=== PATIENT | female | born 1945 | race Caucasian/White ===

== ENCOUNTER 2016-04-25 13:55 | Emergency (ER) | payer MEDICARE, MEDICAID ==
[~2016-04-25 13:55] MED LIST: ADVA115A INH; ATOM25CA PO; BACL10TA2 PO; CITA20TA4 PO; CLAR10CA3 PO; FURO20TA2 PO; INSULADS SC; LISI-538 PO; METF500T PO; MOME50SP; NAPR500T2 PO; NEUR300C PO; NEUR600T PO; OXYB10TA PO; RANI1TAB6 PO; SIMV40TA2 PO; VITA-115 PO; VOLT1GEL24 TD; levaquin PO; simvistatin PO; vicodin PO
--- NOTE | 2016-04-25 15:56 | REP ---
Clinical: Chest pain . Comparison: 06/30/2014 . Findings: The mediastinum and cardiac silhouette are stable and within normal limits for portable technique. The lung rosales are clear without acute consolidation, effusion, or pneumothorax. Skeletal structures are intact. Impression: Normal portable chest x-ray Signed by Ilia Fitzpatrick MD 04/25/2016 03:47 P
[2016-04-25 16:01] LABS: BASO # 0.1 K/mm3 (0.0-0.2); EOS # 0.5 K/mm3 (0.0-0.50); EOS % 7.1 % (0.0-3.0); LARGE UNSTAINED CELL # 0.1 K/mm3 (0.0-0.4); LARGE UNSTAINED CELL % 1.5 % (0.0-4.0); LYMPH # 2.6 K/mm3 (1.5-4.5); LYMPH % 33.3 % (24.0-44.0); MEAN CORPUSCULAR HGB CONC 32.2 g/dl (32.0-36.5); MEAN CORPUSCULAR VOLUME 96.4 fl (80.0-96.0); MONO # 0.3 K/mm3 (0.0-0.8); MONO % 4.6 % (0.0-5.0); NEUTROPHILS # 3.9 K/mm3 (1.8-7.7); NEUTROPHILS % 52.5 % (36.0-66.0); PLATELET COUNT, AUTOMATED 240 k/mm3 (150-450); RED CELL DISTRIBUTION WIDTH 13.8 % (11.5-14.5); WHITE BLOOD COUNT 7.4 K/mm3 (4.0-10.0)
[2016-04-25 16:24] LABS: ANION GAP 9 MEQ/L (8-16); BLOOD UREA NITROGEN 13 MG/DL (7-18); CALCIUM LEVEL 8.9 MG/DL (8.8-10.2); CARBON DIOXIDE LEVEL 26 MEQ/L (21-32); CHLORIDE LEVEL 108 MEQ/L (98-107); CREATININE FOR GFR 1.07 MG/DL (0.55-1.02); GLOMERULAR FILTRATION RATE 54.1 (>45); GLUCOSE, FASTING 292 MG/DL (80-110); POTASSIUM SERUM 4.4 MEQ/L (3.5-5.1); SODIUM LEVEL 143 MEQ/L (136-145)
[2016-04-25] MEDS ORDERED: BICILLIN-CR 1,200,000 UNITS/2ML SYRINGE (J0558-12) As Ordered ONE (16:51)
--- NOTE | 2016-04-25 17:20 | EDDOCDS ---
Nurse's Notes [facility] Name: Cristina Dunn Age: 70 yrs Sex: Female : 1945 Arrival Date: 04/25/2016 Time: 13:55 Bed 5 Private MD: Irina Higgins ANP-BC Diagnosis: Acute streptococcal tonsillitis, unspecified Presentation: 04/25 14:14 Presenting complaint: Patient states: sore throat, runny nose ( couple of days). just srm feels offer. cough - non productive. hurts to take a deep breath. Presenting complaint: Patient states: dizziness started today. Risk factors: Stridor is not present. Drooling is not present. Shortness of breath is not present. Cellulitis is not present. Adult Sepsis Screening: The patient does not have new or worsening altered mentation. Patient's respiratory rate is less than 22. Systolic blood pressure is greater than 100. Patient has a qSOFA score of 0- Negative Sepsis Screen. Suicide/Homicide risk assessment- the patient denies having any suicidal and/or homicidal ideations and does not present with any other emotional, behavioral or mental health complaints. Status: Patient is not a health services information specialist or dependent. Transition of care: patient was not received from another setting of care. 14:14 Method Of Arrival: Walkin/Carried/Asstd srm 14:14 Acuity: SILVESTRE Level 4 srm 15:36 Acuity level changed due to complexity of care. kc3 15:36 Acuity: SILVESTRE Level 3 kc3 Triage Assessment: 14:19 General: Appears in no apparent distress, Behavior is appropriate for age, cooperative. srm Pain: Pain currently is 7 out of 10 on a pain scale. EENT: Reports sore throat. Historical: - Allergies: Protonix; - Home Meds: 1. baclofen 10 mg Oral tab 1 tab 3 times per day 2. diclofenac sodium 75 mg oral TbEC 1 tab 2 times per day 3. furosemide 20 mg Oral tab 1 tab once daily 4. Lantus 60 units Sub-Q soln daily 5. lisinopril 20 mg Oral tab 1 tab once daily 6. loratadine 10 mg Oral TbDL 1 tab once daily 7. meclizine 12.5 mg Oral tab TID prn 8. oxybutynin chloride 10 mg Oral tr24 1 tab once daily 9. ranitidine HCl 300 mg Oral cap 1 cap 2 times per day 10. Strattera 40 mg oral cap 1 cap once daily 11. simvastatin 10 mg Oral tab 1 tab once daily 12. fluoxetine 40 mg oral cap once daily 13. gabapentin 400 mg oral cap 2 cap IN AM 14. gabapentin 400 mg oral tab EVENING 15. Flonase 50 mcg/actuation Nasal spsn 1 spray 2 times per day STARTED 04/21/16 16. hydrocodone-acetaminophen 5-325 mg Oral tab 1 tab every 4-6 hours PRN 17. Jardiance 10 mg oral tab 1 tab once daily 18. ProAir HFA 90 mcg/actuation inhalation HFAA 2 puffs every 4-6 hours - PMHx: Anxiety; Asthma; back pain; COPD; Diabetes - IDDM: controlled; GERD; Kidney stones; PTSD; Vertigo; Ear Infections, frequent; - PSHx: back surgery; left oopherectomy salpingectomy; left tendon surgery; - Social history: Smoking status: Patient states was never smoker of tobacco. No barriers to communication noted, The patient speaks fluent Kazakh, Speaks appropriately for age. - Family history: Not pertinent. - : The pt / caregiver states he / she is not on anticoagulants. Home medication list is obtained from the patient. - Exposure Risk Screening:: None identified. Screenin:24 Screening information is obtained from the patient. Fall risk: No risks identified. kc3 Assistance ADL's: requires no assistance with activities of daily living. Abuse/DV Screen: The patient / caregiver reports he/she is:. Nutritional screening: No deficits noted. Advance Directives: Currently, there is a health care proxy, Naila Garcia, daughter. home support is adequate. Assessment: 15:22 General: Appears in no apparent distress, uncomfortable, Behavior is appropriate for kc3 age, cooperative. Pain: Location: chest and sore throat Pain currently is 7 out of 10 on a pain scale. EENT: Throat is clear. Respiratory: Airway is patent Respiratory effort is even, unlabored, Respiratory pattern is regular, symmetrical. Respiratory: Reports cough that is non-productive. Derm: Skin is pink, warm & dry. Musculoskeletal: Circulation, motion, and sensation intact. 15:29 Cardiovascular: Chest pain is described as Pain is 7 out of 10 on a pain scale. quality kc3 is heaviness, Pt reports pain began "about an hour ago. I think it is from all my coughing." Dr. Anton notified. . 16:14 Adult Sepsis Screening: The patient does not have new or worsening altered mentation. kc3 Patient's respiratory rate is less than 22. Systolic blood pressure is greater than 100. Patient has a qSOFA score of 0- Negative Sepsis Screen. 16:45 General: Appears in no apparent distress, comfortable, Behavior is appropriate for age, kc3 cooperative. Pain: Location: neck. EENT: Reports nasal congestion nasal discharge that is green sore throat. Cardiovascular: Rhythm is sinus rhythm. Respiratory: Respiratory effort is even, unlabored, Respiratory pattern is regular, symmetrical. Derm: No deficits noted. 17:17 General: Appears in no apparent distress, comfortable, Behavior is appropriate for age, kc3 cooperative. Neurological: Level of Consciousness is awake, alert, obeys commands, Oriented to person, place, time. Cardiovascular: Rhythm is sinus rhythm. Respiratory: Respiratory effort is even, unlabored, Respiratory pattern is regular, symmetrical. Derm: Skin is pink, warm & dry. Musculoskeletal: Circulation, motion, and sensation intact. Vital Signs: 13:58 BP 138 / 65; Pulse 76; Resp 18 S; Temp 98.0(O); Pulse Ox 96% on R/A; Weight 104.33 kg gr2 (R); Height 5 ft. 5 in. (165.10 cm) (R); Pain 2/10; 15:36 BP 125 / 57 (auto/); kc3 15:36 Pulse 66 MON; Pulse Ox 96% ; kc3 17:18 BP 138 / 77; Pulse 64; Resp 18; Temp 97.1(O); Pulse Ox 97% on R/A; kc3 13:58 Body Mass Index 38.27 (104.33 kg, 165.10 cm) gr2 Vitals: 13:58 Log In Time: April 25, 2016 at 13:58. gr2 15:46 Strep Screen is obtained and tested: Positive. nb2 ED Course: 13:57 Patient visited by Ronda Padilla. gr2 13:57 Patient moved to Waiting gr2 13:58 Irina Higgins is Private Physician. gr2 13:59 Patient visited by Ronda Padilla. gr2 13:59 Patient moved to Pre RCE gr2 14:15 Triage Initiated srm 14:43 Mylene Castro,RN is Primary Nurse. ct3 14:43 Patient moved to 5 ct3 15:15 Judy Anton MD is Attending Physician. fg 15:22 Patient visited by Mylene Castro RN. kc3 15:33 EKG done. (by ED staff). Reviewed by Judy Anton MD. dem1 15:37 tie carrier on. Pulse ox on. NIBP on. dem1 15:38 Patient visited by Heladio Contreras. dem1 15:47 Patient visited by Mary Beth Fernandez. nb2 15:53 Basic Metabolic Profile Sent. kc3 15:53 CBC with Diff Sent. kc3 15:53 Cardiac Injury Profile Sent. kc3 15:53 Troponin Sent. kc3 15:53 Inserted saline lock: 20 gauge in right antecubital area and blood collected. The kc3 patient tolerated the procedure well. 15:54 Patient visited by Mylene Castro RN. kc3 15:54 The patient / caregiver is instructed regarding the plan of care and ED course. kc3 16:10 [facility] [place] Payment Agreement was scanned into [employer] and attached to record. zo 16:20 portable chest Returned. EDMS 16:35 Patient visited by Judy Anton MD. fg 16:44 Irina Higgins is Referral Physician. fg 17:03 Patient visited by Mylene Castro RN. kc3 17:18 Discontinued IV lock intact, bleeding controlled, pressure dressing applied, No kc3 redness/swelling at site. No procedures done that require assistance. Administered Medications: 16:56 Drug: Penicillin G Proc & Benzathine 1.2 mmu [penicillin G benzathine and procaine kc3 1,200,000 unit/2 mL IM syringe (1.2 mmu)] Route: IM; Site: left gluteus; Order Results: Lab Order: Basic Metabolic Profile; SPEC'M 04/25/16 15:40 Test: GLUCOSE, FASTING; Value: 292; Range: 80-110; Abnormal: Above high normal; Units: MG/DL; Status: F Test: BLOOD UREA NITROGEN; Value: 13; Range: 7-18; Units: MG/DL; Status: F Test: CREATININE FOR GFR; Value: 1.07; Range: 0.55-1.02; Abnormal: Above high normal; Units: MG/DL; Status: F Test: GLOMERULAR FILTRATION RATE; Value: 54.1; Range: >45; Status: F Test: SODIUM LEVEL; Value: 143; Range: 136-145; Units: MEQ/L; Status: F Test: POTASSIUM SERUM; Value: 4.4; Range: 3.5-5.1; Units: MEQ/L; Status: F Test: CHLORIDE LEVEL; Value: 108; Range: 98-107; Abnormal: Above high normal; Units: MEQ/L; Status: F Test: CARBON DIOXIDE LEVEL; Value: 26; Range: 21-32; Units: MEQ/L; Status: F Test: ANION GAP; Value: 9; Range: 8-16; Units: MEQ/L; Status: F Test: CALCIUM LEVEL; Value: 8.9; Range: 8.8-10.2; Units: MG/DL; Status: F Test Note: ; Units are mL/min/1.73 m2 Chronic Kidney Disease Staging per NKF: Stage I & II GFR >=60 Normal to Mildly Decreased Stage III GFR 30-59 Moderately Decreased Stage IV GFR 15-29 Severely Decreased Stage V GFR <15 Very Little GFR Left ESRD GFR <15 on INSURANCE CLAIMS ASSISTANT Lab Order: CBC with Diff; SPEC'M 04/25/16 15:40 Test: WHITE BLOOD COUNT; Value: 7.4; Range: 4.0-10.0; Units: K/mm3; Status: F Test: RED BLOOD COUNT; Value: 4.42; Range: 4.00-5.40; Units: M/mm3; Status: F Test: HEMOGLOBIN; Value: 13.7; Range: 12.0-16.0; Units: g/dl; Status: F Test: HEMATOCRIT; Value: 42.6; Range: 36.0-47.0; Units: %; Status: F Test: MEAN CORPUSCULAR VOLUME; Value: 96.4; Range: 80.0-96.0; Abnormal: Above high normal; Units: fl; Status: F Test: MEAN CORPUSCULAR HEMOGLOBIN; Value: 31.0; Range: 27.0-33.0; Units: pg; Status: F Test: MEAN CORPUSCULAR HGB CONC; Value: 32.2; Range: 32.0-36.5; Units: g/dl; Status: F Test: RED CELL DISTRIBUTION WIDTH; Value: 13.8; Range: 11.5-14.5; Units: %; Status: F Test: PLATELET COUNT, AUTOMATED; Value: 240; Range: 150-450; Units: k/mm3; Status: F Test: NEUTROPHILS %; Value: 52.5; Range: 36.0-66.0; Units: %; Status: F Test: LYMPH %; Value: 33.3; Range: 24.0-44.0; Units: %; Status: F Test: MONO %; Value: 4.6; Range: 0.0-5.0; Units: %; Status: F Test: EOS %; Value: 7.1; Range: 0.0-3.0; Abnormal: Above high normal; Units: %; Status: F Test: BASO %; Value: 1.0; Range: 0.0-1.0; Units: %; Status: F Test: LARGE UNSTAINED CELL %; Value: 1.5; Range: 0.0-4.0; Units: %; Status: F Test: NEUTROPHILS #; Value: 3.9; Range: 1.8-7.7; Units: K/mm3; Status: F Test: LYMPH #; Value: 2.6; Range: 1.5-4.5; Units: K/mm3; Status: F Test: MONO #; Value: 0.3; Range: 0.0-0.8; Units: K/mm3; Status: F Test: EOS #; Value: 0.5; Range: 0.0-0.50; Units: K/mm3; Status: F Test: BASO #; Value: 0.1; Range: 0.0-0.2; Units: K/mm3; Status: F Test: LARGE UNSTAINED CELL #; Value: 0.1; Range: 0.0-0.4; Units: K/mm3; Status: F Lab Order: Cardiac Injury Profile; SPEC'M 04/25/16 15:40 Test: CPK CREATINE PHOSPHOKINASE; Value: 115; Range: 26-192; Units: U/L; Status: F Test: CK-MB VALUE MASS; Value: 3.0; Range: 0.0-3.6; Units: NG/ML; Status: F Test: MB/CK RELATIVE INDEX; Value: 2.60; Range: < OR =4; Status: F Test Note: ; DIAGNOSIS CRITERIA MMB ng/ml Relative Index (RI) NON-AMI < or = 5 N/A KUNZ ZONE > 5 < or = 4 AMI > 5 > 4 Lab Order: Troponin; SPEC'M 04/25/16 15:40 Test: TROPONIN I; Value: < 0.02; Range: < 0.10; Units: NG/ML; Status: F Test Note: ; Troponin I Reference Interval for [employer] LOCI: 99th Percentile= 0.00-0.045 ng/ml Risk Stratification: <= 0.10 ng/ml Decreased Risk for Adverse Clinical Events. 0.10-1.50 ng/ml Increased Risk for Adverse Clinical Events. Evaluation of additional criterion and/or repeat testing in 2-6 hours is suggested to rule out myocardial damage. >= 1.50 ng/ml Indicative of Myocardial Injury. Radiology Order: portable chest Test: portable chest REASON FOR EXAMINATION: Chest Pain; Clinical: Chest pain .; ; Comparison: 06/30/2014 .; ; Findings:; The mediastinum and cardiac silhouette are stable and within normal limits for; portable technique. The lung rosales are clear without acute consolidation,; effusion, or pneumothorax. Skeletal structures are intact.; ; Impression:; Normal portable chest x-ray; ; ; Signed by; Ilia Fitzpatrick MD 04/25/2016 03:47 P; Outcome: 16:44 Discharge ordered by Provider. fg 17:19 Discharge Assessment: Patient awake, alert and oriented x 3. No cognitive and/or kc3 functional deficits noted. Patient verbalized understanding of disposition instructions. patient administered narcotics - no. The following High Risk Discharge criteria are identified: None. Condition: stable. Discharge instructions given to patient, Instructed on discharge instructions, follow up and referral plans. Demonstrated understanding of instructions, Pt was receptive of discharge instructions/ teaching. No special radiology studies were completed. Property :Personal belongings accompany Pt. 17:19 Patient left the ED. kc3 Signatures: Dispatcher [employer] EDMS Dalia Gray, NUHA RN srm Kedar, Cele zo Neyda Roberts, DIRECTOR TALENT ACQUISITION DIRECTOR TALENT ACQUISITION ct3 Heladio Contreras dem1 Ronda Padilla gr2 Judy Anton MD MD fg Crane, Kelsi,RN RN kc3 Mary Beth Fernandez nb2 Corrections: (The following items were deleted from the chart) 14: 14:19 Home Meds: Fluoxetine 30 mg Oral once daily; srm srm 14:26 14:19 Home Meds: gabapentin 300 mg Oral cap 2 caps in AM; srm srm 14:26 14:19 Home Meds: gabapentin 300 mg Oral cap evening; srm srm 15:30 15:22 Pain: Location: rib pain and sore throat Pain currently is 7 out of 10 on a pain kc3 scale. kc3 MTDD
--- NOTE | 2016-04-25 17:20 | EDDOCDS ---
Physician Documentation [facility] Name: Cristina Dunn Age: 70 yrs Sex: Female : 1945 Arrival Date: 04/25/2016 Time: 13:55 Bed 5 Private MD: [facility] Disposition: 04/25/16 16:44 Discharged to Home/Self Care. Impression: Acute streptococcal tonsillitis, unspecified. - Condition is Stable. - Discharge Instructions: Strep Throat. - Medication Reconciliation, Local Pharmacy Hours form. - Follow up: Irina Higgins; When: Call to arrange an appointment; Reason: Continuance of care. - Problem is new. - Symptoms have improved. Historical: - Allergies: Protonix; - Home Meds: 1. baclofen 10 mg Oral tab 1 tab 3 times per day 2. diclofenac sodium 75 mg oral TbEC 1 tab 2 times per day 3. furosemide 20 mg Oral tab 1 tab once daily 4. Lantus 60 units Sub-Q soln daily 5. lisinopril 20 mg Oral tab 1 tab once daily 6. loratadine 10 mg Oral TbDL 1 tab once daily 7. meclizine 12.5 mg Oral tab TID prn 8. oxybutynin chloride 10 mg Oral tr24 1 tab once daily 9. ranitidine HCl 300 mg Oral cap 1 cap 2 times per day 10. Strattera 40 mg oral cap 1 cap once daily 11. simvastatin 10 mg Oral tab 1 tab once daily 12. fluoxetine 40 mg oral cap once daily 13. gabapentin 400 mg oral cap 2 cap IN AM 14. gabapentin 400 mg oral tab EVENING 15. Flonase 50 mcg/actuation Nasal spsn 1 spray 2 times per day STARTED 04/21/16 16. hydrocodone-acetaminophen 5-325 mg Oral tab 1 tab every 4-6 hours PRN 17. Jardiance 10 mg oral tab 1 tab once daily 18. ProAir HFA 90 mcg/actuation inhalation HFAA 2 puffs every 4-6 hours - PMHx: Anxiety; Asthma; back pain; COPD; Diabetes - IDDM: controlled; GERD; Kidney stones; PTSD; Vertigo; Ear Infections, frequent; - PSHx: back surgery; left oopherectomy salpingectomy; left tendon surgery; - Social history: Smoking status: Patient states was never smoker of tobacco. No barriers to communication noted, The patient speaks fluent Niuean, Speaks appropriately for age. - Family history: Not pertinent. - : The pt / caregiver states he / she is not on anticoagulants. Home medication list is obtained from the patient. - Exposure Risk Screening:: None identified. Vital Signs: 04/25 13:58 BP 138 / 65; Pulse 76; Resp 18 S; Temp 98.0(O); Pulse Ox 96% on R/A; Weight 104.33 kg / gr2 230.01 lbs (R); Height 5 ft. 5 in. (165.10 cm) (R); Pain 2/10; 15:36 BP 125 / 57 (auto/); kc3 15:36 Pulse 66 MON; Pulse Ox 96% ; kc3 17:18 BP 138 / 77; Pulse 64; Resp 18; Temp 97.1(O); Pulse Ox 97% on R/A; kc3 13:58 Body Mass Index 38.27 (104.33 kg, 165.10 cm) gr2 MDM: 15:27 Drug Safety Physician/Pulse Ox/q 30 min VS ordered. fg 15:27 IV Saline Lock ordered. fg 15:27 Rhythm Strip to chart ordered. fg 15:27 Undress patient appropriately for examination ordered. fg 15:27 Strep Screen, Nursing ordered. fg 15:28 portable chest Ordered. EDMS 15:28 Basic Metabolic Profile Ordered. EDMS 15:28 CBC with Diff Ordered. EDMS 15:28 Cardiac Injury Profile Ordered. EDMS 15:28 Troponin Ordered. EDMS 15:28 ECG WITH READING ER PHYS+CARDIAG ordered. EDMS 16:10 [facility] Payment Agreement was scanned into [employer] and attached to record. zo 16:36 Financial registration complete. zo 16:44 Penicillin G Proc & Benzathine 1.2 mmu IM once ordered. fg Administered Medications: 16:56 Drug: Penicillin G Proc & Benzathine 1.2 mmu [penicillin G benzathine and procaine kc3 1,200,000 unit/2 mL IM syringe (1.2 mmu)] Route: IM; Site: left gluteus; Signatures: Dispatcher [employer] EDMS Dalia Gray RN RN srm Olin, Zoeann zo Judy Anton MD MD fg Mylene Castro RN RN kc3 The chart was reviewed and I authenticate all verbal orders and agree with the evaluation and treatment provided.Corrections: (The following items were deleted from the chart) 14: 14:19 Home Meds: Fluoxetine 30 mg Oral once daily; srm srm 14:26 14:19 Home Meds: gabapentin 300 mg Oral cap 2 caps in AM; srm srm 14:26 14:19 Home Meds: gabapentin 300 mg Oral cap evening; srm srm Attachments: 16:10 [facility] Payment Agreement zo MTDD
--- NOTE | 2016-04-26 08:09 | ECGEPIP ---
Stationary ECG Study [facility] - ED Test Date: 2016-04-25 Pat Name: BEKAH MANZANARES Department: Room: - Gender: F Card Reader: malachi : 1945 Requested By: DILCIA Choi Order Number: [id number] Reading MD: Kaelyn Sr Measurements Intervals [place] Rate: 63 P: 29 DC: 187 QRS: 2 QRSD: 101 T: 21 QT: 419 QTc: 431 Interpretive Statements SINUS RHYTHM DELAYED R PROGRESSION NSTTW ABNORMALITY SIMILAR 06/30/14 Electronically Signed On 04-26-2016 8:09:47 EST by Kaelyn Sr
--- NOTE | 2016-04-27 18:20 | EDDOCDS ---
Physician Documentation [facility] Name: Cristina Dunn Age: 70 yrs Sex: Female : 1945 Arrival Date: 04/25/2016 Time: 13:55 Bed 5 Private MD[facility] Disposition: 04/25/16 16:44 Discharged to Home/Self Care. Impression: Acute streptococcal tonsillitis, unspecified. - Condition is Stable. - Discharge Instructions: Strep Throat. - Medication Reconciliation, Local Pharmacy Hours form. - Follow up: Irina Higgins; When: Call to arrange an appointment; Reason: Continuance of care. - Problem is new. - Symptoms have improved. Historical: - Allergies: Protonix; - Home Meds: 1. baclofen 10 mg Oral tab 1 tab 3 times per day 2. diclofenac sodium 75 mg oral TbEC 1 tab 2 times per day 3. furosemide 20 mg Oral tab 1 tab once daily 4. Lantus 60 units Sub-Q soln daily 5. lisinopril 20 mg Oral tab 1 tab once daily 6. loratadine 10 mg Oral TbDL 1 tab once daily 7. meclizine 12.5 mg Oral tab TID prn 8. oxybutynin chloride 10 mg Oral tr24 1 tab once daily 9. ranitidine HCl 300 mg Oral cap 1 cap 2 times per day 10. Strattera 40 mg oral cap 1 cap once daily 11. simvastatin 10 mg Oral tab 1 tab once daily 12. fluoxetine 40 mg oral cap once daily 13. gabapentin 400 mg oral cap 2 cap IN AM 14. gabapentin 400 mg oral tab EVENING 15. Flonase 50 mcg/actuation Nasal spsn 1 spray 2 times per day STARTED 04/21/16 16. hydrocodone-acetaminophen 5-325 mg Oral tab 1 tab every 4-6 hours PRN 17. Jardiance 10 mg oral tab 1 tab once daily 18. ProAir HFA 90 mcg/actuation inhalation HFAA 2 puffs every 4-6 hours - PMHx: Anxiety; Asthma; back pain; COPD; Diabetes - IDDM: controlled; GERD; Kidney stones; PTSD; Vertigo; Ear Infections, frequent; - PSHx: back surgery; left oopherectomy salpingectomy; left tendon surgery; - Social history: Smoking status: Patient states was never smoker of tobacco. No barriers to communication noted, The patient speaks fluent [place] Island[place], Speaks appropriately for age. - Family history: Not pertinent. - : The pt / caregiver states he / she is not on anticoagulants. Home medication list is obtained from the patient. - Exposure Risk Screening:: None identified. Vital Signs: 04/25 13:58 BP 138 / 65; Pulse 76; Resp 18 S; Temp 98.0(O); Pulse Ox 96% on R/A; Weight 104.33 kg / gr2 230.01 lbs (R); Height 5 ft. 5 in. (165.10 cm) (R); Pain 2/10; 15:36 BP 125 / 57 (auto/); kc3 15:36 Pulse 66 MON; Pulse Ox 96% ; kc3 17:18 BP 138 / 77; Pulse 64; Resp 18; Temp 97.1(O); Pulse Ox 97% on R/A; kc3 13:58 Body Mass Index 38.27 (104.33 kg, 165.10 cm) gr2 MDM: 15:27 Epic Director/Pulse Ox/q 30 min VS ordered. fg 15:27 IV Saline Lock ordered. fg 15:27 Rhythm Strip to chart ordered. fg 15:27 Undress patient appropriately for examination ordered. fg 15:27 Strep Screen, Nursing ordered. fg 15:28 portable chest Ordered. EDMS 15:28 Basic Metabolic Profile Ordered. EDMS 15:28 CBC with Diff Ordered. EDMS 15:28 Cardiac Injury Profile Ordered. EDMS 15:28 Troponin Ordered. EDMS 15:28 ECG WITH READING ER PHYS+CARDIAG ordered. EDMS 16:10 [facility] Payment Agreement was scanned into [employer] and attached to record. zo 16:36 Financial registration complete. zo 16:44 Penicillin G Proc & Benzathine 1.2 mmu IM once ordered. fg 04/26 03:59 T-Sheet-- Draft Copy was scanned into [employer] and attached to record. hs2 10:53 ECG/EKG was scanned into [employer] and attached to record. gb Administered Medications: 04/25 16:56 Drug: Penicillin G Proc & Benzathine 1.2 mmu [penicillin G benzathine and procaine kc3 1,200,000 unit/2 mL IM syringe (1.2 mmu)] Route: IM; Site: left gluteus; Signatures: Dispatcher [employer] EDDalia Pinedo RN RN srm Makayla Kennedy, Reg Reg gb Cele Thacker Frances, MD MD fg Crane, Kelsi, RN RN kc3 Jannet Rubalcava, Reg Reg hs2 The chart was reviewed and I authenticate all verbal orders and agree with the evaluation and treatment provided.Corrections: (The following items were deleted from the chart) 14:26 14:19 Home Meds: Fluoxetine 30 mg Oral once daily; srm srm 14:26 14:19 Home Meds: gabapentin 300 mg Oral cap 2 caps in AM; srm srm 14:26 14:19 Home Meds: gabapentin 300 mg Oral cap evening; srm srm Attachments: 16:10 [facility] Payment Agreement zo 04/26 03:59 T-Sheet-- Draft Copy hs2 10:53 ECG/EKG gb Chart Complete MTDD
--- NOTE | 2016-04-27 18:20 | EDDOCDS ---
Nurse's Notes [facility] Name: Cristina Dunn Age: 70 yrs Sex: Female : 1945 Arrival Date: 04/25/2016 Time: 13:55 Bed 5 Private MD: Irina Higgins ANP-BC Diagnosis: Acute streptococcal tonsillitis, unspecified Presentation: 04/25 14:14 Presenting complaint: Patient states: sore throat, runny nose ( couple of days). just srm feels offer. cough - non productive. hurts to take a deep breath. Presenting complaint: Patient states: dizziness started today. Risk factors: Stridor is not present. Drooling is not present. Shortness of breath is not present. Cellulitis is not present. Adult Sepsis Screening: The patient does not have new or worsening altered mentation. Patient's respiratory rate is less than 22. Systolic blood pressure is greater than 100. Patient has a qSOFA score of 0- Negative Sepsis Screen. Suicide/Homicide risk assessment- the patient denies having any suicidal and/or homicidal ideations and does not present with any other emotional, behavioral or mental health complaints. 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 Transition of care: patient was not received from another setting of care. 14:14 Method Of Arrival: Walkin/Carried/Asstd srm 14:14 Acuity: SILVESTRE Level 4 srm 15:36 Acuity level changed due to complexity of care. kc3 15:36 Acuity: SILVESTRE Level 3 kc3 Triage Assessment: 14:19 General: Appears in no apparent distress, Behavior is appropriate for age, cooperative. srm Pain: Pain currently is 7 out of 10 on a pain scale. EENT: Reports sore throat. Historical: - Allergies: Protonix; - Home Meds: 1. baclofen 10 mg Oral tab 1 tab 3 times per day 2. diclofenac sodium 75 mg oral TbEC 1 tab 2 times per day 3. furosemide 20 mg Oral tab 1 tab once daily 4. Lantus 60 units Sub-Q soln daily 5. lisinopril 20 mg Oral tab 1 tab once daily 6. loratadine 10 mg Oral TbDL 1 tab once daily 7. meclizine 12.5 mg Oral tab TID prn 8. oxybutynin chloride 10 mg Oral tr24 1 tab once daily 9. ranitidine HCl 300 mg Oral cap 1 cap 2 times per day 10. Strattera 40 mg oral cap 1 cap once daily 11. simvastatin 10 mg Oral tab 1 tab once daily 12. fluoxetine 40 mg oral cap once daily 13. gabapentin 400 mg oral cap 2 cap IN AM 14. gabapentin 400 mg oral tab EVENING 15. Flonase 50 mcg/actuation Nasal spsn 1 spray 2 times per day STARTED 04/21/16 16. hydrocodone-acetaminophen 5-325 mg Oral tab 1 tab every 4-6 hours PRN 17. Jardiance 10 mg oral tab 1 tab once daily 18. ProAir HFA 90 mcg/actuation inhalation HFAA 2 puffs every 4-6 hours - PMHx: Anxiety; Asthma; back pain; COPD; Diabetes - IDDM: controlled; GERD; Kidney stones; PTSD; Vertigo; Ear Infections, frequent; - PSHx: back surgery; left oopherectomy salpingectomy; left tendon surgery; - Social history: Smoking status: Patient states was never smoker of tobacco. No barriers to communication noted, The patient speaks fluent Yi, Speaks appropriately for age. - Family history: Not pertinent. - : The pt / caregiver states he / she is not on anticoagulants. Home medication list is obtained from the patient. - Exposure Risk Screening:: None identified. Screenin:24 Screening information is obtained from the patient. Fall risk: No risks identified. kc3 Assistance ADL's: requires no assistance with activities of daily living. Abuse/DV Screen: The patient / caregiver reports he/she is:. Nutritional screening: No deficits noted. Advance Directives: Currently, there is a health care proxy, Naila Garcia, daughter. home support is adequate. Assessment: 15:22 General: Appears in no apparent distress, uncomfortable, Behavior is appropriate for kc3 age, cooperative. Pain: Location: chest and sore throat Pain currently is 7 out of 10 on a pain scale. EENT: Throat is clear. Respiratory: Airway is patent Respiratory effort is even, unlabored, Respiratory pattern is regular, symmetrical. Respiratory: Reports cough that is non-productive. Derm: Skin is pink, warm & dry. Musculoskeletal: Circulation, motion, and sensation intact. 15:29 Cardiovascular: Chest pain is described as Pain is 7 out of 10 on a pain scale. quality kc3 is heaviness, Pt reports pain began "about an hour ago. I think it is from all my coughing." Dr. Anton notified. . 16:14 Adult Sepsis Screening: The patient does not have new or worsening altered mentation. kc3 Patient's respiratory rate is less than 22. Systolic blood pressure is greater than 100. Patient has a qSOFA score of 0- Negative Sepsis Screen. 16:45 General: Appears in no apparent distress, comfortable, Behavior is appropriate for age, kc3 cooperative. Pain: Location: neck. EENT: Reports nasal congestion nasal discharge that is green sore throat. Cardiovascular: Rhythm is sinus rhythm. Respiratory: Respiratory effort is even, unlabored, Respiratory pattern is regular, symmetrical. Derm: No deficits noted. 17:17 General: Appears in no apparent distress, comfortable, Behavior is appropriate for age, kc3 cooperative. Neurological: Level of Consciousness is awake, alert, obeys commands, Oriented to person, place, time. Cardiovascular: Rhythm is sinus rhythm. Respiratory: Respiratory effort is even, unlabored, Respiratory pattern is regular, symmetrical. Derm: Skin is pink, warm & dry. Musculoskeletal: Circulation, motion, and sensation intact. Vital Signs: 13:58 BP 138 / 65; Pulse 76; Resp 18 S; Temp 98.0(O); Pulse Ox 96% on R/A; Weight 104.33 kg gr2 (R); Height 5 ft. 5 in. (165.10 cm) (R); Pain 2/10; 15:36 BP 125 / 57 (auto/); kc3 15:36 Pulse 66 MON; Pulse Ox 96% ; kc3 17:18 BP 138 / 77; Pulse 64; Resp 18; Temp 97.1(O); Pulse Ox 97% on R/A; kc3 13:58 Body Mass Index 38.27 (104.33 kg, 165.10 cm) gr2 Vitals: 13:58 Log In Time: April 25, 2016 at 13:58. gr2 15:46 Strep Screen is obtained and tested: Positive. nb2 ED Course: 13:57 Patient visited by Ronda Padilla. gr2 13:57 Patient moved to Waiting gr2 13:58 Irina Higgins is Private Physician. gr2 13:59 Patient visited by Ronda Padilla. gr2 13:59 Patient moved to Pre RCE gr2 14:15 Triage Initiated srm 14:43 Mylene Castro,RN is Primary Nurse. ct3 14:43 Patient moved to 5 ct3 15:15 Judy Anton MD is Attending Physician. fg 15:22 Patient visited by Mylene Castro RN. kc3 15:33 EKG done. (by ED staff). Reviewed by Judy Anton MD. dem1 15:37 clinical research monitor on. Pulse ox on. NIBP on. dem1 15:38 Patient visited by Heladio Contreras. dem1 15:47 Patient visited by Mary Beth Fernandez. nb2 15:53 Basic Metabolic Profile Sent. kc3 15:53 CBC with Diff Sent. kc3 15:53 Cardiac Injury Profile Sent. kc3 15:53 Troponin Sent. kc3 15:53 Inserted saline lock: 20 gauge in right antecubital area and blood collected. The kc3 patient tolerated the procedure well. 15:54 Patient visited by Mylene Castro RN. kc3 15:54 The patient / caregiver is instructed regarding the plan of care and ED course. kc3 16:10 [facility] Payment Agreement was scanned into [employer] and attached to record. zo 16:20 portable chest Returned. EDMS 16:35 Patient visited by Judy Anton MD. fg 16:44 Irina Higgins is Referral Physician. fg 17:03 Patient visited by Mylene Castro RN. kc3 17:18 Discontinued IV lock intact, bleeding controlled, pressure dressing applied, No kc3 redness/swelling at site. No procedures done that require assistance. 04/26 03:59 T-Sheet-- Draft Copy was scanned into [employer] and attached to record. hs2 08:36 EKG-ADULT Returned. EDMS 10:53 ECG/EKG was scanned into [employer] and attached to record. gb Administered Medications: 04/25 16:56 Drug: Penicillin G Proc & Benzathine 1.2 mmu [penicillin G benzathine and procaine kc3 1,200,000 unit/2 mL IM syringe (1.2 mmu)] Route: IM; Site: left gluteus; Order Results: Lab Order: Basic Metabolic Profile; SPEC'M 04/25/16 15:40 Test: GLUCOSE, FASTING; Value: 292; Range: 80-110; Abnormal: Above high normal; Units: MG/DL; Status: F Test: BLOOD UREA NITROGEN; Value: 13; Range: 7-18; Units: MG/DL; Status: F Test: CREATININE FOR GFR; Value: 1.07; Range: 0.55-1.02; Abnormal: Above high normal; Units: MG/DL; Status: F Test: GLOMERULAR FILTRATION RATE; Value: 54.1; Range: >45; Status: F Test: SODIUM LEVEL; Value: 143; Range: 136-145; Units: MEQ/L; Status: F Test: POTASSIUM SERUM; Value: 4.4; Range: 3.5-5.1; Units: MEQ/L; Status: F Test: CHLORIDE LEVEL; Value: 108; Range: 98-107; Abnormal: Above high normal; Units: MEQ/L; Status: F Test: CARBON DIOXIDE LEVEL; Value: 26; Range: 21-32; Units: MEQ/L; Status: F Test: ANION GAP; Value: 9; Range: 8-16; Units: MEQ/L; Status: F Test: CALCIUM LEVEL; Value: 8.9; Range: 8.8-10.2; Units: MG/DL; Status: F Test Note: ; Units are mL/min/1.73 m2 Chronic Kidney Disease Staging per NKF: Stage I & II GFR >=60 Normal to Mildly Decreased Stage III GFR 30-59 Moderately Decreased Stage IV GFR 15-29 Severely Decreased Stage V GFR <15 Very Little GFR Left ESRD GFR <15 on [employer] Lab Order: CBC with Diff; SPEC'M 04/25/16 15:40 Test: WHITE BLOOD COUNT; Value: 7.4; Range: 4.0-10.0; Units: K/mm3; Status: F Test: RED BLOOD COUNT; Value: 4.42; Range: 4.00-5.40; Units: M/mm3; Status: F Test: HEMOGLOBIN; Value: 13.7; Range: 12.0-16.0; Units: g/dl; Status: F Test: HEMATOCRIT; Value: 42.6; Range: 36.0-47.0; Units: %; Status: F Test: MEAN CORPUSCULAR VOLUME; Value: 96.4; Range: 80.0-96.0; Abnormal: Above high normal; Units: fl; Status: F Test: MEAN CORPUSCULAR HEMOGLOBIN; Value: 31.0; Range: 27.0-33.0; Units: pg; Status: F Test: MEAN CORPUSCULAR HGB CONC; Value: 32.2; Range: 32.0-36.5; Units: g/dl; Status: F Test: RED CELL DISTRIBUTION WIDTH; Value: 13.8; Range: 11.5-14.5; Units: %; Status: F Test: PLATELET COUNT, AUTOMATED; Value: 240; Range: 150-450; Units: k/mm3; Status: F Test: NEUTROPHILS %; Value: 52.5; Range: 36.0-66.0; Units: %; Status: F Test: LYMPH %; Value: 33.3; Range: 24.0-44.0; Units: %; Status: F Test: MONO %; Value: 4.6; Range: 0.0-5.0; Units: %; Status: F Test: EOS %; Value: 7.1; Range: 0.0-3.0; Abnormal: Above high normal; Units: %; Status: F Test: BASO %; Value: 1.0; Range: 0.0-1.0; Units: %; Status: F Test: LARGE UNSTAINED CELL %; Value: 1.5; Range: 0.0-4.0; Units: %; Status: F Test: NEUTROPHILS #; Value: 3.9; Range: 1.8-7.7; Units: K/mm3; Status: F Test: LYMPH #; Value: 2.6; Range: 1.5-4.5; Units: K/mm3; Status: F Test: MONO #; Value: 0.3; Range: 0.0-0.8; Units: K/mm3; Status: F Test: EOS #; Value: 0.5; Range: 0.0-0.50; Units: K/mm3; Status: F Test: BASO #; Value: 0.1; Range: 0.0-0.2; Units: K/mm3; Status: F Test: LARGE UNSTAINED CELL #; Value: 0.1; Range: 0.0-0.4; Units: K/mm3; Status: F Lab Order: Cardiac Injury Profile; SPEC'M 04/25/16 15:40 Test: CPK CREATINE PHOSPHOKINASE; Value: 115; Range: 26-192; Units: U/L; Status: F Test: CK-MB VALUE MASS; Value: 3.0; Range: 0.0-3.6; Units: NG/ML; Status: F Test: MB/CK RELATIVE INDEX; Value: 2.60; Range: < OR =4; Status: F Test Note: ; DIAGNOSIS CRITERIA MMB ng/ml Relative Index (RI) NON-AMI < or = 5 N/A KUNZ ZONE > 5 < or = 4 AMI > 5 > 4 Lab Order: Troponin; SPEC'M 04/25/16 15:40 Test: TROPONIN I; Value: < 0.02; Range: < 0.10; Units: NG/ML; Status: F Test Note: ; Troponin I Reference Interval for [employer] - Recurrence Backoffice LOCI: 99th Percentile= 0.00-0.045 ng/ml Risk Stratification: <= 0.10 ng/ml Decreased Risk for Adverse Clinical Events. 0.10-1.50 ng/ml Increased Risk for Adverse Clinical Events. Evaluation of additional criterion and/or repeat testing in 2-6 hours is suggested to rule out myocardial damage. >= 1.50 ng/ml Indicative of Myocardial Injury. Radiology Order: portable chest Test: portable chest REASON FOR EXAMINATION: Chest Pain; Clinical: Chest pain .; ; Comparison: 06/30/2014 .; ; Findings:; The mediastinum and cardiac silhouette are stable and within normal limits for; portable technique. The lung rosales are clear without acute consolidation,; effusion, or pneumothorax. 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 fg 17:19 Discharge Assessment: Patient awake, alert and oriented x 3. No cognitive and/or kc3 functional deficits noted. Patient verbalized understanding of disposition instructions. patient administered narcotics - no. The following High Risk Discharge criteria are identified: None. Condition: stable. Discharge instructions given to patient, Instructed on discharge instructions, follow up and referral plans. Demonstrated understanding of instructions, Pt was receptive of discharge instructions/ teaching. No special radiology studies were completed. Property :Personal belongings accompany Pt. 17:19 Patient left the ED. kc3 Signatures: Dispatcher [employer] EDMS Dalia Gray, NUHA RN srm Makayla Kennedy, Reg Reg gb [place], Zoeann zo Armando, Neyda, CLAY WORKER CLAY WORKER ct3 Heladio Contreras dem1 Ronda Padilla gr2 Judy Anton MD MD fg Mylene Castro RN RN kc3 Jannet Rubalcava, Reg Reg hs2 Mary Beth Fernandez2 Corrections: (The following items were deleted from the chart) 14:26 14:19 Home Meds: Fluoxetine 30 mg Oral once daily; srm srm 14:26 14:19 Home Meds: gabapentin 300 mg Oral cap 2 caps in AM; srm srm 14:26 14:19 Home Meds: gabapentin 300 mg Oral cap evening; srm srm 15:30 15:22 Pain: Location: rib pain and sore throat Pain currently is 7 out of 10 on a pain kc3 scale. kc3 Chart Complete MTDD
--- NOTE | 2016-04-27 18:21 | EDDOCDS ---
Physician Documentation [facility] Name: Cristina Dunn Age: 70 yrs Sex: Female : 1945 Arrival Date: 04/25/2016 Time: 13:55 Bed 5 Private [facility] Disposition: 04/25/16 16:44 Discharged to Home/Self Care. Impression: Acute streptococcal tonsillitis, unspecified. - Condition is Stable. - Discharge Instructions: Strep Throat. - Medication Reconciliation, Local Pharmacy Hours form. - Follow up: Irina Higgins; When: Call to arrange an appointment; Reason: Continuance of care. - Problem is new. - Symptoms have improved. Historical: - Allergies: Protonix; - Home Meds: 1. baclofen 10 mg Oral tab 1 tab 3 times per day 2. diclofenac sodium 75 mg oral TbEC 1 tab 2 times per day 3. furosemide 20 mg Oral tab 1 tab once daily 4. Lantus 60 units Sub-Q soln daily 5. lisinopril 20 mg Oral tab 1 tab once daily 6. loratadine 10 mg Oral TbDL 1 tab once daily 7. meclizine 12.5 mg Oral tab TID prn 8. oxybutynin chloride 10 mg Oral tr24 1 tab once daily 9. ranitidine HCl 300 mg Oral cap 1 cap 2 times per day 10. Strattera 40 mg oral cap 1 cap once daily 11. simvastatin 10 mg Oral tab 1 tab once daily 12. fluoxetine 40 mg oral cap once daily 13. gabapentin 400 mg oral cap 2 cap IN AM 14. gabapentin 400 mg oral tab EVENING 15. Flonase 50 mcg/actuation Nasal spsn 1 spray 2 times per day STARTED 04/21/16 16. hydrocodone-acetaminophen 5-325 mg Oral tab 1 tab every 4-6 hours PRN 17. Jardiance 10 mg oral tab 1 tab once daily 18. ProAir HFA 90 mcg/actuation inhalation HFAA 2 puffs every 4-6 hours - PMHx: Anxiety; Asthma; back pain; COPD; Diabetes - IDDM: controlled; GERD; Kidney stones; PTSD; Vertigo; Ear Infections, frequent; - PSHx: back surgery; left oopherectomy salpingectomy; left tendon surgery; - Social history: Smoking status: Patient states was never smoker of tobacco. No barriers to communication noted, The patient speaks fluent Cameroonian, Speaks appropriately for age. - Family history: Not pertinent. - : The pt / caregiver states he / she is not on anticoagulants. Home medication list is obtained from the patient. - Exposure Risk Screening:: None identified. Vital Signs: 04/25 13:58 BP 138 / 65; Pulse 76; Resp 18 S; Temp 98.0(O); Pulse Ox 96% on R/A; Weight 104.33 kg / gr2 230.01 lbs (R); Height 5 ft. 5 in. (165.10 cm) (R); Pain 2/10; 15:36 BP 125 / 57 (auto/); kc3 15:36 Pulse 66 MON; Pulse Ox 96% ; kc3 17:18 BP 138 / 77; Pulse 64; Resp 18; Temp 97.1(O); Pulse Ox 97% on R/A; kc3 13:58 Body Mass Index 38.27 (104.33 kg, 165.10 cm) gr2 MDM: 15:27 General Cargo Clerk/Pulse Ox/q 30 min VS ordered. fg 15:27 IV Saline Lock ordered. fg 15:27 Rhythm Strip to chart ordered. fg 15:27 Undress patient appropriately for examination ordered. fg 15:27 Strep Screen, Nursing ordered. fg 15:28 portable chest Ordered. EDMS 15:28 Basic Metabolic Profile Ordered. EDMS 15:28 CBC with Diff Ordered. EDMS 15:28 Cardiac Injury Profile Ordered. EDMS 15:28 Troponin Ordered. EDMS 15:28 ECG WITH READING ER PHYS+CARDIAG ordered. EDMS 16:10 [facility] Payment Agreement was scanned into [employer] and attached to record. zo 16:36 Financial registration complete. zo 16:44 Penicillin G Proc & Benzathine 1.2 mmu IM once ordered. fg 04/26 03:59 T-Sheet-- Draft Copy was scanned into [employer] and attached to record. hs2 10:53 ECG/EKG was scanned into [employer] and attached to record. gb Administered Medications: 04/25 16:56 Drug: Penicillin G Proc & Benzathine 1.2 mmu [penicillin G benzathine and procaine kc3 1,200,000 unit/2 mL IM syringe (1.2 mmu)] Route: IM; Site: left gluteus; Signatures: Dispatcher [employer] EDDalia Pinedo RN RN srm Makayla Kennedy, Reg Reg gb Cele Thacker Frances, MD MD fg Crane, Kelsi, RN RN kc3 Jannet Rubalcaav, Reg Reg hs2 The chart was reviewed and I authenticate all verbal orders and agree with the evaluation and treatment provided.Corrections: (The following items were deleted from the chart) 14:26 14:19 Home Meds: Fluoxetine 30 mg Oral once daily; srm srm 14:26 14:19 Home Meds: gabapentin 300 mg Oral cap 2 caps in AM; srm srm 14:26 14:19 Home Meds: gabapentin 300 mg Oral cap evening; srm srm Attachments: 16:10 [facility] Payment Agreement zo 04/26 03:59 T-Sheet-- Draft Copy hs2 10:53 ECG/EKG gb Chart Complete MTDD
== END 2016-04-25 17:19 | disposition home or self-care (01) ==
LOC: M ED 13:55
DX: J02.0 Streptococcal pharyngitis (principal); J45.909 Unspecified asthma, uncomplicated; J44.9 Chronic obstructive pulmonary disease, unspecified; F41.9 Anxiety disorder, unspecified; M54.9 Dorsalgia, unspecified; E10.9 Type 1 diabetes mellitus without complications; K21.9 Gastro-esophageal reflux disease without esophagitis; F43.10 Post-traumatic stress disorder, unspecified; R42 Dizziness and giddiness; Z87.442 Personal history of urinary calculi; Z90.79 Acquired absence of other genital organ(s); Z79.4 Long term (current) use of insulin; Z79.51 Long term (current) use of inhaled steroids
CPT/HCPCS: 36415; 71010; 80048; 82550; 82553; 84484; 85025; 93005; 93041; 96372; 99284; J0558

== ENCOUNTER → 2016-05-30 | Outpatient (CLI) | payer MEDICARE, MEDICAID ==
--- NOTE | 2016-06-16 02:16 | ECWPNPC ---
PATIENT NAME: BEKAH MANZANARES : 1945 GENDER: FEMALE VISIT DATE: 05/30/2016 DISCHARGE DATE: 05/30/16940 VISIT LOCKED DATE TIME: PHYSICIAN: LOW MCKEE RESOURCE: LOW MCKEE REASON FOR APPOINTMENT 1. FOLLOWUP HISTORY OF PRESENT ILLNESS HISTORY OF PRESENT ILLNESS: PAIN THE PATIENT DESCRIBES THE PAIN... FALL RISK SCREENING: SCREENING :NO FALLS IN THE PAST YEAR TODAY'S VISIT: NOTES: HAS BEEN WORKING HARD ON [facility]ING [facility]. CAN NOT WALK WELL THIS HURTS. RATES PAIN LEVEL TODAY 7/10. NOTES PAIN STARTS AT THE BASE OF THE NECK AND RADIATES DOWN ALONG THE SPINE. NOTES PAIN RADIATES ACROSS INTO THE HIPS AND DOWN BOTH LEGS. REPORTS THAT SHE HAS HAD 2 FALLS RECENTLY. DENIES ANY LOSS OF BOWEL OR BLADDER CONTROL.. CURRENT MEDICATIONS TAKING ADVAIR DISKUS 250-50 MCG/DOSE MISCELLANEOUS 1 INHALATION EVERY 12 HRS TAKING ASCENSIA CONTOUR 1 TEST STRIPS 1 X5 DAILY TAKING NEBULIZER/TUBING/MOUTHPIECE 1 EACH PRN TAKING LANTUS 100 UNIT/ML SOLUTION 40 SUBCUTANEOUS UNITS, SLIDING SCALE ONCE A DAY TAKING FUROSEMIDE 20 MG TABLET 1 TABLET ORALLY ONCE A DAY TAKING LISINOPRIL 20 20 MG TABLET DIRECTED ORAL DAILY TAKING ZANTAC 300 MG TABLET 1 TABLET ORALLY TWICE A DAY TAKING VOLTAREN 1 % GEL DIRECTED TRANSDERMAL TAKING OXYBUTYNIN CHLORIDE ER 10 MG TABLET EXTENDED RELEASE 24 HOUR 1 TABLET ORALLY ONCE A DAY TAKING LORATADINE 10 MG TABLET 1 TABLET ORALLY ONCE A DAY TAKING SIMVASTATIN 10 MG TABLET 1 TABLET IN THE EVENING ORALLY ONCE A DAY TAKING FLUOXETINE 20 MG CAPSULE 1 CAPSULE IN THE MORNING ORALLY ONCE A DAY TAKING VITAMIN D3 2000 UNIT CAPSULE 1 CAPSULE ORALLY ONCE A DAY TAKING GABAPENTIN 400 MG CAPSULE 1 CAPSULE ORALLY THREE TIMES A DAY TAKING DICLOFENAC SODIUM 75 MG TABLET DELAYED RELEASE 1 TABLET ORALLY TWICE A DAY WITH FOOD TAKING BACLOFEN 10 MG TABLET 1 TABLET WITH FOOD OR MILK ORALLY TWO TIMES A DAY TAKING NORCO 5-325 MG TABLET 1 TABLET ORALLY EVERY 6 HRS PRN PAIN MDD=3 NOT-TAKING METFORMIN HCL 500 MG TABLET 3 TABS IN AM AND 1 TAB AT BEDTIME ORALLY TWICE A DAY MEDICATION LIST REVIEWED AND RECONCILED WITH THE PATIENT PAST MEDICAL HISTORY DEPRESSION IDDM COPD HTN HIGH CHOLESTEROL MIXED INCONTINENCE, STRESS-DOMINATED OA URI ALLERGIES MILK: DIARRHEA MUSCLE RELANTS-- ? NAME: UNSURE PROTONIX: UNSURE ACTOS: SWELLING 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: TOBACCO USE ARE YOU A:NONSMOKER LEARNING BARRIERS / SPECIAL NEEDS ORIENTED TO PLAN OF CARE: PATIENT, PAIN MANAGEMENT PATIENT, ORIENTED TO PLAN OF CARE: PATIENT, PAIN MANAGEMENT PATIENT. NEW PATIENT PAIN DIARY TODAY'S VISITNOTES FROM 0-10, WHAT LEVEL IS YOUR PAIN TODAY?0 PAIN CLINIC PFS, CLERGY, PUBLIC HEALTH REFERRALS PFS REFERRAL NEEDED?NO CLERGY REFERRAL NEEDED?NO PUBLIC HEALTH REFERRAL NEEDED?NO WAS THE PROVIDER NOTIFIED OF ANY PERTINENT INFO?NO PFS REFERRAL NEEDED?NO CLERGY REFERRAL NEEDED?NO PUBLIC HEALTH REFERRAL NEEDED?NO WAS THE PROVIDER NOTIFIED OF ANY PERTINENT INFO?NO REVIEW OF SYSTEMS CONSTITUTIONAL: ANY CHANGE IN YOUR MEDICAL CONDITION? NO . CHILLS NO . FEVER NO . INFECTION: DO YOU HAVE NEW INFECTIONS? NO . DO YOU HAVE HISTORY OF MRSA? NO . MUSCULOSKELETAL: ANY NEW PATTERNS OF PAIN OR NUMBNESS? NO . GASTROENTEROLOGY: ANY NEW CHANGE IN BOWEL CONTROL? NO . GENITOURINARY: ANY NEW CHANGE IN BLADDER CONTROL? NO . IS THERE A CHANCE YOU COULD BE ? NO . HEMATOLOGY/LYMPH: DO YOU TAKE ANY BLOOD THINNERS? (FOR EXAMPLE- COUMADIN, PLAVIX, AGGRENOX, PLATEL, PRADAXA, OR XARELTO) NO . WHEN WAS YOUR LAST DOSE? DATE: TIME: . NEUROLOGY: HAVE YOU FALLEN IN THE PAST 6 MONTHS? YES DUE TO DIZZINESS . ANY NEW EXTREMITY NUMBNESS OR WEAKNESS? NO . CARDIOLOGY: DO YOU HAVE A PACEMAKER OR DEFIBRILLATOR? NO . RESPIRATORY: HAVE YOU BEEN SICK IN THE PAST WEEK? NO . FEVER NO . FLU LIKE SYMPTOMS? NO . COUGH NO . INTEGUMENTARY: DO YOU HAVE ANY RASHES OR OPEN SORES? YES CHAPPED HANDS . ALLERGIC/IMMUNO: ARE YOU ALLERGIC TO SHELLFISH OR IV DYE? NO . ANY NEW ALLERGIES? NO . PSYCHIATRIC: DO YOU HAVE THOUGHTS OF HURTING YOURSELF OR SOMEONE ELSE? NO . ARE YOU ABUSED, NEGLECTED, OR IN AN UNSAFE ENVIRONMENT? NO . ENDOCRINOLOGY: ARE YOU DIABETIC? YES . OTHER: DO YOU NEED ANY PRESCRIPTIONS? NO . IF YES, PLEASE LIST: ____ . ANY NEW PROBLEMS WITH YOUR MEDICATIONS? NO . WHEN DID YOU LAST EAT? ____ . WHEN DID YOU LAST DRINK? ____ . WHAT DID YOU LAST DRINK? ____ . NAME OF PERSON DRIVING YOU HOME? ____ . DO YOU HAVE ANY OTHER QUESTIONS OR CONCERNS NO . HEENT: GENERAL DIZZINESS AND DIFFICULTY WITH HEARING. HAS HEARING APPOINTMENT . REVIEWED BY: PROVIDER: LOW STALLINGS . VITAL SIGNS WT 224 LBS, HT 65 IN, BMI 37.27 INDEX, BP 154/88 MM HG, HR 83 /MIN, RR 18 /MIN, TEMP 97.5 F, OXYGEN SAT % 97, NA INITIALS TL 0907, REVIEWED BY: KG. EXAMINATION GENERAL EXAMINATION: PSYCHALERT , ORIENTED X 3 , ANXIOUS. LUNGS:CLEAR TO AUSCULTATION BILATERALLY. HEART:HEART RATE REGULAR. MUSCULOSKELETAL:MUSCLE STRENGTH TESTING 5/5 BILATERAL LOWER EXTREMITIES. SLOW TO RISE TO STANDING POSITION. POINT TENDERNESS OVER RIGHT TROCANTER AND BUTTUCK. SLOW TO ROISE TO STANDING POSITION. GAIT WIDEBASED, ANTALGIC.. 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 DO GENTLE EXERCISES DAILY. CLINICAL NOTES: ISTOP REGISTRY REVIEWED AND DEMNOSTRATES COMPLLIANCE. BRINGS IN MEDICATIONS WHICH IS APPROPRIATE FOR WHAT WAS DISPENSED. RECENT URINE TOXICOLOGY REVIEWED. NO UNAUTHORIZED MEDICATIONS. NO ILLICIT SUBSTANCES AND PRESCRIBED MEDICATIONS WERE PRESENT. PROCEDURE CODES FA211 ESTABILISHED PATIENT [facility] CHARGE DISPOSITION & COMMUNICATION FOLLOW UP 7 WEEKS ELECTRONICALLY SIGNED BY IZZY VASQUEZ ON 06/15/2016 AT 12:15 PM EST DISCLAIMER : THIS IS A VISIT SUMMARY EXTRACTED FROM THE [employer] CHART. IT IS NOT A COPY OF THE [employer] PROGRESS NOTE. MTDD
== END ==
LOC: M PAIN 08:40
PROVIDERS: ATTEND Nurse Practitioner Family
DX: M79.1 Myalgia (principal); M50.23 Other cervical disc displacement, cervicothoracic region; Z79.891 Long term (current) use of opiate analgesic; Z79.4 Long term (current) use of insulin; Z79.899 Other long term (current) drug therapy; I10 Essential (primary) hypertension; F32.9 Major depressive disorder, single episode, unspecified; E11.9 Type 2 diabetes mellitus without complications; E78.5 Hyperlipidemia, unspecified; M19.90 Unspecified osteoarthritis, unspecified site; J44.0 Chronic obstructive pulmonary disease with (acute) lower respiratory infection; Z91.018 Allergy to other foods

== ENCOUNTER → 2016-07-18 | Outpatient (CLI) | payer MEDICARE, MEDICAID ==
[~2016-07-18] MED LIST changes: +ATOM40CA PO; +BENT20TA PO; +DICL75TA PO; +FLUO20CA9 PO; +GABA-283 PO; +JARD1TAB3 PO; +METF-700 PO; +REGL10TA6 PO
== END ==
LOC: M PAIN 08:40
PROVIDERS: ATTEND Nurse Practitioner Family
DX: Z09 Encounter for follow-up examination after completed treatment for conditions other than malignant neoplasm (principal); G89.29 Other chronic pain; M79.1 Myalgia; M50.23 Other cervical disc displacement, cervicothoracic region; F32.9 Major depressive disorder, single episode, unspecified; E11.9 Type 2 diabetes mellitus without complications; J44.9 Chronic obstructive pulmonary disease, unspecified; I10 Essential (primary) hypertension; E78.00 Pure hypercholesterolemia, unspecified; N39.3 Stress incontinence (female) (male); G47.30 Sleep apnea, unspecified; Z91.011 Allergy to milk products; Z88.8 Allergy status to other drugs, medicaments and biological substances; Z79.891 Long term (current) use of opiate analgesic; Z79.899 Other long term (current) drug therapy

== ENCOUNTER 2016-08-03 13:03 | Emergency (ER) | payer MEDICARE, MEDICAID, OTHER ==
[~2016-08-03] VITALS: Ht 162.6 cm; Wt 101.2 kg
[~2016-08-03 13:03] MED LIST changes: -ATOM40CA PO; -BENT20TA PO; -DICL75TA PO; -FLUO20CA9 PO; -GABA-283 PO; -JARD1TAB3 PO; -METF-700 PO; -REGL10TA6 PO
[2016-08-03] MEDS ORDERED: DICL75TA PO (13:28)
[2016-08-03] MEDS ORDERED: GABA-283 PO (13:28)
[2016-08-03] MEDS ORDERED: JARD1TAB3 PO (13:28)
[2016-08-03] MEDS ORDERED: FLUO20CA9 PO (13:28)
[2016-08-03] MEDS ORDERED: METF-700 PO (13:28)
[2016-08-03] MEDS ORDERED: ATOM40CA PO (13:28)
--- NOTE | 2016-08-03 14:05 | ECGEPIP ---
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
[2016-08-03] MEDS ORDERED: NS 1,000 ML IV ONE (15:30)
[2016-08-03] MEDS ORDERED: KETOROLAC 30 MG/ML VIAL (J1885) IV ONE (15:30)
[2016-08-03] MEDS ORDERED: ONDANSETRON 4MG/2ML VIAL (J2405) IV ONE (15:30)
[2016-08-03 16:24] LABS: BASO % 0.3 % (0.0-1.0); EOS # 4.3 K/mm3 (0.0-0.50); EOS % 37.1 % (0.0-3.0); LARGE UNSTAINED CELL # 0.1 K/mm3 (0.0-0.4); LARGE UNSTAINED CELL % 0.8 % (0.0-4.0); LYMPH # 2.2 K/mm3 (1.5-4.5); LYMPH % 18.3 % (24.0-44.0); MEAN CORPUSCULAR HEMOGLOBIN 32.1 pg (27.0-33.0); MEAN CORPUSCULAR HGB CONC 34.2 g/dl (32.0-36.5); MONO # 0.4 K/mm3 (0.0-0.8); MONO % 3.5 % (0.0-5.0); NEUTROPHILS # 4.6 K/mm3 (1.8-7.7); PLATELET COUNT, AUTOMATED 240 k/mm3 (150-450); RED CELL DISTRIBUTION WIDTH 12.9 % (11.5-14.5); WHITE BLOOD COUNT 11.5 K/mm3 (4.0-10.0)
[2016-08-03 18:54] LABS: ALT/SGPT 26 U/L (12-78); ANION GAP 9 MEQ/L (8-16); AST/SGOT 12 U/L (15-37); BLOOD UREA NITROGEN 18 MG/DL (7-18); CALCIUM LEVEL 8.5 MG/DL (8.8-10.2); CARBON DIOXIDE LEVEL 25 MEQ/L (21-32); CHLORIDE LEVEL 106 MEQ/L (98-107); CREATININE FOR GFR 0.93 MG/DL (0.55-1.02); GLOMERULAR FILTRATION RATE > 60.0 (>45); GLUCOSE, FASTING 98 MG/DL (80-110); POTASSIUM SERUM 4.5 MEQ/L (3.5-5.1); SODIUM LEVEL 140 MEQ/L (136-145)
[2016-08-03 18:55] LABS: ALBUMIN 3.7 GM/DL (3.2-5.2); ALBUMIN/GLOBULIN RATIO 1.12 (1.00-1.93); ALKALINE PHOSPHATASE 129 U/L (45-117); AMYLASE 25 U/L (25-115); BILIRUBIN,DIRECT < 0.1 MG/DL (0.0-0.2); BILIRUBIN,TOTAL 0.5 MG/DL (0.2-1.0)
[2016-08-03] MEDS ORDERED: GI COCKTAIL 50ML BTL(HYOSCYAMINE/MAALOX/LIDOCAINE VISCOUS)(1:3:1) PO ONE (19:45)
[2016-08-03] MEDS ORDERED: METOCLOPRAMIDE INJ 10MG/2ML VIAL (J2765) IV ONE (19:45)
[2016-08-03] MEDS ORDERED: BENT20TA PO (20:15)
[2016-08-03] MEDS ORDERED: REGL10TA6 PO (20:15)
[2016-08-03 20:42] VITALS: BP 128/74
== END 2016-08-03 20:43 | disposition home or self-care (01) ==
LOC: M ED 15:18
DX: E11.43 Type 2 diabetes mellitus with diabetic autonomic (poly)neuropathy (principal); R94.31 Abnormal electrocardiogram [ECG] [EKG]; I10 Essential (primary) hypertension; J45.909 Unspecified asthma, uncomplicated; E78.00 Pure hypercholesterolemia, unspecified; J44.9 Chronic obstructive pulmonary disease, unspecified; K21.9 Gastro-esophageal reflux disease without esophagitis; M54.9 Dorsalgia, unspecified; F41.9 Anxiety disorder, unspecified; F32.9 Major depressive disorder, single episode, unspecified; F43.10 Post-traumatic stress disorder, unspecified; Z79.899 Other long term (current) drug therapy; Z79.84 Long term (current) use of oral hypoglycemic drugs; Z79.4 Long term (current) use of insulin; Z88.8 Allergy status to other drugs, medicaments and biological substances; Z91.011 Allergy to milk products
CPT/HCPCS: 80048; 80076; 81001; 82150; 82550; 82553; 83690; 84484; 85025; 87088; 87186; 93005; 96374; 96375; 99283; J1885; J2405; J2765

== ENCOUNTER → 2016-09-05 | Outpatient (CLI) | payer MEDICARE, MEDICAID ==
[~2016-09-05] MED LIST changes: +ATOM40CA PO; +BENT20TA PO; +DICL75TA PO; +FLUO20CA9 PO; +GABA-283 PO; +JARD1TAB3 PO; +METF-700 PO; +REGL10TA6 PO
--- NOTE | 2016-09-20 00:14 | ECWPNPC ---
PATIENT NAME: BEKAH MANZANARES : 1945 GENDER: FEMALE VISIT DATE: 09/05/2016 DISCHARGE DATE: 09/05/16 1028 VISIT LOCKED DATE TIME: PHYSICIAN: LOW MCKEE RESOURCE: LOW MCKEE REASON FOR APPOINTMENT 1. FOLLOWUP HISTORY OF PRESENT ILLNESS HISTORY OF PRESENT ILLNESS: PAIN THE PATIENT DESCRIBES THE PAIN... FALL RISK SCREENING: SCREENING :NO FALLS IN THE PAST YEAR TODAY'S VISIT: NOTES: RATES PAIN LEVEL TODAY 6/10. DESCRIBES PAIN CONSTANT WITH INTERMITTANT EXACERBATIONS BASED ON ACTIVITY. DESCRIES PAIN ACHING, BURNING, SHARP AND SHOOTING. PAIN IS NOTES AT LOW AND MID DINESH, ABDOMEN AND ELBOWS WELL THE LEFT KNEE.. CURRENT MEDICATIONS TAKING ADVAIR DISKUS 250-50 MCG/DOSE MISCELLANEOUS 1 INHALATION EVERY 12 HRS TAKING ASCENSIA CONTOUR 1 TEST STRIPS 1 X5 DAILY TAKING NEBULIZER/TUBING/MOUTHPIECE 1 EACH PRN TAKING LANTUS 100 UNIT/ML SOLUTION 40 SUBCUTANEOUS UNITS, SLIDING SCALE ONCE A DAY TAKING FUROSEMIDE 20 MG TABLET 1 TABLET ORALLY ONCE A DAY TAKING LISINOPRIL 20 20 MG TABLET DIRECTED ORAL DAILY TAKING ZANTAC 300 MG TABLET 1 TABLET ORALLY TWICE A DAY TAKING VOLTAREN 1 % GEL DIRECTED TRANSDERMAL TAKING OXYBUTYNIN CHLORIDE ER 10 MG TABLET EXTENDED RELEASE 24 HOUR 1 TABLET ORALLY ONCE A DAY TAKING LORATADINE 10 MG TABLET 1 TABLET ORALLY ONCE A DAY TAKING SIMVASTATIN 10 MG TABLET 1 TABLET IN THE EVENING ORALLY ONCE A DAY TAKING FLUOXETINE 20 MG CAPSULE 2 CAPSULE IN THE MORNING ORALLY ONCE A DAY TAKING GABAPENTIN 400 MG CAPSULE 1 CAPSULE ORALLY THREE TIMES A DAY TAKING METFORMIN HCL ER 500 MG TABLET EXTENDED RELEASE 24 HOUR 1 TABLET WITH EVENING MEAL ORALLY BID TAKING MECLIZINE HCL 25 MG CAPSULE ORALLY THREE TIMES DAILY NEEDED TAKING VITAMIN D (ERGOCALCIFEROL) 41015 UNIT CAPSULE 1 CAPSULE ORALLY WEEKLY TAKING DICLOFENAC SODIUM 75 MG TABLET DELAYED RELEASE 1 TABLET ORALLY TWICE A DAY WITH FOOD TAKING BACLOFEN 10 MG TABLET 1 TABLET WITH FOOD OR MILK ORALLY TWO TIMES A DAY TAKING NORCO 5-325 MG TABLET 1 TABLET ORALLY EVERY 6 HRS PRN PAIN MDD=3 TAKING TRULICITY 0.75 MG/0.5ML SOLUTION PEN-INJECTOR 0.5 ML SUBCUTANEOUS WEEKLY NOT-TAKING METFORMIN HCL 500 MG TABLET 3 TABS IN AM AND 1 TAB AT BEDTIME ORALLY TWICE A DAY MEDICATION LIST REVIEWED AND RECONCILED WITH THE PATIENT PAST MEDICAL HISTORY DEPRESSION IDDM COPD HTN HIGH CHOLESTEROL MIXED INCONTINENCE, STRESS-DOMINATED OA URI ALLERGIES MILK: DIARRHEA MUSCLE RELANTS-- ? NAME: UNSURE PROTONIX: UNSURE ACTOS: SWELLING SURGICAL HISTORY WRIST SURGERY--LEFT OVARIAN CYST-LEFT LAPAROSCOPY-X4 D&C LUMP REMOVED FROM BUTTOCKS BREAST LUMP REMOVED RIGHT BILAT EYE CATARACT COLONOSCOPY 2014 HOSPITALIZATION/MAJOR DIAGNOSTIC PROCEDURE ABOVE SURGERIES PNEUMONIA STOMACH PAIN REVIEW OF SYSTEMS CONSTITUTIONAL: ANY CHANGE IN YOUR MEDICAL CONDITION? NO . CHILLS NO . FEVER NO . INFECTION: DO YOU HAVE NEW INFECTIONS? NO . DO YOU HAVE HISTORY OF MRSA? NO . MUSCULOSKELETAL: ANY NEW PATTERNS OF PAIN OR NUMBNESS? YES, PT C/O N/V/D & CONSTIPATION. PT REPORTS SEEKING MEDICAL TX AT [facility] ER 2 WEEKS AGO DX, DIABETIC GASTROENTERITIS/GASTROPARESIS. PT STATES [facility] ER TX'D PT WITH SOME PILLS, DICYCLOMINE 20MG 1 TID & METOCLOPRAMIDE 10MG 1 Q 6HRS THAT HELPED. PT INSTRUCTED TO F/U WITH PCP, PT HAS APPT TOMEMIR. PT STATES SHE TOOK ER PILLS THE NEXT DAY THEN STOPPED. PT STATES SHE DOESN'T ER PILLS NOW HER STOMACH DOESN'T HURT BAD. PT STATES SHE FEELS SHE TAKES TOO MANY PILLS AND DOESN'T WANT TO ADD TO THE REGIMEN. PT STATES SHE WOULD LIKE TO NOT TAKE ANY MEDICINES AT ALL.&NBSP;. GASTROENTEROLOGY: ANY NEW CHANGE IN BOWEL CONTROL? NO . GENITOURINARY: ANY NEW CHANGE IN BLADDER CONTROL? NO . IS THERE A CHANCE YOU COULD BE ? NO . HEMATOLOGY/LYMPH: DO YOU TAKE ANY BLOOD THINNERS? (FOR EXAMPLE- COUMADIN, PLAVIX, AGGRENOX, PLATEL, PRADAXA, OR XARELTO) NO . WHEN WAS YOUR LAST DOSE? DATE: TIME: . NEUROLOGY: HAVE YOU FALLEN IN THE PAST 6 MONTHS? NO . ANY NEW EXTREMITY NUMBNESS OR WEAKNESS? NO . CARDIOLOGY: DO YOU HAVE A PACEMAKER OR DEFIBRILLATOR? NO . RESPIRATORY: HAVE YOU BEEN SICK IN THE PAST WEEK? NO . FEVER NO . FLU LIKE SYMPTOMS? NO . COUGH NO . INTEGUMENTARY: DO YOU HAVE ANY RASHES OR OPEN SORES? NO . ALLERGIC/IMMUNO: ARE YOU ALLERGIC TO SHELLFISH OR IV DYE? NO . ANY NEW ALLERGIES? NO . PSYCHIATRIC: DO YOU HAVE THOUGHTS OF HURTING YOURSELF OR SOMEONE ELSE? NO . ARE YOU ABUSED, NEGLECTED, OR IN AN UNSAFE ENVIRONMENT? NO . ENDOCRINOLOGY: ARE YOU DIABETIC? YES . OTHER: DO YOU NEED ANY PRESCRIPTIONS? NO . IF YES, PLEASE LIST: ____ . ANY NEW PROBLEMS WITH YOUR MEDICATIONS? NO . WHEN DID YOU LAST EAT? ____ . WHEN DID YOU LAST DRINK? ____ . WHAT DID YOU LAST DRINK? ____ . NAME OF PERSON DRIVING YOU HOME? ____ . DO YOU HAVE ANY OTHER QUESTIONS OR CONCERNS NO . REVIEWED BY: PROVIDER: LOW STALLINGS . VITAL SIGNS WT 213.8 LBS, HT 65 IN, BMI 35.57 INDEX, BP 112/67 MM HG, HR 78 /MIN, RR 16 /MIN, TEMP 97.6 F, OXYGEN SAT % 99%, SAFE IN ENV? (Y/N) Y, NA INITIALS TL 0957, REVIEWED BY: EM. EXAMINATION GENERAL EXAMINATION: PSYCHALERT , ORIENTED X 3 , ANXIOUS. LUNGS:CLEAR TO AUSCULTATION BILATERALLY. HEART:HEART RATE REGULAR. MUSCULOSKELETAL:MUSCLE STRENGTH TESTING 5/5 BILATERAL LOWER EXTREMITIES. SLOW TO RISE TO STANDING POSITION. POINT TENDERNESS OVER RIGHT TROCANTER AND BUTTUCK. SLOW TO ROISE TO STANDING POSITION. GAIT WIDEBASED, ANTALGIC.. ASSESSMENTS MYALGIA - M79.1 (PRIMARY) PAIN OF UPPER ABDOMEN - R10.10 TREATMENT MYALGIA NOTES: CONTINUE CHIROPRACTER NEEDED. WALK ABLE. CALL WHEN SCRIPTS DUE.CONTINUE CURRENT MEDS. CLINICAL NOTES: ISTOP REGISTRY REVIEWED AND DEMNOSTRATES COMPLLIANCE. BRINGS IN MEDICATIONS WHICH IS APPROPRIATE FOR WHAT WAS DISPENSED. RECENT URINE TOXICOLOGY REVIEWED. NO UNAUTHORIZED MEDICATIONS. NO ILLICIT SUBSTANCES AND PRESCRIBED MEDICATIONS WERE PRESENT. PROCEDURE CODES FA211 ESTABILISHED PATIENT [facility] CHARGE DISPOSITION & COMMUNICATION FOLLOW UP 7 WEEKS. ELECTRONICALLY SIGNED BY IZZY VASQUEZ ON 09/19/2016 AT 04:42 PM EDT DISCLAIMER : THIS IS A VISIT SUMMARY EXTRACTED FROM THE [employer] CHART. IT IS NOT A COPY OF THE [employer] PROGRESS NOTE. MARTELL
== END ==
LOC: M PAIN 10:00
PROVIDERS: ATTEND Nurse Practitioner Family
DX: G89.29 Other chronic pain (principal); M79.1 Myalgia; R10.10 Upper abdominal pain, unspecified; F32.9 Major depressive disorder, single episode, unspecified; E11.9 Type 2 diabetes mellitus without complications; J44.9 Chronic obstructive pulmonary disease, unspecified; I10 Essential (primary) hypertension; E78.00 Pure hypercholesterolemia, unspecified; G47.30 Sleep apnea, unspecified; N39.46 Mixed incontinence; E73.9 Lactose intolerance, unspecified; Z88.8 Allergy status to other drugs, medicaments and biological substances; Z79.4 Long term (current) use of insulin; Z79.84 Long term (current) use of oral hypoglycemic drugs; Z79.891 Long term (current) use of opiate analgesic; Z79.899 Other long term (current) drug therapy

== ENCOUNTER → 2016-10-28 | Outpatient (CLI) | payer MEDICARE, MEDICAID ==
[~2016-10-28] MED LIST changes: +FLUO20CA19 PO; -FLUO20CA9 PO; -METF500T PO; +METF500T13 PO; -NAPR500T2 PO; +NAPR500T3 PO; +VOLT1GEL15 TD; -VOLT1GEL24 TD
--- NOTE | 2016-11-24 02:11 | ECWPNPC ---
PATIENT NAME: BEKAH MANZANARES : 1945 GENDER: FEMALE VISIT DATE: 10/28/2016 DISCHARGE DATE: 10/28/16938 VISIT LOCKED DATE TIME: PHYSICIAN: LOW MCKEE RESOURCE: LOW MCKEE REASON FOR APPOINTMENT 1. FOLLOWUP HISTORY OF PRESENT ILLNESS HISTORY OF PRESENT ILLNESS: PAIN THE PATIENT DESCRIBES THE PAIN... FALL RISK SCREENING: SCREENING :NO FALLS IN THE PAST YEAR TODAY'S VISIT: NOTES: RATES PAIN TODAY 6/10. DESCRIBES PAIN CONSTANT, ACHING, STABBING. PAIN AREAS REMAIN LOW BACK, BASE OF NECK AND KNEES. HAS HAD NO RECENT FALLS. IS PLEASED WITH WEIGHT LOSS BUT NOT PLEASED WITH HOW IT HAPPENED WITH SIGN N/V - THIS HAS IMPROVED. . CURRENT MEDICATIONS TAKING ADVAIR DISKUS 250-50 MCG/DOSE MISCELLANEOUS 1 INHALATION EVERY 12 HRS TAKING ASCENSIA CONTOUR 1 TEST STRIPS 1 X5 DAILY TAKING NEBULIZER/TUBING/MOUTHPIECE 1 EACH PRN TAKING LANTUS 100 UNIT/ML SOLUTION 10 UNITS SUBCUTANEOUS UNITS, SLIDING SCALE ONCE A DAY TAKING FUROSEMIDE 20 MG TABLET 1 TABLET ORALLY ONCE A DAY TAKING LISINOPRIL 20 20 MG TABLET DIRECTED ORAL DAILY TAKING ZANTAC 300 MG TABLET 1 TABLET ORALLY TWICE A DAY TAKING VOLTAREN 1 % GEL DIRECTED TRANSDERMAL TAKING OXYBUTYNIN CHLORIDE ER 10 MG TABLET EXTENDED RELEASE 24 HOUR 1 TABLET ORALLY ONCE A DAY TAKING LORATADINE 10 MG TABLET 1 TABLET ORALLY ONCE A DAY TAKING SIMVASTATIN 10 MG TABLET 1 TABLET IN THE EVENING ORALLY ONCE A DAY TAKING FLUOXETINE 20 MG CAPSULE 2 CAPSULE IN THE MORNING ORALLY ONCE A DAY TAKING METFORMIN HCL ER 500 MG TABLET EXTENDED RELEASE 24 HOUR 1 TABLET WITH EVENING MEAL ORALLY BID TAKING MECLIZINE HCL 25 MG CAPSULE ORALLY THREE TIMES DAILY NEEDED TAKING VITAMIN D (ERGOCALCIFEROL) 74623 UNIT CAPSULE 1 CAPSULE ORALLY WEEKLY TAKING DICLOFENAC SODIUM 75 MG TABLET DELAYED RELEASE 1 TABLET ORALLY TWICE A DAY WITH FOOD TAKING TRULICITY 0.75 MG/0.5ML SOLUTION PEN-INJECTOR 0.5 ML SUBCUTANEOUS WEEKLY TAKING GABAPENTIN 400 MG CAPSULE 1 CAPSULE ORALLY THREE TIMES A DAY TAKING NORCO 5-325 MG TABLET 1 TABLET ORALLY EVERY 6 HRS PRN PAIN MDD=3 TAKING BACLOFEN 10 MG TABLET 1 TABLET WITH FOOD OR MILK ORALLY TWO TIMES A DAY TAKING JARDIANCE 25 MG TABLET 1 TABLET ORALLY ONCE A DAY NOT-TAKING METFORMIN HCL 500 MG TABLET 3 TABS IN AM AND 1 TAB AT BEDTIME ORALLY TWICE A DAY MEDICATION LIST REVIEWED AND RECONCILED WITH THE PATIENT PAST MEDICAL HISTORY DEPRESSION IDDM COPD HTN HIGH CHOLESTEROL MIXED INCONTINENCE, STRESS-DOMINATED OA URI ALLERGIES MILK: DIARRHEA MUSCLE RELANTS-- ? NAME: UNSURE PROTONIX: UNSURE ACTOS: SWELLING REVIEW OF SYSTEMS REVIEWED BY: PROVIDER: LOW STALLINGS . CONSTITUTIONAL: ANY CHANGE IN YOUR MEDICAL CONDITION? NO . CHILLS NO . FEVER NO . INFECTION: DO YOU HAVE NEW INFECTIONS? NO . DO YOU HAVE HISTORY OF MRSA? NO . MUSCULOSKELETAL: ANY NEW PATTERNS OF PAIN OR NUMBNESS? NO . GASTROENTEROLOGY: ANY NEW CHANGE IN BOWEL CONTROL? YES, GETS SICK IF SHE CANNOT GO . GENITOURINARY: ANY NEW CHANGE IN BLADDER CONTROL? NO . IS THERE A CHANCE YOU COULD BE ? NO . HEMATOLOGY/LYMPH: DO YOU TAKE ANY BLOOD THINNERS? (FOR EXAMPLE- COUMADIN, PLAVIX, AGGRENOX, PLATEL, PRADAXA, OR XARELTO) NO . WHEN WAS YOUR LAST DOSE? DATE: TIME: . NEUROLOGY: HAVE YOU FALLEN IN THE PAST 6 MONTHS? NO . ANY NEW EXTREMITY NUMBNESS OR WEAKNESS? NO . CARDIOLOGY: DO YOU HAVE A PACEMAKER OR DEFIBRILLATOR? NO . RESPIRATORY: HAVE YOU BEEN SICK IN THE PAST WEEK? NO . FEVER NO . FLU LIKE SYMPTOMS? NO . COUGH NO . INTEGUMENTARY: DO YOU HAVE ANY RASHES OR OPEN SORES? NO . ALLERGIC/IMMUNO: ARE YOU ALLERGIC TO SHELLFISH OR IV DYE? NO . ANY NEW ALLERGIES? NO . PSYCHIATRIC: DO YOU HAVE THOUGHTS OF HURTING YOURSELF OR SOMEONE ELSE? NO . ARE YOU ABUSED, NEGLECTED, OR IN AN UNSAFE ENVIRONMENT? NO . ENDOCRINOLOGY: ARE YOU DIABETIC? YES . OTHER: DO YOU NEED ANY PRESCRIPTIONS? NO . IF YES, PLEASE LIST: HAS MEDS FOR YOU TO CHECK . ANY NEW PROBLEMS WITH YOUR MEDICATIONS? NO . WHEN DID YOU LAST EAT? ____ . WHEN DID YOU LAST DRINK? ____ . WHAT DID YOU LAST DRINK? ____ . NAME OF PERSON DRIVING YOU HOME? ____ . DO YOU HAVE ANY OTHER QUESTIONS OR CONCERNS NO . VITAL SIGNS WT 201 LBS, HT 65 IN, BMI 33.44 INDEX, BP 131/65 MM HG, HR 73 /MIN, RR 18 /MIN, TEMP 97.3 F, OXYGEN SAT % 96, REVIEWED BY: NL. EXAMINATION GENERAL EXAMINATION: PSYCHALERT , ORIENTED X 3 , ANXIOUS. LUNGS:CLEAR TO AUSCULTATION BILATERALLY. HEART:HEART RATE REGULAR. MUSCULOSKELETAL:MUSCLE STRENGTH TESTING 5/5 BILATERAL LOWER EXTREMITIES. SLOW TO RISE TO STANDING POSITION. POINT TENDERNESS OVER RIGHT TROCANTER AND BUTTUCK. SLOW TO ROISE TO STANDING POSITION. GAIT WIDEBASED, ANTALGIC.. 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 CLINICAL NOTES: ISTOP REGISTRY REVIEWED AND DEMNOSTRATES COMPLLIANCE. BRINGS IN MEDICATIONS WHICH IS APPROPRIATE FOR WHAT WAS DISPENSED. RECENT URINE TOXICOLOGY REVIEWED. NO UNAUTHORIZED MEDICATIONS. NO ILLICIT SUBSTANCES AND PRESCRIBED MEDICATIONS WERE PRESENT. PROCEDURE CODES FA211 ESTABILISHED PATIENT [facility] CHARGE DISPOSITION & COMMUNICATION FOLLOW UP 3 MONTHS (REASON: BACK PAIN) ELECTRONICALLY SIGNED BY IZZY VASQUEZ ON 11/23/2016 AT 08:50 AM EDT DISCLAIMER : THIS IS A VISIT SUMMARY EXTRACTED FROM THE [employer] CHART. IT IS NOT A COPY OF THE [employer] PROGRESS NOTE. MARTELL
== END ==
LOC: M PAIN 09:00
PROVIDERS: ATTEND Nurse Practitioner Family
DX: G89.29 Other chronic pain (principal); M50.93 Cervical disc disorder, unspecified, cervicothoracic region; M79.1 Myalgia; E11.9 Type 2 diabetes mellitus without complications; F32.9 Major depressive disorder, single episode, unspecified; J44.9 Chronic obstructive pulmonary disease, unspecified; I10 Essential (primary) hypertension; E78.00 Pure hypercholesterolemia, unspecified; G47.30 Sleep apnea, unspecified; Z91.011 Allergy to milk products; Z88.8 Allergy status to other drugs, medicaments and biological substances; Z79.4 Long term (current) use of insulin; Z79.891 Long term (current) use of opiate analgesic; Z79.899 Other long term (current) drug therapy

== ENCOUNTER → 2016-11-24 | Outpatient (CLI) | payer MEDICARE, MEDICAID ==
[~2016-11-24] MED LIST changes: +E-Z-GAS II EFFERVESCENT PACKET (SODIUM BICARB./CITRIC ACID/SIMETHICONE) As Ordered ONE; +E-Z-HD 98% w/w 340GM SUSP BTL As Ordered ONE; +E-Z-PAQUE 96% w/w SUSP 176GM BTL As Ordered ONE
--- NOTE | 2016-11-24 18:00 | REP ---
UPPER GI AIR CONTRAST AND SMALL BOWEL FOLLOW-THROUGH: The procedure was performed under the direct supervision of Dr. Antonio. The images were reviewed with Dr. Antonio. The emulsion operator film shows no organomegaly or pathological masses. The intestinal gas pattern is nonspecific. There are degenerative changes of the spine. Liquid barium and gas producing granules were given in the erect position as well as liquid barium in the prone oblique position in order to perform a double contrast upper GI examination. Additionally liquid barium was given at the end of the examination in order to perform a small bowel follow-through. The oral and pharyngeal stages of deglutition are unremarkable. Esophageal transport is prompt and efficient and there is no esophagitis, stricture or mucosal ring. There is a sliding type hiatal hernia present. Gastroesophageal reflux is not demonstrated on this examination. The stomach benitez are normally outlined. The rugal folds are smooth and regular. There is no gastritis, neoplasm or ulcer disease. The duodenal benitez are normally outlined. The mucosal folds are smooth and regular. There is no duodenitis, pancreatitis, peptic ulcer disease, or neoplasm. The visualized portion of the proximal small bowel appears normal in course and caliber. The barium column was followed through the small bowel to the level of the terminal ileum. Small bowel transit time was approximately 120 minutes. Ballottement was performed by Dr. Antonio. During fluoroscopy gentle palpation shows all loops are freely movable and pliable. There are no fixed or angulated loops. The small bowel mucosal pattern is normal in course and caliber. There is no transition to suggest a partial small bowel obstruction. Spot filming of terminal ileum shows it to be unremarkable. IMPRESSION: There is a sliding type hiatal hernia present, otherwise unremarkable double contrast upper GI and small bowel follow-through examination. 3 minutes and 22 seconds of fluoroscopy time was utilized for this procedure. Reviewed by INNA Gil 11/25/2016 03:31 PEdited and Signed by Phil Antonio MD 11/25/2016 10:09 P
== END ==
LOC: M RAD 09:37
PROVIDERS: ATTEND Nurse Practitioner Adult Health
DX: K44.9 Diaphragmatic hernia without obstruction or gangrene (principal); R63.4 Abnormal weight loss

== ENCOUNTER → 2016-12-08 | Outpatient (CLI) | payer MEDICARE, MEDICAID ==
[~2016-12-08] MED LIST changes: -E-Z-GAS II EFFERVESCENT PACKET (SODIUM BICARB./CITRIC ACID/SIMETHICONE) As Ordered ONE; -E-Z-HD 98% w/w 340GM SUSP BTL As Ordered ONE; -E-Z-PAQUE 96% w/w SUSP 176GM BTL As Ordered ONE
[2016-12-08 09:43] LABS: BASO % 0.9 % (0.0-1.0); EOS # 0.3 K/mm3 (0.0-0.50); LARGE UNSTAINED CELL # 0.1 K/mm3 (0.0-0.4); LARGE UNSTAINED CELL % 2.4 % (0.0-4.0); LYMPH # 1.7 K/mm3 (1.5-4.5); LYMPH % 30.6 % (24.0-44.0); MEAN CORPUSCULAR HEMOGLOBIN 32.9 pg (27.0-33.0); MEAN CORPUSCULAR HGB CONC 34.6 g/dl (32.0-36.5); MEAN CORPUSCULAR VOLUME 94.9 fl (80.0-96.0); MONO # 0.3 K/mm3 (0.0-0.8); MONO % 5.5 % (0.0-5.0); NEUTROPHILS % 55.7 % (36.0-66.0); PLATELET COUNT, AUTOMATED 284 k/mm3 (150-450); RED CELL DISTRIBUTION WIDTH 12.3 % (11.5-14.5); WHITE BLOOD COUNT 5.4 K/mm3 (4.0-10.0)
[2016-12-08 10:14] LABS: ALBUMIN/GLOBULIN RATIO 1.33 (1.00-1.93); ALKALINE PHOSPHATASE 78 U/L (45-117); ALT/SGPT 22 U/L (12-78); ANION GAP 8 MEQ/L (8-16); AST/SGOT 8 U/L (15-37); BILIRUBIN,TOTAL 0.6 MG/DL (0.2-1.0); BLOOD UREA NITROGEN 18 MG/DL (7-18); CALCIUM LEVEL 9.8 MG/DL (8.8-10.2); CARBON DIOXIDE LEVEL 27 MEQ/L (21-32); CHLORIDE LEVEL 105 MEQ/L (98-107); CHOLESTEROL LEVEL 160 MG/DL (<200); CREATININE FOR GFR 0.82 MG/DL (0.55-1.02); GLOMERULAR FILTRATION RATE > 60.0 (>39); GLUCOSE, FASTING 161 MG/DL (83-110); POTASSIUM SERUM 4.3 MEQ/L (3.5-5.1); SODIUM LEVEL 140 MEQ/L (136-145); T UPTAKE 33 % (30-39); THYROXINE (T4) 7.7 UG/DL (4.5-12.0); TRIGLYCERIDES LEVEL 155 MG/DL (<150)
== END ==
LOC: M LAB 08:17
PROVIDERS: ATTEND Nurse Practitioner Adult Health
DX: I10 Essential (primary) hypertension (principal); E11.9 Type 2 diabetes mellitus without complications; E78.5 Hyperlipidemia, unspecified

== ENCOUNTER → 2017-01-11 | Outpatient (CLI) | payer MEDICARE, MEDICAID ==
--- NOTE | 2017-01-11 12:20 | REP ---
LEFT HAND SERIES: Four views. HISTORY: Injury left hand and wrist. No comparison imaging. FINDINGS: There is diffuse moderate osteopenia. Scattered osteoarthritic changes are seen at the IP joint of the thumb and the DIP joints of the fingers. There is some spurring and joint space narrowing at the MCP joints of the long and ring finger as well. No fracture is seen. There is some osteoarthritis at the first carpometacarpal articulation also. IMPRESSION: Osteoarthritic changes. No fracture noted. Signed by Shoaib Herron MD 01/11/2017 05:23 P
== END ==
LOC: M LAB 11:15
PROVIDERS: ATTEND Nurse Practitioner Adult Health
DX: S69.92XD Unspecified injury of left wrist, hand and finger(s), subsequent encounter (principal); M85.842 Other specified disorders of bone density and structure, left hand; M19.042 Primary osteoarthritis, left hand; X58.XXXD Exposure to other specified factors, subsequent encounter

== ENCOUNTER → 2017-01-31 | Outpatient (CLI) | payer MEDICARE, MEDICAID ==
[2017-01-31 08:39] LABS: ANION GAP 10 MEQ/L (8-16); BLOOD UREA NITROGEN 15 MG/DL (7-18); CALCIUM LEVEL 9.5 MG/DL (8.8-10.2); CARBON DIOXIDE LEVEL 24 MEQ/L (21-32); CHLORIDE LEVEL 106 MEQ/L (98-107); CREATININE FOR GFR 0.82 MG/DL (0.55-1.02); GLOMERULAR FILTRATION RATE > 60.0 (>39); GLUCOSE, FASTING 143 MG/DL (83-110); POTASSIUM SERUM 4.2 MEQ/L (3.5-5.1); SODIUM LEVEL 140 MEQ/L (136-145)
== END ==
LOC: M LAB 07:45
PROVIDERS: ATTEND Internal Medicine Endocrinology, Diabetes & Metabolism
DX: E11.65 Type 2 diabetes mellitus with hyperglycemia (principal)

== ENCOUNTER → 2017-04-20 | Outpatient (CLI) | payer MEDICARE | LOC: M PAIN 14:45 | DX: G89.29 Other chronic pain (principal); M79.1 Myalgia; M50.93 Cervical disc disorder, unspecified, cervicothoracic region; Z79.891 Long term (current) use of opiate analgesic; M19.90 Unspecified osteoarthritis, unspecified site; F32.9 Major depressive disorder, single episode, unspecified; E11.9 Type 2 diabetes mellitus without complications; J44.9 Chronic obstructive pulmonary disease, unspecified; I10 Essential (primary) hypertension; E78.00 Pure hypercholesterolemia, unspecified; N39.46 Mixed incontinence; Z79.4 Long term (current) use of insulin; Z79.899 Other long term (current) drug therapy; Z88.8 Allergy status to other drugs, medicaments and biological substances; Z91.011 Allergy to milk products | CPT/HCPCS: G0463 ==

== ENCOUNTER → 2017-05-15 | Outpatient (CLI) | payer MEDICARE, MEDICAID | LOC: M WUC 11:55 | DX: M17.0 Bilateral primary osteoarthritis of knee (principal); M19.012 Primary osteoarthritis, left shoulder | CPT/HCPCS: 73030 ==

== ENCOUNTER 2017-07-02 12:59 | Emergency (ER) | payer MEDICARE, MEDICAID, OTHER ==
[2017-07-02 14:44] LABS: BASO # 0.1 10^3/uL (0.0-0.2); BASO % 0.8 % (0.0-1.0); EOS # 0.6 10^3/uL (0.0-0.50); EOS % 6.2 % (0.0-3.0); HEMATOCRIT 45.3 % (36.0-47.0); HEMOGLOBIN 14.9 g/dl (12.0-16.0); IMMATURE GRANULOCYTE % 0.3 % (0-3.0); LYMPH # 2.7 10^3/uL (1.5-4.5); LYMPH % 28.9 % (24.0-44.0); MEAN CORPUSCULAR HEMOGLOBIN 30.8 pg (27.0-33.0); MEAN CORPUSCULAR HGB CONC 32.9 g/dl (32.0-36.5); MEAN CORPUSCULAR VOLUME 93.8 fl (80.0-96.0); MONO # 0.6 10^3/uL (0.0-0.8); MONO % 6.2 % (0.0-5.0); NEUTROPHILS # 5.3 10^3/uL (1.8-7.7); NEUTROPHILS % 57.6 % (36.0-66.0); PLATELET COUNT, AUTOMATED 290 10^3/uL (150-450); RED BLOOD COUNT 4.83 10^6/uL (4.00-5.40); RED CELL DISTRIBUTION WIDTH 13.3 % (11.5-14.5); WHITE BLOOD COUNT 9.2 10^3/uL (4.0-10.0)
[2017-07-02 15:03] LABS: ANION GAP 7 MEQ/L (8-16); BLOOD UREA NITROGEN 26 MG/DL (7-18); C REACTIVE PROTEIN QUANTITATIV 0.31 MG/DL (0.00-0.30); CALCIUM LEVEL 9.1 MG/DL (8.8-10.2); CARBON DIOXIDE LEVEL 27 MEQ/L (21-32); CHLORIDE LEVEL 105 MEQ/L (98-107); CREATININE FOR GFR 0.91 MG/DL (0.55-1.30); GLOMERULAR FILTRATION RATE > 60.0 (>39); GLUCOSE, FASTING 123 MG/DL (70-100); POTASSIUM SERUM 4.3 MEQ/L (3.5-5.1); SODIUM LEVEL 139 MEQ/L (136-145)
[2017-07-02 15:04] LABS: ESTIMATED AVERAGE GLUCOSE 186 MG/DL (60-110); HEMOGLOBIN A1c 8.1 %
[2017-07-02] MEDS: CEFTRIAXONE SOD 2 GM in APPROPRIATE DILUENT 1 EA IV (15:47)
== END 2017-07-02 16:35 | disposition home or self-care (01) ==
LOC: M ED 12:59
DX: L73.9 Follicular disorder, unspecified (principal); L03.90 Cellulitis, unspecified; E11.9 Type 2 diabetes mellitus without complications; J44.9 Chronic obstructive pulmonary disease, unspecified; I10 Essential (primary) hypertension; E78.00 Pure hypercholesterolemia, unspecified; F33.9 Major depressive disorder, recurrent, unspecified; F17.210 Nicotine dependence, cigarettes, uncomplicated; Z79.4 Long term (current) use of insulin; Z79.899 Other long term (current) drug therapy; Z79.51 Long term (current) use of inhaled steroids; Z98.890 Other specified postprocedural states; Z88.8 Allergy status to other drugs, medicaments and biological substances; Z91.011 Allergy to milk products
CPT/HCPCS: 83036

== ENCOUNTER → 2017-07-10 | Outpatient (CLI) | payer MEDICARE | LOC: M PAIN 11:00 | DX: M79.1 Myalgia (principal); M50.93 Cervical disc disorder, unspecified, cervicothoracic region; M19.90 Unspecified osteoarthritis, unspecified site; E11.9 Type 2 diabetes mellitus without complications; F32.9 Major depressive disorder, single episode, unspecified; J44.9 Chronic obstructive pulmonary disease, unspecified; I10 Essential (primary) hypertension; E78.00 Pure hypercholesterolemia, unspecified; G47.30 Sleep apnea, unspecified; Z79.4 Long term (current) use of insulin; Z79.891 Long term (current) use of opiate analgesic; Z79.899 Other long term (current) drug therapy; Z88.8 Allergy status to other drugs, medicaments and biological substances; Z91.011 Allergy to milk products | CPT/HCPCS: G0463 ==

== ENCOUNTER → 2017-10-10 | Outpatient (CLI) | payer MEDICARE, MEDICAID | LOC: M PAIN 11:00 | DX: M50.93 Cervical disc disorder, unspecified, cervicothoracic region (principal); M79.1 Myalgia; E11.9 Type 2 diabetes mellitus without complications; J44.9 Chronic obstructive pulmonary disease, unspecified; I10 Essential (primary) hypertension; F32.9 Major depressive disorder, single episode, unspecified; E78.5 Hyperlipidemia, unspecified; G47.30 Sleep apnea, unspecified; Z79.4 Long term (current) use of insulin; Z79.891 Long term (current) use of opiate analgesic; Z79.899 Other long term (current) drug therapy; Z88.8 Allergy status to other drugs, medicaments and biological substances; Z91.011 Allergy to milk products | CPT/HCPCS: G0463 ==

== ENCOUNTER → 2017-12-11 | Outpatient (CLI) | payer MEDICARE, MEDICAID | LOC: M PAIN 09:15 | DX: M50.93 Cervical disc disorder, unspecified, cervicothoracic region (principal); Z79.891 Long term (current) use of opiate analgesic; M79.1 Myalgia; F32.9 Major depressive disorder, single episode, unspecified; E11.9 Type 2 diabetes mellitus without complications; J44.9 Chronic obstructive pulmonary disease, unspecified; I10 Essential (primary) hypertension; E78.00 Pure hypercholesterolemia, unspecified; M19.90 Unspecified osteoarthritis, unspecified site; N39.46 Mixed incontinence; Z79.4 Long term (current) use of insulin; Z79.899 Other long term (current) drug therapy; Z91.011 Allergy to milk products; Z88.8 Allergy status to other drugs, medicaments and biological substances | CPT/HCPCS: G0463 ==

== ENCOUNTER → 2018-02-12 | Outpatient (CLI) | payer MEDICARE, MEDICAID | LOC: M PAIN 09:15 | DX: M50.93 Cervical disc disorder, unspecified, cervicothoracic region (principal); M79.18 Myalgia, other site; E11.9 Type 2 diabetes mellitus without complications; J44.9 Chronic obstructive pulmonary disease, unspecified; I10 Essential (primary) hypertension; E78.00 Pure hypercholesterolemia, unspecified; F32.9 Major depressive disorder, single episode, unspecified; M19.90 Unspecified osteoarthritis, unspecified site; Z79.4 Long term (current) use of insulin; Z79.891 Long term (current) use of opiate analgesic; Z79.899 Other long term (current) drug therapy; Z88.8 Allergy status to other drugs, medicaments and biological substances | CPT/HCPCS: G0463 ==

== ENCOUNTER → 2018-03-20 | Outpatient (CLI) | payer MEDICARE, MEDICAID ==
[2018-03-20 09:49] LABS: BASO % 0.6 % (0.0-1.0); EOS # 0.3 10^3/uL (0.0-0.50); EOS % 4.4 % (0.0-3.0); HEMATOCRIT 43.8 % (36.0-47.0); HEMOGLOBIN 14.4 g/dl (12.0-15.5); IMMATURE GRANULOCYTE % 0.5 % (0-3.0); LYMPH # 2.3 10^3/uL (1.5-4.5); LYMPH % 37.9 % (24.0-44.0); MEAN CORPUSCULAR HEMOGLOBIN 30.8 pg (27.0-33.0); MEAN CORPUSCULAR HGB CONC 32.9 g/dl (32.0-36.5); MEAN CORPUSCULAR VOLUME 93.8 fl (80.0-96.0); MONO # 0.4 10^3/uL (0.0-0.8); MONO % 6.3 % (0.0-5.0); NEUTROPHILS # 3.1 10^3/uL (1.8-7.7); NEUTROPHILS % 50.3 % (36.0-66.0); PLATELET COUNT, AUTOMATED 273 10^3/uL (150-450); RED BLOOD COUNT 4.67 10^6/uL (4.00-5.40); RED CELL DISTRIBUTION WIDTH 13.6 % (11.5-14.5); WHITE BLOOD COUNT 6.2 10^3/uL (4.0-10.0)
[2018-03-20 10:29] LABS: ALBUMIN 3.8 GM/DL (3.2-5.2); ALBUMIN/GLOBULIN RATIO 1.41 (1.00-1.93); ALKALINE PHOSPHATASE 74 U/L (45-117); ALT/SGPT 26 U/L (12-78); ANION GAP 8 MEQ/L (8-16); AST/SGOT 14 U/L (7-37); BILIRUBIN,TOTAL 0.5 MG/DL (0.2-1.0); BLOOD UREA NITROGEN 9 MG/DL (7-18); CALCIUM LEVEL 9.4 MG/DL (8.8-10.2); CARBON DIOXIDE LEVEL 27 MEQ/L (21-32); CHLORIDE LEVEL 107 MEQ/L (98-107); CHOLESTEROL LEVEL 144 MG/DL (<200); CHOLESTEROL RISK RATIO 2.526 (<5); CREATININE FOR GFR 0.78 MG/DL (0.55-1.30); GLOMERULAR FILTRATION RATE > 60.0 (>39); GLUCOSE, FASTING 83 MG/DL (70-100); HDL CHOLESTEROL 57 MG/DL (>40); LDL CHOLESTEROL 63 MG/DL (<100); NON-HDL-C 87 MG/DL; POTASSIUM SERUM 4.2 MEQ/L (3.5-5.1); SODIUM LEVEL 142 MEQ/L (136-145); TOTAL 25(OH) VITAMIN D 34.9 NG/ML (30.0-100.0); TOTAL PROTEIN 6.5 GM/DL (6.4-8.2); TRIGLYCERIDES LEVEL 122 MG/DL (<150)
[2018-03-20 10:47] LABS: ESTIMATED AVERAGE GLUCOSE 192 MG/DL (60-110); HEMOGLOBIN A1c 8.3 %
== END ==
LOC: M LAB 08:54
DX: R53.83 Other fatigue (principal); E78.2 Mixed hyperlipidemia; I10 Essential (primary) hypertension; E11.9 Type 2 diabetes mellitus without complications; E55.9 Vitamin D deficiency, unspecified; Z79.899 Other long term (current) drug therapy
CPT/HCPCS: 84443

== ENCOUNTER 2018-05-05 16:20 | Emergency (ER) | payer MEDICARE, MEDICAID ==
[~2018-05-05] VITALS: Ht 165.1 cm; Wt 100.0 kg
[~2018-05-05 16:20] MED LIST changes: -GABA-283 PO; +GABA-845 PO; +INSULIN; +KEFL500C17 PO; +NAPR-885 PO; -NAPR500T3 PO
[2018-05-05] MEDS ORDERED: TOUJ1.2I SQ (16:38)
[2018-05-05] MEDS ORDERED: TRUL0.5I SQ (16:38)
[2018-05-05] MEDS ORDERED: SUCR1TAB56 PO (16:38)
[2018-05-05] MEDS ORDERED: MORPHINE 10 MG/ML 1ML VIAL (J2270) IM ONE (16:45)
--- NOTE | 2018-05-05 17:20 | REP ---
Left shoulder: Three views. History: Injury in a fall. Findings: Comparison study May 15, 2017. Glenohumeral and acromioclavicular joints are normally aligned. No fracture is seen. Periarticular soft tissue calcifications again noted consistent with calcific tendonitis or bursitis. There is mild spurring at the glenohumeral joint. Again noted. AC joint narrowing and spurring is also seen. Impression: No acute bony abnormality is seen. Periarticular soft tissue calcifications. No fracture. Electronically Signed by Shoaib Herron MD 05/05/2018 05:11 P
[2018-05-05] MEDS ORDERED: NORCOTAB PO (17:29)
[2018-05-05 17:30] VITALS: BP 141/67
== END 2018-05-05 17:31 | disposition home or self-care (01) ==
LOC: M ED 16:20
DX: S46.812A Strain of other muscles, fascia and tendons at shoulder and upper arm level, left arm, initial encounter (principal); W01.0XXA Fall on same level from slipping, tripping and stumbling without subsequent striking against object, initial encounter; Y92.098 Other place in other non-institutional residence as the place of occurrence of the external cause; I10 Essential (primary) hypertension; Z88.8 Allergy status to other drugs, medicaments and biological substances; Z91.011 Allergy to milk products; Z79.899 Other long term (current) drug therapy; Z79.51 Long term (current) use of inhaled steroids; Z79.4 Long term (current) use of insulin
CPT/HCPCS: 73030; 96372; 99284; J2270

== ENCOUNTER → 2018-05-15 | Outpatient (CLI) | payer MEDICARE, MEDICAID ==
[~2018-05-15] MED LIST changes: +NORCOTAB PO; +SUCR1TAB56 PO; +TOUJ1.2I SQ; +TRUL0.5I SQ
--- NOTE | 2018-05-26 00:56 | ECWPNPC ---
PATIENT NAME: BEKAH MANZANARES : 1945 GENDER: FEMALE VISIT DATE: 05/15/2018 DISCHARGE DATE: 05/15/18 1054 VISIT LOCKED DATE TIME: PHYSICIAN: WES SANCHES RESOURCE: WES SANCHES REASON FOR APPOINTMENT 1. BACK/GEN PAIN HISTORY OF PRESENT ILLNESS HISTORY OF PRESENT ILLNESS: HERE FOR F/U OF CHRONIC GENERALIZED BACK PAIN.FELL LANDING ON LEFT SHOULDER ON ICE 1 WEEK AGO.HAVING SEVERE LEFT ANTERIOR SHOULDER PAIN.IS FOLLOWING WITH [facility]THO WITH IMAGING PENDING.RATING PAIN VAS 7/10.USING HYDROCODONE PRN FOR SEVERE PAIN WHICH IS HELPFUL.DENIES SIDE EFFECTS. PAIN THE PATIENT DESCRIBES THE PAIN... FALL RISK SCREENING: SCREENING :NO FALLS IN THE PAST YEAR CURRENT MEDICATIONS TAKING ADVAIR DISKUS 250-50 MCG/DOSE MISCELLANEOUS 1 INHALATION EVERY 12 HRS TAKING FUROSEMIDE 20 MG TABLET 1 TABLET ORALLY ONCE A DAY NEEDED TAKING LISINOPRIL 20 20 MG TABLET DIRECTED ORAL DAILY TAKING ZANTAC 300 MG TABLET 1 TABLET ORALLY TWICE A DAY TAKING OXYBUTYNIN CHLORIDE ER 10 MG TABLET EXTENDED RELEASE 24 HOUR 1 TABLET ORALLY ONCE A DAY TAKING LORATADINE 10 MG TABLET 1 TABLET ORALLY ONCE A DAY TAKING SIMVASTATIN 10 MG TABLET 1 TABLET IN THE EVENING ORALLY ONCE A DAY TAKING METFORMIN HCL ER 500 MG TABLET EXTENDED RELEASE 24 HOUR 1 TABLET WITH EVENING MEAL ORALLY DAILY TAKING MECLIZINE HCL 25 MG CAPSULE ORALLY THREE TIMES DAILY NEEDED TAKING TRULICITY 0.75 MG/0.5ML SOLUTION PEN-INJECTOR 0.5 ML SUBCUTANEOUS WEEKLY TAKING JARDIANCE 25 MG TABLET 1 TABLET ORALLY ONCE A DAY TAKING KLONOPIN 0.5 MG TABLET 1 TABLET AT ORALLY TWICE A DAY NEEDED TAKING FLUOXETINE 20 MG CAPSULE 2 CAPSULE IN THE MORNING ORALLY ONCE A DAY TAKING VOLTAREN 1 % GEL ONE APPLICATION TRANSDERMAL APPLY 4 GRAMS TO LOW BACK/KNEES Q 6 HRS PRN PAIN TAKING GABAPENTIN 400 MG CAPSULE 1 CAPSULE ORALLY BID TAKING BACLOFEN 10 MG TABLET 1 TABLET WITH FOOD OR MILK ORALLY TWO TIMES A DAY TAKING NORCO 5-325 MG TABLET 1 TABLET ORALLY EVERY 6 HRS PRN PAIN MDD=3 TAKING TOUJEO SOLOSTAR PENS 40 UNITS DAILY TAKING ASCENSIA CONTOUR 1 TEST STRIPS 1 X5 DAILY NOT-TAKING NEBULIZER/TUBING/MOUTHPIECE 1 EACH PRN DISCONTINUED LANTUS 100 UNIT/ML SOLUTION 40 UNITS SUBCUTANEOUS UNITS, SLIDING SCALE ONCE A DAY MEDICATION LIST REVIEWED AND RECONCILED WITH THE PATIENT PAST MEDICAL HISTORY DEPRESSION IDDM COPD HTN HIGH CHOLESTEROL MIXED INCONTINENCE, STRESS-DOMINATED OA URI PULLED TENDON LEFT SHOULDER ALLERGIES MILK: DIARRHEA: SIDE EFFECTS MUSCLE RELANTS-- ? NAME: UNSURE: SIDE EFFECTS PROTONIX: UNSURE ACTOS: SWELLING LUNESTA: CONFUSION: SIDE EFFECTS SURGICAL HISTORY WRIST SURGERY--LEFT OVARIAN CYST-LEFT LAPAROSCOPY-X4 D&C LUMP REMOVED FROM BUTTOCKS BREAST LUMP REMOVED RIGHT BILAT EYE CATARACT COLONOSCOPY 2014 OVARIAN CYST REMOVED FROM RIGHT FAMILY HISTORY FATHER: 83 YRS, OLD AGE MOTHER: 72 YRS, ALZHEIMER SIBLINGS: ALIVE, SISTER-HTN, HIGH CHOLESTEROL, HYPOGLYCEMIA, ANEMIA, PRECANC POLYP COLON. BROTHERS-4 W/DM, 1 W/HYPOGLYCEMIA. OLDEST-PROSTATE CANCER. ONE BROTHER-ALCOHOLIC MATERNAL GRAND FATHER: , AMI MATERNAL GRAND MOTHER: , RUPTURED HERNIA MATERNAL AUNT: 70'S YRS, BREAST CANCER, MASTECTOMY, DX LATER IN LIFE 5 BROTHER(S) , 1 SISTER(S) . DENIES COLON OR OVARIAN CANCERS. NO CHILDREN. NIECE ENLRAGED HEART IN HER 20'S.COUSIN HEART DISEASE. 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: TOBACCO USE ARE YOU A:NONSMOKER NEVER SMOKER BMI CARE GOAL FOLLOW-UP ABOVE NORMAL BMI FOLLOW-UPGIVING ENCOURAGEMENT TO EXERCISE ALCOHOL SCREENING DID YOU HAVE A DRINK CONTAINING ALCOHOL IN THE PAST YEAR?NO POINTS0 INTERPRETATIONNEGATIVE RECREATIONAL DRUG USE DRUG USE?NO CAFFEINE CAFFEINE USE?YES HOW OFTEN AND HOW MUCH? 2 CUPS COFFEE/DAY CHRISTIAN [id number] OTHER NO ISLAM BELIEFS THAT WOULD IMPACT HEALTH CARE. LANGUAGE LANGUAGES SPOKEN:BHUTANESE EDUCATION LEVEL OF EDUCATION:FINISHED COLLEGE 2 YR. 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 DIET: CARBOHYDRATE CONTROLLED. EXERCISE: NO REGULAR EXERCISE. MARITAL STATUS: SINGLE. OTHERS AT HOME: NONE. NEW PATIENT PAIN DIARY TODAY'S VISITNOTES FROM 0-10, WHAT LEVEL IS YOUR PAIN TODAY?7 PAIN CLINIC PFS, CLERGY, PUBLIC HEALTH REFERRALS HAS THE PATIENT BEEN EDUCATED REGARDING HIS/HER PLAN OF CARE?YES HAS THE PATIENT BEEN EDUCATED REGARDING PAIN, THE RISK FOR PAIN, THE IMPORTANCE OF EFFECTIVE PAIN MANAGEMENT, AND THE PAIN ASSESSMENT PROCESS?YES ADVANCE DIRECTIVE ADVANCE DIRECTIVE DISCUSSED WITH PATIENT:YES PT STATES SHE HAS HCP - ZACHERY SCHMIDT [phone] 05/15/18 REVIEWED WITH PT AD. HOSPITALIZATION/MAJOR DIAGNOSTIC PROCEDURE ABOVE SURGERIES PNEUMONIA STOMACH PAIN REVIEW OF SYSTEMS REVIEWED BY: PROVIDER: WES STALLINGS . CONSTITUTIONAL: ANY CHANGE IN YOUR MEDICAL CONDITION? YES PULLED TENDON LEFT SHOULDER FROM A FALL 05/05/18 ALSO HURT LEFT HIP . CHILLS NO . FEVER NO . INFECTION: DO YOU HAVE NEW INFECTIONS? NO . DO YOU HAVE HISTORY OF MRSA? NO . MUSCULOSKELETAL: ANY NEW PATTERNS OF PAIN OR NUMBNESS? NO . GASTROENTEROLOGY: ANY NEW CHANGE IN BOWEL CONTROL? NO . GENITOURINARY: ANY NEW CHANGE IN BLADDER CONTROL? YES, SOMETIMES SHE CAN'T MAKE IT TO THE BATHROOM IN TIME WHEN SHE GET UP . IS THERE A CHANCE YOU COULD BE ? NO . HEMATOLOGY/LYMPH: DO YOU TAKE ANY BLOOD THINNERS? (FOR EXAMPLE- COUMADIN, PLAVIX, AGGRENOX, PLATEL, PRADAXA, OR XARELTO) NO . WHEN WAS YOUR LAST DOSE? DATE: TIME: . NEUROLOGY: HAVE YOU FALLEN IN THE PAST 12 MONTHS? YES, HAS FALLEN X 2 IN THE PAST 12 MONTHS, THE LAST TIME WAS 05/05/18--SEE ABOVE FOR NEW MEDICAL DIAGNOSIS . ANY NEW EXTREMITY NUMBNESS OR WEAKNESS? NO . CARDIOLOGY: DO YOU HAVE A PACEMAKER OR DEFIBRILLATOR? NO . RESPIRATORY: HAVE YOU BEEN SICK IN THE PAST WEEK? NO . FEVER NO . FLU LIKE SYMPTOMS? NO . COUGH NO . INTEGUMENTARY: DO YOU HAVE ANY RASHES OR OPEN SORES? NO . ALLERGIC/IMMUNO: ARE YOU ALLERGIC TO IV DYE? NO . ANY NEW ALLERGIES? NO . PSYCHIATRIC: DO YOU HAVE THOUGHTS OF HURTING YOURSELF OR SOMEONE ELSE? NO . ARE YOU ABUSED, NEGLECTED, OR IN AN UNSAFE ENVIRONMENT? NO . ENDOCRINOLOGY: ARE YOU DIABETIC? YES FSBS 0730 TODAY 117 . OTHER: DO YOU NEED ANY PRESCRIPTIONS? NO . IF YES, PLEASE LIST: ____ . ANY NEW PROBLEMS WITH YOUR MEDICATIONS? NO . WHEN DID YOU LAST EAT? ____ . WHEN DID YOU LAST DRINK? ____ . WHAT DID YOU LAST DRINK? ____ . NAME OF PERSON DRIVING YOU HOME? ____ . DO YOU HAVE ANY OTHER QUESTIONS OR CONCERNS NO . VITAL SIGNS WT 220 LBS, HT 65 IN, BMI 36.61 INDEX, BP 140/76 MM HG, HR 76 /MIN, RR 18 /MIN, TEMP 98.0 F, OXYGEN SAT % 96%, SAFE IN ENV? (Y/N) Y, NA INITIALS AW 0938, REVIEWED BY: SANDIP. EXAMINATION GENERAL EXAMINATION: GENERAL APPEARANCE:AWAKE,ALERT ,PLEAASANT . PSYCHAFFECT NORMAL . LUNGS:LUNG LINN ARE CLEAR TO AUSCULTATION BILATERALLY. GOOD MOVEMENT OF AIR . HEART:S1, S2 IN A REGULAR RATE AND RHYTHM. NO SIGNIFICANT MURMURS, RUBS OR GALLOPS NOTED . SHOULDER / UPPER ARM: SHOULDER:LEFT. RANGE OF MOTION:LIMITED LEFT SHOULDER ROJM DUE TO ACUTE PAIN AFTER TRAUMA. 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 (REF #[id number] ) BRINGS IN MEDICATIONS WHICH IS APPROPRIATE FOR WHAT WAS DISPENSED. RECENT URINE TOXICOLOGY REVIEWED. NO UNAUTHORIZED MEDICATIONS. NO ILLICIT SUBSTANCES AND PRESCRIBED MEDICATIONS WERE PRESENT. URINE TOX TODAY, RISKS AND BENEFITS OF NARCOTIC/OPIOD MEDICATIONS WERE REVIEWED WITH PATIENT - THIS INCLUDES BUT IS NOT LIMITED TO RISK OF DEPENDANCE/DEVELOPMENT OF ADDICTION, MOOD DISTURBANCE AND DEPRESSION, OSTEOPOROSIS, HORMONAL AND LABIDAL CHANGES, RESPIRATORY DEPRESSION AND . PATIENT IS ADVISED NOT TO DRIVE OR DRINK ALCOHOL WHILE ON THESE MEDICATIONS. PREVENTIVE MEDICINE PAIN CLINIC TEACHING: MEDICATIONS TORADOL HANDOUT PRINTED, REVIEWED AND GIVEN TO PT. EM. PROCEDURE CODES FA211 ESTABILISHED PATIENT [facility] FAC[facility] CHARGE DISPOSITION & COMMUNICATION FOLLOW UP 2 MONTHS ELECTRONICALLY SIGNED BY CHANDRAKANT CARTY ON 05/25/2018 AT 08:50 AM EST DISCLAIMER : THIS IS A VISIT SUMMARY EXTRACTED FROM THE [employer] CHART. IT IS NOT A COPY OF THE [employer] PROGRESS NOTE. MARTELL
== END ==
LOC: M PAIN 09:30
PROVIDERS: ATTEND Nurse Practitioner Family
DX: M25.512 Pain in left shoulder (principal); M19.90 Unspecified osteoarthritis, unspecified site; M50.93 Cervical disc disorder, unspecified, cervicothoracic region; G89.29 Other chronic pain; E11.9 Type 2 diabetes mellitus without complications; I10 Essential (primary) hypertension; E78.00 Pure hypercholesterolemia, unspecified; J44.9 Chronic obstructive pulmonary disease, unspecified; G47.33 Obstructive sleep apnea (adult) (pediatric); F32.9 Major depressive disorder, single episode, unspecified; E66.09 Other obesity due to excess calories; Z68.36 Body mass index [BMI] 36.0-36.9, adult; Z79.4 Long term (current) use of insulin; Z79.891 Long term (current) use of opiate analgesic; Z79.899 Other long term (current) drug therapy; Z88.8 Allergy status to other drugs, medicaments and biological substances; Z91.011 Allergy to milk products

== ENCOUNTER → 2018-05-22 | Outpatient (CLI) | payer MEDICARE, MEDICAID ==
--- NOTE | 2018-05-22 11:56 | REP ---
LIMITED MRI LEFT SHOULDER: A single axial T2 fat sat sequence is obtained of the left shoulder. The patient then became claustrophobic and experienced significant pain and was not able to continue with the remainder of the procedure. There does appear to be a high-grade partial tear of the subscapularis tendon. There are hypertrophic degenerative changes of the acromioclavicular joint. The biceps tendon is extremely thin in the superior bicipital groove, and thickened inferiorly, with moderate surrounding fluid. I suspect a high-grade tear of the proximal biceps tendon. Normal signal is seen in the deltoid muscle. I do not see an anterior or posterior labral tear. There are mild subchondral cystic changes and marrow edema in the superolateral humeral head. There is a moderate to large joint effusion. We would be happy to complete the exam if the patient is willing to return, it would likely be helpful to administer sedatives and/or pain medication. Electronically Signed by Adithya Kingsley MD 05/22/2018 12:48 P
== END ==
LOC: M RAD 10:32
PROVIDERS: ATTEND Orthopaedic Surgery Sports Medicine
DX: M25.512 Pain in left shoulder (principal); M19.012 Primary osteoarthritis, left shoulder

== ENCOUNTER → 2018-07-17 | Outpatient (CLI) | payer MEDICARE, MEDICAID ==
[~2018-07-17] MED LIST changes: -CITA20TA4 PO; +CITA20TA6 PO; +HYDR-3715 PO; -NORCOTAB PO
--- NOTE | 2018-07-31 01:12 | ECWPNPC ---
PATIENT NAME: BEKAH MANZANARES : 1945 GENDER: FEMALE VISIT DATE: 07/17/2018 DISCHARGE DATE: 07/17/18946 VISIT LOCKED DATE TIME: PHYSICIAN: WES SANCHES RESOURCE: WES SANCHES REASON FOR APPOINTMENT 1. BACK/GEN PAIN HISTORY OF PRESENT ILLNESS HISTORY OF PRESENT ILLNESS: HERE FOR F/U OF CHRONIC LOW BACK PAIN AND GENERALIZED JOINT PAIN.RATING PAIN VAS 6/10.FINDS CURRENT MEDICATION HELPFUL AT REDUCING PAIN.FOLLOWING WITH [facility] FOR LEFT SHOULDER PAIN POST INJURY IN APRIL. PAIN THE PATIENT DESCRIBES THE PAIN... FALL RISK SCREENING: SCREENING :NO FALLS REPORTED IN THE LAST YEAR CURRENT MEDICATIONS TAKING ADVAIR DISKUS 250-50 MCG/DOSE MISCELLANEOUS 1 INHALATION EVERY 12 HRS TAKING FUROSEMIDE 20 MG TABLET 1 TABLET ORALLY ONCE A DAY NEEDED TAKING LISINOPRIL 20 20 MG TABLET DIRECTED ORAL DAILY TAKING ZANTAC 300 MG TABLET 1 TABLET ORALLY TWICE A DAY TAKING OXYBUTYNIN CHLORIDE ER 10 MG TABLET EXTENDED RELEASE 24 HOUR 1 TABLET ORALLY ONCE A DAY TAKING LORATADINE 10 MG TABLET 1 TABLET ORALLY ONCE A DAY TAKING SIMVASTATIN 10 MG TABLET 1 TABLET IN THE EVENING ORALLY ONCE A DAY TAKING METFORMIN HCL ER 500 MG TABLET EXTENDED RELEASE 24 HOUR 1 TABLET WITH EVENING MEAL ORALLY DAILY TAKING MECLIZINE HCL 25 MG CAPSULE ORALLY THREE TIMES DAILY NEEDED TAKING TRULICITY 0.75 MG/0.5ML SOLUTION PEN-INJECTOR 0.5 ML SUBCUTANEOUS WEEKLY TAKING JARDIANCE 25 MG TABLET 1 TABLET ORALLY ONCE A DAY TAKING KLONOPIN 0.5 MG TABLET 1 TABLET AT ORALLY TWICE A DAY NEEDED TAKING FLUOXETINE 20 MG CAPSULE 2 CAPSULE IN THE MORNING ORALLY ONCE A DAY TAKING VOLTAREN 1 % GEL ONE APPLICATION TRANSDERMAL APPLY 4 GRAMS TO LOW BACK/KNEES Q 6 HRS PRN PAIN TAKING TOUJEO SOLOSTAR PENS 40 UNITS DAILY TAKING ASCENSIA CONTOUR 1 TEST STRIPS 1 X5 DAILY TAKING KETOROLAC TROMETHAMINE 10 MG TABLET 1 TABLET WITH FOOD OR MILK NEEDED ORALLY EVERY 6 HRS TAKING GABAPENTIN 400 MG CAPSULE 1 CAPSULE ORALLY BID TAKING BACLOFEN 10 MG TABLET 1 TABLET WITH FOOD OR MILK ORALLY TWO TIMES A DAY TAKING NORCO 5-325 MG TABLET 1 TABLET ORALLY EVERY 6 HRS PRN PAIN MDD=3 NOT-TAKING NEBULIZER/TUBING/MOUTHPIECE 1 EACH PRN MEDICATION LIST REVIEWED AND RECONCILED WITH THE PATIENT PAST MEDICAL HISTORY DEPRESSION IDDM COPD HTN HIGH CHOLESTEROL MIXED INCONTINENCE, STRESS-DOMINATED OA URI PULLED TENDON LEFT SHOULDER ASTHMA CHRONIC BACK PAIN ALLERGIES MILK: DIARRHEA - SIDE EFFECTS MUSCLE RELANTS-- ? NAME: UNSURE - SIDE EFFECTS PROTONIX: UNSURE ACTOS: SWELLING LUNESTA: CONFUSION - SIDE EFFECTS SURGICAL HISTORY WRIST SURGERY--LEFT OVARIAN CYST-LEFT LAPAROSCOPY-X4 D&C LUMP REMOVED FROM BUTTOCKS BREAST LUMP REMOVED RIGHT BILAT EYE CATARACT COLONOSCOPY 2014 OVARIAN CYST REMOVED FROM RIGHT FAMILY HISTORY FATHER: 83 YRS, OLD AGE MOTHER: 72 YRS, ALZHEIMER SIBLINGS: ALIVE, SISTER-HTN, HIGH CHOLESTEROL, HYPOGLYCEMIA, ANEMIA, PRECANC POLYP COLON. BROTHERS-4 W/DM, 1 W/HYPOGLYCEMIA. OLDEST-PROSTATE CANCER. ONE BROTHER-ALCOHOLIC MATERNAL GRAND FATHER: , AMI MATERNAL GRAND MOTHER: , RUPTURED HERNIA MATERNAL AUNT: 70'S YRS, BREAST CANCER, MASTECTOMY, DX LATER IN LIFE 5 BROTHER(S) , 1 SISTER(S) . DENIES COLON OR OVARIAN CANCERS. NO CHILDREN. NIECE ENLRAGED HEART IN HER 20\'S.COUSIN HEART DISEASE. 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: TOBACCO USE ARE YOU A: NONSMOKER NEVER SMOKER. LATEX QUESTIONNAIRE LATEX ALLERGY : HAVE YOU EVER DEVELOPED ANY TYPE OF REACTION AFTER HANDLING LATEX PRODUCTS SUCH RUBBER GLOVES, CONDOMS, DIAPHRAGMS, BALLOONS, SOCKS, OR UNDERWEAR?NO LATEX ALLERGY : HAVE YOU EVER DEVELOPED ANY TYPE OF REACTION DURING OR AFTER DENTAL APPOINTMENT, VAGINAL/RECTAL EXAMINATION, SURGICAL PROCEDURE, OR ANY OTHER EXPOSURE?NO LATEX RISK : HAVE YOU EVER HAD ANY DIFFICULTY BREATHING OR HIVES AFTER EATING OR HANDLING ANY FRUITS, OR VEGETABLES; SUCH KIWI, BANANAS, STONE FRUITS, OR CHESTNUTSNO LATEX RISK : DO YOU HAVE A PREVIOUS PERSONAL HISTORY OF MORE THAN NINE SURGERIES, SPINA BIFIDA, OR REPEATED CATHERTIZATIONS? YES - PLEASE INDICATE : > 9 SURGERIES LATEX RISK : ARE YOU FREQUENTLY EXPOSED TO LATEX PRODUCTS IN YOUR OCCUPATION?NO DATE ASKED : 07/17/2018 BMI CARE GOAL FOLLOW-UP ABOVE NORMAL BMI FOLLOW-UP GIVING ENCOURAGEMENT TO EXERCISE. ALCOHOL SCREENING DID YOU HAVE A DRINK CONTAINING ALCOHOL IN THE PAST YEAR?NO POINTS0 INTERPRETATIONNEGATIVE RECREATIONAL DRUG USE DRUG USE?NO CAFFEINE CAFFEINE USE?YES HOW OFTEN AND HOW MUCH? 2 CUPS COFFEE/DAY RELIGIOUS [id number] OTHER NO MU-ISM BELIEFS THAT WOULD IMPACT HEALTH CARE. LANGUAGE LANGUAGES SPOKEN: CUBAN. EDUCATION LEVEL OF EDUCATION: FINISHED COLLEGE 2 YR. DEGREE. LEARNING BARRIERS / SPECIAL NEEDS :CORRECTIVE LENSES OCCUPATION: RETIRED, DISABLED. DIET: CARBOHYDRATE CONTROLLED. EXERCISE: NO REGULAR EXERCISE. MARITAL STATUS: SINGLE. OTHERS AT HOME: NONE. NEW PATIENT PAIN DIARY TODAY'S VISITNOTES FROM 0-10, WHAT LEVEL IS YOUR PAIN TODAY?7 PAIN CLINIC PFS, CLERGY, PUBLIC HEALTH REFERRALS HAS THE PATIENT BEEN EDUCATED REGARDING HIS/HER PLAN OF CARE?YES HAS THE PATIENT BEEN EDUCATED REGARDING PAIN, THE RISK FOR PAIN, THE IMPORTANCE OF EFFECTIVE PAIN MANAGEMENT, AND THE PAIN ASSESSMENT PROCESS?YES ADVANCE DIRECTIVE ADVANCE DIRECTIVE DISCUSSED WITH PATIENT:YES PT STATES SHE HAS HCP - ZACHERY SCHMIDT [phone] 05/15/18 REVIEWED WITH PT SCOTT WITH PATIENT 07/17/18 0909 JS. HOSPITALIZATION/MAJOR DIAGNOSTIC PROCEDURE ABOVE SURGERIES PNEUMONIA STOMACH PAIN REVIEW OF SYSTEMS REVIEWED BY: PROVIDER: WES STALLINGS . CONSTITUTIONAL: ANY CHANGE IN YOUR MEDICAL CONDITION? NO . CHILLS NO . FEVER NO . INFECTION: DO YOU HAVE NEW INFECTIONS? YES, SINUS INFECTION . DO YOU HAVE HISTORY OF MRSA? NO . MUSCULOSKELETAL: ANY NEW PATTERNS OF PAIN OR NUMBNESS? YES, STATES PAIN IS SOMETIMES WORSE AND SOMETIMES LESS . GASTROENTEROLOGY: ANY NEW CHANGE IN BOWEL CONTROL? NO . GENITOURINARY: ANY NEW CHANGE IN BLADDER CONTROL? YES, INCONTINENCE THROUGHOUT THE DAY . IS THERE A CHANCE YOU COULD BE ? NO . HEMATOLOGY/LYMPH: DO YOU TAKE ANY BLOOD THINNERS? (FOR EXAMPLE- COUMADIN, PLAVIX, AGGRENOX, PLATEL, PRADAXA, OR XARELTO) NO . WHEN WAS YOUR LAST DOSE? DATE: TIME: . NEUROLOGY: HAVE YOU FALLEN IN THE PAST 12 MONTHS? YES, STATES PRIOR TO LAST VISIT, DISCUSSED AT LAST VISIT . ANY NEW EXTREMITY NUMBNESS OR WEAKNESS? NO . CARDIOLOGY: DO YOU HAVE A PACEMAKER OR DEFIBRILLATOR? NO . RESPIRATORY: HAVE YOU BEEN SICK IN THE PAST WEEK? YES, STATES SINUS INFECTION . FEVER NO . FLU LIKE SYMPTOMS? NO . COUGH YES . INTEGUMENTARY: DO YOU HAVE ANY RASHES OR OPEN SORES? NO . ALLERGIC/IMMUNO: ARE YOU ALLERGIC TO IV DYE? NO . ANY NEW ALLERGIES? NO . PSYCHIATRIC: DO YOU HAVE THOUGHTS OF HURTING YOURSELF OR SOMEONE ELSE? NO . ARE YOU ABUSED, NEGLECTED, OR IN AN UNSAFE ENVIRONMENT? NO . ENDOCRINOLOGY: ARE YOU DIABETIC? YES . OTHER: DO YOU NEED ANY PRESCRIPTIONS? YES . IF YES, PLEASE LIST: ____HYDROCODONE . ANY NEW PROBLEMS WITH YOUR MEDICATIONS? NO . WHEN DID YOU LAST EAT? ____ . WHEN DID YOU LAST DRINK? ____ . WHAT DID YOU LAST DRINK? ____ . NAME OF PERSON DRIVING YOU HOME? ____ . DO YOU HAVE ANY OTHER QUESTIONS OR CONCERNS NO . VITAL SIGNS WT 228 LBS, HT 65 IN, BMI 37.94 INDEX, BP 153/67 MM HG, HR 75 /MIN, RR 18 /MIN, TEMP 97.2 F, OXYGEN SAT % 93%, SAFE IN ENV? (Y/N) YES, NA INITIALS AW 0900, REVIEWED BY: ROBYN. EXAMINATION GENERAL EXAMINATION: GENERAL APPEARANCE:AWAKE,ALERT ,PLEAASANT . PSYCHAFFECT NORMAL . LUNGS:LUNG LINN ARE CLEAR TO AUSCULTATION BILATERALLY. GOOD MOVEMENT OF AIR . HEART:S1, S2 IN A REGULAR RATE AND RHYTHM. NO SIGNIFICANT MURMURS, RUBS OR GALLOPS NOTED . 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 BRINGS IN MEDICATIONS WHICH IS APPROPRIATE FOR WHAT WAS DISPENSED. RECENT URINE TOXICOLOGY REVIEWED. NO UNAUTHORIZED MEDICATIONS. NO ILLICIT SUBSTANCES AND PRESCRIBED MEDICATIONS WERE PRESENT. , RISKS AND BENEFITS OF NARCOTIC/OPIOD MEDICATIONS WERE REVIEWED WITH PATIENT - THIS INCLUDES BUT IS NOT LIMITED TO RISK OF DEPENDANCE/DEVELOPMENT OF ADDICTION, MOOD DISTURBANCE AND DEPRESSION, OSTEOPOROSIS, HORMONAL AND LABIDAL CHANGES, RESPIRATORY DEPRESSION AND . PATIENT IS ADVISED NOT TO DRIVE OR DRINK ALCOHOL WHILE ON THESE MEDICATIONS. PROCEDURE CODES FA211 ESTABILISHED PATIENT [facility] FACILITY CHARGE DISPOSITION & COMMUNICATION FOLLOW UP 10WKS ELECTRONICALLY SIGNED BY CHANDRAKANT CARTY ON 07/30/2018 AT 04:32 PM EDT DISCLAIMER : THIS IS A VISIT SUMMARY EXTRACTED FROM THE [employer] CHART. IT IS NOT A COPY OF THE [employer] PROGRESS NOTE. MARTELL
== END ==
LOC: M PAIN 08:45
PROVIDERS: ATTEND Nurse Practitioner Family
DX: M50.93 Cervical disc disorder, unspecified, cervicothoracic region (principal); G89.29 Other chronic pain; M19.90 Unspecified osteoarthritis, unspecified site; Z86.59 Personal history of other mental and behavioral disorders; E11.9 Type 2 diabetes mellitus without complications; J44.9 Chronic obstructive pulmonary disease, unspecified; I10 Essential (primary) hypertension; E78.00 Pure hypercholesterolemia, unspecified; Z88.8 Allergy status to other drugs, medicaments and biological substances; Z91.011 Allergy to milk products; Z79.4 Long term (current) use of insulin; Z79.891 Long term (current) use of opiate analgesic; Z79.899 Other long term (current) drug therapy

== ENCOUNTER → 2018-08-28 | Outpatient (CLI) | payer MEDICARE, MEDICAID ==
[2018-08-28 08:44] LABS: BASO # 0.1 10^3/uL (0.0-0.2); BASO % 1.2 % (0.0-1.0); EOS # 0.4 10^3/uL (0.0-0.50); EOS % 5.1 % (0.0-3.0); HEMATOCRIT 45.6 % (36.0-47.0); HEMOGLOBIN 15.1 g/dl (12.0-15.5); LYMPH # 2.9 10^3/uL (1.5-4.5); LYMPH % 39.1 % (24.0-44.0); MEAN CORPUSCULAR HEMOGLOBIN 31.1 pg (27.0-33.0); MEAN CORPUSCULAR HGB CONC 33.1 g/dl (32.0-36.5); MONO # 0.5 10^3/uL (0.0-0.8); MONO % 6.7 % (0.0-5.0); NEUTROPHILS # 3.5 10^3/uL (1.8-7.7); NEUTROPHILS % 47.6 % (36.0-66.0); PLATELET COUNT, AUTOMATED 285 10^3/uL (150-450); RED BLOOD COUNT 4.85 10^6/uL (4.00-5.40); WHITE BLOOD COUNT 7.3 10^3/uL (4.0-10.0)
[2018-08-28 08:58] LABS: HEMOGLOBIN A1c 7.7 %
[2018-08-28 09:16] LABS: BILIRUBIN,TOTAL 0.5 MG/DL (0.2-1.0); CREATININE FOR GFR 0.99 MG/DL (0.55-1.30); GLOMERULAR FILTRATION RATE 58.7 (>39); POTASSIUM SERUM 4.5 MEQ/L (3.5-5.1)
[2018-08-28 09:17] LABS: ALBUMIN 3.9 GM/DL (3.2-5.2); CHOLESTEROL RISK RATIO 2.35 (<5); FREE T4 0.98 NG/DL (0.76-1.46); THYROID STIMULATING HORMONE 3.11 uIU/ML (0.358-3.740); TOTAL PROTEIN 6.8 GM/DL (6.4-8.2)
== END ==
LOC: M LAB 08:04
PROVIDERS: ATTEND Physician Assistant Medical
DX: R53.83 Other fatigue (principal); I10 Essential (primary) hypertension; E78.2 Mixed hyperlipidemia; E11.9 Type 2 diabetes mellitus without complications

== ENCOUNTER → 2018-09-14 | Outpatient (CLI) | payer MEDICARE, MEDICAID ==
--- NOTE | 2018-09-14 12:01 | REP ---
MRI LEFT SHOULDER: TECHNIQUE: Axial T2 fat sat, gradient echo, sagittal oblique T2 fat sat, coronal oblique T1, T2 fat sat. There is a complete full thickness tear of the supraspinatus tendon with retraction of approximately 3.5 cm. There is also a full thickness tear of the infraspinatus tendon. There is a fairly extensive full thickness tear of the subscapularis tendon. There are moderate hypertrophic degenerative changes of the acromioclavicular joint. Acromion is type 2. The biceps tendon appears to be displaced anteromedially out of the bicipital groove. There is mild to moderate surrounding fluid. There is no Hill-Sachs deformity. There is no abnormal signal in the deltoid. There is mild fraying of the biceps labral complex. There is mild diffuse labral fraying. There is mild chondromalacia at the glenohumeral joint. There is moderate joint effusion with fluid extending into the subacromial subdeltoid bursae. There appears to be diffuse synovial thickening. Tiny subchondral cystic changes are seen in the superior humeral head. There are mild subchondral cystic changes and marrow edema in the inferior bony glenoid. IMPRESSION: Full thickness complete tear supraspinatus tendon with retraction of approximately 3.5 cm. Extensive full thickness tears are also seen in the infraspinatus and subscapularis tendons. Moderate hypertrophic degenerative changes acromioclavicular joint. Type 2 acromion. Biceps tendon appears displaced anteromedially out of the bicipital groove with mild to moderate surrounding fluid. There is fraying of the biceps labral complex and mild diffuse fraying is noted of the entire labrum. There is mild chondromalacia of the glenohumeral joint. Moderate joint effusion. Electronically Signed by Adithya Kingsley MD 09/18/2018 09:57 A
== END ==
LOC: M PLARAD 08:40
PROVIDERS: ATTEND Orthopaedic Surgery Sports Medicine
DX: M19.112 Post-traumatic osteoarthritis, left shoulder (principal); M25.412 Effusion, left shoulder; M75.120 Complete rotator cuff tear or rupture of unspecified shoulder, not specified as traumatic; M94.212 Chondromalacia, left shoulder

== ENCOUNTER → 2018-10-01 | Outpatient (CLI) | payer MEDICARE, MEDICAID ==
--- NOTE | 2018-10-17 01:37 | ECWPNPC ---
PATIENT NAME: BEKAH MANZANARES : 1945 GENDER: FEMALE VISIT DATE: 10/01/2018 DISCHARGE DATE: 10/01/18 1120 VISIT LOCKED DATE TIME: PHYSICIAN: WES SANCHES RESOURCE: WES SANCHES REASON FOR APPOINTMENT 1. BACK/GEN PAIN HISTORY OF PRESENT ILLNESS HISTORY OF PRESENT ILLNESS: HERE FOR F/U OF CHRONIC LOW BACK PAIN AND GENERALIZED JOINT PAIN.RATING PAIN VAS 7/10.FINDS CURRENT MEDICATION HELPFUL AT REDUCING PAIN.[facility] FOR LEFT SHOULDER PAIN POST INJURY IN APRIL.THEY DIAGNOSED HER WITH A SEVERE ROTATOR CUFF TEAR.THEY DIDNT RECOMMEND SURGERY.CONTINUES WITH LEG CRAMPING. PAIN THE PATIENT DESCRIBES THE PAIN... THE PATIENT DESCRIBES THE PAIN... FALL RISK SCREENING: SCREENING :NO FALLS REPORTED IN THE LAST YEAR CURRENT MEDICATIONS TAKING ADVAIR DISKUS 250-50 MCG/DOSE MISCELLANEOUS 1 INHALATION EVERY 12 HRS TAKING FUROSEMIDE 20 MG TABLET 1 TABLET ORALLY ONCE A DAY NEEDED TAKING LISINOPRIL 20 20 MG TABLET DIRECTED ORAL DAILY TAKING ZANTAC 300 MG TABLET 1 TABLET ORALLY TWICE A DAY TAKING OXYBUTYNIN CHLORIDE ER 10 MG TABLET EXTENDED RELEASE 24 HOUR 1 TABLET ORALLY ONCE A DAY TAKING LORATADINE 10 MG TABLET 1 TABLET ORALLY ONCE A DAY TAKING SIMVASTATIN 10 MG TABLET 1 TABLET IN THE EVENING ORALLY ONCE A DAY TAKING METFORMIN HCL ER 500 MG TABLET EXTENDED RELEASE 24 HOUR 1 TABLET ORALLY THREE TIMES DAILY TAKING MECLIZINE HCL 25 MG CAPSULE ORALLY THREE TIMES DAILY NEEDED TAKING TRULICITY 0.75 MG/0.5ML SOLUTION PEN-INJECTOR 0.5 ML SUBCUTANEOUS WEEKLY TAKING JARDIANCE 25 MG TABLET 1 TABLET ORALLY ONCE A DAY TAKING KLONOPIN 0.5 MG TABLET 1 TABLET AT ORALLY TWICE A DAY NEEDED TAKING FLUOXETINE 20 MG CAPSULE 2 CAPSULE IN THE MORNING ORALLY ONCE A DAY TAKING VOLTAREN 1 % GEL ONE APPLICATION TRANSDERMAL APPLY 4 GRAMS TO LOW BACK/KNEES Q 6 HRS PRN PAIN TAKING TOUGILBERTOO SOLOSTAR PENS 40 UNITS DAILY TAKING ASCENSIA CONTOUR 1 TEST STRIPS 1 X5 DAILY TAKING KETOROLAC TROMETHAMINE 10 MG TABLET 1 TABLET WITH FOOD OR MILK NEEDED ORALLY EVERY 6 HRS TAKING BACLOFEN 10 MG TABLET 1 TABLET WITH FOOD OR MILK ORALLY TWO TIMES A DAY TAKING GABAPENTIN 400 MG CAPSULE 1 CAPSULE ORALLY THREE TIMES A DAY TAKING NORCO 5-325 MG TABLET 1 TABLET ORALLY EVERY 6 HRS PRN PAIN MDD=3 NOT-TAKING NEBULIZER/TUBING/MOUTHPIECE 1 EACH PRN MEDICATION LIST REVIEWED AND RECONCILED WITH THE PATIENT PAST MEDICAL HISTORY DEPRESSION IDDM COPD HTN HIGH CHOLESTEROL MIXED INCONTINENCE, STRESS-DOMINATED OA URI PULLED TENDON LEFT SHOULDER ASTHMA CHRONIC BACK PAIN ALLERGIES MILK: DIARRHEA - SIDE EFFECTS MUSCLE RELANTS-- ? NAME: UNSURE - SIDE EFFECTS PROTONIX: UNSURE ACTOS: SWELLING LUNESTA: CONFUSION - SIDE EFFECTS SURGICAL HISTORY WRIST SURGERY--LEFT OVARIAN CYST-LEFT LAPAROSCOPY-X4 D&C LUMP REMOVED FROM BUTTOCKS BREAST LUMP REMOVED RIGHT BILAT EYE CATARACT COLONOSCOPY 2014 OVARIAN CYST REMOVED FROM RIGHT FAMILY HISTORY FATHER: 83 YRS, OLD AGE MOTHER: 72 YRS, ALZHEIMER SIBLINGS: ALIVE, SISTER-HTN, HIGH CHOLESTEROL, HYPOGLYCEMIA, ANEMIA, PRECANC POLYP COLON. BROTHERS-4 W/DM, 1 W/HYPOGLYCEMIA. OLDEST-PROSTATE CANCER. ONE BROTHER-ALCOHOLIC MATERNAL GRAND FATHER: , AMI MATERNAL GRAND MOTHER: , RUPTURED HERNIA MATERNAL AUNT: 70'S YRS, BREAST CANCER, MASTECTOMY, DX LATER IN LIFE 5 BROTHER(S) , 1 SISTER(S) . DENIES COLON OR OVARIAN CANCERS. NO CHILDREN. NIECE ENLRAGED HEART IN HER 20\'S.COUSIN HEART DISEASE. 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: TOBACCO USE ARE YOU A: NONSMOKER NEVER SMOKER. OTHERS AT HOME: NONE. EDUCATION LEVEL OF EDUCATION: FINISHED COLLEGE 2 YR. DEGREE. DIET: CARBOHYDRATE CONTROLLED. LANGUAGE LANGUAGES SPOKEN: NIGERIEN. NEW PATIENT PAIN DIARY TODAY'S VISITNOTES FROM 0-10, WHAT LEVEL IS YOUR PAIN TODAY?7 BMI CARE GOAL FOLLOW-UP ABOVE NORMAL BMI FOLLOW-UP GIVING ENCOURAGEMENT TO EXERCISE. RECREATIONAL DRUG USE DRUG USE?NO EXERCISE: NO REGULAR EXERCISE. LEARNING BARRIERS / SPECIAL NEEDS :CORRECTIVE LENSES PAIN CLINIC PFS, CLERGY, PUBLIC HEALTH REFERRALS HAS THE PATIENT BEEN EDUCATED REGARDING HIS/HER PLAN OF CARE?YES HAS THE PATIENT BEEN EDUCATED REGARDING PAIN, THE RISK FOR PAIN, THE IMPORTANCE OF EFFECTIVE PAIN MANAGEMENT, AND THE PAIN ASSESSMENT PROCESS?YES LATEX QUESTIONNAIRE LATEX ALLERGY : HAVE YOU EVER DEVELOPED ANY TYPE OF REACTION AFTER HANDLING LATEX PRODUCTS SUCH RUBBER GLOVES, CONDOMS, DIAPHRAGMS, BALLOONS, SOCKS, OR UNDERWEAR?NO LATEX ALLERGY : HAVE YOU EVER DEVELOPED ANY TYPE OF REACTION DURING OR AFTER DENTAL APPOINTMENT, VAGINAL/RECTAL EXAMINATION, SURGICAL PROCEDURE, OR ANY OTHER EXPOSURE?NO LATEX RISK : HAVE YOU EVER HAD ANY DIFFICULTY BREATHING OR HIVES AFTER EATING OR HANDLING ANY FRUITS, OR VEGETABLES; SUCH KIWI, BANANAS, STONE FRUITS, OR CHESTNUTSNO LATEX RISK : DO YOU HAVE A PREVIOUS PERSONAL HISTORY OF MORE THAN NINE SURGERIES, SPINA BIFIDA, OR REPEATED CATHERTIZATIONS? YES - PLEASE INDICATE : > 9 SURGERIES LATEX RISK : ARE YOU FREQUENTLY EXPOSED TO LATEX PRODUCTS IN YOUR OCCUPATION?NO DATE ASKED : 07/17/2018 CAFFEINE CAFFEINE USE?YES HOW OFTEN AND HOW MUCH? 2 CUPS COFFEE/DAY ADVANCE DIRECTIVE ADVANCE DIRECTIVE DISCUSSED WITH PATIENT:YES PT STATES SHE HAS HCP - ZACHERY SCHMIDT (PARTNER) [phone] [id number] OTHER NO QUAKER BELIEFS THAT WOULD IMPACT HEALTH CARE. MARITAL STATUS: SINGLE. ALCOHOL SCREENING DID YOU HAVE A DRINK CONTAINING ALCOHOL IN THE PAST YEAR?NO POINTS0 INTERPRETATIONNEGATIVE OCCUPATION: RETIRED, DISABLED. 05/15/18 REVIEWED WITH PT ADREVIEWED WITH PATIENT 07/17/18 0909 JSREVIEWED WTIH PATIENT 09/26/18 1048 BV. HOSPITALIZATION/MAJOR DIAGNOSTIC PROCEDURE ABOVE SURGERIES PNEUMONIA STOMACH PAIN REVIEW OF SYSTEMS REVIEWED BY: PROVIDER: WES STALLINGS . CONSTITUTIONAL: ANY CHANGE IN YOUR MEDICAL CONDITION? YES, PT HAD FALL IN APRIL. TORE LEFT ROTATOR CUFF. STATES SHE IS SEEING ORTHO DOCTOR FOR THIS . CHILLS NO . FEVER NO . INFECTION: DO YOU HAVE NEW INFECTIONS? NO . DO YOU HAVE HISTORY OF MRSA? NO . MUSCULOSKELETAL: ANY NEW PATTERNS OF PAIN OR NUMBNESS? YES, INCREASING PAIN IN BILATERAL LEGS . GASTROENTEROLOGY: ANY NEW CHANGE IN BOWEL CONTROL? NO . GENITOURINARY: ANY NEW CHANGE IN BLADDER CONTROL? NO . IS THERE A CHANCE YOU COULD BE ? NO . HEMATOLOGY/LYMPH: DO YOU TAKE ANY BLOOD THINNERS? (FOR EXAMPLE- COUMADIN, PLAVIX, AGGRENOX, PLATEL, PRADAXA, OR XARELTO) NO . WHEN WAS YOUR LAST DOSE? DATE: TIME: . NEUROLOGY: HAVE YOU FALLEN IN THE PAST 12 MONTHS? YES, HAD A FALL THIS PAST APRIL. STATES SHE FELL ON LEFT SHOULDER. JUST RECENTLY SAW DOCTOR REGARDING THIS AND LEFT SHOULDER ROTATOR CUFF IS TORN. DENIES ANY OTHER FALLS SINCE APRIL . ANY NEW EXTREMITY NUMBNESS OR WEAKNESS? NO . CARDIOLOGY: DO YOU HAVE A PACEMAKER OR DEFIBRILLATOR? NO . RESPIRATORY: HAVE YOU BEEN SICK IN THE PAST WEEK? NO . FEVER NO . FLU LIKE SYMPTOMS? NO . COUGH NO . INTEGUMENTARY: DO YOU HAVE ANY RASHES OR OPEN SORES? NO . ALLERGIC/IMMUNO: ARE YOU ALLERGIC TO IV DYE? NO . ANY NEW ALLERGIES? NO . PSYCHIATRIC: DO YOU HAVE THOUGHTS OF HURTING YOURSELF OR SOMEONE ELSE? NO . ARE YOU ABUSED, NEGLECTED, OR IN AN UNSAFE ENVIRONMENT? NO . ENDOCRINOLOGY: ARE YOU DIABETIC? NO . OTHER: IF YES, PLEASE LIST: NORCO . ANY NEW PROBLEMS WITH YOUR MEDICATIONS? NO . WHEN DID YOU LAST EAT? ____ . WHEN DID YOU LAST DRINK? ____ . WHAT DID YOU LAST DRINK? ____ . NAME OF PERSON DRIVING YOU HOME? ____ . DO YOU HAVE ANY OTHER QUESTIONS OR CONCERNS NO . VITAL SIGNS WT 224.9 LBS, HT 65 IN, BMI 37.42 INDEX, BP 146/72 MM HG, HR 78 /MIN, RR 18 /MIN, TEMP 97.5 F, OXYGEN SAT % 96%, NA INITIALS AW 1024, REVIEWED BY: BV. EXAMINATION GENERAL EXAMINATION: GENERAL APPEARANCE:AWAKE,ALERT ,PLEAASANT . PSYCHAFFECT NORMAL . LUNGS:LUNG LINN ARE CLEAR TO AUSCULTATION BILATERALLY. GOOD MOVEMENT OF AIR . HEART:S1, S2 IN A REGULAR RATE AND RHYTHM. NO SIGNIFICANT MURMURS, RUBS OR GALLOPS NOTED . 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 BRINGS IN MEDICATIONS WHICH IS APPROPRIATE FOR WHAT WAS DISPENSED. RECENT URINE TOXICOLOGY REVIEWED. NO UNAUTHORIZED MEDICATIONS. NO ILLICIT SUBSTANCES AND PRESCRIBED MEDICATIONS WERE PRESENT. , RISKS AND BENEFITS OF NARCOTIC/OPIOD MEDICATIONS WERE REVIEWED WITH PATIENT - THIS INCLUDES BUT IS NOT LIMITED TO RISK OF DEPENDANCE/DEVELOPMENT OF ADDICTION, MOOD DISTURBANCE AND DEPRESSION, OSTEOPOROSIS, HORMONAL AND LABIDAL CHANGES, RESPIRATORY DEPRESSION AND . PATIENT IS ADVISED NOT TO DRIVE OR DRINK ALCOHOL WHILE ON THESE MEDICATIONS. PREVENTIVE MEDICINE PAIN CLINIC TEACHING: MEDICATIONS PT GIVEN WRITTEN AND VERBAL EDUCATION ON STARTING BUTRANS PATCH. PT VERBALIZES UNDERSTANDING OF ALL EDUCATION REGARDING NEW MED. JAYLA WEBB 10/01/2018 11:21:30 AM > . PROCEDURE CODES FA211 ESTABILISHED PATIENT [facility] CHARGE DISPOSITION & COMMUNICATION FOLLOW UP 6 WEEKS ELECTRONICALLY SIGNED BY CHANDRAKANT CARTY ON 10/16/2018 AT 09:34 AM EDT DISCLAIMER : THIS IS A VISIT SUMMARY EXTRACTED FROM THE ECLINICALWORKS CHART. IT IS NOT A COPY OF THE ECLINICALWORKS PROGRESS NOTE. MARTELL
== END ==
LOC: M PAIN 10:15
PROVIDERS: ATTEND Nurse Practitioner Family
DX: M50.93 Cervical disc disorder, unspecified, cervicothoracic region (principal); G89.29 Other chronic pain; Z86.59 Personal history of other mental and behavioral disorders; E11.9 Type 2 diabetes mellitus without complications; J44.9 Chronic obstructive pulmonary disease, unspecified; I10 Essential (primary) hypertension; E78.00 Pure hypercholesterolemia, unspecified; M19.90 Unspecified osteoarthritis, unspecified site; J45.909 Unspecified asthma, uncomplicated; Z88.8 Allergy status to other drugs, medicaments and biological substances; Z91.011 Allergy to milk products; Z79.4 Long term (current) use of insulin; Z79.891 Long term (current) use of opiate analgesic; Z79.899 Other long term (current) drug therapy

== ENCOUNTER → 2018-11-14 | Outpatient (CLI) | payer MEDICARE, MEDICAID ==
--- NOTE | 2018-11-27 01:38 | ECWPNPC ---
PATIENT NAME: BEKAH MANZANARES : 1945 GENDER: FEMALE VISIT DATE: 11/14/2018 DISCHARGE DATE: 11/14/18 1219 VISIT LOCKED DATE TIME: PHYSICIAN: WES SANCHES RESOURCE: WES SANCHES REASON FOR APPOINTMENT 1. 6 WEEKS HISTORY OF PRESENT ILLNESS HISTORY OF PRESENT ILLNESS: HERE FOR F/U OF CHRONIC LOW BACK PAIN AND GENERALIZED JOINT PAIN.RATING PAIN VAS 7/10.FINDS BUTRANS PATCH STARTED AT LAST VISIT IS HELPFUL.STATES LEFT SHOULDER PAIN HAS IMPROVED.DOING HOME EXCERSISE.CONTINUES WITH LEG CRAMPING AND HUMIDITY AGGREVATES PAIN.USING LESS HYDROCODONE SINCE STARTING BUTRANS PATCH. PAIN THE PATIENT DESCRIBES THE PAIN... THE PATIENT DESCRIBES THE PAIN... THE PATIENT DESCRIBES THE PAIN... FALL RISK SCREENING: SCREENING :NO FALLS REPORTED IN THE LAST YEAR CURRENT MEDICATIONS TAKING ADVAIR DISKUS 250-50 MCG/DOSE MISCELLANEOUS 1 INHALATION EVERY 12 HRS TAKING FUROSEMIDE 20 MG TABLET 1 TABLET ORALLY ONCE A DAY NEEDED TAKING LISINOPRIL 20 20 MG TABLET DIRECTED ORAL DAILY TAKING ZANTAC 300 MG TABLET 1 TABLET ORALLY TWICE A DAY TAKING OXYBUTYNIN CHLORIDE ER 10 MG TABLET EXTENDED RELEASE 24 HOUR 1 TABLET ORALLY ONCE A DAY TAKING LORATADINE 10 MG TABLET 1 TABLET ORALLY ONCE A DAY TAKING SIMVASTATIN 10 MG TABLET 1 TABLET IN THE EVENING ORALLY ONCE A DAY TAKING METFORMIN HCL ER 500 MG TABLET EXTENDED RELEASE 24 HOUR 1 TABLET ORALLY THREE TIMES DAILY TAKING TRULICITY 0.75 MG/0.5ML SOLUTION PEN-INJECTOR 0.5 ML SUBCUTANEOUS WEEKLY TAKING JARDIANCE 25 MG TABLET 1 TABLET ORALLY ONCE A DAY TAKING KLONOPIN 0.5 MG TABLET 1 TABLET AT ORALLY TWICE A DAY NEEDED TAKING FLUOXETINE 20 MG CAPSULE 2 CAPSULE IN THE MORNING ORALLY ONCE A DAY TAKING VOLTAREN 1 % GEL ONE APPLICATION TRANSDERMAL APPLY 4 GRAMS TO LOW BACK/KNEES Q 6 HRS PRN PAIN TAKING TOUJEO SOLOSTAR PENS 40 UNITS DAILY TAKING ASCENSIA CONTOUR 1 TEST STRIPS 1 X5 DAILY TAKING KETOROLAC TROMETHAMINE 10 MG TABLET 1 TABLET WITH FOOD OR MILK NEEDED ORALLY EVERY 6 HRS TAKING GABAPENTIN 400 MG CAPSULE 1 CAPSULE ORALLY THREE TIMES A DAY TAKING BUTRANS 10 MCG/HR PATCH WEEKLY 1 PATCH TO SKIN TRANSDERMAL 1 PATCH Q7 DAYS=MDD TAKING BACLOFEN 10 MG TABLET 1 TABLET WITH FOOD OR MILK ORALLY TWO TIMES A DAY TAKING NORCO 5-325 MG TABLET 1 TABLET ORALLY EVERY 6 HRS PRN PAIN MDD=3 NOT-TAKING MECLIZINE HCL 25 MG CAPSULE ORALLY THREE TIMES DAILY NEEDED NOT-TAKING NEBULIZER/TUBING/MOUTHPIECE 1 EACH PRN MEDICATION LIST REVIEWED AND RECONCILED WITH THE PATIENT PAST MEDICAL HISTORY DEPRESSION IDDM COPD HTN HIGH CHOLESTEROL MIXED INCONTINENCE, STRESS-DOMINATED OA URI PULLED TENDON LEFT SHOULDER ASTHMA CHRONIC BACK PAIN ALLERGIES MILK: DIARRHEA - SIDE EFFECTS MUSCLE RELANTS-- ? NAME: UNSURE - SIDE EFFECTS PROTONIX: UNSURE ACTOS: SWELLING LUNESTA: CONFUSION - SIDE EFFECTS SURGICAL HISTORY WRIST SURGERY--LEFT OVARIAN CYST-LEFT LAPAROSCOPY-X4 D&C LUMP REMOVED FROM BUTTOCKS BREAST LUMP REMOVED RIGHT BILAT EYE CATARACT COLONOSCOPY 2014 OVARIAN CYST REMOVED FROM RIGHT FAMILY HISTORY FATHER: 83 YRS, OLD AGE MOTHER: 72 YRS, ALZHEIMER SIBLINGS: ALIVE, SISTER-HTN, HIGH CHOLESTEROL, HYPOGLYCEMIA, ANEMIA, PRECANC POLYP COLON. BROTHERS-4 W/DM, 1 W/HYPOGLYCEMIA. OLDEST-PROSTATE CANCER. ONE BROTHER-ALCOHOLIC MATERNAL GRAND FATHER: , AMI MATERNAL GRAND MOTHER: , RUPTURED HERNIA MATERNAL AUNT: 70'S YRS, BREAST CANCER, MASTECTOMY, DX LATER IN LIFE 5 BROTHER(S) , 1 SISTER(S) . DENIES COLON OR OVARIAN CANCERS. NO CHILDREN. NIECE ENLRAGED HEART IN HER 20\'S.COUSIN HEART DISEASE. 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: TOBACCO USE ARE YOU A: NONSMOKER NEVER SMOKER. OTHERS AT HOME: NONE. EDUCATION LEVEL OF EDUCATION: FINISHED COLLEGE 2 YR. DEGREE. DIET: CARBOHYDRATE CONTROLLED. LANGUAGE LANGUAGES SPOKEN: MACEDONIAN. NEW PATIENT PAIN DIARY TODAY'S VISITNOTES FROM 0-10, WHAT LEVEL IS YOUR PAIN TODAY?7 BMI CARE GOAL FOLLOW-UP ABOVE NORMAL BMI FOLLOW-UP GIVING ENCOURAGEMENT TO EXERCISE. RECREATIONAL DRUG USE DRUG USE?NO EXERCISE: NO REGULAR EXERCISE. LEARNING BARRIERS / SPECIAL NEEDS :CORRECTIVE LENSES PAIN CLINIC PFS, CLERGY, PUBLIC HEALTH REFERRALS WAS THE PROVIDER NOTIFIED OF ANY PERTINENT INFO?YES HAS THE PATIENT BEEN EDUCATED REGARDING HIS/HER PLAN OF CARE?YES HAS THE PATIENT BEEN EDUCATED REGARDING PAIN, THE RISK FOR PAIN, THE IMPORTANCE OF EFFECTIVE PAIN MANAGEMENT, AND THE PAIN ASSESSMENT PROCESS?YES LATEX QUESTIONNAIRE LATEX ALLERGY : HAVE YOU EVER DEVELOPED ANY TYPE OF REACTION AFTER HANDLING LATEX PRODUCTS SUCH RUBBER GLOVES, CONDOMS, DIAPHRAGMS, BALLOONS, SOCKS, OR UNDERWEAR?NO LATEX ALLERGY : HAVE YOU EVER DEVELOPED ANY TYPE OF REACTION DURING OR AFTER DENTAL APPOINTMENT, VAGINAL/RECTAL EXAMINATION, SURGICAL PROCEDURE, OR ANY OTHER EXPOSURE?NO LATEX RISK : HAVE YOU EVER HAD ANY DIFFICULTY BREATHING OR HIVES AFTER EATING OR HANDLING ANY FRUITS, OR VEGETABLES; SUCH KIWI, BANANAS, STONE FRUITS, OR CHESTNUTSNO LATEX RISK : DO YOU HAVE A PREVIOUS PERSONAL HISTORY OF MORE THAN NINE SURGERIES, SPINA BIFIDA, OR REPEATED CATHERIZATIONS? YES - PLEASE INDICATE : > 9 SURGERIES LATEX RISK : ARE YOU FREQUENTLY EXPOSED TO LATEX PRODUCTS IN YOUR OCCUPATION?NO DATE ASKED : 11/14/2018 CAFFEINE CAFFEINE USE?YES HOW OFTEN AND HOW MUCH? 2 CUPS COFFEE/DAY ADVANCE DIRECTIVE ADVANCE DIRECTIVE DISCUSSED WITH PATIENT:YES PT STATES SHE HAS HCP - ZACHERY SCHMIDT (PARTNER) [phone] BAHAI [id number] OTHER NO ADVENTIST BELIEFS THAT WOULD IMPACT HEALTH CARE. MARITAL STATUS: SINGLE. ALCOHOL SCREENING DID YOU HAVE A DRINK CONTAINING ALCOHOL IN THE PAST YEAR?NO POINTS0 INTERPRETATIONNEGATIVE OCCUPATION: RETIRED, DISABLED. 05/15/18 REVIEWED WITH PT ADREVIEWED WITH PATIENT 07/17/18 0909 JSREVIEWED WTIH PATIENT 09/26/18 1048 BV. HOSPITALIZATION/MAJOR DIAGNOSTIC PROCEDURE ABOVE SURGERIES PNEUMONIA STOMACH PAIN REVIEW OF SYSTEMS REVIEWED BY: PROVIDER: WES STALLINGS . CONSTITUTIONAL: ANY CHANGE IN YOUR MEDICAL CONDITION? NO . CHILLS NO . FEVER NO . INFECTION: DO YOU HAVE NEW INFECTIONS? NO . DO YOU HAVE HISTORY OF MRSA? NO . MUSCULOSKELETAL: ANY NEW PATTERNS OF PAIN OR NUMBNESS? NO . GASTROENTEROLOGY: ANY NEW CHANGE IN BOWEL CONTROL? NO . GENITOURINARY: ANY NEW CHANGE IN BLADDER CONTROL? NO . IS THERE A CHANCE YOU COULD BE ? NO . HEMATOLOGY/LYMPH: DO YOU TAKE ANY BLOOD THINNERS? (FOR EXAMPLE- COUMADIN, PLAVIX, AGGRENOX, PLATEL, PRADAXA, OR XARELTO) NO . WHEN WAS YOUR LAST DOSE? DATE: TIME: . NEUROLOGY: HAVE YOU FALLEN IN THE PAST 12 MONTHS? NO . ANY NEW EXTREMITY NUMBNESS OR WEAKNESS? NO . CARDIOLOGY: DO YOU HAVE A PACEMAKER OR DEFIBRILLATOR? NO . RESPIRATORY: HAVE YOU BEEN SICK IN THE PAST WEEK? NO . FEVER NO . FLU LIKE SYMPTOMS? NO . COUGH NO . INTEGUMENTARY: DO YOU HAVE ANY RASHES OR OPEN SORES? NO . ALLERGIC/IMMUNO: ARE YOU ALLERGIC TO IV DYE? NO . ANY NEW ALLERGIES? NO . PSYCHIATRIC: DO YOU HAVE THOUGHTS OF HURTING YOURSELF OR SOMEONE ELSE? NO . ARE YOU ABUSED, NEGLECTED, OR IN AN UNSAFE ENVIRONMENT? NO . ENDOCRINOLOGY: ARE YOU DIABETIC? NO . OTHER: DO YOU NEED ANY PRESCRIPTIONS? NO . IF YES, PLEASE LIST: ____ . ANY NEW PROBLEMS WITH YOUR MEDICATIONS? NO . WHEN DID YOU LAST EAT? ____ . WHEN DID YOU LAST DRINK? ____ . WHAT DID YOU LAST DRINK? ____ . NAME OF PERSON DRIVING YOU HOME? ____ . DO YOU HAVE ANY OTHER QUESTIONS OR CONCERNS NO . VITAL SIGNS WT 220.8 LBS, HT 65 IN, BMI 36.74 INDEX, BP 145/73 MM HG, HR 78 /MIN, RR 16 /MIN, TEMP 97.4 F, OXYGEN SAT % 94%, SAFE IN ENV? (Y/N) Y, NA INITIALS SC 11:32, REVIEWED BY: RICKI. EXAMINATION GENERAL EXAMINATION: GENERALAWAKE,ALERT ,PLEAASANT . PSYCHAFFECT NORMAL . LUNGS:LUNG LINN ARE CLEAR TO AUSCULTATION BILATERALLY. GOOD MOVEMENT OF AIR . HEART:S1, S2 IN A REGULAR RATE AND RHYTHM. NO SIGNIFICANT MURMURS, RUBS OR GALLOPS NOTED . 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 FORGOT TO BRING IN MEDICATION RECENT URINE TOXICOLOGY REVIEWED. NO UNAUTHORIZED MEDICATIONS. NO ILLICIT SUBSTANCES AND PRESCRIBED MEDICATIONS WERE PRESENT. URINE TOX TODAY, RISKS AND BENEFITS OF NARCOTIC/OPIOD MEDICATIONS WERE REVIEWED WITH PATIENT - THIS INCLUDES BUT IS NOT LIMITED TO RISK OF DEPENDANCE/DEVELOPMENT OF ADDICTION, MOOD DISTURBANCE AND DEPRESSION, OSTEOPOROSIS, HORMONAL AND LABIDAL CHANGES, RESPIRATORY DEPRESSION AND . PATIENT IS ADVISED NOT TO DRIVE OR DRINK ALCOHOL WHILE ON THESE MEDICATIONS. PROCEDURE CODES FA211 ESTABILISHED PATIENT [facility] FACILITY CHARGE DISPOSITION & COMMUNICATION FOLLOW UP 2 MONTHS (REASON: MED MGMNT/OSTEOARTHRITIS) ELECTRONICALLY SIGNED BY CHANDRAKANT CARTY ON 11/26/2018 AT 03:53 PM EDT DISCLAIMER : THIS IS A VISIT SUMMARY EXTRACTED FROM THE ECLINICALWORKS CHART. IT IS NOT A COPY OF THE dBMEDxINICALWORKS PROGRESS NOTE. MARTELL
== END ==
LOC: M PAIN 11:45
PROVIDERS: ATTEND Nurse Practitioner Family
DX: M50.93 Cervical disc disorder, unspecified, cervicothoracic region (principal); M19.90 Unspecified osteoarthritis, unspecified site; G89.29 Other chronic pain; Z86.59 Personal history of other mental and behavioral disorders; E11.9 Type 2 diabetes mellitus without complications; J44.9 Chronic obstructive pulmonary disease, unspecified; I10 Essential (primary) hypertension; E78.00 Pure hypercholesterolemia, unspecified; Z88.8 Allergy status to other drugs, medicaments and biological substances; Z91.011 Allergy to milk products; Z79.4 Long term (current) use of insulin; Z79.891 Long term (current) use of opiate analgesic; Z79.899 Other long term (current) drug therapy

== ENCOUNTER → 2019-01-09 | Outpatient (CLI) | payer MEDICARE, MEDICAID ==
[~2019-01-09] MED LIST changes: -OXYB10TA PO; +OXYB10TA2 PO; +RANI-356 PO; -RANI1TAB6 PO
--- NOTE | 2019-01-09 12:32 | REPMRS ---
Patient History The patient states she had a clinical breast exam in 12/2018. Patient is postmenopausal and is nulliparous. Family history of prostate cancer at age 50 or over in brother, breast cancer at age 50 or over in maternal aunt. Benign excisional biopsy of the right breast. No Hormone Replacement Therapy 3D TOMOSYNTHESIS WAS PERFORMED. [facility] lifetime risk for breast cancer is 7.5%. Digital Woman Screen Mammo: January 09, 2019 - Exam #: [id number] Bilateral CC and MLO view(s) were taken. Technologist: Nicolasa Toro, Technologist Prior study comparison: February 18, 2015, digital woman screen mammo performed at [facility]. January 22, 2014, left breast digital mammo diagnostic unilateral, performed at [facility]. FINDINGS: There are scattered fibroglandular densities. There has been no change in the appearance of the mammogram from the prior studies. There is a mild amount of residual fibroglandular tissue which is fairly symmetric. There is no interval development of dominant mass, architectural distortion, or clustered microcalcification suggestive of malignancy. Assessment: BI-RADS/ACR category 1 mammogram. Negative Mammogram. Recommendation Routine screening mammogram in 1 year (for women over age 40). This mammogram was interpreted with the aid of an FDA-approved computer-aided dectection system. Electronically Signed By: Adithya Kingsley MD 01/09/19 2426
== END ==
LOC: M WHC 09:13
PROVIDERS: ATTEND Nurse Practitioner Family
DX: Z01.419 Encounter for gynecological examination (general) (routine) without abnormal findings (principal); Z12.31 Encounter for screening mammogram for malignant neoplasm of breast; Z78.0 Asymptomatic menopausal state; Z80.42 Family history of malignant neoplasm of prostate; Z86.018 Personal history of other benign neoplasm
CPT/HCPCS: 77063; 77067; G0101

== ENCOUNTER → 2019-01-25 | Outpatient (CLI) | payer MEDICARE, MEDICAID ==
--- NOTE | 2019-01-28 23:50 | ECWPNPC ---
PATIENT NAME: BEKAH MANZANARES : 1945 GENDER: FEMALE VISIT DATE: 01/25/2019 DISCHARGE DATE: 01/25/19 1008 VISIT LOCKED DATE TIME: PHYSICIAN: NUSRAT HOWELL RESOURCE: NUSRAT HOWELL REASON FOR APPOINTMENT 1. 6 WKS HISTORY OF PRESENT ILLNESS HISTORY OF PRESENT ILLNESS: PAIN THE PATIENT DESCRIBES THE PAIN... 73-YEAR-OLD FEMALE IN FOR CHRONIC PAIN FOLLOW-UP. SHE RATES HER PAIN CURRENTLY AT AN 8 OUT OF 10 AND DESCRIBES IT ACHING, BURNING, AND SHARP. SHE WAS STARTED ON BUTRANS PATCH AT HER LAST VISIT AND ADMITS TODAY THAT AT THE 10 MG DOSAGE IT WAS UNHELPFUL. FALL RISK SCREENING: SCREENING :NO FALLS REPORTED IN THE LAST YEAR CURRENT MEDICATIONS TAKING ADVAIR DISKUS 250-50 MCG/DOSE MISCELLANEOUS 1 INHALATION EVERY 12 HRS TAKING FUROSEMIDE 20 MG TABLET 1 TABLET ORALLY ONCE A DAY NEEDED TAKING LISINOPRIL 20 20 MG TABLET DIRECTED ORAL DAILY TAKING ZANTAC 300 MG TABLET 1 TABLET ORALLY TWICE A DAY TAKING OXYBUTYNIN CHLORIDE ER 10 MG TABLET EXTENDED RELEASE 24 HOUR 1 TABLET ORALLY ONCE A DAY TAKING SIMVASTATIN 10 MG TABLET 1 TABLET IN THE EVENING ORALLY ONCE A DAY TAKING METFORMIN HCL ER 500 MG TABLET EXTENDED RELEASE 24 HOUR 1 TABLET ORALLY THREE TIMES DAILY TAKING TRULICITY 0.75 MG/0.5ML SOLUTION PEN-INJECTOR 0.5 ML SUBCUTANEOUS WEEKLY TAKING KLONOPIN 0.5 MG TABLET 1 TABLET AT ORALLY TWICE A DAY NEEDED TAKING FLUOXETINE 20 MG CAPSULE 2 CAPSULE IN THE MORNING ORALLY ONCE A DAY TAKING VOLTAREN 1 % GEL ONE APPLICATION TRANSDERMAL APPLY 4 GRAMS TO LOW BACK/KNEES Q 6 HRS PRN PAIN TAKING ASCENSIA CONTOUR 1 TEST STRIPS 1 X5 DAILY TAKING GABAPENTIN 400 MG CAPSULE 1 CAPSULE ORALLY THREE TIMES A DAY TAKING BACLOFEN 10 MG TABLET 1 TABLET WITH FOOD OR MILK ORALLY TWO TIMES A DAY TAKING NORCO 5-325 MG TABLET 1 TABLET ORALLY EVERY 6 HRS PRN PAIN MDD=3 TAKING CLOTRIMAZOLE-7 1 % CREAM 1 APPLICATION AT BEDTIME VULVA ONCE A DAY TAKING TOUJEO SOLOSTAR PENS 40 UNITS DAILY NOT-TAKING JARDIANCE 25 MG TABLET 1 TABLET ORALLY ONCE A DAY NOT-TAKING KETOROLAC TROMETHAMINE 10 MG TABLET 1 TABLET WITH FOOD OR MILK NEEDED ORALLY EVERY 6 HRS NOT-TAKING BUTRANS 10 MCG/HR PATCH WEEKLY 1 PATCH TO SKIN TRANSDERMAL 1 PATCH Q7 DAYS=MDD NOT-TAKING LORATADINE 10 MG TABLET 1 TABLET ORALLY ONCE A DAY NOT-TAKING MECLIZINE HCL 25 MG CAPSULE ORALLY THREE TIMES DAILY NEEDED NOT-TAKING NEBULIZER/TUBING/MOUTHPIECE 1 EACH PRN MEDICATION LIST REVIEWED AND RECONCILED WITH THE PATIENT PAST MEDICAL HISTORY DEPRESSION IDDM COPD HTN HIGH CHOLESTEROL MIXED INCONTINENCE, STRESS-DOMINATED OA URI PULLED TENDON LEFT SHOULDER ASTHMA CHRONIC BACK PAIN TORN ROTATOR CUFF LEFT , ALLERGIES MILK: DIARRHEA - SIDE EFFECTS MUSCLE RELAXANTS-- ? NAME: UNSURE - SIDE EFFECTS PROTONIX: UNSURE ACTOS: SWELLING LUNESTA: CONFUSION - SIDE EFFECTS SURGICAL HISTORY WRIST SURGERY--LEFT OVARIAN CYST-LEFT LAPAROSCOPY-X4 D&C LUMP REMOVED FROM BUTTOCKS BREAST LUMP REMOVED RIGHT BILAT EYE CATARACT COLONOSCOPY 2014 OVARIAN CYST REMOVED FROM RIGHT FAMILY HISTORY FATHER: 83 YRS, OLD AGE MOTHER: 72 YRS, ALZHEIMER SIBLINGS: ALIVE, SISTER-HTN, HIGH CHOLESTEROL, HYPOGLYCEMIA, ANEMIA, PRECANC POLYP COLON. BROTHERS-4 W/DM, 1 W/HYPOGLYCEMIA. OLDEST-PROSTATE CANCER. ONE BROTHER-ALCOHOLIC MATERNAL GRAND FATHER: , AMI MATERNAL GRAND MOTHER: , RUPTURED HERNIA MATERNAL AUNT: 70'S YRS, BREAST CANCER, MASTECTOMY, DX LATER IN LIFE 5 BROTHER(S) , 1 SISTER(S) . DENIES COLON OR OVARIAN CANCERS. NO CHILDREN. NIECE ENLRAGED HEART IN HER 20\'S.COUSIN HEART DISEASE. 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: TOBACCO USE ARE YOU A: NONSMOKER NEVER SMOKER. HIV / HEP-C SCREENING HIV TEST OFFERED TO PATIENT:YES DATE OFFERED:01/09/2019 TEST ACCEPTED:NO HEP-C TEST OFFERED TO PATIENT:YES DATE OFFERED:01/09/2019 REASON:PATIENT DECLINED TEST ACCEPTED:NO REASON:PATIENT DECLINED BROCHURE PROVIDED TO PATIENTNO OTHERS AT HOME: NONE. EDUCATION LEVEL OF EDUCATION: FINISHED COLLEGE 2 YR. DEGREE. DIET: REGULAR. LANGUAGE LANGUAGES SPOKEN: [place]. NEW PATIENT PAIN DIARY TODAY'S VISITNOTES FROM 0-10, WHAT LEVEL IS YOUR PAIN TODAY?7 BMI CARE GOAL FOLLOW-UP ABOVE NORMAL BMI FOLLOW-UP GIVING ENCOURAGEMENT TO EXERCISE. RECREATIONAL DRUG USE DRUG USE?NO EXERCISE: NO REGULAR EXERCISE. LEARNING BARRIERS / SPECIAL NEEDS CHANGE FROM LAST VISIT?NO BARRIERS TO LEARNING?NO HEARING IMPAIRED?YES VISION IMPAIRED?YES COGNITIVELY IMPAIRED?NO :HEARING AIDES :CORRECTIVE LENSES READINESS TO LEARN?YES LEARNING PREFERENCES?NO LEARNING CAPABILITIES PRESENT?YES EMOTIONAL BARRIERS?NO SPECIAL DEVICES?NO FISH CONSERVATIONIST NEEDED?NO PAIN CLINIC PFS, CLERGY, PUBLIC HEALTH REFERRALS WAS THE PROVIDER NOTIFIED OF ANY PERTINENT INFO?YES HAS THE PATIENT BEEN EDUCATED REGARDING HIS/HER PLAN OF CARE?YES HAS THE PATIENT BEEN EDUCATED REGARDING PAIN, THE RISK FOR PAIN, THE IMPORTANCE OF EFFECTIVE PAIN MANAGEMENT, AND THE PAIN ASSESSMENT PROCESS?YES LATEX QUESTIONNAIRE LATEX ALLERGY : HAVE YOU EVER DEVELOPED ANY TYPE OF REACTION AFTER HANDLING LATEX PRODUCTS SUCH RUBBER GLOVES, CONDOMS, DIAPHRAGMS, BALLOONS, SOCKS, OR UNDERWEAR?NO LATEX ALLERGY : HAVE YOU EVER DEVELOPED ANY TYPE OF REACTION DURING OR AFTER DENTAL APPOINTMENT, VAGINAL/RECTAL EXAMINATION, SURGICAL PROCEDURE, OR ANY OTHER EXPOSURE?NO DATE ASKED : 01/09/2019 LATEX RISK : HAVE YOU EVER HAD ANY DIFFICULTY BREATHING OR HIVES AFTER EATING OR HANDLING ANY FRUITS, OR VEGETABLES; SUCH KIWI, BANANAS, STONE FRUITS, OR CHESTNUTSNO LATEX RISK : DO YOU HAVE A PREVIOUS PERSONAL HISTORY OF MORE THAN NINE SURGERIES, SPINA BIFIDA, OR REPEATED CATHERIZATIONS? YES - PLEASE INDICATE : > 9 SURGERIES LATEX RISK : ARE YOU FREQUENTLY EXPOSED TO LATEX PRODUCTS IN YOUR OCCUPATION?NO CAFFEINE CAFFEINE USE?YES HOW OFTEN AND HOW MUCH? 2 CUPS COFFEE/DAY ADVANCE DIRECTIVE ADVANCE DIRECTIVE DISCUSSED WITH PATIENT:YES PT STATES SHE HAS HCP - ZACHERY SCHMIDT (PARTNER) [phone] SHINTO [id number] OTHER NO RESTORATIONISM BELIEFS THAT WOULD IMPACT HEALTH CARE. MARITAL STATUS: SINGLE. ALCOHOL SCREENING DID YOU HAVE A DRINK CONTAINING ALCOHOL IN THE PAST YEAR?NO POINTS0 INTERPRETATIONNEGATIVE OCCUPATION: RETIRED, DISABLED. 05/15/18 REVIEWED WITH PT ADREVIEWED WITH PATIENT 07/17/18 0909 JSREVIEWED WT PATIENT 09/26/18 1048 BVREVIEWED WITH PATIENT 01/25/19 0930 LAS. HOSPITALIZATION/MAJOR DIAGNOSTIC PROCEDURE ABOVE SURGERIES PNEUMONIA STOMACH PAIN REVIEW OF SYSTEMS REVIEWED BY: PROVIDER: MINA MAGANA . CONSTITUTIONAL: ANY CHANGE IN YOUR MEDICAL CONDITION? NO . CHILLS NO . FEVER NO . INFECTION: DO YOU HAVE NEW INFECTIONS? NO . DO YOU HAVE HISTORY OF MRSA? NO . MUSCULOSKELETAL: ANY NEW PATTERNS OF PAIN OR NUMBNESS? YES PT REPORTS PAIN HAS INCREASED IN SEVERITY AND IS NOW MORE CONSTANT. SHE REPORTS THE BUTRANS PATCH WAS INEFFECTIVE, AND HAS STOPPED USING IT . GASTROENTEROLOGY: ANY NEW CHANGE IN BOWEL CONTROL? YES PT REPORTS LOOSE STOOLS, LESS FREQUENT . GENITOURINARY: ANY NEW CHANGE IN BLADDER CONTROL? YES PT REPORTS INCREASED INCONTINENCE, HAS DISCUSSED WITH HER PRIMARY . IS THERE A CHANCE YOU COULD BE ? NO . HEMATOLOGY/LYMPH: DO YOU TAKE ANY BLOOD THINNERS? (FOR EXAMPLE- COUMADIN, PLAVIX, AGGRENOX, PLATEL, PRADAXA, OR XARELTO) NO . WHEN WAS YOUR LAST DOSE? DATE: TIME: . NEUROLOGY: HAVE YOU FALLEN IN THE PAST 12 MONTHS? YES FELL IN APRIL, TORE HER ROTATOR CUFF. . ANY NEW EXTREMITY NUMBNESS OR WEAKNESS? NO . CARDIOLOGY: DO YOU HAVE A PACEMAKER OR DEFIBRILLATOR? NO . RESPIRATORY: HAVE YOU BEEN SICK IN THE PAST WEEK? NO . FEVER NO . FLU LIKE SYMPTOMS? NO . COUGH NO . INTEGUMENTARY: DO YOU HAVE ANY RASHES OR OPEN SORES? NO . ALLERGIC/IMMUNO: ARE YOU ALLERGIC TO IV DYE? NO . ANY NEW ALLERGIES? NO . PSYCHIATRIC: DO YOU HAVE THOUGHTS OF HURTING YOURSELF OR SOMEONE ELSE? NO . ARE YOU ABUSED, NEGLECTED, OR IN AN UNSAFE ENVIRONMENT? NO . ENDOCRINOLOGY: ARE YOU DIABETIC? NO . OTHER: DO YOU NEED ANY PRESCRIPTIONS? YES . IF YES, PLEASE LIST: ____VICODIN, VOLTAREN GEL . ANY NEW PROBLEMS WITH YOUR MEDICATIONS? NO . WHEN DID YOU LAST EAT? ____ . WHEN DID YOU LAST DRINK? ____ . WHAT DID YOU LAST DRINK? ____ . NAME OF PERSON DRIVING YOU HOME? ____ . DO YOU HAVE ANY OTHER QUESTIONS OR CONCERNS NO . VITAL SIGNS WT 224.0 LBS, HT 65 IN, BMI 37.27 INDEX, BP 161/63 MM HG, HR 80 /MIN, RR 18 /MIN, TEMP 96.9 F, OXYGEN SAT % 98%, SAFE IN ENV? (Y/N) YES, NA INITIALS AW 0927, REVIEWED BY: ISABELLE. EXAMINATION GENERAL EXAMINATION: GENERALNO ACUTE DISTRESS, WELL NOURISHED AND HYDRATED. PSYCHAPPROPRIATE MOOD AND AFFECT . LUNGS:CLEAR TO AUSCULTATION BILATERALLY, NO WHEEZES, RHONCHI, RALES. HEART:NO MURMURS, REGULAR RATE AND RHYTHM. 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 GIVEN PRESENTING SYMPTOMS AND RESULTS OF PHYSICAL EXAMINATION RECOMMENDED INCREASING BUTRANS PATCH TO 15 MCG DAILY WITH FOLLOW-UP IN 1 MONTH TO DETERMINE EFFICACY OF TREATMENT. PATIENT HAS EXPRESSED UNDERSTANDING OF AND WAS IN AGREEMENT WITH TREATMENT PLAN. GIVEN TIME TO ASK QUESTIONS AND EXPRESS CONCERNS., ISTOP REGISTRY REVIEWED AND DEMONSTRATES COMPLLIANCE. (REF # [id number] ) BRINGS IN MEDICATIONS WHICH IS APPROPRIATE FOR WHAT WAS DISPENSED. RECENT URINE TOXICOLOGY REVIEWED. NO UNAUTHORIZED MEDICATIONS. NO ILLICIT SUBSTANCES AND PRESCRIBED MEDICATIONS WERE PRESENT. PREVENTIVE MEDICINE PAIN CLINIC TEACHING: MEDICATIONS MEDICATION CHANGES REVIEWED WITH PATIENT, PATIENT VERBALIZES UNDERSTANDING. 01/25/2019 1445 LAS. PROCEDURE CODES FA211 ESTABILISHED PATIENT [facility] CHARGE DISPOSITION & COMMUNICATION FOLLOW UP 4 WEEKS (REASON: MEDICATION CHANGE ) ELECTRONICALLY SIGNED BY CHANDRAKANT MATHEW ON 01/28/2019 AT 08:48 AM EDT DISCLAIMER : THIS IS A VISIT SUMMARY EXTRACTED FROM THE [employer] CHART. IT IS NOT A COPY OF THE [employer] PROGRESS NOTE. MTDD
== END ==
LOC: M PAIN 09:45
PROVIDERS: ATTEND Family Medicine
DX: M50.93 Cervical disc disorder, unspecified, cervicothoracic region (principal); G89.29 Other chronic pain; Z86.59 Personal history of other mental and behavioral disorders; E11.9 Type 2 diabetes mellitus without complications; J44.9 Chronic obstructive pulmonary disease, unspecified; I10 Essential (primary) hypertension; M19.90 Unspecified osteoarthritis, unspecified site; Z88.8 Allergy status to other drugs, medicaments and biological substances; Z91.011 Allergy to milk products; Z79.4 Long term (current) use of insulin; Z79.891 Long term (current) use of opiate analgesic; Z79.899 Other long term (current) drug therapy

== ENCOUNTER → 2019-03-05 | Outpatient (CLI) | payer MEDICARE, MEDICAID ==
--- NOTE | 2019-03-07 02:08 | ECWPNPC ---
PATIENT NAME: BEKAH MANZANARES : 1945 GENDER: FEMALE VISIT DATE: 03/05/2019 DISCHARGE DATE: 03/05/19 1006 VISIT LOCKED DATE TIME: PHYSICIAN: NUSRAT OHWELL RESOURCE: NUSRAT HOWELL REASON FOR APPOINTMENT 1. MEDICATION CHANGE HISTORY OF PRESENT ILLNESS HISTORY OF PRESENT ILLNESS: PAIN THE PATIENT DESCRIBES THE PAIN... 53-YEAR-OLD FEMALE IN FOR CHRONIC PAIN FOLLOW-UP. AT LAST CLINIC VISIT HER BUTRANS PATCH WAS INCREASED AND PATIENT STATES THAT IT WAS INEFFECTIVE. SHE RATES HER PAIN CURRENTLY AT AN 8 OUT OF 10 AND DESCRIBES IT SHARP, BURNING, AND STABBING. FALL RISK SCREENING: SCREENING :NO FALLS REPORTED IN THE LAST YEAR CURRENT MEDICATIONS TAKING ADVAIR DISKUS 250-50 MCG/DOSE MISCELLANEOUS 1 INHALATION EVERY 12 HRS TAKING FUROSEMIDE 20 MG TABLET 1-2 TABLETS ORALLY ONCE A DAY NEEDED TAKING LISINOPRIL 20 20 MG TABLET DIRECTED ORAL DAILY TAKING ZANTAC 300 MG TABLET 1 TABLET ORALLY TWICE A DAY TAKING OXYBUTYNIN CHLORIDE ER 10 MG TABLET EXTENDED RELEASE 24 HOUR 1 TABLET ORALLY ONCE A DAY TAKING SIMVASTATIN 10 MG TABLET 1 TABLET IN THE EVENING ORALLY ONCE A DAY TAKING METFORMIN HCL ER 500 MG TABLET EXTENDED RELEASE 24 HOUR 1 TABLET ORALLY THREE TIMES DAILY TAKING TRULICITY 0.75 MG/0.5ML SOLUTION PEN-INJECTOR 0.5 ML SUBCUTANEOUS WEEKLY TAKING KLONOPIN 0.5 MG TABLET 1 TABLET AT ORALLY TWICE A DAY NEEDED TAKING FLUOXETINE 20 MG CAPSULE 2 CAPSULE IN THE MORNING ORALLY ONCE A DAY, NOTES: RECENT DOSE CHANGE TAKING ASCENSIA CONTOUR 1 TEST STRIPS 1 X5 DAILY TAKING GABAPENTIN 400 MG CAPSULE 1 CAPSULE ORALLY THREE TIMES A DAY TAKING BACLOFEN 10 MG TABLET 1 TABLET WITH FOOD OR MILK ORALLY TWO TIMES A DAY TAKING CLOTRIMAZOLE-7 1 % CREAM 1 APPLICATION AT BEDTIME VULVA ONCE A DAY TAKING TOUJEO SOLOSTAR PENS 46 UNITS INJECTION DAILY TAKING VOLTAREN 1 % GEL ONE APPLICATION TRANSDERMAL APPLY 4 GRAMS TO LOW BACK/KNEES Q 6 HRS PRN PAIN TAKING NORCO 5-325 MG TABLET 1 TABLET ORALLY EVERY 6 HRS PRN PAIN MDD=3 TAKING BUTRANS 15 MCG/HR PATCH WEEKLY 1 PATCH TO SKIN TRANSDERMAL 1 PATCH Q7 DAYS=MDD NOT-TAKING JARDIANCE 25 MG TABLET 1 TABLET ORALLY ONCE A DAY NOT-TAKING KETOROLAC TROMETHAMINE 10 MG TABLET 1 TABLET WITH FOOD OR MILK NEEDED ORALLY EVERY 6 HRS NOT-TAKING LORATADINE 10 MG TABLET 1 TABLET ORALLY ONCE A DAY NOT-TAKING MECLIZINE HCL 25 MG CAPSULE ORALLY THREE TIMES DAILY NEEDED NOT-TAKING NEBULIZER/TUBING/MOUTHPIECE 1 EACH PRN MEDICATION LIST REVIEWED AND RECONCILED WITH THE PATIENT PAST MEDICAL HISTORY DEPRESSION IDDM COPD HTN HIGH CHOLESTEROL MIXED INCONTINENCE, STRESS-DOMINATED OA URI PULLED TENDON LEFT SHOULDER ASTHMA CHRONIC BACK PAIN TORN ROTATOR CUFF LEFT , ALLERGIES MILK: DIARRHEA - SIDE EFFECTS MUSCLE RELAXANTS-- ? NAME: UNSURE - SIDE EFFECTS PROTONIX: UNSURE ACTOS: SWELLING LUNESTA: CONFUSION - SIDE EFFECTS LORATADINE: VISUAL HALLUCINATION - SIDE EFFECTS SURGICAL HISTORY WRIST SURGERY--LEFT OVARIAN CYST-LEFT LAPAROSCOPY-X4 D&C LUMP REMOVED FROM BUTTOCKS BREAST LUMP REMOVED RIGHT BILAT EYE CATARACT COLONOSCOPY 2014 OVARIAN CYST REMOVED FROM RIGHT FAMILY HISTORY FATHER: 83 YRS, OLD AGE MOTHER: 72 YRS, ALZHEIMER SIBLINGS: ALIVE, SISTER-HTN, HIGH CHOLESTEROL, HYPOGLYCEMIA, ANEMIA, PRECANC POLYP COLON. BROTHERS-4 W/DM, 1 W/HYPOGLYCEMIA. OLDEST-PROSTATE CANCER. ONE BROTHER-ALCOHOLIC MATERNAL GRAND FATHER: , AMI MATERNAL GRAND MOTHER: , RUPTURED HERNIA MATERNAL AUNT: 70'S YRS, BREAST CANCER, MASTECTOMY, DX LATER IN LIFE 5 BROTHER(S) , 1 SISTER(S) . DENIES COLON OR OVARIAN CANCERS. NO CHILDREN. NIECE ENLRAGED HEART IN HER 20\'S.COUSIN HEART DISEASE. 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: TOBACCO USE ARE YOU A: NONSMOKER NEVER SMOKER. HIV / HEP-C SCREENING HIV TEST OFFERED TO PATIENT:YES DATE OFFERED:01/09/2019 TEST ACCEPTED:NO HEP-C TEST OFFERED TO PATIENT:YES DATE OFFERED:01/09/2019 REASON:PATIENT DECLINED TEST ACCEPTED:NO REASON:PATIENT DECLINED BROCHURE PROVIDED TO PATIENTNO OTHERS AT HOME: NONE. EDUCATION LEVEL OF EDUCATION: FINISHED COLLEGE 2 YR. DEGREE. DIET: REGULAR. LANGUAGE LANGUAGES SPOKEN: SWEDISH. NEW PATIENT PAIN DIARY TODAY'S VISITNOTES FROM 0-10, WHAT LEVEL IS YOUR PAIN TODAY?8 BMI CARE GOAL FOLLOW-UP ABOVE NORMAL BMI FOLLOW-UP GIVING ENCOURAGEMENT TO EXERCISE. RECREATIONAL DRUG USE DRUG USE?NO EXERCISE: NO REGULAR EXERCISE. LEARNING BARRIERS / SPECIAL NEEDS CHANGE FROM LAST VISIT?NO BARRIERS TO LEARNING?NO HEARING IMPAIRED?YES VISION IMPAIRED?YES COGNITIVELY IMPAIRED?NO :HEARING AIDES :CORRECTIVE LENSES READINESS TO LEARN?YES LEARNING PREFERENCES?NO LEARNING CAPABILITIES PRESENT?YES EMOTIONAL BARRIERS?NO SPECIAL DEVICES?NO WARE CARRIER NEEDED?NO PAIN CLINIC PFS, CLERGY, PUBLIC HEALTH REFERRALS WAS THE PROVIDER NOTIFIED OF ANY PERTINENT INFO?YES HAS THE PATIENT BEEN EDUCATED REGARDING HIS/HER PLAN OF CARE?YES HAS THE PATIENT BEEN EDUCATED REGARDING PAIN, THE RISK FOR PAIN, THE IMPORTANCE OF EFFECTIVE PAIN MANAGEMENT, AND THE PAIN ASSESSMENT PROCESS?YES LATEX QUESTIONNAIRE LATEX ALLERGY : HAVE YOU EVER DEVELOPED ANY TYPE OF REACTION AFTER HANDLING LATEX PRODUCTS SUCH RUBBER GLOVES, CONDOMS, DIAPHRAGMS, BALLOONS, SOCKS, OR UNDERWEAR?NO LATEX ALLERGY : HAVE YOU EVER DEVELOPED ANY TYPE OF REACTION DURING OR AFTER DENTAL APPOINTMENT, VAGINAL/RECTAL EXAMINATION, SURGICAL PROCEDURE, OR ANY OTHER EXPOSURE?NO LATEX RISK : HAVE YOU EVER HAD ANY DIFFICULTY BREATHING OR HIVES AFTER EATING OR HANDLING ANY FRUITS, OR VEGETABLES; SUCH KIWI, BANANAS, STONE FRUITS, OR CHESTNUTSNO LATEX RISK : DO YOU HAVE A PREVIOUS PERSONAL HISTORY OF MORE THAN NINE SURGERIES, SPINA BIFIDA, OR REPEATED CATHERIZATIONS? YES - PLEASE INDICATE : > 9 SURGERIES LATEX RISK : ARE YOU FREQUENTLY EXPOSED TO LATEX PRODUCTS IN YOUR OCCUPATION?NO DATE ASKED : 03/05/2019 CAFFEINE CAFFEINE USE?YES HOW OFTEN AND HOW MUCH? 2 CUPS COFFEE/DAY OR MORE ADVANCE DIRECTIVE ADVANCE DIRECTIVE DISCUSSED WITH PATIENT:YES PT STATES SHE HAS HCP - ZACHERY SCHMIDT (PARTNER) [phone] [employer] [id number] OTHER NO CHRISTIANITY BELIEFS THAT WOULD IMPACT HEALTH CARE. MARITAL STATUS: SINGLE. ALCOHOL SCREENING DID YOU HAVE A DRINK CONTAINING ALCOHOL IN THE PAST YEAR?NO POINTS0 INTERPRETATIONNEGATIVE OCCUPATION: RETIRED, DISABLED. 05/15/18 REVIEWED WITH PT ADREVIEWED WITH PATIENT 07/17/18 0909 JSREVIEWED WT PATIENT 09/26/18 1048 BVREVIEWED WITH PATIENT 01/25/19 0930 LAS. HOSPITALIZATION/MAJOR DIAGNOSTIC PROCEDURE ABOVE SURGERIES PNEUMONIA STOMACH PAIN REVIEW OF SYSTEMS REVIEWED BY: PROVIDER: MINA MAGANA . CONSTITUTIONAL: ANY CHANGE IN YOUR MEDICAL CONDITION? NO . CHILLS NO . FEVER NO . INFECTION: DO YOU HAVE NEW INFECTIONS? NO . DO YOU HAVE HISTORY OF MRSA? NO . MUSCULOSKELETAL: ANY NEW PATTERNS OF PAIN OR NUMBNESS? NO . GASTROENTEROLOGY: ANY NEW CHANGE IN BOWEL CONTROL? NO . GENITOURINARY: ANY NEW CHANGE IN BLADDER CONTROL? NO . IS THERE A CHANCE YOU COULD BE ? NO . HEMATOLOGY/LYMPH: DO YOU TAKE ANY BLOOD THINNERS? (FOR EXAMPLE- COUMADIN, PLAVIX, AGGRENOX, PLATEL, PRADAXA, OR XARELTO) NO . WHEN WAS YOUR LAST DOSE? DATE: TIME: . NEUROLOGY: HAVE YOU FALLEN IN THE PAST 12 MONTHS? YES . ANY NEW EXTREMITY NUMBNESS OR WEAKNESS? YES - BOTH HANDS FOR SEVERAL WEEKS . CARDIOLOGY: DO YOU HAVE A PACEMAKER OR DEFIBRILLATOR? NO . RESPIRATORY: HAVE YOU BEEN SICK IN THE PAST WEEK? NO . FEVER NO . FLU LIKE SYMPTOMS? NO . COUGH NO . INTEGUMENTARY: DO YOU HAVE ANY RASHES OR OPEN SORES? NO . ALLERGIC/IMMUNO: ARE YOU ALLERGIC TO IV DYE? NO . ANY NEW ALLERGIES? NO . PSYCHIATRIC: DO YOU HAVE THOUGHTS OF HURTING YOURSELF OR SOMEONE ELSE? NO . ARE YOU ABUSED, NEGLECTED, OR IN AN UNSAFE ENVIRONMENT? NO . ENDOCRINOLOGY: ARE YOU DIABETIC? NO . OTHER: DO YOU NEED ANY PRESCRIPTIONS? YES - VICODIN, GABAPENTIN, BACLOFEN, VOLTAREN . IF YES, PLEASE LIST: ____ . ANY NEW PROBLEMS WITH YOUR MEDICATIONS? NO . WHEN DID YOU LAST EAT? ____ . WHEN DID YOU LAST DRINK? ____ . WHAT DID YOU LAST DRINK? ____ . NAME OF PERSON DRIVING YOU HOME? ____ . DO YOU HAVE ANY OTHER QUESTIONS OR CONCERNS NO . VITAL SIGNS WT 224.8 LBS, HT 65 IN, BMI 37.40 INDEX, BP 156/74 MM HG, HR 74 /MIN, RR 16 /MIN, TEMP 96.7 F, OXYGEN SAT % 99%, NA INITIALS SC 09:06, REVIEWED BY: KATHRINE. EXAMINATION GENERAL EXAMINATION: GENERALNO ACUTE DISTRESS, WELL NOURISHED AND HYDRATED. PSYCHAPPROPRIATE MOOD AND AFFECT . LUNGS:CLEAR TO AUSCULTATION BILATERALLY, NO WHEEZES, RHONCHI, RALES. HEART:NO MURMURS, REGULAR RATE AND RHYTHM. 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 (PRIMARY) TREATMENT CERVICAL DISC DISORDER OF CERVICOTHORACIC REGION CONTINUE VOLTAREN GEL, 1 %, ONE APPLICATION, TRANSDERMAL, APPLY 4 GRAMS TO LOW BACK/KNEES Q 6 HRS PRN PAIN, 30 DAYS, 1 TUBE START ACETAMINOPHEN CAPSULE, 500 MG, 2 CAPSULE NEEDED, ORALLY, EVERY 8 HRS, 30 DAYS, 180 REFILL GABAPENTIN CAPSULE, 400 MG, 1 CAPSULE, ORALLY, THREE TIMES A DAY, 90 DAY(S), 270 CAPSULE, REFILLS 0 REFILL BACLOFEN TABLET, 10 MG, 1 TABLET WITH FOOD OR MILK, ORALLY, TWO TIMES A DAY, 30 DAYS, 60 TABLET REFILL BUTRANS PATCH WEEKLY, 15 MCG/HR, 1 PATCH TO SKIN, TRANSDERMAL, 1 PATCH Q7 DAYS=MDD, 30 DAYS, 4, REFILLS 2 REFILL NORCO TABLET, 5-325 MG, 1 TABLET, ORALLY, EVERY 6 HRS PRN PAIN MDD=3, 30 DAYS, 45, REFILLS 0 CLINICAL NOTES: 73-YEAR-OLD FEMALE IN FOR CHRONIC PAIN FOLLOW-UP. GIVEN PRESENTING SYMPTOMS AND RESULTS OF PHYSICAL EXAMINATION RECOMMENDED STARTING TYLENOL 500 MG 2 CAPSULES 3 TIMES A DAY NEEDED FOR PAIN. FURTHER RECOMMENDED FOLLOW-UP IN ONE MONTH TO DETERMINE EFFICACY TREATMENT. PATIENT HAS EXPRESSED UNDERSTANDING OF AND WAS IN AGREEMENT WITH TREATMENT PLAN., ISTOP REGISTRY REVIEWED AND DEMONSTRATES COMPLLIANCE. (REF # [id number] ) BRINGS IN MEDICATIONS WHICH IS APPROPRIATE FOR WHAT WAS DISPENSED. RECENT URINE TOXICOLOGY REVIEWED. NO UNAUTHORIZED MEDICATIONS. NO ILLICIT SUBSTANCES AND PRESCRIBED MEDICATIONS WERE PRESENT. PREVENTIVE MEDICINE PAIN CLINIC TEACHING: MEDICATIONS ACETAMINOPHEN INSTRUCTIONS DISCUSSED WITH PT. WRITTEN INFORMATION DECLINED.. PROCEDURE CODES FA211 ESTABILISHED PATIENT [facility] CHARGE DISPOSITION & COMMUNICATION FOLLOW UP 4 WEEKS (REASON: MEDICATION CHANGE) ELECTRONICALLY SIGNED BY CHANDRAKANT MATHEW ON 03/06/2019 AT 09:02 AM EST DISCLAIMER : THIS IS A VISIT SUMMARY EXTRACTED FROM THE [employer] CHART. IT IS NOT A COPY OF THE [employer] PROGRESS NOTE. CORKYD
== END ==
LOC: M PAIN 09:15
PROVIDERS: ATTEND Family Medicine
DX: M50.93 Cervical disc disorder, unspecified, cervicothoracic region (principal); G89.29 Other chronic pain; E11.9 Type 2 diabetes mellitus without complications; J44.9 Chronic obstructive pulmonary disease, unspecified; I10 Essential (primary) hypertension; Z86.59 Personal history of other mental and behavioral disorders; Z88.8 Allergy status to other drugs, medicaments and biological substances; Z91.011 Allergy to milk products; Z79.4 Long term (current) use of insulin; Z79.891 Long term (current) use of opiate analgesic; Z79.899 Other long term (current) drug therapy

== ENCOUNTER → 2019-04-01 | Outpatient (CLI) | payer MEDICARE, MEDICAID ==
[~2019-04-01] MED LIST changes: -RANI-356 PO; +RANI-397 PO; -SIMV40TA2 PO; +SIMV40TA20 PO
--- NOTE | 2019-04-04 01:57 | ECWPNPC ---
PATIENT NAME: BEKAH MANZANARES : 1945 GENDER: FEMALE VISIT DATE: 04/01/2019 DISCHARGE DATE: 04/01/19929 VISIT LOCKED DATE TIME: PHYSICIAN: NUSRAT HOWELL RESOURCE: NUSRAT HOWELL REASON FOR APPOINTMENT 1. [facility]/BACK HISTORY OF PRESENT ILLNESS HISTORY OF PRESENT ILLNESS: PAIN THE PATIENT DESCRIBES THE PAIN... 73-YEAR-OLD FEMALE IN FOR CHRONIC PAIN FOLLOW-UP. AT LAST CLINIC VISIT SHE WAS ENCOURAGED TO TRY TYLENOL WHICH SHE STATES SHE HAS GONE AND IT WAS HELPFUL. SHE RATES HER PAIN CURRENTLY AT A 6 OUT OF 10 AND DESCRIBES IT ACHING, SHARP, AND STABBING. SHE FEELS HER MEDICATIONS ARE WORKING WELL AND DENIES MED SIDE EFFECTS AT THIS TIME. FALL RISK SCREENING: SCREENING :NO FALLS REPORTED IN THE LAST YEAR CURRENT MEDICATIONS TAKING ADVAIR DISKUS 250-50 MCG/DOSE MISCELLANEOUS 1 INHALATION EVERY 12 HRS TAKING FUROSEMIDE 20 MG TABLET 1-2 TABLETS ORALLY ONCE A DAY NEEDED TAKING LISINOPRIL 20 20 MG TABLET DIRECTED ORAL DAILY TAKING OXYBUTYNIN CHLORIDE ER 10 MG TABLET EXTENDED RELEASE 24 HOUR 1 TABLET ORALLY ONCE A DAY TAKING SIMVASTATIN 10 MG TABLET 1 TABLET IN THE EVENING ORALLY ONCE A DAY TAKING METFORMIN HCL ER 500 MG TABLET EXTENDED RELEASE 24 HOUR 1 TABLET ORALLY THREE TIMES DAILY TAKING TRULICITY 0.75 MG/0.5ML SOLUTION PEN-INJECTOR 0.5 ML SUBCUTANEOUS WEEKLY TAKING KLONOPIN 0.5 MG TABLET 1 TABLET AT ORALLY TWICE A DAY NEEDED TAKING FLUOXETINE 20 MG CAPSULE 2 CAPSULE IN THE MORNING ORALLY ONCE A DAY, NOTES: RECENT DOSE CHANGE TAKING [facility] CONTOUR 1 TEST STRIPS 1 X5 DAILY TAKING CLOTRIMAZOLE-7 1 % CREAM 1 APPLICATION AT BEDTIME VULVA ONCE A DAY TAKING TOUJEO SOLOSTAR PENS 46 UNITS INJECTION DAILY TAKING VOLTAREN 1 % GEL ONE APPLICATION TRANSDERMAL APPLY 4 GRAMS TO LOW BACK/KNEES Q 6 HRS PRN PAIN TAKING ACETAMINOPHEN 500 MG CAPSULE 2 CAPSULE NEEDED ORALLY EVERY 8 HRS TAKING GABAPENTIN 400 MG CAPSULE 1 CAPSULE ORALLY THREE TIMES A DAY TAKING BACLOFEN 10 MG TABLET 1 TABLET WITH FOOD OR MILK ORALLY TWO TIMES A DAY TAKING BUTRANS 15 MCG/HR PATCH WEEKLY 1 PATCH TO SKIN TRANSDERMAL 1 PATCH Q7 DAYS=MDD TAKING NORCO 5-325 MG TABLET 1 TABLET ORALLY EVERY 6 HRS PRN PAIN MDD=3 NOT-TAKING ZANTAC 300 MG TABLET 1 TABLET ORALLY TWICE A DAY NOT-TAKING JARDIANCE 25 MG TABLET 1 TABLET ORALLY ONCE A DAY NOT-TAKING KETOROLAC TROMETHAMINE 10 MG TABLET 1 TABLET WITH FOOD OR MILK NEEDED ORALLY EVERY 6 HRS NOT-TAKING LORATADINE 10 MG TABLET 1 TABLET ORALLY ONCE A DAY NOT-TAKING MECLIZINE HCL 25 MG CAPSULE ORALLY THREE TIMES DAILY NEEDED NOT-TAKING NEBULIZER/TUBING/MOUTHPIECE 1 EACH PRN MEDICATION LIST REVIEWED AND RECONCILED WITH THE PATIENT PAST MEDICAL HISTORY DEPRESSION IDDM COPD HTN HIGH CHOLESTEROL MIXED INCONTINENCE, STRESS-DOMINATED OA URI PULLED TENDON LEFT SHOULDER ASTHMA CHRONIC BACK PAIN TORN ROTATOR CUFF LEFT , ALLERGIES MILK: DIARRHEA - SIDE EFFECTS MUSCLE RELAXANTS-- ? NAME: UNSURE - SIDE EFFECTS PROTONIX: UNSURE ACTOS: SWELLING LUNESTA: CONFUSION - SIDE EFFECTS LORATADINE: VISUAL HALLUCINATION - SIDE EFFECTS SURGICAL HISTORY WRIST SURGERY--LEFT OVARIAN CYST-LEFT LAPAROSCOPY-X4 D&C LUMP REMOVED FROM BUTTOCKS BREAST LUMP REMOVED RIGHT BILAT EYE CATARACT COLONOSCOPY 2014 OVARIAN CYST REMOVED FROM RIGHT FAMILY HISTORY FATHER: 83 YRS, OLD AGE MOTHER: 72 YRS, ALZHEIMER SIBLINGS: ALIVE, SISTER-HTN, HIGH CHOLESTEROL, HYPOGLYCEMIA, ANEMIA, PRECANC POLYP COLON. BROTHERS-4 W/DM, 1 W/HYPOGLYCEMIA. OLDEST-PROSTATE CANCER. ONE BROTHER-ALCOHOLIC MATERNAL GRAND FATHER: , AMI MATERNAL GRAND MOTHER: , RUPTURED HERNIA MATERNAL AUNT: 70'S YRS, BREAST CANCER, MASTECTOMY, DX LATER IN LIFE 5 BROTHER(S) , 1 SISTER(S) . DENIES COLON OR OVARIAN CANCERS. NO CHILDREN. NIECE ENLRAGED HEART IN HER 20\'S.COUSIN HEART DISEASE. 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: TOBACCO USE ARE YOU A: NONSMOKER NEVER SMOKER. HIV / HEP-C SCREENING HIV TEST OFFERED TO PATIENT:YES DATE OFFERED:01/09/2019 TEST ACCEPTED:NO HEP-C TEST OFFERED TO PATIENT:YES DATE OFFERED:01/09/2019 REASON:PATIENT DECLINED TEST ACCEPTED:NO REASON:PATIENT DECLINED BROCHURE PROVIDED TO PATIENTNO OTHERS AT HOME: NONE. EDUCATION LEVEL OF EDUCATION: FINISHED COLLEGE 2 YR. DEGREE. DIET: REGULAR. LANGUAGE LANGUAGES SPOKEN: LIBYAN. NEW PATIENT PAIN DIARY TODAY'S VISITNOTES FROM 0-10, WHAT LEVEL IS YOUR PAIN TODAY?8 BMI CARE GOAL FOLLOW-UP ABOVE NORMAL BMI FOLLOW-UP GIVING ENCOURAGEMENT TO EXERCISE. RECREATIONAL DRUG USE DRUG USE?NO EXERCISE: NO REGULAR EXERCISE. LEARNING BARRIERS / SPECIAL NEEDS CHANGE FROM LAST VISIT?NO BARRIERS TO LEARNING?NO HEARING IMPAIRED?YES VISION IMPAIRED?YES COGNITIVELY IMPAIRED?NO :HEARING AIDES :CORRECTIVE LENSES READINESS TO LEARN?YES LEARNING PREFERENCES?NO LEARNING CAPABILITIES PRESENT?YES EMOTIONAL BARRIERS?NO SPECIAL DEVICES?NO TREE SURGEON NEEDED?NO PAIN CLINIC PFS, CLERGY, PUBLIC HEALTH REFERRALS WAS THE PROVIDER NOTIFIED OF ANY PERTINENT INFO?YES HAS THE PATIENT BEEN EDUCATED REGARDING HIS/HER PLAN OF CARE?YES HAS THE PATIENT BEEN EDUCATED REGARDING PAIN, THE RISK FOR PAIN, THE IMPORTANCE OF EFFECTIVE PAIN MANAGEMENT, AND THE PAIN ASSESSMENT PROCESS?YES LATEX QUESTIONNAIRE LATEX ALLERGY : HAVE YOU EVER DEVELOPED ANY TYPE OF REACTION AFTER HANDLING LATEX PRODUCTS SUCH RUBBER GLOVES, CONDOMS, DIAPHRAGMS, BALLOONS, SOCKS, OR UNDERWEAR?NO LATEX ALLERGY : HAVE YOU EVER DEVELOPED ANY TYPE OF REACTION DURING OR AFTER DENTAL APPOINTMENT, VAGINAL/RECTAL EXAMINATION, SURGICAL PROCEDURE, OR ANY OTHER EXPOSURE?NO DATE ASKED : 03/05/2019 LATEX RISK : HAVE YOU EVER HAD ANY DIFFICULTY BREATHING OR HIVES AFTER EATING OR HANDLING ANY FRUITS, OR VEGETABLES; SUCH KIWI, BANANAS, STONE FRUITS, OR CHESTNUTSNO LATEX RISK : DO YOU HAVE A PREVIOUS PERSONAL HISTORY OF MORE THAN NINE SURGERIES, SPINA BIFIDA, OR REPEATED CATHERIZATIONS? YES - PLEASE INDICATE : > 9 SURGERIES LATEX RISK : ARE YOU FREQUENTLY EXPOSED TO LATEX PRODUCTS IN YOUR OCCUPATION?NO CAFFEINE CAFFEINE USE?YES HOW OFTEN AND HOW MUCH? 2 CUPS COFFEE/DAY OR MORE ADVANCE DIRECTIVE ADVANCE DIRECTIVE DISCUSSED WITH PATIENT:YES PT STATES SHE HAS HCP - ZACHERY SCHMIDT (PARTNER) [phone] [place] [id number] OTHER NO ZOROASTRIANISM BELIEFS THAT WOULD IMPACT HEALTH CARE. MARITAL STATUS: SINGLE. ALCOHOL SCREENING DID YOU HAVE A DRINK CONTAINING ALCOHOL IN THE PAST YEAR?NO POINTS0 INTERPRETATIONNEGATIVE OCCUPATION: RETIRED, DISABLED. 05/15/18 REVIEWED WITH PT ADREVIEWED WITH PATIENT 07/17/18 0909 JSREVIEWED WTIH PATIENT 09/26/18 1048 BVREVIEWED WITH PATIENT 01/25/19 0930 LAS. HOSPITALIZATION/MAJOR DIAGNOSTIC PROCEDURE ABOVE SURGERIES PNEUMONIA STOMACH PAIN REVIEW OF SYSTEMS REVIEWED BY: PROVIDER: MINA MAGANA . CONSTITUTIONAL: ANY CHANGE IN YOUR MEDICAL CONDITION? NO . CHILLS NO . FEVER NO . INFECTION: DO YOU HAVE NEW INFECTIONS? NO . DO YOU HAVE HISTORY OF MRSA? NO . MUSCULOSKELETAL: ANY NEW PATTERNS OF PAIN OR NUMBNESS? NO . GASTROENTEROLOGY: ANY NEW CHANGE IN BOWEL CONTROL? NO . GENITOURINARY: ANY NEW CHANGE IN BLADDER CONTROL? NO . IS THERE A CHANCE YOU COULD BE ? NO . HEMATOLOGY/LYMPH: DO YOU TAKE ANY BLOOD THINNERS? (FOR EXAMPLE- COUMADIN, PLAVIX, AGGRENOX, PLATEL, PRADAXA, OR XARELTO) NO . WHEN WAS YOUR LAST DOSE? DATE: TIME: . NEUROLOGY: HAVE YOU FALLEN IN THE PAST 12 MONTHS? NO . ANY NEW EXTREMITY NUMBNESS OR WEAKNESS? NO . CARDIOLOGY: DO YOU HAVE A PACEMAKER OR DEFIBRILLATOR? NO . RESPIRATORY: HAVE YOU BEEN SICK IN THE PAST WEEK? NO . FEVER NO . FLU LIKE SYMPTOMS? NO . COUGH NO . INTEGUMENTARY: DO YOU HAVE ANY RASHES OR OPEN SORES? NO . ALLERGIC/IMMUNO: ARE YOU ALLERGIC TO IV DYE? NO . ANY NEW ALLERGIES? NO . PSYCHIATRIC: DO YOU HAVE THOUGHTS OF HURTING YOURSELF OR SOMEONE ELSE? NO . ARE YOU ABUSED, NEGLECTED, OR IN AN UNSAFE ENVIRONMENT? NO . ENDOCRINOLOGY: ARE YOU DIABETIC? NO . OTHER: DO YOU NEED ANY PRESCRIPTIONS? NO . IF YES, PLEASE LIST: ____ . ANY NEW PROBLEMS WITH YOUR MEDICATIONS? NO . WHEN DID YOU LAST EAT? ____ . WHEN DID YOU LAST DRINK? ____ . WHAT DID YOU LAST DRINK? ____ . NAME OF PERSON DRIVING YOU HOME? ____ . DO YOU HAVE ANY OTHER QUESTIONS OR CONCERNS NO . VITAL SIGNS WT 220.4 LBS, HT 65 IN, BMI 36.67 INDEX, BP 154/68 MM HG, HR 78 /MIN, RR 16 /MIN, TEMP 97.0 F, OXYGEN SAT % 95%, NA INITIALS AW 0906, REVIEWED BY: KG. EXAMINATION GENERAL EXAMINATION: GENERALNO ACUTE DISTRESS, WELL NOURISHED AND HYDRATED. PSYCHAPPROPRIATE MOOD AND AFFECT . LUNGS:CLEAR TO AUSCULTATION BILATERALLY, NO WHEEZES, RHONCHI, RALES. HEART:NO MURMURS, REGULAR RATE AND RHYTHM. 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 (PRIMARY) TREATMENT CERVICAL DISC DISORDER OF CERVICOTHORACIC REGION CLINICAL NOTES: 73-YEAR-OLD FEMALE IN FOR CHRONIC PAIN FOLLOW-UP. GIVEN PRESENTING SYMPTOMS AND RESULTS OF PHYSICAL EXAMINATION RECOMMENDED CONTINUATION OF CURRENT MEDICATION REGIMEN WITH FOLLOW-UP IN 3 MONTHS. PATIENT HAS EXPRESSED UNDERSTANDING OF AND WAS IN AGREEMENT WITH TREATMENT PLAN. GIVEN TIME TO ASK QUESTIONS AND EXPRESS CONCERNS., ISTOP REGISTRY REVIEWED AND DEMONSTRATES COMPLLIANCE. (REF # [id number] ) BRINGS IN MEDICATIONS WHICH IS APPROPRIATE FOR WHAT WAS DISPENSED. RECENT URINE TOXICOLOGY REVIEWED. NO UNAUTHORIZED MEDICATIONS. NO ILLICIT SUBSTANCES AND PRESCRIBED MEDICATIONS WERE PRESENT. PROCEDURE CODES FA211 ESTABILISHED PATIENT [facility] CHARGE DISPOSITION & COMMUNICATION FOLLOW UP 3 MONTHS (REASON: NECK PAIN) ELECTRONICALLY SIGNED BY CHANDRAKANT MATHEW ON 04/03/2019 AT 08:24 AM EST DISCLAIMER : THIS IS A VISIT SUMMARY EXTRACTED FROM THE [employer] CHART. IT IS NOT A COPY OF THE [employer] PROGRESS NOTE. MARTELL
== END ==
LOC: M PAIN 09:00
PROVIDERS: ATTEND Family Medicine
DX: M50.93 Cervical disc disorder, unspecified, cervicothoracic region (principal); G89.29 Other chronic pain; Z86.59 Personal history of other mental and behavioral disorders; E11.9 Type 2 diabetes mellitus without complications; J44.9 Chronic obstructive pulmonary disease, unspecified; I10 Essential (primary) hypertension; Z88.8 Allergy status to other drugs, medicaments and biological substances; Z91.011 Allergy to milk products; Z79.4 Long term (current) use of insulin; Z79.891 Long term (current) use of opiate analgesic; Z79.899 Other long term (current) drug therapy

== ENCOUNTER 2019-05-07 10:15 | Inpatient (IN) | payer MEDICARE, MEDICAID ==
[~2019-05-07] VITALS: Ht 165.1 cm; Wt 98.1 kg
[~2019-05-07 10:15] MED LIST changes: -OXYB10TA2 PO; +OXYB10TA23 PO; +TRUL0.5I SC; -TRUL0.5I SQ
[2019-05-07] MEDS ORDERED: ASPIRIN 325 MG TAB PO ONE (11:45)
--- NOTE | 2019-05-07 11:46 | REP ---
INDICATION: Vision loss PROCEDURE: CT head without contrast. COMPARISON: CT head without contrast 07/16/2011 There is ill-defined low density in the right occipital region. No hemorrhage. Ventricles, cisterns and sulci within normal limits. No mass effect or midline shift. No abnormal fluid collections. There is a focal hypodensity in the vicinity of the left basil ganglia inferiorly, in the vicinity of the left MCA bifurcation. This was evident on the comparison study of 07/16/2011 Paranasal sinuses and mastoid air cells are clear. IMPRESSION: 1. Findings consistent with recent infarct (probably greater than 12 hours and less than 36 hours) infarct in the right occipital lobe. 2. Evidence of chronic infarct on the left at the inferior left basil ganglia. Findings discussed w/ Anitha in the ED at the time of interpretation. Electronically Signed by Alverto Mitchell MD 05/07/2019 11:38 A
[2019-05-07 11:47] LABS: BASO # 0.1 10^3/uL (0.0-0.2); BASO % 0.8 % (0.0-1.0); EOS # 0.2 10^3/uL (0.0-0.5); EOS % 2.3 % (0.0-3.0); HEMATOCRIT 45.4 % (36.0-47.0); HEMOGLOBIN 14.9 g/dl (12.0-15.5); LYMPH # 2.6 10^3/uL (1.5-5.0); LYMPH % 33.6 % (24.0-44.0); MEAN CORPUSCULAR HGB CONC 32.8 g/dl (32.0-36.5); MEAN CORPUSCULAR VOLUME 94.6 fl (80.0-96.0); MONO # 0.4 10^3/uL (0.0-0.8); MONO % 5.6 % (0.0-5.0); NEUTROPHILS # 4.5 10^3/uL (1.5-8.5); NEUTROPHILS % 57.2 % (36.0-66.0); PLATELET COUNT, AUTOMATED 309 10^3/uL (150-450); WHITE BLOOD COUNT 7.8 10^3/uL (4.0-10.0)
[2019-05-07 12:01] LABS: INR 1.11
[2019-05-07 12:02] LABS: PARTIAL THROMBOPLASTIN TIME 26.3 SECONDS (25.0-38.4)
[2019-05-07] MEDS ORDERED: METF-791 PO (12:28)
[2019-05-07] MEDS ORDERED: RA T500C2 PO (12:28)
[2019-05-07] MEDS ORDERED: FLUO40CA PO (12:28)
[2019-05-07] MEDS ORDERED: ABIL1TAB13 PO (12:28)
[2019-05-07] MEDS ORDERED: ACET-897 PO (12:28)
[2019-05-07] MEDS ORDERED: CLON0.5T2 PO (12:28)
[2019-05-07] MEDS ORDERED: PROBCAP14 PO (12:28)
[2019-05-07] MEDS ORDERED: FLON1SPR (12:28)
[2019-05-07] MEDS ORDERED: D3 S20002 PO (12:28)
[2019-05-07] MEDS ORDERED: BUTR1DIS TOP (12:28)
[2019-05-07] MEDS ORDERED: GABA-845 PO (12:28)
[2019-05-07] MEDS ORDERED: COQ1200C3 PO (12:28)
[2019-05-07] MEDS ORDERED: CLOP75TA2 PO (12:44)
[2019-05-07] MEDS ORDERED: RANI300T PO (12:44)
[2019-05-07] MEDS ORDERED: HYDR12.55 PO (12:44)
[2019-05-07 15:25] VITALS: BP 124/75
--- NOTE | 2019-05-07 15:26 | HPE ---
DATE OF ADMISSION: 05/07/2019 at approximately 12:30 p.m. CHIEF COMPLAINT: Altered vision. HISTORY OF PRESENT ILLNESS: Mrs. Dunn is a 73-year-old woman who has a past medical history notable for insulin dependent diabetes mellitus type 2, hypertension, hyperlipidemia, and depression. Patient was in her usual state of health up until 2 days ago when she had gone to sleep and then woke up with vision changes. Patient reports having diminished peripheral vision on her left side. She denied having any other symptoms. She subsequently had gone to an director of strategic communications today and was seen by him and there was concern that she could have had a stroke, so she was brought to the emergency room department for further evaluation. A CT of the head without contrast done in the emergency room department did indicate that the patient had a right occipital acute stroke. She was subsequently recommended for admission to the hospitalist service. ALLERGIES: PROTONIX as well as LUNESTA. HOME MEDICATIONS: - Tylenol 500 mg twice a day - Abilify 2 mg at bedtime - Strattera 40 mg by mouth daily - buprenorphine 15 mcg - colecalciferol 50 mcg at bedtime - clonazepam 0.5 mg daily as needed - Plavix 75 mg daily - Trulicity 1.5 mg weekly - Jardiance 25 mg by mouth daily - fluoxetine 40 mg daily - Advair one puff twice a day - furosemide 70 mg daily - Flonase daily as needed - gabapentin 400 mg daily in the morning and then 800 mg at night time. - hydrochlorothiazide 12.5 mg by mouth daily - Insulin Glargine 46 units daily - lactobacillus one capsule daily - lisinopril 200 mg daily - metformin 1000 mg twice a day - oxybutynin 10 mg by mouth daily - ranitidine one tablet by mouth daily - simvastatin 40 mg daily - Carafate one tablet twice a day - tumeric 500 mg daily - Coenzyme Q10 200 mg by mouth daily PAST MEDICAL HISTORY: Notable for 1. Insulin diabetes type 2. 2. Hyperlipidemia. 3. Hypertension. 4. Posttraumatic stress disorder (PTSD). 5. Depression/anxiety. 6. Chronic heart murmur. PAST SURGICAL HISTORY: Notable for 1. Left wrist surgery. 2. Lumbar back surgery. 3. Cataract surgery. 4. Ovarian surgery and multiple laparoscopies in the past. SOCIAL HISTORY: Patient resides at home with her significant other, Naila. She does not smoke, use alcohol or illicit drugs. She is currently disability social security insurance. Patient lists herself as a DO NOT RESUSCITATE with Naila listed as her surrogate medical decision maker. FAMILY HISTORY: Notable for coronary artery disease in her mother. Father of natural causes. REVIEW OF SYSTEMS: 12-system review of the patient is otherwise negative except for what is mentioned in the history of present illness (HPI). PHYSICAL EXAMINATION: On examination today, the patient's temperature is 97.2, pulse 72 and regular, respirations are 19, blood pressure 136/65, oxygen saturations 97% on room air. GENERAL: The patient is alert and oriented times three. She has no slurring of speech. No facial asymmetry. She is an obese woman who appears her stated age. HEENT: Her head is atraumatic normocephalic. Pupils are equal, round and reactive to light and accommodation. Extraocular movements are full in all directions. Visual field testing indicates that she has left peripheral vision deficits which would correspond to a left-sided hemianopsia. Oropharynx is clear without erythema or thrush. Tongue is midline, soft palate elevates bilaterally. NECK: Supple. No audible carotid bruits. LUNG: sounds are appreciated bilaterally with no wheezes or rhonchi. HEART: S1, S2. She has a soft grade 2/6 systolic murmur. No rubs or gallops are appreciated. ABDOMEN: Soft, nontender. Nondistended. EXTREMITIES: Without any cyanosis, clubbing or edema. NEUROLOGIC: Cranial nerves II through XII are grossly intact without any focal neurologic deficits. She has her motor strength is 5/5 in the upper and lower extremities. Deep tendon reflexes are 2+ and symmetric. Coordination is preserved. Visual deficits as documented above. PERTINENT DIAGNOSTIC STUDIES ARE THE FOLLOWING: White count 7.8, hemoglobin 14.9, hematocrit 45.4, platelet count 309,000. PT 14, INR 1.11, PTT 26.3. CT of the head without contrast showed findings consistent with recent infarct far greater than 12 hours and less than 36 hours involving the right occipital lobe. Evidence of chronic infarct on the left at the inferior left basal ganglia. Telemetry shows a normal sinus rhythm. IMPRESSION: 1. Acute right occipital stroke. 2. Insulin dependent diabetes mellitus type 2. 3. Hypertension. 4. Hyperlipidemia. 5. Anxiety/depression. PLAN: Patient will be admitted to an inpatient status, monitored on telemetry. It appears, upon review of her medication that she takes Plavix. Will also add aspirin 81 mg at this time. Will obtain and echocardiogram as well as carotid duplex scans, MRI of the brain is pending as ordered in the emergency room department. Patient will be resumed on the majority of her home medications with the exception of metformin and anti-hypertensives. She will be placed on sliding scale as well as a diabetic diet. Patient will be placed on Lovenox for deep venous thrombosis (DVT) prophylaxis. She will be a DO NOT RESUSCITATE per her wishes. MARTELL
--- NOTE | 2019-05-07 15:31 | REP ---
INDICATION: Infarct. PROCEDURE: MRA of the brain without contrast. COMPARISON STUDIES: MRA brain 03/15/2012 FINDINGS: The right vertebral artery is dominant. Basilar artery and sanitation truck cleaner present bilaterally. There appears to be a narrowing of the right GLASS CHECKER approximately and a more significant stenosis of the right GLASS CHECKER distally. The internal carotid arteries, proximal and distal MCA branches are normal. A1 segments and ED branches are unremarkable. CONCLUSION: Stenoses of the right GLASS CHECKER as described appears new when compared to prior study 03/15/2012. Electronically Signed by Alverto Mitchell MD 05/07/2019 03:22 P
--- NOTE | 2019-05-07 15:42 | REP ---
INDICATION: Occipital infarct. PROCEDURE: MRI brain without contrast COMPARISON STUDIES: CT head to 05/07/2019 FINDINGS: There is restricted diffusion in the right medial occipital lobe consistent with recent infarct. No other infarct is seen. Ventricles, cisterns and sulci within normal limits. No significant mass effect or midline shift. No abnormal fluid collections. CONCLUSION: Recent right medial occipital infarct. No evidence of hemorrhage. Electronically Signed by Alverto Mitchell MD 05/07/2019 03:33 P
[2019-05-07] MEDS: ASPIRIN 81 MG CHEW TABLET PO SCH (16:52)
[2019-05-07] MEDS: ACETAMINOPHEN TAB 650MG DOSE (2X325MG) PO PRN ×2 (16:53→20:58)
[2019-05-07] MEDS: ENOXAPARIN 40 MG/0.4 ML SYRINGE (J1650) SC SCH (16:53)
[2019-05-07] MEDS ORDERED: DEXTROSE 50% 50 ML SYRINGE IV PRN (17:15)
[2019-05-07] MEDS ORDERED: GLUCOSE 4 GM CHEW TABLET PO PRN (17:15)
[2019-05-07] MEDS ORDERED: GLUCAGON FOR INJ 1 MG VIAL (J1610) SC PRN (17:15)
[2019-05-07] MEDS: HumaLOG INSULIN (NovoLOG) PER UNIT SC SCH ×2 (17:30→20:13)
--- NOTE | 2019-05-07 18:35 | REP ---
Duplex carotid sonography: History: Stroke. Findings: Antegrade flow was observed in both vertebral arteries. Right carotid: The right common carotid artery is unremarkable on two-dimensional scanning. There is mild mixed plaquing in the bulb and proximal ICA on two-dimensional scanning. Color flow and spectral Doppler interrogation are unremarkable on the right. Velocity chart right carotid: Right CCA PSV 137 cm/S right ICA PSV 68 EDV 22 right ECA PSV 123 right ICA/CCA ratio normal 0.5. Impression: Less than 50% category narrowing in the right ICA by Doppler velocity criteria. Left carotid: The left common carotid artery is unremarkable on two-dimensional scanning. There is mild mixed plaquing in the left carotid bulb and proximal ICA. Color flow and spectral Doppler interrogation are unremarkable on the left. Velocity chart left carotid: Left CCA PSV 121 cm/S left ICA PSV 83 EDV 28 left ECA PSV 109 left ICA/CCA ratio normal 0.7. Impression: Less than 50% category narrowing in the left ICA by Doppler velocity criteria. Electronically Signed by Shoaib Herron MD 05/08/2019 08:09 A
[2019-05-07 22:00] VITALS: BP 140/84
[2019-05-08] MEDS: ACETAMINOPHEN TAB 650MG DOSE (2X325MG) PO PRN (03:35)
[2019-05-08 06:00] VITALS: BP 132/88
[2019-05-08 06:13] LABS: HEMATOCRIT 42.8 % (36.0-47.0); HEMOGLOBIN 13.9 g/dl (12.0-15.5); MEAN CORPUSCULAR HEMOGLOBIN 30.5 pg (27.0-33.0); MEAN CORPUSCULAR HGB CONC 32.5 g/dl (32.0-36.5); MEAN CORPUSCULAR VOLUME 94.1 fl (80.0-96.0); PLATELET COUNT, AUTOMATED 282 10^3/uL (150-450); RED BLOOD COUNT 4.55 10^6/uL (4.00-5.40); WHITE BLOOD COUNT 6.6 10^3/uL (4.0-10.0)
[2019-05-08 06:45] LABS: ALBUMIN 3.5 GM/DL (3.2-5.2); ALT/SGPT 18 U/L (12-78); BILIRUBIN,TOTAL 0.6 MG/DL (0.2-1.0); BLOOD UREA NITROGEN 21 MG/DL (7-18); CALCIUM LEVEL 8.6 MG/DL (8.8-10.2); CARBON DIOXIDE LEVEL 27 MEQ/L (21-32); CHLORIDE LEVEL 104 MEQ/L (98-107); CHOLESTEROL LEVEL 124 MG/DL (<200); CHOLESTEROL RISK RATIO 2.883 (<5); CREATININE FOR GFR 0.86 MG/DL (0.55-1.30); GLOMERULAR FILTRATION RATE > 60.0 (>39); GLUCOSE, FASTING 87 MG/DL (70-100); HDL CHOLESTEROL 43 MG/DL (>40); LDL CHOLESTEROL 46 MG/DL (<100); NON-HDL-C 81 MG/DL; POTASSIUM SERUM 3.5 MEQ/L (3.5-5.1); SODIUM LEVEL 137 MEQ/L (136-145); TOTAL PROTEIN 6.6 GM/DL (6.4-8.2); TRIGLYCERIDES LEVEL 174 MG/DL (<150)
[2019-05-08] MEDS: HumaLOG INSULIN (NovoLOG) PER UNIT SC SCH ×4 (07:30→21:00)
[2019-05-08] MEDS ORDERED: ADVAIR HFA 115/21MCG INHALER INH PRN (08:00)
[2019-05-08] MEDS: ENOXAPARIN 40 MG/0.4 ML SYRINGE (J1650) SC SCH (08:21)
[2019-05-08] MEDS: ASPIRIN 81 MG CHEW TABLET PO SCH ×2 (08:22→09:00)
--- NOTE | 2019-05-08 10:12 | ECGEPIP ---
[facility] - ED Test Date: 2019-05-07 Pat Name: BEKAH MANZANARES Department: Room: - Gender: Female Visual Display Manager: : 1945 Requested By: Kaelyn Sr Order Number: [id number] Reading MD: Kaelyn Sr Measurements Intervals [place] Rate: 70 P: 1 NC: 173 QRS: -7 QRSD: 91 T: 24 QT: 386 QTc: 419 Interpretive Statements SINUS RHYTHM DELAYED R PROGRESSION NSTTW abnormalities SIMILAR 08/03/16 Electronically Signed on 05-08-2019 10:11:43 EST by Kaelyn Sr
[2019-05-08 11:18] LABS: HEMOGLOBIN A1c 8.1 %
[2019-05-08] MEDS ORDERED: clonazePAM 0.5 MG TAB PO PRN (12:30)
--- NOTE | 2019-05-08 12:56 | IPNPDOC ---
Subjective Date Seen The patient was seen on 05/08/19. Subjective Chief Complaint/HPI Cristina reports that her vision seems to have improved. She reports seeing blurry images. No new neurologic symptoms. No events overnight. Objective Physical Examination General Exam: Positive: Cooperative, No Acute Distress Eye Exam: Positive: PERRLA, Conjunctiva & lids normal, EOMI ENT Exam: Positive: Atraumatic, Mucous membr. moist/pink Chest Exam: Positive: Clear to auscultation Heart Exam: Positive: Rate Normal, Regular Rhythm, Normal S1, Normal S2 Abdomen Exam: Positive: Normal bowel sounds Extremity Exam: Negative: Clubbing, Cyanosis, Edema Neuro Exam: Positive: Normal Gait, Normal Speech, Strength at 5/5 X4 ext, Normal Tone, Other (left hemianopsia) Assessment /Plan Assessment # Acute right occipital stroke in individual with multiple risk factors - plavix + asa - neuro consult - Carotids show no stenosis - Echo pending - MRI brain reviewed - will need 30 day holter monitor as outpatient to r/o atrial fib - A1 c pending - continue to hold home BP meds - lipid profile reviewed (LDL 46) # DM type 2 - Diabetic diet - SS, holding trulicity and trajenta # HPL - controlled on atorvastatin # HTN - hold BP meds and allow for permissive HTN Plan/VTE VTE Prophylaxis Ordered?: Yes VTE Exclusion Mechanical Proph: N/A:VTE Prophy Ordered VTE Exclusion Pharmacological: N/A:VTE Prophy Ordered VS, I&O, 24H, Fishbone Vital Signs/I&O Vital Signs Date Time Temp Pulse Resp B/P (MAP) Pulse Ox O2 Delivery O2 Flow Rate FiO2 05/08/19 06:00 97.6 73 18 132/88 (103) 96 Room Air I&O- Last 24 Hours up to 6 AM 05/08/19 06:00 Intake Total 750 ml Output Total 1400 ml Balance -650 ml Laboratory Data 24H LABS Laboratory Tests 2 05/07/19 16:58: Bedside Glucose (Misc Panel) 127H 05/07/19 20:12: Bedside Glucose (Misc Panel) 225H 05/08/19 05:20: Nucleated Red Blood Cells % (auto) 0.0, Anion Gap 6L, Glomerular Filtration Rate > 60.0, Estimated Mean Plasma Glucose 186H, Hemoglobin A1c 8.1, Calcium Level 8.6L, Total Bilirubin 0.6, Aspartate Amino Transf (AST/SGOT) 8, Alanine Aminotransferase (ALT/SGPT) 18, Alkaline Phosphatase 58, Total Protein 6.6, Albumin 3.5, Albumin/Globulin Ratio 1.13, Triglycerides Level 174H, Total Ch olesterol 124, LDL Cholesterol 46, Non-HDL Cholesterol (LDL + VLDL) 81, Total HDL Cholesterol 43, Cholesterol/HDL Ratio 2.883 05/08/19 11:47: Bedside Glucose (Misc Panel) 107 CBC/BMP Laboratory Tests 05/08/19 05:20 ZAYRA MUELLER MD May 08, 2019 12:35
[2019-05-08] MEDS: FAMOTIDINE 20 MG TAB PO SCH (13:12)
[2019-05-08] MEDS: oxyBUTYnin *DITROPAN XL* 5 MG TABCR PO SCH (13:13)
[2019-05-08] MEDS: FLUoxetine 20 MG CAP PO SCH (13:13)
[2019-05-08] MEDS: BACLOFEN 10 MG TAB PO SCH ×2 (13:13→21:08)
[2019-05-08] MEDS: CLOPIDOGREL 75 MG TAB PO SCH (13:13)
[2019-05-08 14:00] VITALS: BP 129/68
[2019-05-08] MEDS: ATOMOXETINE HCL 40 MG CAP (STRATTERA) PO SCH (14:47)
[2019-05-08] MEDS: SUCRALFATE 1 GM TAB PO SCH (16:37)
[2019-05-08] MEDS ORDERED: GABAPENTIN 400 MG CAP PO SCH (21:00)
[2019-05-08] MEDS ORDERED: SIMVASTATIN 40 MG TAB PO SCH (21:00)
[2019-05-08] MEDS ORDERED: ARIPiprazole 2 MG TAB PO SCH (21:00)
[2019-05-08 22:00] VITALS: BP 128/66
[2019-05-09 06:00] VITALS: BP 133/69
[2019-05-09] MEDS: HumaLOG INSULIN (NovoLOG) PER UNIT SC SCH ×2 (07:41→12:16)
[2019-05-09] MEDS: SUCRALFATE 1 GM TAB PO SCH (07:42)
[2019-05-09] MEDS: ATOMOXETINE HCL 40 MG CAP (STRATTERA) PO SCH (08:15)
[2019-05-09] MEDS: oxyBUTYnin *DITROPAN XL* 5 MG TABCR PO SCH (08:15)
[2019-05-09] MEDS: ENOXAPARIN 40 MG/0.4 ML SYRINGE (J1650) SC SCH (08:15)
[2019-05-09] MEDS: ASPIRIN 81 MG CHEW TABLET PO SCH (08:15)
[2019-05-09] MEDS: FLUoxetine 20 MG CAP PO SCH (08:15)
[2019-05-09] MEDS: BACLOFEN 10 MG TAB PO SCH (08:16)
[2019-05-09] MEDS: FAMOTIDINE 20 MG TAB PO SCH (08:16)
[2019-05-09] MEDS: CLOPIDOGREL 75 MG TAB PO SCH (08:16)
[2019-05-09] MEDS ORDERED: GABAPENTIN 400 MG CAP PO SCH (09:00)
[2019-05-09] MEDS ORDERED: ASPI81CH8 PO (11:14)
--- NOTE | 2019-05-09 11:26 | IPNPDOC ---
Subjective Date Seen The patient was seen on 05/09/19. Subjective Chief Complaint/HPI vision defects remain left hemianopsia, c/o blurry vision of left this morning. No orther complaints. Objective Physical Examination General Exam: Positive: Cooperative, No Acute Distress Eye Exam: Positive: PERRLA, Conjunctiva & lids normal, EOMI ENT Exam: Positive: Atraumatic, Mucous membr. moist/pink Chest Exam: Positive: Clear to auscultation Heart Exam: Positive: Rate Normal, Regular Rhythm, Normal S1, Normal S2 Abdomen Exam: Positive: Normal bowel sounds Extremity Exam: Negative: Clubbing, Cyanosis, Edema Neuro Exam: Positive: Normal Gait, Normal Speech, Strength at 5/5 X4 ext, Normal Tone, Other Assessment /Plan Assessment # Acute right occipital stroke in individual with multiple risk factors - plavix + asa indefinitely per neuro - d/w neuro this am - Carotids show no stenosis - Echo results pending at discharge, will need to followup results with PCP - MRI brain reviewed - will need 30 day holter monitor as outpatient to r/o atrial fib - A1 c 8.1% - continue to hold home BP meds - lipid profile reviewed (LDL 46) # DM type 2 - Diabetic diet - SS, resume home insulin # HPL - controlled on atorvastatin # HTN - resume home BP meds at discharge Dispo: home today with HH, script for walker provided. F/u with PCP in 1 week, F/U with ophthalmology in 2 weeks. Patient is advised not to drive until cleared to do so by ophthalmology, she agrees to comply. Plan/VTE VTE Prophylaxis Ordered?: Yes VTE Exclusion Mechanical Proph: N/A:VTE Prophy Ordered VTE Exclusion Pharmacological: N/A:VTE Prophy Ordered VS, I&O, 24H, Fishbone Vital Signs/I&O Vital Signs Date Time Temp Pulse Resp B/P (MAP) Pulse Ox O2 Delivery O2 Flow Rate FiO2 05/09/19 06:00 97.6 66 18 133/69 (90) 95 05/08/19 14:00 Room Air I&O- Last 24 Hours up to 6 AM 05/09/19 06:00 Intake Total 890 ml Output Total 2050 ml Balance -1160 ml Laboratory Data 24H LABS Laboratory Tests 2 05/08/19 11:47: Bedside Glucose (Misc Panel) 107 05/08/19 16:32: Bedside Glucose (Misc Panel) 103 05/08/19 20:40: Bedside Glucose (Misc Panel) 178H 05/09/19 06:01: Bedside Glucose (Misc Panel) 139H ZAYRA MUELLER MD May 09, 2019 11:26
--- NOTE | 2019-05-09 13:30 | CR ---
DATE OF CONSULTATION: 05/09/2019 REQUESTING PROVIDER: Mic Teresa MD REASON FOR CONSULTATION: Acute stroke. HISTORY: Cristina Dunn is a 73-year-old female with a past medical history significant for type 2 diabetes insulin-dependent, hypertension, hyperlipidemia. The patient states that approximately 2 days ago she had difficulty seeing out of the left peripheral vision. The patient saw her side stitcher who recommended that she come to the emergency department. The patient was diagnosed with acute stroke of the right occipital lobe as evidenced on CT scan and confirmed on MRI imaging. MR angiogram of the brain revealed stenosis of the right MCA artery. The carotid arteries did not demonstrate any significant flow-limiting stenosis. The patient was placed on aspirin 325 mg daily in the emergency department and maintained on aspirin 81 mg daily since the admission. She was on Plavix 75 mg daily at home as per the chart but however, the patient feels that she may not have filled the prescription in quite some time. Due to the high-grade stenosis of the right RICE FIELD WORKER artery she should be on dual antiplatelet therapy. She remains on Zocor 40 mg daily. PAST MEDICAL HISTORY: Insulin-dependent type 2 diabetes, hyperlipidemia, hypertension, post-traumatic stress disorder, depression, anxiety, chronic heart murmur. PAST SURGICAL HISTORY: Low back surgery, cataract surgery, ovarian surgery, multiple laparoscopies in the past, left wrist surgery. REVIEW OF SYSTEMS: 14-point review of systems obtained and is negative except as per history of present illness. FAMILY HISTORY: Noncontributory. SOCIAL HISTORY: The patient denies use of any tobacco, alcohol or illicit drugs. HOME MEDICATIONS: - Tylenol - Abilify - Strattera - buprenorphine - cholecalciferol - clonazepam - Plavix - Trulicity - Jardiance - fluoxetine - Advair - furosemide - Flonase - gabapentin - hydrochlorothiazide - insulin glargine - lactobacillus - lisinopril - metformin - oxybutynin - ranitidine - simvastatin - Carafate - coenzyme Q 10 ALLERGIES: PROTONIX, LUNESTA. PHYSICAL EXAMINATION: Blood pressure is 129/68, pulse rate 73, respiratory rate is 19, temperature is 98 degrees Fahrenheit, oxygenation is 100% on room air. The patient is awake, oriented to person, place and time. Speech language, comprehension are intact. Sensation V1, V2-V3 is intact to light touch. No facial asymmetry to activation. Palate elevates symmetrically. Tongue is midline. The patient does have mild left-sided homonymous hemianopsia, which is improving as per the patient. Hearing subjectively equal to finger rub. There is no pronator drift. Strength is 5/5, including bilateral deltoids, biceps, triceps, handgrip, iliopsoas, quadriceps, anterior tibialis. Sensory is intact to light touch in all four extremities. Coordination: Normal [id number] without any gross ataxia, dysmetria. Romberg testing was completed and is negative. ASSESSMENT: 1. 73-year-old female with sudden onset left peripheral vision loss with confirmed findings of right RICE FIELD WORKER stroke with right RICE FIELD WORKER artery stenosis. PLAN: 1. Recommend continuation of dual antiplatelet therapy. Plavix 75 mg daily plus aspirin 81 mg daily. Continue Zocor 40 mg p.o. daily. Optimize hypertension, hyperlipidemia, diabetes. 2. Continue telemetry monitoring. 3. Echocardiogram has been completed, followup results. 4. Recommend occupational therapy (OT) and physical therapy (PT) evaluation. Recommend complete ophthalmologic evaluation as an outpatient before patient resumes driving due to visual field loss. 5. Patient can followup in the [facility] clinic 4 to 6 weeks after discharge.
--- NOTE | 2019-05-09 20:29 | ECHO ---
DATE OF PROCEDURE: 05/08/2019 Date of : 1945 Age: 73 Gender: Female Height: 65 inches Weight: 222 pounds Body surface area: 2.07 meters squared Inpatient: [address] [place], room 4207 REFERRING PHYSICIAN: Dr. Mic Teresa INDICATION: CVA - cardiac source of embolic material questionable. MEASUREMENTS: 2D Measurements: RV: 3.2 cm LV: 4.1 cm Septum: 1.0 cm Posterior wall: 1.0 cm Aortic root: 3.3 cm LA: 4.2 cm LVEF: 70% Doppler Measurements: AV: 1.5 meters per second LVOT: 1.1 meters per second LVOT diameter: 2.1 cm MV-E: 70, A: 97, EA ratio: 0.7 Early mitral deceleration time: 300 milliseconds E prime medial: 5, A prime medial: 8.8, E prime lateral: 9 Average E/E prime ratio: 10/PCWP: 14.3 mmHg PV: 0.9 meters per second Pulmonary artery acceleration time: 120 milliseconds RVSP: 29 mmHg IVC: 1.9 cm COMMENTS: Normal sinus rhythm without intraventricular conduction disturbance. Slightly challenging study in light of the patient's body habitus but diagnostically useful information was still obtained. M-mode and two-dimensional echocardiography was performed with pulsed, continuous wave, color flow and tissue Doppler study. Normal left ventricular size, wall thickness and hyperkinetic wall motion. Mildly dilated left atrium with grade 1 left ventricular (LV) diastolic dysfunction and current estimated mean left atrial pressure that was only slightly elevated. Normal right heart chamber sizes and motion with Doppler evidence of pulmonary arterial pressure upper limits of normal. Normal inferior vena cava (IVC) size and collapse against an elevated central venous pressure. Three equal size aortic cusps were mildly thickened with adequate cusp separation. Only trace insufficiency. Normal aortic root size. Mild mitral annular calcification with normal leaflet thickness and excursion with no posterior systolic buckling and only very mild mitral insufficiency. Normal appearing tricuspid valve with mild insufficiency. No apparent intracardiac mass or pericardial effusion. If a cardiac source of embolic material is seriously suspect, we would recommend a transesophageal echocardiogram to further evaluate her aortic valve.
--- NOTE | 2019-05-10 09:04 | DSES ---
DATE OF ADMISSION: 05/07/2019 DATE OF DISCHARGE: 05/09/2019 DISCHARGE DIAGNOSES: 1. Acute right occipital stroke. 2. Diabetes mellitus type 2, not well controlled. Hemoglobin A1c of 8.1%. 3. Hyperlipidemia. 4. Hypertension. CONSULTANTS: Dr. Aldrich of neurology. DISPOSITION: The patient is discharged home with home health to include PT and OT. Discharge instructions. The patient was instructed to followup with her PCP in approximately one week. She is also to followup with opthalmology as an outpatient in the 2 weeks to reassess her vision. She was advised not to operate vehicles or heavy machinery until cleared to do so by opthalmology due to her vision deficits which may impact her driving due to peripheral vision loss. The patient was advised to take baby aspirin in addition to Plavix indefinitely for the rest of her life. She is to followup with her PCP to work on controlling her diabetes. In addition the patient was advised to make arrangements with her PCP for a 30 day Holter monitor to rule out any underlying arrhythmia. Discharge diet is diabetic diet. OTHER RELEVANT IMAGING STUDIES: 1. Echocardiogram with Doppler. This showed preserved left ventricular ejection fraction with grade 1 diastolic dysfunction. No significant valvular heart disease was noted. No cardiac emboli appreciated. Please reference full report for details. 2. Carotid ultrasound. This failed to show any evidence of significant carotid stenosis. 3. MRI brain without contrast which showed a right medial occipital infarct with no evidence of hemorrhage. 4. CT head without contrast which showed findings consistent with recent infarct involving the right occipital lobe. Evidence of chronic infarct on the left at the inferior left basal ganglia. LABS: White blood cell count 7.8, hemoglobin 14, hematocrit 45, platelet counts 309, PT 14, INR 1.1, PTT 26.3, sodium 137, chloride 104, bicarbonate 27, anion gap 6, BUN 21, creatinine 0.86, glucose 87, hemoglobin A1c 8.1%, AST 8, ALT 18, total protein 6.6, triglycerides 174, total cholesterol 124, LDL 46, non-HDL 81, total HDL 43, cholesterol to HDL ratio was 2.883. HOSPITAL COURSE: Cristina is a 73-year-old woman who has multiple comorbidities which increase her risk for stroke. 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 The patient had taken a nap and awoken with vision deficits involving her left eye. As these had not improved she subsequently saw the grazing examiner who was concerned that she could have had a stroke. She was subsequently referred to the emergency room where a CT scan of the head which did confirm that she had an acute infarct involving the right occipital lobe. The patient chronically takes Plavix. She was given a full dose of aspirin and admitted to the hospitalist service for a neurologic workup and was conducted. She underwent carotid ultrasound as well as echoes, all of which were normal as described above. She was found to have a hemoglobin A1c of 8.1% and was counseled on controlling her sugars. The patient lipid profile seemed to be more than adequately controlled on her current dose of Atorvastatin. Neurology as consulted to see the patient due to her acute stroke. They recommended to continue her indefinitely on the aspirin and Plavix combination. Patient was seen by physical therapy and occupational therapy and she was deemed a candidate for home health with physical therapy and occupational therapy as well as use of a walker. The patient was given a script for a walker. Arrangements were made for home health. Patient was advised that she should not drive due to her left peripheral vision deficit. She was subsequently discharged home in stable condition. Please reference discharge medication list for discharge medications.
== END 2019-05-09 14:17 | disposition home health service (06) | DRG 66 ==
LOC: M ED 10:15 → M ED INP 12:38 → M MSPAV 16:02
PROVIDERS: ADMIT Internal Medicine; ATTEND Internal Medicine
DX: I63.511 Cerebral infarction due to unspecified occlusion or stenosis of right middle cerebral artery (principal); E11.9 Type 2 diabetes mellitus without complications; I10 Essential (primary) hypertension; H53.47 Heteronymous bilateral field defects; E78.5 Hyperlipidemia, unspecified; Z79.899 Other long term (current) drug therapy; Z79.4 Long term (current) use of insulin; F32.9 Major depressive disorder, single episode, unspecified; F41.9 Anxiety disorder, unspecified; R01.1 Cardiac murmur, unspecified; F43.10 Post-traumatic stress disorder, unspecified; Z66 Do not resuscitate; Z88.8 Allergy status to other drugs, medicaments and biological substances

== ENCOUNTER → 2019-07-01 | Outpatient (CLI) | payer MEDICARE, MEDICAID ==
[~2019-07-01] MED LIST changes: +ABIL1TAB13 PO; +ACET-897 PO; +ASPI81CH8 PO; +BUTR1DIS TOP; +CLON0.5T2 PO; +CLOP75TA2 PO; +COQ1200C3 PO; +D3 S20002 PO; +FLON1SPR; -FLUO20CA19 PO; +FLUO20CA22 PO; +FLUO40CA PO; +HYDR12.55 PO; +METF-791 PO; +PROBCAP14 PO; +RA T500C2 PO; +RANI300T PO
--- NOTE | 2019-07-03 07:22 | ECWPNPC ---
PATIENT NAME: BEKAH MANZANARES : 1945 GENDER: FEMALE VISIT DATE: 07/01/2019 DISCHARGE DATE: 07/01/19944 VISIT LOCKED DATE TIME: PHYSICIAN: NUSRAT HOWELL RESOURCE: NUSRAT HOWELL REASON FOR APPOINTMENT 1. 3 MONTHS, NECK PAIN HISTORY OF PRESENT ILLNESS HISTORY OF PRESENT ILLNESS: PAIN THE PATIENT DESCRIBES THE PAIN... 73-YEAR-OLD FEMALE IN FOR CHRONIC PAIN FOLLOW-UP. PATIENT WAS RECENTLY HOSPITALIZED WITH A STROKE AND STATES THAT SINCE THAT TIME SHE IS EXPERIENCING INCREASED PAIN. SHE RATES HER PAIN CURRENTLY AT 8 OUT OF 10. SHE DOES FEEL THE VICODIN IS HELPFUL. FALL RISK SCREENING: SCREENING :NO FALLS REPORTED IN THE LAST YEAR CURRENT MEDICATIONS TAKING ADVAIR DISKUS 250-50 MCG/DOSE MISCELLANEOUS 1 INHALATION EVERY 12 HRS TAKING FUROSEMIDE 20 MG TABLET 1-2 TABLETS ORALLY ONCE A DAY NEEDED TAKING LISINOPRIL 20 20 MG TABLET DIRECTED ORAL DAILY TAKING OXYBUTYNIN CHLORIDE ER 10 MG TABLET EXTENDED RELEASE 24 HOUR 1 TABLET ORALLY ONCE A DAY TAKING SIMVASTATIN 10 MG TABLET 1 TABLET IN THE EVENING ORALLY ONCE A DAY TAKING METFORMIN HCL ER 500 MG TABLET EXTENDED RELEASE 24 HOUR 1 TABLET ORALLY THREE TIMES DAILY TAKING TRULICITY 0.75 MG/0.5ML SOLUTION PEN-INJECTOR 0.5 ML SUBCUTANEOUS WEEKLY TAKING KLONOPIN 0.5 MG TABLET 1 TABLET AT ORALLY TWICE A DAY NEEDED TAKING FLUOXETINE 20 MG CAPSULE 2 CAPSULE IN THE MORNING ORALLY ONCE A DAY, NOTES: RECENT DOSE CHANGE TAKING ASCENSIA CONTOUR 1 TEST STRIPS 1 X5 DAILY TAKING CLOTRIMAZOLE-7 1 % CREAM 1 APPLICATION AT BEDTIME VULVA ONCE A DAY TAKING TOUJEO SOLOSTAR PENS 46 UNITS INJECTION DAILY TAKING VOLTAREN 1 % GEL ONE APPLICATION TRANSDERMAL APPLY 4 GRAMS TO LOW BACK/KNEES Q 6 HRS PRN PAIN TAKING GABAPENTIN 400 MG CAPSULE 1 CAPSULE ORALLY THREE TIMES A DAY TAKING ACETAMINOPHEN 500 MG CAPSULE 2 CAPSULE NEEDED ORALLY EVERY 8 HRS TAKING NORCO 5-325 MG TABLET 1 TABLET ORALLY EVERY 6 HRS PRN PAIN MDD=3 TAKING BACLOFEN 10 MG TABLET 1 TABLET WITH FOOD OR MILK ORALLY TWO TIMES A DAY TAKING PLAVIX 75 MG TABLET 1 TABLET ORALLY ONCE A DAY TAKING ASPIRIN 81 81 MG TABLET DELAYED RELEASE 1 TABLET ORALLY ONCE A DAY NOT-TAKING BUTRANS 15 MCG/HR PATCH WEEKLY 1 PATCH TO SKIN TRANSDERMAL 1 PATCH Q7 DAYS=MDD NOT-TAKING ZANTAC 300 MG TABLET 1 TABLET ORALLY TWICE A DAY NOT-TAKING JARDIANCE 25 MG TABLET 1 TABLET ORALLY ONCE A DAY NOT-TAKING KETOROLAC TROMETHAMINE 10 MG TABLET 1 TABLET WITH FOOD OR MILK NEEDED ORALLY EVERY 6 HRS NOT-TAKING LORATADINE 10 MG TABLET 1 TABLET ORALLY ONCE A DAY NOT-TAKING MECLIZINE HCL 25 MG CAPSULE ORALLY THREE TIMES DAILY NEEDED NOT-TAKING NEBULIZER/TUBING/MOUTHPIECE 1 EACH PRN MEDICATION LIST REVIEWED AND RECONCILED WITH THE PATIENT PAST MEDICAL HISTORY DEPRESSION IDDM COPD HTN HIGH CHOLESTEROL MIXED INCONTINENCE, STRESS-DOMINATED OA URI PULLED TENDON LEFT SHOULDER ASTHMA CHRONIC BACK PAIN TORN ROTATOR CUFF LEFT , PARKINSONS DISEASE ALLERGIES MILK: DIARRHEA - SIDE EFFECTS MUSCLE RELAXANTS-- ? NAME: UNSURE - SIDE EFFECTS PROTONIX: UNSURE ACTOS: SWELLING LUNESTA: CONFUSION - SIDE EFFECTS LORATADINE: VISUAL HALLUCINATION - SIDE EFFECTS SURGICAL HISTORY WRIST SURGERY--LEFT OVARIAN CYST-LEFT LAPAROSCOPY-X4 D&C LUMP REMOVED FROM BUTTOCKS BREAST LUMP REMOVED RIGHT BILAT EYE CATARACT COLONOSCOPY 2014 OVARIAN CYST REMOVED FROM RIGHT FAMILY HISTORY FATHER: 83 YRS, OLD AGE MOTHER: 72 YRS, ALZHEIMER SIBLINGS: ALIVE, SISTER-HTN, HIGH CHOLESTEROL, HYPOGLYCEMIA, ANEMIA, PRECANC POLYP COLON. BROTHERS-4 W/DM, 1 W/HYPOGLYCEMIA. OLDEST-PROSTATE CANCER. ONE BROTHER-ALCOHOLIC MATERNAL GRAND FATHER: , AMI MATERNAL GRAND MOTHER: , RUPTURED HERNIA MATERNAL AUNT: 70'S YRS, BREAST CANCER, MASTECTOMY, DX LATER IN LIFE 5 BROTHER(S) , 1 SISTER(S) . DENIES COLON OR OVARIAN CANCERS. NO CHILDREN. NIECE ENLRAGED HEART IN HER 20\'S.COUSIN HEART DISEASE. 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: TOBACCO USE ARE YOU A: NONSMOKER NEVER SMOKER. HIV / HEP-C SCREENING HIV TEST OFFERED TO PATIENT:YES DATE OFFERED:01/09/2019 TEST ACCEPTED:NO HEP-C TEST OFFERED TO PATIENT:YES DATE OFFERED:01/09/2019 REASON:PATIENT DECLINED TEST ACCEPTED:NO REASON:PATIENT DECLINED BROCHURE PROVIDED TO PATIENTNO OTHERS AT HOME: NONE. EDUCATION LEVEL OF EDUCATION: FINISHED COLLEGE 2 YR. DEGREE. DIET: REGULAR. LANGUAGE LANGUAGES SPOKEN: MAORI. NEW PATIENT PAIN DIARY TODAY'S VISITNOTES FROM 0-10, WHAT LEVEL IS YOUR PAIN TODAY?8 BMI CARE GOAL FOLLOW-UP ABOVE NORMAL BMI FOLLOW-UP GIVING ENCOURAGEMENT TO EXERCISE. RECREATIONAL DRUG USE DRUG USE?NO EXERCISE: NO REGULAR EXERCISE. LEARNING BARRIERS / SPECIAL NEEDS CHANGE FROM LAST VISIT?NO BARRIERS TO LEARNING?NO HEARING IMPAIRED?YES VISION IMPAIRED?YES COGNITIVELY IMPAIRED?NO :HEARING AIDES :CORRECTIVE LENSES READINESS TO LEARN?YES LEARNING PREFERENCES?NO LEARNING CAPABILITIES PRESENT?YES EMOTIONAL BARRIERS?NO SPECIAL DEVICES?NO PLANING MACHINE OPERATOR NEEDED?NO PAIN CLINIC PFS, CLERGY, PUBLIC HEALTH REFERRALS WAS THE PROVIDER NOTIFIED OF ANY PERTINENT INFO?YES HAS THE PATIENT BEEN EDUCATED REGARDING HIS/HER PLAN OF CARE?YES HAS THE PATIENT BEEN EDUCATED REGARDING PAIN, THE RISK FOR PAIN, THE IMPORTANCE OF EFFECTIVE PAIN MANAGEMENT, AND THE PAIN ASSESSMENT PROCESS?YES LATEX QUESTIONNAIRE LATEX ALLERGY : HAVE YOU EVER DEVELOPED ANY TYPE OF REACTION AFTER HANDLING LATEX PRODUCTS SUCH RUBBER GLOVES, CONDOMS, DIAPHRAGMS, BALLOONS, SOCKS, OR UNDERWEAR?NO LATEX ALLERGY : HAVE YOU EVER DEVELOPED ANY TYPE OF REACTION DURING OR AFTER DENTAL APPOINTMENT, VAGINAL/RECTAL EXAMINATION, SURGICAL PROCEDURE, OR ANY OTHER EXPOSURE?NO DATE ASKED : 03/05/2019 LATEX RISK : HAVE YOU EVER HAD ANY DIFFICULTY BREATHING OR HIVES AFTER EATING OR HANDLING ANY FRUITS, OR VEGETABLES; SUCH KIWI, BANANAS, STONE FRUITS, OR CHESTNUTSNO LATEX RISK : DO YOU HAVE A PREVIOUS PERSONAL HISTORY OF MORE THAN NINE SURGERIES, SPINA BIFIDA, OR REPEATED CATHERIZATIONS? YES - PLEASE INDICATE : > 9 SURGERIES LATEX RISK : ARE YOU FREQUENTLY EXPOSED TO LATEX PRODUCTS IN YOUR OCCUPATION?NO CAFFEINE CAFFEINE USE?YES HOW OFTEN AND HOW MUCH? 2 CUPS COFFEE/DAY OR MORE ADVANCE DIRECTIVE ADVANCE DIRECTIVE DISCUSSED WITH PATIENT:YES PT STATES SHE HAS HCP - ZACHERY SCHMIDT (PARTNER) [phone] VOODOO [id number] OTHER NO SIKHISM BELIEFS THAT WOULD IMPACT HEALTH CARE. MARITAL STATUS: SINGLE. ALCOHOL SCREENING DID YOU HAVE A DRINK CONTAINING ALCOHOL IN THE PAST YEAR?NO POINTS0 INTERPRETATIONNEGATIVE OCCUPATION: RETIRED, DISABLED. 05/15/18 REVIEWED WITH PT ADREVIEWED WITH PATIENT 07/17/18 0909 JSREVIEWED WTIH PATIENT 09/26/18 1048 BVREVIEWED WITH PATIENT 01/25/19 0930 LAS. HOSPITALIZATION/MAJOR DIAGNOSTIC PROCEDURE ABOVE SURGERIES PNEUMONIA STOMACH PAIN STROKE 04/2019 REVIEW OF SYSTEMS REVIEWED BY: PROVIDER: MINA STALLINGS-C . CONSTITUTIONAL: ANY CHANGE IN YOUR MEDICAL CONDITION? YES, STROKE AND PARKINSONS . CHILLS NO . FEVER NO . INFECTION: DO YOU HAVE NEW INFECTIONS? NO . DO YOU HAVE HISTORY OF MRSA? NO . MUSCULOSKELETAL: ANY NEW PATTERNS OF PAIN OR NUMBNESS? YES, BILAT KNEE PAIN AND LBP . GASTROENTEROLOGY: ANY NEW CHANGE IN BOWEL CONTROL? NO . GENITOURINARY: ANY NEW CHANGE IN BLADDER CONTROL? YES, STRESS INCONTINENCE . IS THERE A CHANCE YOU COULD BE ? NO . HEMATOLOGY/LYMPH: DO YOU TAKE ANY BLOOD THINNERS? (FOR EXAMPLE- COUMADIN, PLAVIX, AGGRENOX, PLATEL, PRADAXA, OR XARELTO) YES, PLAVIX . WHEN WAS YOUR LAST DOSE? DATE: TIME: . NEUROLOGY: HAVE YOU FALLEN IN THE PAST 12 MONTHS? NO . ANY NEW EXTREMITY NUMBNESS OR WEAKNESS? YES, BILAT KNEES . CARDIOLOGY: DO YOU HAVE A PACEMAKER OR DEFIBRILLATOR? NO . RESPIRATORY: HAVE YOU BEEN SICK IN THE PAST WEEK? NO . FEVER NO . FLU LIKE SYMPTOMS? NO . COUGH NO . INTEGUMENTARY: DO YOU HAVE ANY RASHES OR OPEN SORES? NO . ALLERGIC/IMMUNO: ARE YOU ALLERGIC TO IV DYE? NO . ANY NEW ALLERGIES? NO . PSYCHIATRIC: DO YOU HAVE THOUGHTS OF HURTING YOURSELF OR SOMEONE ELSE? NO . ARE YOU ABUSED, NEGLECTED, OR IN AN UNSAFE ENVIRONMENT? NO . ENDOCRINOLOGY: ARE YOU DIABETIC? YES . OTHER: DO YOU NEED ANY PRESCRIPTIONS? NO . IF YES, PLEASE LIST: ____ . ANY NEW PROBLEMS WITH YOUR MEDICATIONS? NO . WHEN DID YOU LAST EAT? ____ . WHEN DID YOU LAST DRINK? ____ . WHAT DID YOU LAST DRINK? ____ . NAME OF PERSON DRIVING YOU HOME? ____ . DO YOU HAVE ANY OTHER QUESTIONS OR CONCERNS NO . VITAL SIGNS WT 222 LBS, HT 65 IN, BMI 36.94 INDEX, BP 150/69 MM HG, HR 79 /MIN, RR 16 /MIN, TEMP 97.1 F, OXYGEN SAT % 96, SAFE IN ENV? (Y/N) Y, REVIEWED BY: EM. EXAMINATION GENERAL EXAMINATION: GENERALNO ACUTE DISTRESS, WELL NOURISHED AND HYDRATED. PSYCHAPPROPRIATE MOOD AND AFFECT . LUNGS:CLEAR TO AUSCULTATION BILATERALLY, NO WHEEZES, RHONCHI, RALES. HEART:NO MURMURS, REGULAR RATE AND RHYTHM. ASSESSMENTS OTHER CERVICAL DISC DISPLACEMENT, CERVICOTHORACIC REGION - M50.23 (PRIMARY) TREATMENT OTHER CERVICAL DISC DISPLACEMENT, CERVICOTHORACIC REGION INCREASE BACLOFEN TABLET, 20 MG, 1 TABLET WITH FOOD OR MILK, ORALLY, TWO TIMES A DAY, 30 DAYS, 60 CLINICAL NOTES: 73-YEAR-OLD FEMALE IN FOR CHRONIC PAIN FOLLOW-UP. GIVEN PRESENTING SYMPTOMS AND RESULTS OF PHYSICAL EXAMINATION RECOMMENDED INCREASING BACLOFEN TO 20 MG WITH FOLLOW-UP IN ONE MONTH TO DETERMINE EFFICACY OF TREATMENT. PATIENT HAS EXPRESSED UNDERSTANDING OF AND WAS IN AGREEMENT WITH TREATMENT PLAN. GIVEN TIME TO ASK QUESTIONS AND EXPRESS CONCERNS., ISTOP REGISTRY REVIEWED AND DEMONSTRATES COMPLLIANCE. (REF # [id number] ) BRINGS IN MEDICATIONS WHICH IS APPROPRIATE FOR WHAT WAS DISPENSED. RECENT URINE TOXICOLOGY REVIEWED. NO UNAUTHORIZED MEDICATIONS. NO ILLICIT SUBSTANCES AND PRESCRIBED MEDICATIONS WERE PRESENT. PROCEDURE CODES FA211 ESTABILISHED PATIENT [facility] CHARGE DISPOSITION & COMMUNICATION FOLLOW UP 4 WEEKS (REASON: NECK PAIN, MEDICATION CHANGE) ELECTRONICALLY SIGNED BY CHANDRAKANT MATHEW ON 07/02/2019 AT 08:45 AM EDT DISCLAIMER : THIS IS A VISIT SUMMARY EXTRACTED FROM THE [employer] CHART. IT IS NOT A COPY OF THE [employer] PROGRESS NOTE. MTDD
== END ==
LOC: M PAIN 09:00
PROVIDERS: ATTEND Family Medicine
DX: M50.23 Other cervical disc displacement, cervicothoracic region (principal); E11.9 Type 2 diabetes mellitus without complications; I10 Essential (primary) hypertension; Z79.02 Long term (current) use of antithrombotics/antiplatelets; Z79.82 Long term (current) use of aspirin; Z79.84 Long term (current) use of oral hypoglycemic drugs; Z79.891 Long term (current) use of opiate analgesic; Z79.899 Other long term (current) drug therapy; Z88.8 Allergy status to other drugs, medicaments and biological substances; Z91.011 Allergy to milk products

== ENCOUNTER 2019-07-21 06:44 | Inpatient (IN) | payer MEDICARE, MEDICAID ==
[~2019-07-21] VITALS: Ht 157.5 cm; Wt 95.9 kg
[2019-07-21 07:44] LABS: BASO # 0.1 10^3/uL (0.0-0.2); BASO % 0.7 % (0.0-1.0); EOS # 0.1 10^3/uL (0.0-0.5); EOS % 1.7 % (0.0-3.0); HEMATOCRIT 42.9 % (36.0-47.0); HEMOGLOBIN 14.5 g/dl (12.0-15.5); LYMPH # 2.2 10^3/uL (1.5-5.0); LYMPH % 31.1 % (24.0-44.0); MEAN CORPUSCULAR HEMOGLOBIN 32.2 pg (27.0-33.0); MEAN CORPUSCULAR HGB CONC 33.8 g/dl (32.0-36.5); MEAN CORPUSCULAR VOLUME 95.3 fl (80.0-96.0); MONO # 0.4 10^3/uL (0.0-0.8); MONO % 5.8 % (0.0-5.0); NEUTROPHILS # 4.3 10^3/uL (1.5-8.5); NEUTROPHILS % 60.3 % (36.0-66.0); PLATELET COUNT, AUTOMATED 292 10^3/uL (150-450); WHITE BLOOD COUNT 7.2 10^3/uL (4.0-10.0)
--- NOTE | 2019-07-21 07:52 | REPVR ---
PROCEDURE INFORMATION: Exam: CT Head Without Contrast Exam date and time: 07/21/2019 7:41 AM Age: 73 years old Clinical indication: Altered mental status/memory loss; Confusion or disorientation TECHNIQUE: Imaging protocol: Computed tomography of the head without contrast. Radiation optimization: All CT scans at this facility use at least one of these dose optimization techniques: automated exposure control; mA and/or kV adjustment per patient size (includes targeted exams where dose is matched to clinical indication); or iterative reconstruction. COMPARISON: CT Head without contrast 05/07/2019 11:10 AM FINDINGS: Brain: There is mild patchy white matter hypoattenuation with no associated mass effect. There is small area right occipital chronic encephalomalacia. Ventricles: There is age-related cerebral atrophy with secondary ventricular dilatation. Bones/joints: Unremarkable. No acute fracture. Sinuses: Visualized sinuses are unremarkable. No fluid levels. Mastoid air cells: Visualized mastoid air cells are well aerated. Soft tissues: Unremarkable. Dental: There is a CSF lucency measuring 1.2 cm in the inferior left basal ganglia likely prominent Virchow Bradford space. IMPRESSION: 1. No CT evidence of acute intracranial hemorrhage, mass effect or midline shift. 2. Age-related cerebral atrophy with chronic microangiopathic changes and chronic right occipital encephalomalacia. Electronically signed by: James Leyva On 07/21/2019 07:52:46 AM
[2019-07-21 08:05] LABS: OSMOLALITY SERUM 301 MOSM/KG (280-301)
[2019-07-21 08:13] LABS: ACETAMINOPHEN LEVEL < 2.0 UG/ML (10.0-30.0); ALBUMIN 4.1 GM/DL (3.2-5.2); ALT/SGPT 25 U/L (12-78); BILIRUBIN,DIRECT 0.2 MG/DL (0.0-0.2); BILIRUBIN,TOTAL 0.5 MG/DL (0.2-1.0); BLOOD UREA NITROGEN 23 MG/DL (7-18); CALCIUM LEVEL 9.2 MG/DL (8.8-10.2); CARBON DIOXIDE LEVEL 24 MEQ/L (21-32); CHLORIDE LEVEL 106 MEQ/L (98-107); CK-MB VALUE MASS < 1.0 NG/ML (<3.6); CPK CREATINE PHOSPHOKINASE 31 U/L (26-192); CREATININE FOR GFR 1.01 MG/DL (0.55-1.30); ETHYL ALCOHOL (ETHANOL) < 0.003 % (0.000-0.010); GLOMERULAR FILTRATION RATE 57.4 (>39); GLUCOSE, FASTING 247 MG/DL (70-100); MB/CK RELATIVE INDEX 3.23 (< OR =4); POTASSIUM SERUM 3.9 MEQ/L (3.5-5.1); SALICYLATE LEVEL < 1.7 MG/DL (5.0-30.0); SODIUM LEVEL 141 MEQ/L (136-145); TOTAL PROTEIN 7.2 GM/DL (6.4-8.2); TROPONIN I < 0.02 NG/ML (< 0.10)
[2019-07-21 08:47] LABS: AMPHETAMINES LEVEL URINE NEGATIVE (NEGATIVE); BARBITURATES URINE NEGATIVE (NEGATIVE); BENZODIAZEPINES URINE NEGATIVE (NEGATIVE); CANNABINOIDS URINE NEGATIVE (NEGATIVE); COCAINE METABOLITE URINE NEGATIVE (NEGATIVE); METHADONE URINE NEGATIVE (NEGATIVE); OPIATES URINE NEGATIVE (NEGATIVE); PHENCYCLIDINE URINE NEGATIVE (NEGATIVE)
[2019-07-21] MEDS: LEVEMIR (INSULIN DETEMIR) 1 UNITS/0.01ML SC SCH (09:00)
[2019-07-21] MEDS ORDERED: ONDANSETRON 4 MG ORAL DISINTEGRATING TAB (Q0162 PER 1MG) PO ONE (10:00)
[2019-07-21] MEDS ORDERED: SM HTAB3 PO (11:55)
[2019-07-21] MEDS ORDERED: BACL1TAB9 PO (11:55)
[2019-07-21] MEDS ORDERED: ACET-897 PO (11:55)
[2019-07-21] MEDS ORDERED: PROBCAP14 PO (11:55)
[2019-07-21] MEDS ORDERED: TRUL0.5I SC (11:55)
[2019-07-21] MEDS ORDERED: ASPI81TA26 PO (11:55)
[2019-07-21] MEDS ORDERED: BUTR1DIS TOP (11:55)
[2019-07-21] MEDS ORDERED: ZANT150T40 PO (11:55)
[2019-07-21] MEDS ORDERED: TOUJ1.2I SC (11:55)
[2019-07-21] MEDS ORDERED: ADVA115A INH (11:55)
[2019-07-21] MEDS ORDERED: LISI-538 PO (11:55)
[2019-07-21] MEDS ORDERED: FLON1SPR (11:55)
[2019-07-21] MEDS ORDERED: CARA1TAB6 PO (11:55)
[2019-07-21] MEDS ORDERED: LASI20TA3 PO (11:55)
[2019-07-21] MEDS ORDERED: OXYB10TA23 PO (11:59)
[2019-07-21 13:18] VITALS: BP 156/88
[2019-07-21] MEDS ORDERED: GLUCOSE 4 GM CHEW TABLET PO PRN (13:30)
[2019-07-21] MEDS ORDERED: DEXTROSE 50% 50 ML SYRINGE IV PRN (13:30)
[2019-07-21] MEDS ORDERED: GLUCAGON FOR INJ 1 MG VIAL (J1610) SC PRN (13:30)
[2019-07-21] MEDS: ASPIRIN 81 MG ENTERIC TAB PO SCH (13:51)
[2019-07-21] MEDS: CLOPIDOGREL 75 MG TAB PO SCH (13:52)
[2019-07-21] MEDS: ACETAMINOPHEN TAB 650MG DOSE (2X325MG) PO PRN (13:52)
[2019-07-21] MEDS: lisinopriL 20 MG TAB PO SCH (13:53)
[2019-07-21] MEDS ORDERED: ONDANSETRON 4MG/2ML VIAL (J2405) As Ordered ONE (13:57)
--- NOTE | 2019-07-21 16:12 | ECGEPIP ---
[facility] - ED Test Date: 2019-07-21 Pat Name: BEKAH MANZANARES Department: Room: - Gender: Female Center Medical Director: [email or web address] : 1945 Requested By: Kaelyn Sr Order Number: [id number] Reading MD: Kaelyn Sr Measurements Intervals [place] Rate: 80 P: 33 UT: 188 QRS: 8 QRSD: 110 T: 30 QT: 392 QTc: 453 Interpretive Statements SINUS RHYTHM MODERATE INTRAVENTRICULAR CONDUCTION DELAY DELAYED R PROGRESSION INCREASED RATE 05/07/19 Electronically Signed on 07-21-2019 16:11:39 EDT by Kaelyn Sr
[2019-07-21] MEDS: HumaLOG INSULIN (NovoLOG) PER UNIT SC SCH ×2 (17:30→21:00)
[2019-07-21] MEDS: DOCUSATE SODIUM 100 MG CAP PO SCH (21:00)
[2019-07-21] MEDS: SIMVASTATIN 40 MG TAB PO SCH (21:32)
[2019-07-21] MEDS: SUCRALFATE 1 GM TAB PO SCH (21:32)
[2019-07-21 22:00] VITALS: BP 154/84
[2019-07-22 06:00] VITALS: BP 150/82
[2019-07-22 06:22] LABS: HEMATOCRIT 42.8 % (36.0-47.0); HEMOGLOBIN 14.2 g/dl (12.0-15.5); MEAN CORPUSCULAR HEMOGLOBIN 32.2 pg (27.0-33.0); MEAN CORPUSCULAR HGB CONC 33.2 g/dl (32.0-36.5); MEAN CORPUSCULAR VOLUME 97.1 fl (80.0-96.0); PLATELET COUNT, AUTOMATED 297 10^3/uL (150-450); RED BLOOD COUNT 4.41 10^6/uL (4.00-5.40); WHITE BLOOD COUNT 9.6 10^3/uL (4.0-10.0)
[2019-07-22 06:51] LABS: BLOOD UREA NITROGEN 20 MG/DL (7-18); CALCIUM LEVEL 9.7 MG/DL (8.8-10.2); CARBON DIOXIDE LEVEL 22 MEQ/L (21-32); CHLORIDE LEVEL 105 MEQ/L (98-107); CREATININE FOR GFR 0.84 MG/DL (0.55-1.30); GLOMERULAR FILTRATION RATE > 60.0 (>39); GLUCOSE, FASTING 225 MG/DL (70-100); MAGNESIUM LEVEL 2.4 MG/DL (1.8-2.4); SODIUM LEVEL 137 MEQ/L (136-145)
--- NOTE | 2019-07-22 07:23 | HPE ---
DATE OF ADMISSION: 07/21/2019 CHIEF COMPLAINT: Hallucinations. HISTORY OF PRESENT ILLNESS: Cristina is a 73-year-old woman who has a past medical history notable for recent hospitalization secondary to a right occipital stroke causing double vision. She also carries a history of insulin dependent diabetes mellitus type 2, hyperlipidemia, attention deficit disorder. Patient apparently was brought in by her personal banking assistant secondary to experiencing hallucinations. Patient reports that she sees bedbugs crawling and about to burst. Patient is unable to provide any viable history due to these hallucinations. I did contact her personal banking assistant Naila who was able to tell me that she started noticing this yesterday afternoon and it had progressed. She reports that Cristina has not been started on any new medications since leaving the hospital in April. She does take buprenorphine, however, has not had this in approximately 2 weeks secondary to what sounds like contact dermatitis. There is no reports of her over medicating herself. In the emergency room department, the patient was evaluated with a CT scan of her head without contrast and showed no acute pathology. A urinalysis (UA), urine drug screen along with BMP and CBC were all within normal limits as was the ammonia and TSH levels. She is essentially admitted to the hospitalist service with altered mental status inducing hallucinations, for further treatment and evaluation. ALLERGIES: PROTONIX as well LUNESTA. HOME MEDICATIONS: - Tylenol 500 mg twice a day - Abilify 2 mg at bedtime - Strattera 40 mg by mouth daily - buprenorphine 15 mcg which she has not used this in 2 weeks - cholecalciferol 50 mcg at bedtime - clonazepam 0.5 mg daily as needed - Plavix 75 mg daily - Trulicity 1.5 mg a week - Jardiance 25 mg daily - fluoxetine 40 mg daily - Advair one puff twice daily - furosemide 10 mg daily - Flonase as needed - gabapentin 400 mg in the morning 800 mg at night - hydrochlorothiazide 12.5 mg daily - insulin glargine, she is currently on 35 units daily - lactobacillus one capsule daily - lisinopril 20 mg daily - metformin 1000 mg twice a day - oxybutynin 10 mg by mouth daily - ranitidine one tablet by mouth daily - simvastatin 40 mg daily - Carafate one tablet twice a day - Coenzyme Q10 300 mg by mouth daily PAST MEDICAL HISTORY: Notable for occipital stroke in April of 2019. She has a history of insulin dependent diabetes mellitus type 2, hyperlipidemia, hypertension, posttraumatic stress disorder, social anxiety, chronic heart murmur. PAST SURGICAL HISTORY: Notable for cataract surgery, ovarian surgery and multiple laparoscopies. She has had lumbar back surgery as well as left foot surgery. SOCIAL HISTORY: Patient resides at home with her significant other, Naila. She does not smoke, use alcohol or illicit drugs. She is currently on SSI disability. CODE STATUS: Full code. She is unable to clarify due to her hallucinations. FAMILY HISTORY: Notable for coronary artery disease (CAD) as well as father passed of natural causes. REVIEW OF SYSTEMS: Could not be obtained adequately at this time due to patient's hallucinations. PHYSICAL EXAMINATION: On examination this morning, patient's temperature is 97. 6, pulse 76, respirations 20, blood pressure 156/68, saturations 97% on room air. GENERAL: The patient is alert to person. She is disoriented to time and place. She appears to be in no acute distress. SKIN: Warm to touch without any visible jaundice, rash or cyanosis. HEENT: Head is atraumatic. Pupils are equal, round and reactive to light. Difficult to test for accommodation given the level of cooperation. Oropharynx is visualized with oral mucosal being moist. Tongue is midline. Soft palate elevates bilaterally. She has no facial asymmetry. Tympanic memory is visualized bilaterally no visible cerumen or erythema. NECK: Supple without any palpable lymphadenopathy. No thyromegaly. LUNGS: Sounds are heard bilaterally. No rales, wheeze or rhonchi noted in auscultation. HEART: S1, S2. She has a grade 3/6 systolic murmur. ABDOMEN: Soft, nontender, nondistended, protuberant in nature. EXTREMITIES: Without any cyanosis, clubbing or edema. NEURO EXAM: Muscle strength is preserved in the upper and lower extremities. Service Department Manager strength is 5/5 and symmetric. Distal strength is 5/5 and symmetric. Proximal lower extremity strength is 5/5 and symmetric also. Cranial nerves II through XII are grossly intact without any focal neurological deficits. LABS: Urinalysis is unremarkable. White count 7.2, hemoglobin 14.5, hematocrit 42.9, platelet count is 292. Sodium 141, potassium 3.9, chloride 106, bicarbonate 24, BUN 23, creatinine is 1, glucose 247, troponin negative, ammonia less than 10, TSH 3.15. Urine gross reading is negative. Aspirin, Tylenol as well as alcohol levels are all within normal ranges. CT of the head without contrast was unremarkable. IMPRESSION: 1. Altered mental status with hallucinations possibly secondary to adverse reaction of medication. 2. Recent occipital stroke with double vision. 3. History of Lewy body dementia. 4. History of insulin dependent diabetes mellitus type 2. PLAN: Patient will be admitted to an observation status. She will have neural check every 4 hours. Withhold the majority of her medications which could influence her central nervous system. We will reassess her tomorrow. I wonder if this could also be affective withdrawal from not receiving the buprenorphine and also the possibility of benzodiazepines withdrawal and it appears she has been on this for some time also. Blood cultures have not been drawn in the emergency room and request that but it is highly unlikely that she has an infection. If she is no better by tomorrow, consider doing an MRI to rule out a stroke. Patient will be continued on her long-acting insulin but at a lower dose and placed on an sliding scale as well as a consistent carbohydrate diet. Patient will be maintained on her aspirin and Plavix due to her recent stroke, which she should continue indefinitely. She will be continued on her Zocor also. We will resume her lisinopril. The patient will be a FULL CODE and placed on deep venous thrombosis (DVT) prophylaxis. Edited 07/22/2019 @ 0722 [facility]
[2019-07-22] MEDS: HumaLOG INSULIN (NovoLOG) PER UNIT SC SCH ×4 (07:30→21:00)
[2019-07-22] MEDS: LEVEMIR (INSULIN DETEMIR) 1 UNITS/0.01ML SC SCH (08:20)
[2019-07-22] MEDS: ONDANSETRON 4MG/2ML VIAL (J2405) IV PRN (08:22)
[2019-07-22] MEDS: lisinopriL 20 MG TAB PO SCH ×2 (08:23→13:29)
[2019-07-22] MEDS: ASPIRIN 81 MG ENTERIC TAB PO SCH ×2 (08:23→09:00)
[2019-07-22] MEDS: SUCRALFATE 1 GM TAB PO SCH ×3 (08:23→21:25)
[2019-07-22] MEDS: DOCUSATE SODIUM 100 MG CAP PO SCH ×3 (08:23→21:25)
[2019-07-22] MEDS: CLOPIDOGREL 75 MG TAB PO SCH ×2 (08:23→13:29)
[2019-07-22 14:00] VITALS: BP 146/74
--- NOTE | 2019-07-22 16:52 | IPNPDOC ---
Subjective Date Seen The patient was seen on 07/22/19. Subjective Chief Complaint/HPI "the bug are going to kill the babies." "The hand manager of it is poisoning everybody." Patient refusing to eat and take some of her meds. No improvent in hallucinations with holding her medications. No new neuro deficits observed overnight. Objective Physical Examination General Exam: Positive: Alert, Other (paranoid hallucinations) Eye Exam: Positive: Conjunctiva & lids normal ENT Exam: Positive: Pharynx Normal Neck Exam: Positive: Supple Heart Exam: Positive: Rate Normal Abdomen Exam: Positive: Normal bowel sounds Extremity Exam: Negative: Edema Skin Exam: Negative: Rash Neuro Exam: Positive: Normal Speech, Sensation Intact, Cranial Nerves 3-12 NL Psych Exam: Positive: Other (paranoid thoughts) Assessment /Plan Assessment # Altered mental status with paranoid hallucinations and delusions. # Hx of PTSD # Hx of Anxiety and depression - consult psych, d/w Dr. Madera will see tomorrow. - CT head normal - no signs of infection - if psych feels this does not represent an underlying exacerbation of her psych illness, then can consider holding anticoagulants and pursuing LP to r/o MEDIC TECHNICIAN source # Recent occipital stroke with double vision. - continue asa + plavix # History of Lewy body dementia. # History of insulin dependent diabetes mellitus type 2. - not eating much if sugars drop below 150 mg/dl consider holding Levemir # DVT prophylaxis - lovenox daily Plan/VTE VTE Prophylaxis Ordered?: Yes VS, I&O, 24H, Fishbone Vital Signs/I&O Vital Signs Date Time Temp Pulse Resp B/P (MAP) Pulse Ox O2 Delivery O2 Flow Rate FiO2 07/22/19 14:00 98.3 71 18 146/74 (98) 95 Room Air I&O- Last 24 Hours up to 6 AM 07/22/19 05:59 Intake Total 300 ml Output Total 300 ml Balance 0 ml Laboratory Data 24H LABS Laboratory Tests 2 07/21/19 16:43: Bedside Glucose (Misc Panel) 227H 07/21/19 21:10: Bedside Glucose (Misc Panel) 190H 07/22/19 05:34: Nucleated Red Blood Cells % (auto) 0.0, Anion Gap 10, Glomerular Filtration Rate > 60.0, Calcium Level 9.7, Magnesium Level 2.4 07/22/19 11:32: Bedside Glucose (Misc Panel) 166H 07/22/19 16:08: Bedside Glucose (Misc Panel) 159H CBC/BMP Laboratory Tests 07/22/19 05:34 ZAYRA MUELLER MD Jul 22, 2019 16:51
[2019-07-22] MEDS: ACETAMINOPHEN TAB 650MG DOSE (2X325MG) PO PRN (18:33)
[2019-07-22] MEDS: SIMVASTATIN 40 MG TAB PO SCH (21:25)
[2019-07-22 22:00] VITALS: BP 122/68
[2019-07-22] MEDS: SIMETHICONE 80 MG CHEW TAB PO PRN (22:14)
[2019-07-23] MEDS: ONDANSETRON 4MG/2ML VIAL (J2405) IV PRN ×3 (01:24→23:28)
[2019-07-23] MEDS: ACETAMINOPHEN TAB 650MG DOSE (2X325MG) PO PRN ×4 (01:31→23:29)
[2019-07-23] MEDS ORDERED: METOCLOPRAMIDE INJ 10MG/2ML VIAL (J2765) IV ONE (03:00)
[2019-07-23 06:00] VITALS: BP 113/50
[2019-07-23] MEDS: ENOXAPARIN 40 MG/0.4 ML SYRINGE (J1650) SC SCH (08:48)
[2019-07-23] MEDS: SUCRALFATE 1 GM TAB PO SCH ×2 (08:48→20:56)
[2019-07-23] MEDS: DOCUSATE SODIUM 100 MG CAP PO SCH ×2 (08:49→20:56)
[2019-07-23] MEDS: CLOPIDOGREL 75 MG TAB PO SCH (08:49)
[2019-07-23] MEDS: ASPIRIN 81 MG ENTERIC TAB PO SCH (08:49)
[2019-07-23] MEDS: lisinopriL 20 MG TAB PO SCH (08:52)
[2019-07-23] MEDS: LEVEMIR (INSULIN DETEMIR) 1 UNITS/0.01ML SC SCH (08:53)
[2019-07-23] MEDS: HumaLOG INSULIN (NovoLOG) PER UNIT SC SCH ×4 (08:54→21:00)
[2019-07-23] MEDS: SIMETHICONE 80 MG CHEW TAB PO PRN (08:57)
[2019-07-23 12:16] LABS: BASO # 0.1 10^3/uL (0.0-0.2); BASO % 0.6 % (0.0-1.0); EOS # 0.1 10^3/uL (0.0-0.5); EOS % 1.1 % (0.0-3.0); HEMATOCRIT 41.2 % (36.0-47.0); HEMOGLOBIN 13.7 g/dl (12.0-15.5); LYMPH # 2.1 10^3/uL (1.5-5.0); LYMPH % 25.8 % (24.0-44.0); MEAN CORPUSCULAR HEMOGLOBIN 32.1 pg (27.0-33.0); MEAN CORPUSCULAR HGB CONC 33.3 g/dl (32.0-36.5); MEAN CORPUSCULAR VOLUME 96.5 fl (80.0-96.0); MONO # 0.5 10^3/uL (0.0-0.8); MONO % 5.8 % (0.0-5.0); NEUTROPHILS # 5.4 10^3/uL (1.5-8.5); NEUTROPHILS % 66.1 % (36.0-66.0); PLATELET COUNT, AUTOMATED 279 10^3/uL (150-450); RED BLOOD COUNT 4.27 10^6/uL (4.00-5.40); WHITE BLOOD COUNT 8.2 10^3/uL (4.0-10.0)
[2019-07-23 12:34] LABS: ALBUMIN 3.5 GM/DL (3.2-5.2); ALT/SGPT 30 U/L (12-78); BILIRUBIN,TOTAL 0.4 MG/DL (0.2-1.0); BLOOD UREA NITROGEN 17 MG/DL (7-18); C REACTIVE PROTEIN QUANTITATIV 0.32 MG/DL (0.00-0.30); CARBON DIOXIDE LEVEL 25 MEQ/L (21-32); CHLORIDE LEVEL 105 MEQ/L (98-107); GLOMERULAR FILTRATION RATE > 60.0 (>39); GLUCOSE, FASTING 177 MG/DL (70-100); POTASSIUM SERUM 4.3 MEQ/L (3.5-5.1); SODIUM LEVEL 136 MEQ/L (136-145); TOTAL PROTEIN 6.3 GM/DL (6.4-8.2)
[2019-07-23 12:42] LABS: ERYTHROCYTE SEDIMENTATION RATE 10 mm/hr (0-30)
[2019-07-23 12:56] LABS: HEMOGLOBIN A1c 8.2 %
[2019-07-23] MEDS ORDERED: FIORICET TAB PO ONE (13:00)
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
[2019-07-23] MEDS: SIMETHICONE 80 MG CHEW TAB PO SCH ×3 (13:22→20:57)
[2019-07-23] MEDS: diphenhydrAMINE CREAM 30GM TOP SCH ×3 (13:24→20:58)
[2019-07-23] MEDS: TRIAMCINOLONE ACET 0.1% OINTMENT 15 GM TOP SCH ×2 (13:25→20:57)
[2019-07-23] MEDS ORDERED: PROZ40CA PO (13:32)
[2019-07-23 14:00] VITALS: BP 130/64
[2019-07-23] MEDS ORDERED: FLUoxetine 20 MG CAP PO ONE ×2 (14:00)
--- NOTE | 2019-07-23 18:26 | IPNPDOC ---
Date Seen The patient was seen on 07/23/19. Progress Note SUBJECTIVE: no c/o dysuria, urgency, frequency, fever, chills, abd pain, sob, cough, n/v/d. c/o visual hallucination seeing her family at the door, but realized that they were not permitted to visit. c/o headache and generalized pruritus OBJECTIVE: PHYSICAL EXAMINATION: VITALS: PLS SEE BELOW GENERAL: able to state her name, [facility] in [place], and june 2019. answers questions appropriately HEENT: anicteric no jaundice Tongue is midline. no facial asymmetry. moist mucus membranes. no JVD or thyromegaly LUNGS: AEBE. CTA bilaterally. No rales, wheeze or rhonchi HEART: S1, S2. She has a grade 3/6 systolic murmur. ABDOMEN: Soft, nontender, nondistended (+) BS EXTREMITIES: Without any cyanosis, clubbing or edema. NEURO EXAM: face is symmetric. Motor 5/5 x 4 extremities. gait not tested. no sensory deficit. LABORATORY DATA, IMAGING STUDIES, MICROBIOLOGY: REVIEWED, PLS SEE BELOW ASSESSMENT AND PLAN: 73-year-old female who lives alone with a girlfriend next door with pmh significant for right occipital stroke,diabetes mellitus type 2, hyperlipidemia, attention deficit disorder presented with visual hallucinations Acute encephalopathy due to polypharmacy, in the setting of Occipital CVA, Lewy Body Dementia CT scan of her head without contrast and showed no acute pathology. A urinalysis (UA), urine drug screen along with BMP and CBC were all within normal limits as was the ammonia and TSH levels. Her pain and psych meds were held,with improvement in her mental status. Headache no triptans in light of recent CVA trial of acetaminophen and reglan. PTSD/ Anxiety and depression psych recommended resuming prozac home dose and outpt fu. Pruritus LFTs unchanged trial of triamcinolone and topical benadryl no signs of burrows to suspect scabies occipital stroke with double vision. asa + plavix needs oupt neurology fu and optho fu. repeat CT Head negative. Lewy body dementia. needs close neurology fu. diabetes mellitus type 2. consistent carbs diet sliding scale. DVT prophylaxis lovenox daily dispo: failed physical therapy. will need one more session. dc in am. if febrile 100.4 or higher, repeat infectious workup or LP which the pt refused today as her mentation is improved. VS, I&O, 24H, Fishbone Vital Signs/I&O Vital Signs Date Time Temp Pulse Resp B/P (MAP) Pulse Ox O2 Delivery O2 Flow Rate FiO2 07/23/19 14:00 98.0 74 18 130/64 (86) 97 Room Air I&O- Last 24 Hours up to 6 AM 07/23/19 06:00 Intake Total 1790 ml Output Total 575 ml Balance 1215 ml Laboratory Data 24H LABS Laboratory Tests 2 07/22/19 20:05: Bedside Glucose (Misc Panel) 147H 07/23/19 05:37: Bedside Glucose (Misc Panel) 104 07/23/19 11:39: Bedside Glucose (Misc Panel) 179H 07/23/19 11:52: Immature Granulocyte % (Auto) 0.6, Neutrophils (%) (Auto) 66.1H, Lymphocytes (%) (Auto) 25.8, Monocytes (%) (Auto) 5.8H, Eosinophils (%) (Auto) 1.1, Basophils (%) (Auto) 0.6, Neutrophils # (Auto) 5.4, Lymphocytes # (Auto) 2.1, Monocytes # (Auto) 0.5, Eosinophils # (Auto) 0.1, Basophils # (Auto) 0.1, Nucleated Red Blood Cells % (auto) 0.0, Erythrocyte Sedimentation Rate 10, Anion Gap 6L, Glomerular Filtration Rate > 60.0, Estimated Mean Plasma Glucose 189H, Hemoglobin A1c 8.2, Calcium Level 9.0, Total Bilirubin 0.4, Aspartate Amino Transf (AST/SGOT) 24, Alanine Aminotransferase (ALT/SGPT) 30, Alkaline Phosphatase 63, Ammonia 15, C-Reactive Protein, Quantitative 0.32H, Total Protein 6.3L, Albumin 3.5, Albumin/Globulin Ratio 1.25 07/23/19 16:29: Bedside Glucose (Misc Panel) 304H CBC/BMP Laboratory Tests 07/23/19 11:52 MAURICE PITT MD Jul 23, 2019 18:16
[2019-07-23] MEDS: SIMVASTATIN 40 MG TAB PO SCH (20:56)
[2019-07-23 22:00] VITALS: BP 124/62
[2019-07-23] MEDS ORDERED: MIRALAX *UNIT DOSE* 17GM PACKET PO PRN (22:00)
[2019-07-24 06:00] VITALS: BP 123/63
--- NOTE | 2019-07-24 08:18 | DSES ---
DATE OF ADMISSION: 07/23/2019 DATE OF DISCHARGE: 07/24/2019 PREVENTIVE MAINTENANCE ENGINEER: Dr. Madera, psychiatrist. DISCHARGE DIAGNOSES: 1. Acute encephalopathy due to polypharmacy in the setting of recent occipital cerebrovascular accident (CVA) and Lewy body dementia. 2. Posttraumatic stress disorder (PTSD) 3. Anxiety and depression. 4. Occipital stroke with double vision. 5. Lewy body dementia. 6. Type 2 diabetes. 7. Headache. DISCHARGE MEDICATIONS: - Prozac 40 mg daily - acetaminophen 1 gram twice a day - aspirin 81 mg daily DISCHARGE MEDICATIONS: - Prozac 40 mg daily - acetaminophen 1 gram twice a day - aspirin 81 mg daily - vitamin D 50 every evening - Plavix 75 daily - Trulicity 1.5 mg every week - Jardiance 25 mg daily - Advair HFA two puffs twice a day - Flonase one spray daily as needed - Lasix 20 daily - Toujeo 34 daily - probiotic one capsule daily - lisinopril 20 daily - metformin 1 gram twice a day - multivitamin one tablet daily - Zantac 3000 daily - simvastatin 40 daily - Carafate 1 gram twice a day DISCHARGE INSTRUCTIONS: The patient is to call behavioral health for telemedicine within 5 day of discharge, primary care physician within 5 days of discharge. HOSPITAL COURSE: This is a 73-year-old female, who lives alone with a girlfriend next door with recent right occipital stroke with diplopia, type 2 diabetes, ADHD, anxiety, depression, hyperlipidemia with visual hallucinations and complains of bedbugs crawling and about to burst on her. The patient has had no changes in medications and was brought in due to acute encephalopathy. The patient's pain medications and psychiatric medications were held. She had improvement in her mentation back to baseline within 24 hours. She was evaluated by psychiatrist, Dr. Prabhu Madera, who agreed with discontinuation of medications as the patient most likely had very little benefit from those and was instructed to resume back on her home dose of Prozac. The patient had evaluation including CT of the head, which was negative for acute intracranial hemorrhage, mass effect or midline shift. She has chronic right occipital encephalomalacia, chronic microangiographic changes. Laboratory data - CBC, metabolic panel were all within normal limits. Liver function tests were within normal. A1c was elevated at 8.2. The patient did not pass a home safety evaluation, could not be discharged home and therefore, remained another day. The patient had no new complaints and was back to her baseline mental status. DISCHARGE PHYSICAL: Temperature 98.9, pulse 71, respiratory rate 20, blood pressure 123/63, 90% on room air. Generally patient is awake, alert, oriented to person and place, able to state June 2019 that she is at [facility] and was able to state her name Cristina Dunn. Lungs are clear to auscultation. No wheezing, rales or rhonchi. HEENT: Face symmetric. Tongue midline. No dysarthria. Neck is supple, full range of motion. No jugular venous distention (JVD) or cervical lymphadenopathy. Heart: S1, S2, sinus rhythm. No murmurs, rubs or gallops. Abdomen: Soft, nontender and nondistended. Positive bowel sounds times four quadrants. Extremities: No cyanosis, clubbing or any pitting edema. LABORATORY DATA: White count 8.2, hemoglobin 13, hematocrit 41, platelet count 279. Sodium 136, potassium 4.3, chloride 105, bicarbonate 25, BUN 17, creatinine 0.8, glucose 177, A1c of 8.2, calcium 9, total bilirubin 0.4, direct bilirubin not noted, AST 24, ALT 30, alkaline phosphatase 63, ammonia 15, CRP 0.3, total protein 6.3, albumin 3.5, procalcitonin pending, TSH 3.1. IMAGING STUDIES: CT head no intracranial hemorrhage, chronic microangiopathic changes in the right occipital area. TIME SPENT ON DISCHARGE: 30 minutes. DISCHARGE INSTRUCTIONS: The patient is to followup with neurologist regarding her Lewy body dementia and chronic right occipital CVA to do further evaluation if needed of her current symptoms. Edited: 07/24/2019 0923 fannie MOURA
[2019-07-24] MEDS ORDERED: FLUoxetine 20 MG CAP PO SCH ×2 (09:00)
[2019-07-24] MEDS ORDERED: SENNA 8.6 MG TAB (SENOKOT) PO SCH (09:00)
[2019-07-24] MEDS: ENOXAPARIN 40 MG/0.4 ML SYRINGE (J1650) SC SCH (09:02)
[2019-07-24] MEDS: LEVEMIR (INSULIN DETEMIR) 1 UNITS/0.01ML SC SCH (09:02)
[2019-07-24] MEDS: HumaLOG INSULIN (NovoLOG) PER UNIT SC SCH ×2 (09:03→12:19)
[2019-07-24] MEDS: ASPIRIN 81 MG ENTERIC TAB PO SCH (09:04)
[2019-07-24] MEDS: SUCRALFATE 1 GM TAB PO SCH (09:04)
[2019-07-24 09:07] VITALS: BP 124/61
[2019-07-24] MEDS: SIMETHICONE 80 MG CHEW TAB PO SCH ×2 (09:07→12:20)
[2019-07-24] MEDS: lisinopriL 20 MG TAB PO SCH (09:07)
[2019-07-24] MEDS: CLOPIDOGREL 75 MG TAB PO SCH (09:08)
[2019-07-24] MEDS: TRIAMCINOLONE ACET 0.1% OINTMENT 15 GM TOP SCH (09:08)
[2019-07-24] MEDS: diphenhydrAMINE CREAM 30GM TOP SCH ×2 (09:08→12:20)
[2019-07-24] MEDS: DOCUSATE SODIUM 100 MG CAP PO SCH (09:08)
== END 2019-07-24 13:22 | disposition home health service (06) | DRG 72 ==
LOC: EDBD 06:44 → M ED 06:44 → M ED INP 06:45 → ENRESERVDT 12:37 → ENRESERVTM 12:37 → M MSPAV 13:19 → OBSVTOIN 07-23 10:08
PROVIDERS: ADMIT Internal Medicine; ATTEND General Practice
DX: G93.40 Encephalopathy, unspecified (principal); F02.80 Dementia in other diseases classified elsewhere, unspecified severity, without behavioral disturbance, psychotic disturbance, mood disturbance, and anxiety; F41.9 Anxiety disorder, unspecified; F32.9 Major depressive disorder, single episode, unspecified; F43.10 Post-traumatic stress disorder, unspecified; G31.83 Neurocognitive disorder with Lewy bodies; E11.9 Type 2 diabetes mellitus without complications; R51 Headache; Z79.82 Long term (current) use of aspirin; I69.898 Other sequelae of other cerebrovascular disease; H53.2 Diplopia; E78.5 Hyperlipidemia, unspecified; Z79.899 Other long term (current) drug therapy; F90.9 Attention-deficit hyperactivity disorder, unspecified type; Z88.8 Allergy status to other drugs, medicaments and biological substances; Z91.011 Allergy to milk products; L29.9 Pruritus, unspecified

== ENCOUNTER → 2019-08-02 | Outpatient (CLI) | payer MEDICARE, MEDICAID ==
[~2019-08-02] MED LIST changes: +ASPI81TA26 PO; -ATOM40CA PO; +ATOM40CA16 PO; +BACL1TAB9 PO; +CARA1TAB6 PO; +LASI20TA3 PO; +PROZ40CA PO; +SM HTAB3 PO; +TOUJ1.2I SC; +ZANT150T40 PO
--- NOTE | 2019-08-06 02:47 | ECWPNPC ---
PATIENT NAME: BEKAH MANZANARES : 1945 GENDER: FEMALE VISIT DATE: 08/02/2019 DISCHARGE DATE: 08/02/19 1000 VISIT LOCKED DATE TIME: PHYSICIAN: NUSRAT HOWELL RESOURCE: NUSRAT HOWELL REASON FOR APPOINTMENT 1. NECK PAIN, MEDICATION CHANGE HISTORY OF PRESENT ILLNESS HISTORY OF PRESENT ILLNESS: PAIN THE PATIENT DESCRIBES THE PAINDURING THE LAST MONTH SEVERITY - PAIN SCORE OF4/10 LOCATIONSNECK, RIGHT HIP, LEFT HIP QUALITYACHING DURATIONCONTINUOUS, CONSTANT, ALL DAY PAIN IS INCREASED BY:ACTIVITIES PERMISSION REQUESTED AND RECEIVED FROM PATIENT TO PERFORM TELEPHONE VISIT. 73-YEAR-OLD FEMALE IN FOR CHRONIC PAIN FOLLOW-UP. SHE RATES HER PAIN CURRENTLY AT A 4 OUT OF 10 AND DESCRIBES IT ACHING. SHE FEELS HER MEDICATIONS ARE HELPFUL AND DENIES MED SIDE EFFECTS AT THIS TIME. FALL RISK SCREENING: SCREENING :NO FALLS REPORTED IN THE LAST YEAR CURRENT MEDICATIONS TAKING ADVAIR DISKUS 250-50 MCG/DOSE MISCELLANEOUS 1 INHALATION EVERY 12 HRS TAKING FUROSEMIDE 20 MG TABLET 1-2 TABLETS ORALLY ONCE A DAY NEEDED TAKING LISINOPRIL 20 20 MG TABLET DIRECTED ORAL DAILY TAKING OXYBUTYNIN CHLORIDE ER 10 MG TABLET EXTENDED RELEASE 24 HOUR 1 TABLET ORALLY ONCE A DAY TAKING SIMVASTATIN 10 MG TABLET 1 TABLET IN THE EVENING ORALLY ONCE A DAY TAKING METFORMIN HCL ER 500 MG TABLET EXTENDED RELEASE 24 HOUR 1 TABLET ORALLY THREE TIMES DAILY TAKING TRULICITY 0.75 MG/0.5ML SOLUTION PEN-INJECTOR 0.5 ML SUBCUTANEOUS WEEKLY TAKING KLONOPIN 0.5 MG TABLET 1 TABLET AT ORALLY TWICE A DAY NEEDED TAKING FLUOXETINE 20 MG CAPSULE 2 CAPSULE IN THE MORNING ORALLY ONCE A DAY, NOTES: RECENT DOSE CHANGE TAKING ASCENSIA CONTOUR 1 TEST STRIPS 1 X5 DAILY TAKING CLOTRIMAZOLE-7 1 % CREAM 1 APPLICATION AT BEDTIME VULVA ONCE A DAY TAKING TOUJEO SOLOSTAR PENS 46 UNITS INJECTION DAILY TAKING VOLTAREN 1 % GEL ONE APPLICATION TRANSDERMAL APPLY 4 GRAMS TO LOW BACK/KNEES Q 6 HRS PRN PAIN TAKING GABAPENTIN 400 MG CAPSULE 1 CAPSULE ORALLY THREE TIMES A DAY TAKING ACETAMINOPHEN 500 MG CAPSULE 2 CAPSULE NEEDED ORALLY EVERY 8 HRS TAKING PLAVIX 75 MG TABLET 1 TABLET ORALLY ONCE A DAY TAKING ASPIRIN 81 81 MG TABLET DELAYED RELEASE 1 TABLET ORALLY ONCE A DAY TAKING NORCO 5-325 MG TABLET 1 TABLET ORALLY EVERY 6 HRS PRN PAIN MDD=3 NOT-TAKING BACLOFEN 20 MG TABLET 1 TABLET WITH FOOD OR MILK ORALLY TWO TIMES A DAY, NOTES: [facility] STOP[facility] IT 07/27/19 NOT-TAKING BUTRANS 15 MCG/HR PATCH WEEKLY 1 PATCH TO SKIN TRANSDERMAL 1 PATCH Q7 DAYS=MDD NOT-TAKING ZANTAC 300 MG TABLET 1 TABLET ORALLY TWICE A DAY NOT-TAKING JARDIANCE 25 MG TABLET 1 TABLET ORALLY ONCE A DAY NOT-TAKING KETOROLAC TROMETHAMINE 10 MG TABLET 1 TABLET WITH FOOD OR MILK NEEDED ORALLY EVERY 6 HRS NOT-TAKING LORATADINE 10 MG TABLET 1 TABLET ORALLY ONCE A DAY NOT-TAKING MECLIZINE HCL 25 MG CAPSULE ORALLY THREE TIMES DAILY NEEDED NOT-TAKING NEBULIZER/TUBING/MOUTHPIECE 1 EACH PRN MEDICATION LIST REVIEWED AND RECONCILED WITH THE PATIENT PAST MEDICAL HISTORY DEPRESSION IDDM COPD HTN HIGH CHOLESTEROL MIXED INCONTINENCE, STRESS-DOMINATED OA URI PULLED TENDON LEFT SHOULDER ASTHMA CHRONIC BACK PAIN TORN ROTATOR CUFF LEFT , PARKINSONS DISEASE ALLERGIES MILK: DIARRHEA - SIDE EFFECTS MUSCLE RELAXANTS-- ? NAME: UNSURE - SIDE EFFECTS PROTONIX: UNSURE ACTOS: SWELLING LUNESTA: CONFUSION - SIDE EFFECTS LORATADINE: VISUAL HALLUCINATION - SIDE EFFECTS SURGICAL HISTORY WRIST SURGERY--LEFT OVARIAN CYST-LEFT LAPAROSCOPY-X4 D&C LUMP REMOVED FROM BUTTOCKS BREAST LUMP REMOVED RIGHT BILAT EYE CATARACT COLONOSCOPY 2014 OVARIAN CYST REMOVED FROM RIGHT FAMILY HISTORY FATHER: 83 YRS, OLD AGE MOTHER: 72 YRS, ALZHEIMER SIBLINGS: ALIVE, SISTER-HTN, HIGH CHOLESTEROL, HYPOGLYCEMIA, ANEMIA, PRECANC POLYP COLON. BROTHERS-4 W/DM, 1 W/HYPOGLYCEMIA. OLDEST-PROSTATE CANCER. ONE BROTHER-ALCOHOLIC MATERNAL GRAND FATHER: , AMI MATERNAL GRAND MOTHER: , RUPTURED HERNIA MATERNAL AUNT: 70'S YRS, BREAST CANCER, MASTECTOMY, DX LATER IN LIFE 5 BROTHER(S) , 1 SISTER(S) . DENIES COLON OR OVARIAN CANCERS. NO CHILDREN. NIECE ENLRAGED HEART IN HER 20\'S.COUSIN HEART DISEASE. HOSPITALIZATION/MAJOR DIAGNOSTIC PROCEDURE ABOVE SURGERIES PNEUMONIA STOMACH PAIN STROKE 04/2019 HALLUCINATION 07/26/19 REVIEW OF SYSTEMS REVIEWED BY: PROVIDER: MINA HOWELL CLINICAL QUALITY ANALYST-C . CONSTITUTIONAL: ANY CHANGE IN YOUR MEDICAL CONDITION? NO . CHILLS NO . FEVER NO . INFECTION: DO YOU HAVE NEW INFECTIONS? NO . DO YOU HAVE HISTORY OF MRSA? NO . MUSCULOSKELETAL: ANY NEW PATTERNS OF PAIN OR NUMBNESS? NO . GASTROENTEROLOGY: ANY NEW CHANGE IN BOWEL CONTROL? NO . GENITOURINARY: ANY NEW CHANGE IN BLADDER CONTROL? NO . IS THERE A CHANCE YOU COULD BE ? NO . HEMATOLOGY/LYMPH: DO YOU TAKE ANY BLOOD THINNERS? (FOR EXAMPLE- COUMADIN, PLAVIX, AGGRENOX, PLATEL, PRADAXA, OR XARELTO) YES, PLAVIX . WHEN WAS YOUR LAST DOSE? DATE:08/02/19 TIME: 8:30AM . NEUROLOGY: HAVE YOU FALLEN IN THE PAST 12 MONTHS? NO . ANY NEW EXTREMITY NUMBNESS OR WEAKNESS? NO . CARDIOLOGY: DO YOU HAVE A PACEMAKER OR DEFIBRILLATOR? NO . RESPIRATORY: HAVE YOU BEEN SICK IN THE PAST WEEK? YES, HOSPITALIZED ON 07/26/19 FOR HALLUCINATION AND TAKEN OFF BACLOFEN. . FEVER NO . FLU LIKE SYMPTOMS? NO . COUGH NO . INTEGUMENTARY: DO YOU HAVE ANY RASHES OR OPEN SORES? NO . ALLERGIC/IMMUNO: ARE YOU ALLERGIC TO IV DYE? NO . ANY NEW ALLERGIES? NO . PSYCHIATRIC: DO YOU HAVE THOUGHTS OF HURTING YOURSELF OR SOMEONE ELSE? NO . ARE YOU ABUSED, NEGLECTED, OR IN AN UNSAFE ENVIRONMENT? NO . ENDOCRINOLOGY: ARE YOU DIABETIC? YES . OTHER: DO YOU NEED ANY PRESCRIPTIONS? NO . IF YES, PLEASE LIST: ____ . ANY NEW PROBLEMS WITH YOUR MEDICATIONS? NO . WHEN DID YOU LAST EAT? ____ . WHEN DID YOU LAST DRINK? ____ . WHAT DID YOU LAST DRINK? ____ . NAME OF PERSON DRIVING YOU HOME? ____ . DO YOU HAVE ANY OTHER QUESTIONS OR CONCERNS NO . EXAMINATION GENERAL EXAMINATION: PSYCH ORIENTED X 3, APPROPRIATE MOOD AND AFFECT. 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 PATIENT HAS EXPRESSED UNDERSTANDING OF AND WAS IN AGREEMENT WITH TREATMENT PLAN. GIVEN TIME TO ASK QUESTIONS AND EXPRESS CONCERNS., ISTOP REGISTRY REVIEWED AND DEMONSTRATES COMPLLIANCE. (REF # [id number] ) BRINGS IN MEDICATIONS WHICH IS APPROPRIATE FOR WHAT WAS DISPENSED. RECENT URINE TOXICOLOGY REVIEWED. NO UNAUTHORIZED MEDICATIONS. NO ILLICIT SUBSTANCES AND PRESCRIBED MEDICATIONS WERE PRESENT. VISIT TO BE BILLED BASED ON TIME SPENT WITH PATIENT. TIME SPENT WITH PATIENT 11 MINUTES. DISPOSITION & COMMUNICATION FOLLOW UP 3 MONTHS (REASON: NECK PAIN) ELECTRONICALLY SIGNED BY CHANDRAKANT MATHEW ON 08/05/2019 AT 08:52 AM EDT DISCLAIMER : THIS IS A VISIT SUMMARY EXTRACTED FROM THE [employer] CHART. IT IS NOT A COPY OF THE [employer] PROGRESS NOTE. MARTELL
== END ==
LOC: M PAIN 10:15
PROVIDERS: ATTEND Family Medicine
DX: M50.93 Cervical disc disorder, unspecified, cervicothoracic region (principal); I10 Essential (primary) hypertension; Z79.82 Long term (current) use of aspirin; Z79.84 Long term (current) use of oral hypoglycemic drugs; Z79.891 Long term (current) use of opiate analgesic; Z79.899 Other long term (current) drug therapy; Z91.011 Allergy to milk products; Z88.8 Allergy status to other drugs, medicaments and biological substances

== ENCOUNTER 2019-08-29 10:16 | Emergency (ER) | payer MEDICARE, MEDICAID ==
[~2019-08-29] VITALS: Ht 165.1 cm; Wt 93.5 kg
[~2019-08-29 10:16] MED LIST changes: -METF-791 PO; +METF-838 PO
[2019-08-29] MEDS ORDERED: PANT40TA3 PO (10:47)
[2019-08-29 11:17] LABS: BASO # 0.1 10^3/uL (0.0-0.2); BASO % 0.8 % (0.0-1.0); EOS # 0.2 10^3/uL (0.0-0.5); EOS % 2.8 % (0.0-3.0); HEMATOCRIT 43.1 % (36.0-47.0); HEMOGLOBIN 14.9 g/dl (12.0-15.5); LYMPH # 2.5 10^3/uL (1.5-5.0); LYMPH % 34.1 % (24.0-44.0); MEAN CORPUSCULAR HGB CONC 34.6 g/dl (32.0-36.5); MEAN CORPUSCULAR VOLUME 95.6 fl (80.0-96.0); MONO # 0.4 10^3/uL (0.0-0.8); MONO % 5.4 % (0.0-5.0); NEUTROPHILS # 4.1 10^3/uL (1.5-8.5); NEUTROPHILS % 56.5 % (36.0-66.0); PLATELET COUNT, AUTOMATED 335 10^3/uL (150-450); RED BLOOD COUNT 4.51 10^6/uL (4.00-5.40); WHITE BLOOD COUNT 7.3 10^3/uL (4.0-10.0)
--- NOTE | 2019-08-29 11:57 | REP ---
CT BRAIN WITHOUT CONTRAST: HISTORY: Headache. Comparison head CT study July 21, 2019. CT FINDINGS: Preliminary digital county director radiograph is unremarkable. The bony calvarium is intact. There is heavy vascular calcification in the distal internal carotid and to some degree, the distal vertebral arteries. Visualized paranasal sinuses are clear. No intraorbital abnormality is appreciated. On soft tissue window settings, there is evidence of an old cortical infarction in the right posterior temporal and occipital lobe distribution. This is unchanged. There are small vessel atherosclerotic changes in the periventricular white matter of the frontal lobes bilaterally unchanged as well. There is an old lacunar infarct in the left inferior basal ganglia unchanged. No acute infarction is seen. There is no evidence of intracranial hemorrhage. No mass, extra-axial fluid collection, or midline shift is seen. IMPRESSION: Old infarcts in the left basal ganglia and right temporo-occipital lobe. No acute intracranial abnormality. Vascular calcification is seen. Electronically Signed by Shoaib Herron MD 08/29/2019 01:28 P
[2019-08-29 11:59] LABS: BLOOD UREA NITROGEN 12 MG/DL (7-18); CALCIUM LEVEL 9.8 MG/DL (8.8-10.2); CARBON DIOXIDE LEVEL 24 MEQ/L (21-32); CHLORIDE LEVEL 106 MEQ/L (98-107); CK-MB VALUE MASS < 1.0 NG/ML (<3.6); CPK CREATINE PHOSPHOKINASE 39 U/L (26-192); GLOMERULAR FILTRATION RATE > 60.0 (>39); GLUCOSE, FASTING 140 MG/DL (70-100); MB/CK RELATIVE INDEX 2.56 (< OR =4); POTASSIUM SERUM 4.1 MEQ/L (3.5-5.1); SODIUM LEVEL 140 MEQ/L (136-145); TROPONIN I < 0.02 NG/ML (< 0.10)
[2019-08-29] MEDS ORDERED: METOCLOPRAMIDE INJ 10MG/2ML VIAL (J2765 PER 1) IV ONE (12:15)
--- NOTE | 2019-08-29 14:13 | REP ---
ABDOMINAL SERIES: Supine and erect views of the abdomen demonstrate no free air and no evidence of obstruction. Mild fecal material is seen throughout the colon. No dilated small bowel loops are seen. There are vascular calcifications of the pelvis. There are degenerative changes of the spine with curvature toward the right. An accompanying view of the chest demonstrates no acute infiltrate. Stable right cardiophrenic opacity represents a fat pad as seen on prior CT exams. The heart is normal in size and the mediastinal silhouette is unremarkable. IMPRESSION: No free air or obstruction. No acute abnormalities in the chest. Electronically Signed by Adithya Kingsley MD 08/29/2019 02:17 P
[2019-08-29 14:15] VITALS: BP 142/70
--- NOTE | 2019-08-29 22:06 | ECGEPIP ---
[facility] - ED Test Date: 2019-08-29 Pat Name: BEKAH MANZANARES Department: Room: - Gender: Female Bend Up: yvon : 1945 Requested By: Perez Lucero Order Number: [id number] Reading MD: Perez Turner Measurements Intervals [place] Rate: 66 P: -26 DC: 172 QRS: 20 QRSD: 85 T: 31 QT: 383 QTc: 401 Interpretive Statements SINUS RHYTHM MODERATE INTRAVENTRICULAR CONDUCTION DELAY SIMILAR TO 07/21/19 Electronically Signed on 08-29-2019 22:06:33 EDT by Perez Turner
== END 2019-08-29 14:17 | disposition home or self-care (01) ==
LOC: M ED 10:16 → EDBD 10:16 → M ED 14:17
DX: R51 Headache (principal); R07.89 Other chest pain; K59.00 Constipation, unspecified; R11.0 Nausea; E11.9 Type 2 diabetes mellitus without complications; I10 Essential (primary) hypertension; E78.5 Hyperlipidemia, unspecified; K21.9 Gastro-esophageal reflux disease without esophagitis; J44.9 Chronic obstructive pulmonary disease, unspecified; F43.10 Post-traumatic stress disorder, unspecified; F32.9 Major depressive disorder, single episode, unspecified; F41.9 Anxiety disorder, unspecified; M54.9 Dorsalgia, unspecified; F40.00 Agoraphobia, unspecified; Z86.73 Personal history of transient ischemic attack (TIA), and cerebral infarction without residual deficits; Z91.011 Allergy to milk products; Z88.8 Allergy status to other drugs, medicaments and biological substances; Z79.899 Other long term (current) drug therapy; Z79.84 Long term (current) use of oral hypoglycemic drugs; Z79.02 Long term (current) use of antithrombotics/antiplatelets; Z79.4 Long term (current) use of insulin; Z79.51 Long term (current) use of inhaled steroids; Z79.82 Long term (current) use of aspirin
CPT/HCPCS: 70450; 74021; 80048; 82550; 82553; 84484; 85025; 93005; 93041; 94760; 96374; 99285; J2765

== ENCOUNTER → 2019-11-22 | Outpatient (CLI) | payer MEDICARE, MEDICAID, OTHER ==
[~2019-11-22] MED LIST changes: -METF-700 PO; +METF-818 PO; +PANT40TA29 PO
== END ==
LOC: M PAIN 09:15
PROVIDERS: ATTEND Family Medicine
DX: M50.93 Cervical disc disorder, unspecified, cervicothoracic region (principal)

== ENCOUNTER → 2020-01-14 | Outpatient (CLI) | payer MEDICARE, MEDICAID | LOC: M PAIN 13:44 | PROVIDERS: ATTEND Family Medicine | DX: M50.93 Cervical disc disorder, unspecified, cervicothoracic region (principal); G89.29 Other chronic pain; E11.9 Type 2 diabetes mellitus without complications; J44.9 Chronic obstructive pulmonary disease, unspecified; Z88.8 Allergy status to other drugs, medicaments and biological substances; Z91.011 Allergy to milk products; Z79.01 Long term (current) use of anticoagulants; Z79.4 Long term (current) use of insulin; Z79.82 Long term (current) use of aspirin; Z79.891 Long term (current) use of opiate analgesic; Z79.899 Other long term (current) drug therapy ==

== ENCOUNTER → 2020-03-16 | Outpatient (CLI) | payer MEDICARE, MEDICAID ==
--- NOTE | 2020-03-18 05:07 | ECWPNPC ---
PATIENT NAME: BEKAH MANZANARES : 1945 GENDER: FEMALE VISIT DATE: 03/16/2020 DISCHARGE DATE: 03/16/201426 VISIT LOCKED DATE TIME: PHYSICIAN: NUSRAT HOWELL RESOURCE: NUSRAT HOWELL REASON FOR APPOINTMENT 1. BACK HISTORY OF PRESENT ILLNESS GENERAL: - 74-YEAR-OLD FEMALE IN FOR CHRONIC PAIN FOLLOW-UP. SHE RATES HER PAIN CURRENTLY AT A 7 OUT OF 10 AND DESCRIBES IT ACHING AND CONTINUOUS. SHE FEELS HER MEDICATIONS ARE HELPFUL AND DENIES MED SIDE EFFECTS AT THIS TIME. FALL RISK SCREENING: SCREENING :NO FALLS REPORTED IN THE LAST YEAR PAIN SCREENING: PATIENT HAS A COMPLAINT OF ACUTE OR CHRONIC PAIN :YES LOCATION OF PAIN:NECK, LOW BACK, LEFT HIP, RIGHT HIP, KNEES BILATERAL HIP AND KNEE INTENSITY OF PAIN (SCALE OF 1 TO 10):7 WHAT DOES YOUR PAIN FEEL LIKE:ACHING, CONTINOUS DURATION:CONSTANT PAIN IS INCREASED BY:ACTIVITIES, PROLONGED STANDING PAIN IS DECREASED BY:USE OF PAIN MEDICATIONS, SITTING NURSING NOTE: -. PAIN CENTER INTAKE QUESTIONS: DO YOU HAVE A HISTORY OF MRSA? :NO DO YOU TAKE A BLOOD THINNERS? :YES PLAVIX DO YOU HAVE ANY BLEEDING DISORDERS? :NO ANY NEW NUMBNESS OR WEAKNESS IN YOUR LEGS OR ARMS? :YES WEAK WHEN TRY TO LIFT LEGS WHILE SITTING AND WEAK WHEN WALKING ANY PACEMAKER,DEFIBRILLATOR, OR DORSAL COLUMN STIMULATOR? :NO DO YOU HAVE ANY RASHES OR OPEN SORES? :NO ARE YOU ALLERGIC TO IV DYE? :NO ARE YOU DIABETIC? :YES ANY NEW PROBLEMS WITH YOUR MEDICATIONS? :NO HAVE YOU RECEIVED A VACCINE IN THE PAST 30 DAYS? :NO DO YOU PLAN TO RECEIVE A VACCINE IN THE NEXT 21 DAYS? :NO DO YOU NEED ANY PRESCRIPTION? :NO DO YOU TAKE ANY IMMUNOSUPPRESSIVE MEDICATIONS? :NO IS THERE A CHANCE YOU COULD BE ? :NO ARE YOU BREAST FEEDING? :NO CURRENT MEDICATIONS TAKING ADVAIR DISKUS 250-50 MCG/DOSE MISCELLANEOUS 1 INHALATION EVERY 12 HRS TAKING FUROSEMIDE 20 MG TABLET 1-2 TABLETS ORALLY ONCE A DAY NEEDED TAKING LISINOPRIL 20 20 MG TABLET DIRECTED ORAL DAILY TAKING OXYBUTYNIN CHLORIDE ER 10 MG TABLET EXTENDED RELEASE 24 HOUR 1 TABLET ORALLY ONCE A DAY TAKING SIMVASTATIN 10 MG TABLET 1 TABLET IN THE EVENING ORALLY ONCE A DAY TAKING METFORMIN HCL ER 500 MG TABLET EXTENDED RELEASE 24 HOUR 1 TABLET ORALLY THREE TIMES DAILY TAKING TRULICITY 0.75 MG/0.5ML SOLUTION PEN-INJECTOR 0.5 ML SUBCUTANEOUS WEEKLY TAKING KLONOPIN 0.5 MG TABLET 1 TABLET AT ORALLY TWICE A DAY NEEDED TAKING FLUOXETINE 20 MG CAPSULE 2 CAPSULE IN THE MORNING ORALLY ONCE A DAY, NOTES: RECENT DOSE CHANGE TAKING [facility]ENSIA CONTOUR 1 TEST STRIPS 1 X5 DAILY TAKING GABAPENTIN 400 MG CAPSULE 1 CAPSULE ORALLY THREE TIMES A DAY TAKING ACETAMINOPHEN 500 MG CAPSULE 2 CAPSULE NEEDED ORALLY EVERY 8 HRS TAKING PLAVIX 75 MG TABLET 1 TABLET ORALLY ONCE A DAY TAKING ASPIRIN 81 81 MG TABLET DELAYED RELEASE 1 TABLET ORALLY ONCE A DAY TAKING NORCO 5-325 MG TABLET 1 TABLET ORALLY EVERY 6 HRS PRN PAIN MDD=3 NOT-TAKING CLOTRIMAZOLE-7 1 % CREAM 1 APPLICATION AT BEDTIME VULVA ONCE A DAY NOT-TAKING TOUJEO SOLOSTAR PENS 46 UNITS INJECTION DAILY NOT-TAKING VOLTAREN 1 % GEL ONE APPLICATION TRANSDERMAL APPLY 4 GRAMS TO LOW BACK/KNEES Q 6 HRS PRN PAIN NOT-TAKING BACLOFEN 20 MG TABLET 1 TABLET WITH FOOD OR MILK ORALLY TWO TIMES A DAY, NOTES: [facility] STOP[facility] IT 07/27/19 NOT-TAKING BUTRANS 15 MCG/HR PATCH WEEKLY 1 PATCH TO SKIN TRANSDERMAL 1 PATCH Q7 DAYS=MDD NOT-TAKING ZANTAC 300 MG TABLET 1 TABLET ORALLY TWICE A DAY NOT-TAKING JARDIANCE 25 MG TABLET 1 TABLET ORALLY ONCE A DAY NOT-TAKING KETOROLAC TROMETHAMINE 10 MG TABLET 1 TABLET WITH FOOD OR MILK NEEDED ORALLY EVERY 6 HRS NOT-TAKING LORATADINE 10 MG TABLET 1 TABLET ORALLY ONCE A DAY NOT-TAKING MECLIZINE HCL 25 MG CAPSULE ORALLY THREE TIMES DAILY NEEDED NOT-TAKING NEBULIZER/TUBING/MOUTHPIECE 1 EACH PRN MEDICATION LIST REVIEWED AND RECONCILED WITH THE PATIENT PAST MEDICAL HISTORY DEPRESSION IDDM COPD HTN HIGH CHOLESTEROL MIXED INCONTINENCE, STRESS-DOMINATED OA URI PULLED TENDON LEFT SHOULDER ASTHMA CHRONIC BACK PAIN TORN ROTATOR CUFF LEFT , PARKINSONS DISEASE ALLERGIES MILK: DIARRHEA - SIDE EFFECTS MUSCLE RELAXANTS-- ? NAME: UNSURE - SIDE EFFECTS PROTONIX: UNSURE ACTOS: SWELLING LUNESTA: CONFUSION - SIDE EFFECTS LORATADINE: VISUAL HALLUCINATION - SIDE EFFECTS SURGICAL HISTORY WRIST SURGERY--LEFT OVARIAN CYST-LEFT LAPAROSCOPY-X4 D&C LUMP REMOVED FROM BUTTOCKS BREAST LUMP REMOVED RIGHT BILAT EYE CATARACT COLONOSCOPY 2014 OVARIAN CYST REMOVED FROM RIGHT FAMILY HISTORY FATHER: 83 YRS, OLD AGE MOTHER: 72 YRS, ALZHEIMER SIBLINGS: ALIVE, SISTER-HTN, HIGH CHOLESTEROL, HYPOGLYCEMIA, ANEMIA, PRECANC POLYP COLON. BROTHERS-4 W/DM, 1 W/HYPOGLYCEMIA. OLDEST-PROSTATE CANCER. ONE BROTHER-ALCOHOLIC MATERNAL GRAND FATHER: , AMI MATERNAL GRAND MOTHER: , RUPTURED HERNIA MATERNAL AUNT: 70'S YRS, BREAST CANCER, MASTECTOMY, DX LATER IN LIFE 5 BROTHER(S) , 1 SISTER(S) . DENIES COLON OR OVARIAN CANCERS. NO CHILDREN. NIECE ENLRAGED HEART IN HER 20\'S.COUSIN HEART DISEASE. 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 LATEX ALLERGY : HAVE YOU EVER DEVELOPED ANY TYPE OF REACTION AFTER HANDLING LATEX PRODUCTS SUCH RUBBER GLOVES, CONDOMS, DIAPHRAGMS, BALLOONS, SOCKS, OR UNDERWEAR?NO LATEX ALLERGY : HAVE YOU EVER DEVELOPED ANY TYPE OF REACTION DURING OR AFTER DENTAL APPOINTMENT, VAGINAL/RECTAL EXAMINATION, SURGICAL PROCEDURE, OR ANY OTHER EXPOSURE?NO LATEX RISK : HAVE YOU EVER HAD ANY DIFFICULTY BREATHING OR HIVES AFTER EATING OR HANDLING ANY FRUITS, OR VEGETABLES; SUCH KIWI, BANANAS, STONE FRUITS, OR CHESTNUTSNO LATEX RISK : DO YOU HAVE A PREVIOUS PERSONAL HISTORY OF MORE THAN NINE SURGERIES, SPINA BIFIDA, OR REPEATED CATHERIZATIONS? YES - PLEASE INDICATE : > 9 SURGERIES LATEX RISK : ARE YOU FREQUENTLY EXPOSED TO LATEX PRODUCTS IN YOUR OCCUPATION?NO DATE ASKED : 03/16/2020 ALCOHOL SCREENING DID YOU HAVE A DRINK CONTAINING ALCOHOL IN THE PAST YEAR?NO POINTS0 INTERPRETATIONNEGATIVE RECREATIONAL DRUG USE DRUG USE?NO CAFFEINE CAFFEINE USE?YES HOW OFTEN AND HOW MUCH? 2 CUPS COFFEE/DAY OR MORE HIV / HEP-C SCREENING HIV TEST OFFERED TO PATIENT:YES DATE OFFERED:01/09/2019 TEST ACCEPTED:NO HEP-C TEST OFFERED TO PATIENT:YES DATE OFFERED:01/09/2019 REASON:PATIENT DECLINED TEST ACCEPTED:NO REASON:PATIENT DECLINED BROCHURE PROVIDED TO PATIENTNO LATTER-DAY [id number] OTHER NO JUDAISM BELIEFS THAT WOULD IMPACT HEALTH CARE. LANGUAGE LANGUAGES SPOKEN: LIBERIAN. EDUCATION LEVEL OF EDUCATION: FINISHED COLLEGE 2 YR. DEGREE. LEARNING BARRIERS / SPECIAL NEEDS CHANGE FROM LAST VISIT?NO BARRIERS TO LEARNING?NO HEARING IMPAIRED?YES VISION IMPAIRED?YES COGNITIVELY IMPAIRED?NO :HEARING AIDES :CORRECTIVE LENSES READINESS TO LEARN?YES LEARNING PREFERENCES?NO LEARNING CAPABILITIES PRESENT?YES EMOTIONAL BARRIERS?NO SPECIAL DEVICES?NO LOFT WORKER APPRENTICE NEEDED?NO OCCUPATION: RETIRED, DISABLED. DIET: REGULAR. EXERCISE: NO REGULAR EXERCISE. MARITAL STATUS: SINGLE. OTHERS AT HOME: NONE. TODAY'S VISITNOTES FROM 0-10, WHAT LEVEL IS YOUR PAIN TODAY?8 PAIN CLINIC PFS, CLERGY, PUBLIC HEALTH REFERRALS WAS THE PROVIDER NOTIFIED OF ANY PERTINENT INFO?YES HAS THE PATIENT BEEN EDUCATED REGARDING HIS/HER PLAN OF CARE?YES HAS THE PATIENT BEEN EDUCATED REGARDING PAIN, THE RISK FOR PAIN, THE IMPORTANCE OF EFFECTIVE PAIN MANAGEMENT, AND THE PAIN ASSESSMENT PROCESS?YES ADVANCE DIRECTIVE ADVANCE DIRECTIVE DISCUSSED WITH PATIENT:YES PT STATES SHE HAS HCP - ZACHERY SCHMIDT (PARTNER) [phone] 05/15/18 REVIEWED WITH PT ADREVIEWED WITH PATIENT 07/17/18 0909 JSREVIEWED WTIH PATIENT 09/26/18 1048 BVREVIEWED WITH PATIENT 01/25/19 0930 LAS. 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 CHILLS NO . WEIGHT CHANGE OF UNKNOWN REASONS NO . GASTROENTEROLOGY: NEW UNEXPLAINABLE CHANGES IN BOWEL CONTROL NO . CONSTIPATION NO . GENITOURINARY: ANY NEW CHANGE IN BLADDER CONTROL? NO . NEUROLOGY: NEW ONSET DIZZINESS OR NEUROLOGICAL CHANGES NOT MENTIONED NO . NEW NUMBNESS OR PAIN PATTERNS NOT MENTIONED AND PERTINENT TO TODAY'S VISIT NO . CARDIOLOGY: NEW CHEST PRESSURE NO . NEW CHEST PAIN NO . RESPIRATORY: UNEXPLAINABLE COUGH NO . NEW SHORTNESS OF BREATH NO . VITAL SIGNS WT 208 LBS, HT 65 IN, BMI 34.61 INDEX, BP 142/67 MM HG, HR 71 /MIN, RR 18 /MIN, TEMP 97.8 F, OXYGEN SAT % 98%, NA INITIALS SC 13:33. EXAMINATION GENERAL EXAMINATION: GENERALNO ACUTE DISTRESS, WELL NOURISHED AND HYDRATED. PSYCHAPPROPRIATE MOOD AND AFFECT . LUNGS:CLEAR TO AUSCULTATION BILATERALLY, NO WHEEZES, RHONCHI, RALES. HEART:NO MURMURS, REGULAR RATE AND RHYTHM. 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 GIVEN PRESENTING SYMPTOMS RECOMMEND CONTINUATION OF CURRENT MEDICATION REGIMEN WITH FOLLOW-UP IN 3 MONTHS. PATIENT HAS EXPRESSED UNDERSTANDING OF AND WAS IN AGREEMENT WITH TREATMENT PLAN. GIVEN TIME TO ASK QUESTIONS AND EXPRESS CONCERNS. , ISTOP REGISTRY REVIEWED AND DEMONSTRATES COMPLLIANCE. (REF # [id number] ) BRINGS IN MEDICATIONS WHICH IS APPROPRIATE FOR WHAT WAS DISPENSED. RECENT URINE TOXICOLOGY REVIEWED. NO UNAUTHORIZED MEDICATIONS. NO ILLICIT SUBSTANCES AND PRESCRIBED MEDICATIONS WERE PRESENT. PROCEDURE CODES FA211 ESTABILISHED PATIENT [facility] CHARGE DISPOSITION & COMMUNICATION FOLLOW UP 3 MONTHS (REASON: CHRONIC PAIN) ELECTRONICALLY SIGNED BY CHANDRAKANT MATHEW ON 03/17/2020 AT 09:35 AM EST DISCLAIMER : THIS IS A VISIT SUMMARY EXTRACTED FROM THE [employer] CHART. IT IS NOT A COPY OF THE [employer] PROGRESS NOTE. MARTELL
== END ==
LOC: M PAIN 13:30
PROVIDERS: ATTEND Family Medicine
DX: M50.93 Cervical disc disorder, unspecified, cervicothoracic region (principal); G89.29 Other chronic pain; E11.9 Type 2 diabetes mellitus without complications; J44.9 Chronic obstructive pulmonary disease, unspecified; G20 Parkinson's disease; Z86.59 Personal history of other mental and behavioral disorders; Z88.8 Allergy status to other drugs, medicaments and biological substances; Z91.011 Allergy to milk products; Z79.01 Long term (current) use of anticoagulants; Z79.82 Long term (current) use of aspirin; Z79.84 Long term (current) use of oral hypoglycemic drugs; Z79.891 Long term (current) use of opiate analgesic; Z79.899 Other long term (current) drug therapy

== ENCOUNTER → 2020-06-25 | Outpatient (CLI) | payer MEDICARE, MEDICAID ==
[~2020-06-25] MED LIST changes: -LISI-538 PO; +LISI20TA33 PO
--- NOTE | 2020-07-01 04:42 | ECWPNPC ---
PATIENT NAME: BEKAH MANZANARES : 1945 GENDER: FEMALE VISIT DATE: 06/25/2020 DISCHARGE DATE: 06/25/20 1508 VISIT LOCKED DATE TIME: PHYSICIAN: NUSRAT HOWELL RESOURCE: NUSRAT HOWELL REASON FOR APPOINTMENT 1. BACK HISTORY OF PRESENT ILLNESS GENERAL: 74-YEAR-OLD FEMALE IN FOR CHRONIC PAIN FOLLOW-UP. SHE RATES HER PAIN CURRENTLY AT AN 8 OUT OF 10 AND DESCRIBES IT ACHING. SHE FEELS HER MEDICATIONS ARE HELPFUL BUT DOES ADMIT TO INCREASED PAIN AT TIMES. FALL RISK SCREENING: SCREENING : NO FALLS REPORTED IN THE LAST YEAR. PAIN SCREENING: PATIENT HAS A COMPLAINT OF ACUTE OR CHRONIC PAIN :YES LOCATION OF PAIN:NECK, LOW BACK, LEFT HIP, RIGHT HIP INTENSITY OF PAIN (SCALE OF 1 TO 10):8 WHAT DOES YOUR PAIN FEEL LIKE:ACHING DURATION:CONTINOUS, CONSTANT, STEADY, AWAKENS FROM SLEEP PAIN IS INCREASED BY:ACTIVITIES, PROLONGED STANDING PAIN IS DECREASED BY:USE OF PAIN MEDICATIONS, SITTING NURSING NOTE: - - -. PAIN CENTER INTAKE QUESTIONS: DO YOU HAVE A HISTORY OF MRSA? :NO DO YOU TAKE A BLOOD THINNERS? :YES PLAVIX DO YOU HAVE ANY BLEEDING DISORDERS? :NO ANY NEW NUMBNESS OR WEAKNESS IN YOUR LEGS OR ARMS? :YES WEAKNESS IN ARMS ANY PACEMAKER,DEFIBRILLATOR, OR DORSAL COLUMN STIMULATOR? :NO DO YOU HAVE ANY RASHES OR OPEN SORES? :NO ARE YOU ALLERGIC TO IV DYE? :NO ARE YOU DIABETIC? :YES ANY NEW PROBLEMS WITH YOUR MEDICATIONS? :NO HAVE YOU RECEIVED A VACCINE IN THE PAST 30 DAYS? :NO DO YOU PLAN TO RECEIVE A VACCINE IN THE NEXT 21 DAYS? :NO DO YOU NEED ANY PRESCRIPTION? :NO DO YOU TAKE ANY IMMUNOSUPPRESSIVE MEDICATIONS? :NO DO YOU HAVE ANY KIDNEY OR LIVER DISEASE? :NO IS THERE A CHANCE YOU COULD BE ? :NO ARE YOU BREAST FEEDING? :NO CURRENT MEDICATIONS TAKING ADVAIR DISKUS 250-50 MCG/DOSE MISCELLANEOUS 1 INHALATION EVERY 12 HRS TAKING FUROSEMIDE 20 MG TABLET 1-2 TABLETS ORALLY ONCE A DAY NEEDED TAKING LISINOPRIL 20 20 MG TABLET DIRECTED ORAL DAILY TAKING OXYBUTYNIN CHLORIDE ER 10 MG TABLET EXTENDED RELEASE 24 HOUR 1 TABLET ORALLY ONCE A DAY TAKING SIMVASTATIN 10 MG TABLET 1 TABLET IN THE EVENING ORALLY ONCE A DAY TAKING METFORMIN HCL ER 500 MG TABLET EXTENDED RELEASE 24 HOUR 1 TABLET ORALLY THREE TIMES DAILY TAKING TRULICITY 0.75 MG/0.5ML SOLUTION PEN-INJECTOR 0.5 ML SUBCUTANEOUS WEEKLY TAKING KLONOPIN 0.5 MG TABLET 1 TABLET AT ORALLY TWICE A DAY NEEDED TAKING FLUOXETINE 20 MG CAPSULE 2 CAPSULE IN THE MORNING ORALLY ONCE A DAY, NOTES: RECENT DOSE CHANGE TAKING ASCENSIA CONTOUR 1 TEST STRIPS 1 X5 DAILY TAKING GABAPENTIN 400 MG CAPSULE 1 CAPSULE ORALLY THREE TIMES A DAY TAKING ACETAMINOPHEN 500 MG CAPSULE 2 CAPSULE NEEDED ORALLY EVERY 8 HRS TAKING PLAVIX 75 MG TABLET 1 TABLET ORALLY ONCE A DAY TAKING ASPIRIN 81 81 MG TABLET DELAYED RELEASE 1 TABLET ORALLY ONCE A DAY TAKING HYDROCODONE-ACETAMINOPHEN 5-325 MG TABLET 1 TABLET NEEDED ORALLY TWICE A DAY PRN SEVERE PAIN MDD2 TAKING TOUJEO SOLOSTAR PENS 46 UNITS INJECTION DAILY TAKING ZANTAC 300 MG TABLET 1 TABLET ORALLY TWICE A DAY TAKING JARDIANCE 25 MG TABLET 1 TABLET ORALLY ONCE A DAY TAKING MECLIZINE HCL 25 MG CAPSULE ORALLY THREE TIMES DAILY NEEDED NOT-TAKING NORCO 5-325 MG TABLET 1 TABLET ORALLY EVERY 6 HRS PRN PAIN MDD=3, NOTES: DOUBLE ENTRY NOT-TAKING CLOTRIMAZOLE-7 1 % CREAM 1 APPLICATION AT BEDTIME VULVA ONCE A DAY NOT-TAKING VOLTAREN 1 % GEL ONE APPLICATION TRANSDERMAL APPLY 4 GRAMS TO LOW BACK/KNEES Q 6 HRS PRN PAIN NOT-TAKING BACLOFEN 20 MG TABLET 1 TABLET WITH FOOD OR MILK ORALLY TWO TIMES A DAY, NOTES: [facility] STOPPED IT 07/27/19 NOT-TAKING BUTRANS 15 MCG/HR PATCH WEEKLY 1 PATCH TO SKIN TRANSDERMAL 1 PATCH Q7 DAYS=MDD NOT-TAKING KETOROLAC TROMETHAMINE 10 MG TABLET 1 TABLET WITH FOOD OR MILK NEEDED ORALLY EVERY 6 HRS NOT-TAKING LORATADINE 10 MG TABLET 1 TABLET ORALLY ONCE A DAY NOT-TAKING NEBULIZER/TUBING/MOUTHPIECE 1 EACH PRN MEDICATION LIST REVIEWED AND RECONCILED WITH THE PATIENT PAST MEDICAL HISTORY DEPRESSION IDDM COPD HTN HIGH CHOLESTEROL MIXED INCONTINENCE, STRESS-DOMINATED OA URI PULLED TENDON LEFT SHOULDER ASTHMA CHRONIC BACK PAIN TORN ROTATOR CUFF LEFT , PARKINSONS DISEASE ALLERGIES MILK: DIARRHEA - SIDE EFFECTS MUSCLE RELAXANTS-- ? NAME: UNSURE - SIDE EFFECTS PROTONIX: UNSURE ACTOS: SWELLING LUNESTA: CONFUSION - SIDE EFFECTS LORATADINE: VISUAL HALLUCINATION - SIDE EFFECTS SURGICAL HISTORY WRIST SURGERY--LEFT OVARIAN CYST-LEFT LAPAROSCOPY-X4 D&C LUMP REMOVED FROM BUTTOCKS BREAST LUMP REMOVED RIGHT BILAT EYE CATARACT COLONOSCOPY 2014 OVARIAN CYST REMOVED FROM RIGHT 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 LATEX ALLERGY : HAVE YOU EVER DEVELOPED ANY TYPE OF REACTION AFTER HANDLING LATEX PRODUCTS SUCH RUBBER GLOVES, CONDOMS, DIAPHRAGMS, BALLOONS, SOCKS, OR UNDERWEAR?NO LATEX ALLERGY : HAVE YOU EVER DEVELOPED ANY TYPE OF REACTION DURING OR AFTER DENTAL APPOINTMENT, VAGINAL/RECTAL EXAMINATION, SURGICAL PROCEDURE, OR ANY OTHER EXPOSURE?NO LATEX RISK : HAVE YOU EVER HAD ANY DIFFICULTY BREATHING OR HIVES AFTER EATING OR HANDLING ANY FRUITS, OR VEGETABLES; SUCH KIWI, BANANAS, STONE FRUITS, OR CHESTNUTSNO LATEX RISK : DO YOU HAVE A PREVIOUS PERSONAL HISTORY OF MORE THAN NINE SURGERIES, SPINA BIFIDA, OR REPEATED CATHERIZATIONS? YES - PLEASE INDICATE : > 9 SURGERIES LATEX RISK : ARE YOU FREQUENTLY EXPOSED TO LATEX PRODUCTS IN YOUR OCCUPATION?NO DATE ASKED : 06/25/2020 ALCOHOL USE: NO. ALCOHOL SCREENING DID YOU HAVE A DRINK CONTAINING ALCOHOL IN THE PAST YEAR?NO POINTS0 INTERPRETATIONNEGATIVE RECREATIONAL DRUG USE DRUG USE?NO CAFFEINE CAFFEINE USE?YES HOW OFTEN AND HOW MUCH? 2 CUPS COFFEE/DAY OR MORE HIV / HEP-C SCREENING HIV TEST OFFERED TO PATIENT:YES DATE OFFERED:01/09/2019 TEST ACCEPTED:NO HEP-C TEST OFFERED TO PATIENT:YES DATE OFFERED:01/09/2019 REASON:PATIENT DECLINED TEST ACCEPTED:NO REASON:PATIENT DECLINED BROCHURE PROVIDED TO PATIENTNO ZOROASTRIANISM [id number] OTHER NO [employer]IST BELIEFS THAT WOULD IMPACT HEALTH CARE. LANGUAGE LANGUAGES SPOKEN: PERUVIAN. EDUCATION LEVEL OF EDUCATION: FINISHED COLLEGE 2 YR. DEGREE. 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 DIET: REGULAR. EXERCISE: NO REGULAR EXERCISE. MARITAL STATUS: SINGLE. OTHERS AT HOME: NONE. TODAY'S VISITNOTES FROM 0-10, WHAT LEVEL IS YOUR PAIN TODAY?8 - WAS THE PROVIDER NOTIFIED OF ANY PERTINENT INFO?YES HAS THE PATIENT BEEN EDUCATED REGARDING HIS/HER PLAN OF CARE?YES HAS THE PATIENT BEEN EDUCATED REGARDING PAIN, THE RISK FOR PAIN, THE IMPORTANCE OF EFFECTIVE PAIN MANAGEMENT, AND THE PAIN ASSESSMENT PROCESS?YES ADVANCE DIRECTIVE ADVANCE DIRECTIVE DISCUSSED WITH PATIENT:YES PT STATES SHE HAS HCP - ZACHERY SCHMIDT ([facility]) [phone] 05/15/18 REVIEWED WITH PT ADREVIEWED WITH PATIENT 07/17/18 0909 JSREVIEWED WTIH PATIENT 09/26/18 1048 BVREVIEWED WITH PATIENT 01/25/19 0930 LAS. 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 CHILLS NO . WEIGHT CHANGE OF UNKNOWN REASONS NO . GASTROENTEROLOGY: NEW UNEXPLAINABLE CHANGES IN BOWEL CONTROL NO . CONSTIPATION NO . GENITOURINARY: ANY NEW CHANGE IN BLADDER CONTROL? NO . NEUROLOGY: NEW ONSET DIZZINESS OR NEUROLOGICAL CHANGES NOT MENTIONED NO . NEW NUMBNESS OR PAIN PATTERNS NOT MENTIONED AND PERTINENT TO TODAY'S VISIT NO . CARDIOLOGY: NEW CHEST PRESSURE NO . PATIENT DENIES NO . RESPIRATORY: UNEXPLAINABLE COUGH NO . NEW SHORTNESS OF BREATH NO . VITAL SIGNS WT 208.4 LBS, HT 65 IN, BMI 34.68 INDEX, BP 137/65 MM HG, HR 82 /MIN, RR 18 /MIN, TEMP 98.0 F, OXYGEN SAT % 96%, SAFE IN ENV? (Y/N) YES, NA INITIALS AW 1440, REVIEWED BY: TALIA YOUNG MA. EXAMINATION GENERAL EXAMINATION: GENERALNO ACUTE DISTRESS, WELL NOURISHED AND HYDRATED. PSYCHAPPROPRIATE MOOD AND AFFECT . LUNGS:CLEAR TO AUSCULTATION BILATERALLY, NO WHEEZES, RHONCHI, RALES. HEART:NO MURMURS, REGULAR RATE AND RHYTHM. 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 (PRIMARY), RISK: (NULL) TREATMENT CERVICAL DISC DISORDER OF CERVICOTHORACIC REGION REFILL HYDROCODONE-ACETAMINOPHEN TABLET, 5-325 MG, 1 TABLET NEEDED, ORALLY, THREE TIMES DAILY PRN PAIN, 30 DAY(S), 90, REFILLS 0 NOTES: 74-YEAR-OLD FEMALE IN FOR CHRONIC PAIN FOLLOW-UP. GIVEN PRESENTING SYMPTOMS RECOMMEND INCREASING HYDROCODONE TO 3 TIMES A DAY DOSING WITH FOLLOW-UP IN 3 MONTHS. PATIENT HAS EXPRESSED UNDERSTANDING OF AND WAS IN AGREEMENT WITH TREATMENT PLAN. GIVEN TIME TO ASK QUESTIONS AND EXPRESS CONCERNS. , ISTOP REGISTRY REVIEWED AND DEMONSTRATES COMPLLIANCE. (REF # ) BRINGS IN MEDICATIONS WHICH IS APPROPRIATE FOR WHAT WAS DISPENSED. RECENT URINE TOXICOLOGY REVIEWED. NO UNAUTHORIZED MEDICATIONS. NO ILLICIT SUBSTANCES AND PRESCRIBED MEDICATIONS WERE PRESENT. PROCEDURE CODES FA211 ESTABILISHED PATIENT [facility] CHARGE DISPOSITION & COMMUNICATION FOLLOW UP 3 MONTHS (REASON: NECK PAIN ) ELECTRONICALLY SIGNED BY CHANDRAKANT MATHEW ON 06/30/2020 AT 10:41 AM EST DISCLAIMER : THIS IS A VISIT SUMMARY EXTRACTED FROM THE [facility] CHART. IT IS NOT A COPY OF THE [employer] PROGRESS NOTE. MARTELL
== END ==
LOC: M PAIN 14:30
PROVIDERS: ATTEND Family Medicine
DX: M50.93 Cervical disc disorder, unspecified, cervicothoracic region (principal); G89.29 Other chronic pain; E11.9 Type 2 diabetes mellitus without complications; J44.9 Chronic obstructive pulmonary disease, unspecified; G20 Parkinson's disease; Z86.59 Personal history of other mental and behavioral disorders; Z88.8 Allergy status to other drugs, medicaments and biological substances; Z91.011 Allergy to milk products; Z79.01 Long term (current) use of anticoagulants; Z79.4 Long term (current) use of insulin; Z79.82 Long term (current) use of aspirin; Z79.899 Other long term (current) drug therapy

== ENCOUNTER → 2020-09-25 | Outpatient (CLI) | payer MEDICARE, MEDICAID ==
[~2020-09-25] MED LIST changes: +GABA-283 PO; -GABA-845 PO
--- NOTE | 2020-09-29 07:35 | ECWPNPC ---
PATIENT NAME: BEKAH MANZANARES : 1945 GENDER: FEMALE VISIT DATE: 09/25/2020 DISCHARGE DATE: 09/25/20 1417 VISIT LOCKED DATE TIME: PHYSICIAN: NUSRAT HOWELL RESOURCE: NUSRAT HOWELL REASON FOR APPOINTMENT 1. NECK PAIN HISTORY OF PRESENT ILLNESS DEPRESSION SCREENING: PHQ-2 (2015 EDITION) LITTLE INTEREST OR PLEASURE IN DOING THINGS?NOT AT ALL FEELING DOWN, DEPRESSED, OR HOPELESS?NOT AT ALL TOTAL SCORE0 GENERAL: HPI 75-YEAR-OLD FEMALE FOR CHRONIC PAIN FOLLOW-UP. AT LAST CLINIC VISIT PATIENT'S MEDICATION WAS INCREASED TO 3 TIMES A DAY DOSING AND SHE ADMITS TODAY THAT THIS WAS BENEFICIAL. SHE RATES HER PAIN CURRENTLY AT A 6 OUT OF 10 AND DESCRIBES IT ACHING, AND CONTINUOUS.. -. FALL RISK SCREENING: SCREENING : NO FALLS REPORTED IN THE LAST YEAR. PAIN SCREENING: PATIENT HAS A COMPLAINT OF ACUTE OR CHRONIC PAIN :YES LOCATION OF PAIN:NECK INTENSITY OF PAIN (SCALE OF 1 TO 10):6 WHAT DOES YOUR PAIN FEEL LIKE:ACHING, CONTINOUS DURATION:CONTINOUS, CONSTANT, AWAKENS FROM SLEEP PAIN IS INCREASED BY:ACTIVITIES, PROLONGED STANDING PAIN IS DECREASED BY:USE OF PAIN MEDICATIONS, SITTING NURSING NOTE: -. PAIN CENTER INTAKE QUESTIONS: DO YOU HAVE A HISTORY OF MRSA? :NO DO YOU TAKE A BLOOD THINNERS? :YES PLAVIX DO YOU HAVE ANY BLEEDING DISORDERS? :NO ANY NEW NUMBNESS OR WEAKNESS IN YOUR LEGS OR ARMS? :YES BILATERAL LEGS SEEM TO GETTING WEAKER AND SHAKING IN RIGHT ARM. ANY PACEMAKER,DEFIBRILLATOR, OR DORSAL COLUMN STIMULATOR? :NO DO YOU HAVE ANY RASHES OR OPEN SORES? :NO ARE YOU ALLERGIC TO IV DYE? :NO ARE YOU DIABETIC? :YES ANY NEW PROBLEMS WITH YOUR MEDICATIONS? :NO HAVE YOU RECEIVED A VACCINE IN THE PAST 30 DAYS? :NO SECOND COVID VACCINATION AROUND AUGUST 2020. PATIENT IS UNSURE OF THE EXACT DATE. DO YOU PLAN TO RECEIVE A VACCINE IN THE NEXT 21 DAYS? :NO DO YOU NEED ANY PRESCRIPTION? :NO DO YOU TAKE ANY IMMUNOSUPPRESSIVE MEDICATIONS? :NO DO YOU HAVE ANY KIDNEY OR LIVER DISEASE? :NO IS THERE A CHANCE YOU COULD BE ? :NO ARE YOU BREAST FEEDING? :NO CURRENT MEDICATIONS TAKING ADVAIR DISKUS 250-50 MCG/DOSE MISCELLANEOUS 1 INHALATION EVERY 12 HRS TAKING FUROSEMIDE 20 MG TABLET 1-2 TABLETS ORALLY ONCE A DAY NEEDED TAKING LISINOPRIL 20 20 MG TABLET DIRECTED ORAL DAILY TAKING OXYBUTYNIN CHLORIDE ER 10 MG TABLET EXTENDED RELEASE 24 HOUR 1 TABLET ORALLY ONCE A DAY TAKING SIMVASTATIN 10 MG TABLET 1 TABLET IN THE EVENING ORALLY ONCE A DAY TAKING METFORMIN HCL ER 500 MG TABLET EXTENDED RELEASE 24 HOUR 1 TABLET ORALLY THREE TIMES DAILY TAKING TRULICITY 0.75 MG/0.5ML SOLUTION PEN-INJECTOR 0.5 ML SUBCUTANEOUS WEEKLY TAKING KLONOPIN 0.5 MG TABLET 1 TABLET AT ORALLY TWICE A DAY NEEDED TAKING FLUOXETINE 20 MG CAPSULE 2 CAPSULE IN THE MORNING ORALLY ONCE A DAY TAKING ASCENSIA CONTOUR 1 TEST STRIPS 1 X5 DAILY TAKING GABAPENTIN 400 MG CAPSULE 1 CAPSULE ORALLY THREE TIMES A DAY TAKING ACETAMINOPHEN 500 MG CAPSULE 2 CAPSULE NEEDED ORALLY EVERY 8 HRS TAKING PLAVIX 75 MG TABLET 1 TABLET ORALLY ONCE A DAY TAKING ASPIRIN 81 81 MG TABLET DELAYED RELEASE 1 TABLET ORALLY ONCE A DAY TAKING TOUJEO SOLOSTAR PENS 46 UNITS INJECTION DAILY TAKING ZANTAC 300 MG TABLET 1 TABLET ORALLY TWICE A DAY TAKING JARDIANCE 25 MG TABLET 1 TABLET ORALLY ONCE A DAY TAKING MECLIZINE HCL 25 MG CAPSULE ORALLY THREE TIMES DAILY NEEDED TAKING HYDROCODONE-ACETAMINOPHEN 5-325 MG TABLET 1 TABLET NEEDED ORALLY THREE TIMES DAILY PRN PAIN TAKING AMBIEN 10 MG TABLET 1 TABLET AT BEDTIME NEEDED ORALLY ONCE A DAY NOT-TAKING NORCO 5-325 MG TABLET 1 TABLET ORALLY EVERY 6 HRS PRN PAIN MDD=3, NOTES: DOUBLE ENTRY NOT-TAKING CLOTRIMAZOLE-7 1 % CREAM 1 APPLICATION AT BEDTIME VULVA ONCE A DAY NOT-TAKING VOLTAREN 1 % GEL ONE APPLICATION TRANSDERMAL APPLY 4 GRAMS TO LOW BACK/KNEES Q 6 HRS PRN PAIN NOT-TAKING BACLOFEN 20 MG TABLET 1 TABLET WITH FOOD OR MILK ORALLY TWO TIMES A DAY, NOTES: [facility] STOPPED IT 07/27/19 NOT-TAKING BUTRANS 15 MCG/HR PATCH WEEKLY 1 PATCH TO SKIN TRANSDERMAL 1 PATCH Q7 DAYS=MDD NOT-TAKING KETOROLAC TROMETHAMINE 10 MG TABLET 1 TABLET WITH FOOD OR MILK NEEDED ORALLY EVERY 6 HRS NOT-TAKING LORATADINE 10 MG TABLET 1 TABLET ORALLY ONCE A DAY NOT-TAKING NEBULIZER/TUBING/MOUTHPIECE 1 EACH PRN MEDICATION LIST REVIEWED AND RECONCILED WITH THE PATIENT PAST MEDICAL HISTORY DEPRESSION IDDM COPD HTN HIGH CHOLESTEROL MIXED INCONTINENCE, STRESS-DOMINATED OA URI PULLED TENDON LEFT SHOULDER ASTHMA CHRONIC BACK PAIN TORN ROTATOR CUFF LEFT , PARKINSONS DISEASE ALLERGIES MILK: DIARRHEA - SIDE EFFECTS MUSCLE RELAXANTS-- ? NAME: UNSURE - SIDE EFFECTS PROTONIX: UNSURE ACTOS: SWELLING LUNESTA: CONFUSION - SIDE EFFECTS LORATADINE: VISUAL HALLUCINATION - SIDE EFFECTS 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: TOBACCO USE ARE YOU A:NONSMOKER LATEX QUESTIONNAIRE LATEX ALLERGY : HAVE YOU EVER DEVELOPED ANY TYPE OF REACTION AFTER HANDLING LATEX PRODUCTS SUCH RUBBER GLOVES, CONDOMS, DIAPHRAGMS, BALLOONS, SOCKS, OR UNDERWEAR?NO LATEX ALLERGY : HAVE YOU EVER DEVELOPED ANY TYPE OF REACTION DURING OR AFTER DENTAL APPOINTMENT, VAGINAL/RECTAL EXAMINATION, SURGICAL PROCEDURE, OR ANY OTHER EXPOSURE?NO LATEX RISK : HAVE YOU EVER HAD ANY DIFFICULTY BREATHING OR HIVES AFTER EATING OR HANDLING ANY FRUITS, OR VEGETABLES; SUCH KIWI, BANANAS, STONE FRUITS, OR CHESTNUTSNO LATEX RISK : DO YOU HAVE A PREVIOUS PERSONAL HISTORY OF MORE THAN NINE SURGERIES, SPINA BIFIDA, OR REPEATED CATHERIZATIONS? YES - PLEASE INDICATE : > 9 SURGERIES LATEX RISK : ARE YOU FREQUENTLY EXPOSED TO LATEX PRODUCTS IN YOUR OCCUPATION?NO DATE ASKED : 09/25/2020 ALCOHOL USE: NO. ALCOHOL SCREENING DID YOU HAVE A DRINK CONTAINING ALCOHOL IN THE PAST YEAR?NO POINTS0 INTERPRETATIONNEGATIVE RECREATIONAL DRUG USE DRUG USE?NO CAFFEINE CAFFEINE USE?YES HOW OFTEN AND HOW MUCH? 2 CUPS COFFEE/DAY OR MORE HIV / HEP-C SCREENING HIV TEST OFFERED TO PATIENT:YES DATE OFFERED:01/09/2019 TEST ACCEPTED:NO HEP-C TEST OFFERED TO PATIENT:YES DATE OFFERED:01/09/2019 REASON:PATIENT DECLINED TEST ACCEPTED:NO REASON:PATIENT DECLINED BROCHURE PROVIDED TO PATIENTNO ORTHODOXY [id number] OTHER NO MOSQUE BELIEFS THAT WOULD IMPACT HEALTH CARE. LANGUAGE LANGUAGES SPOKEN: KOSOVAN. EDUCATION LEVEL OF EDUCATION: FINISHED COLLEGE 2 YR. DEGREE. 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 DIET: REGULAR. EXERCISE: NO REGULAR EXERCISE. MARITAL STATUS: SINGLE. OTHERS AT HOME: NONE. TODAY'S VISITNOTES FROM 0-10, WHAT LEVEL IS YOUR PAIN TODAY?8 - WAS THE PROVIDER NOTIFIED OF ANY PERTINENT INFO?YES HAS THE PATIENT BEEN EDUCATED REGARDING HIS/HER PLAN OF CARE?YES HAS THE PATIENT BEEN EDUCATED REGARDING PAIN, THE RISK FOR PAIN, THE IMPORTANCE OF EFFECTIVE PAIN MANAGEMENT, AND THE PAIN ASSESSMENT PROCESS?YES ADVANCE DIRECTIVE ADVANCE DIRECTIVE DISCUSSED WITH PATIENT:YES PT STATES SHE HAS HCP - ZACHERY SCHMIDT ([facility]) [phone] 05/15/18 REVIEWED WITH PT ADREVIEWED WITH PATIENT 07/17/18 0909 JSREVIEWED WTIH PATIENT 09/26/18 1048 BVREVIEWED WITH PATIENT 01/25/19 0930 LAS. 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 CHILLS NO . WEIGHT CHANGE OF UNKNOWN REASONS NO . GASTROENTEROLOGY: NEW UNEXPLAINABLE CHANGES IN BOWEL CONTROL NO . CONSTIPATION NO . GENITOURINARY: ANY NEW CHANGE IN BLADDER CONTROL? NO . NEUROLOGY: NEW ONSET DIZZINESS OR NEUROLOGICAL CHANGES NOT MENTIONED NO . NEW NUMBNESS OR PAIN PATTERNS NOT MENTIONED AND PERTINENT TO TODAY'S VISIT NO . CARDIOLOGY: NEW CHEST PRESSURE NO . PATIENT DENIES NO . RESPIRATORY: UNEXPLAINABLE COUGH NO . NEW SHORTNESS OF BREATH NO . VITAL SIGNS WT 209.4 LBS, HT 65 IN, BMI 34.84 INDEX, BP 141/64 MM HG, HR 82 /MIN, RR 18 /MIN, TEMP 97.6 F, OXYGEN SAT % 93%, NA INITIALS AW 1347. EXAMINATION GENERAL EXAMINATION: GENERALNO ACUTE DISTRESS, WELL NOURISHED AND HYDRATED. PSYCHAPPROPRIATE MOOD AND AFFECT . LUNGS:CLEAR TO AUSCULTATION BILATERALLY, NO WHEEZES, RHONCHI, RALES. HEART:NO MURMURS, REGULAR RATE AND RHYTHM. 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 (PRIMARY), RISK: (NULL) CHRONIC PRESCRIPTION OPIATE USE - Z79.891, RISK: (NULL) TREATMENT CERVICAL DISC DISORDER OF CERVICOTHORACIC REGION REFILL HYDROCODONE-ACETAMINOPHEN TABLET, 5-325 MG, 1 TABLET NEEDED, ORALLY, THREE TIMES DAILY PRN PAIN, 30 DAY(S), 90, REFILLS 0 CONTINUE TOUJEO SOLOSTAR PENS, 46 UNITS, INJECTION, DAILY NOTES: 75-YEAR-OLD FEMALE IN FOR CHRONIC PAIN FOLLOW-UP. GIVEN PRESENTING SYMPTOMS RECOMMENDED CONTINUATION OF CURRENT MEDICATION REGIMEN WITH FOLLOW-UP IN 3 MONTHS. PATIENT HAS EXPRESSED UNDERSTANDING OF AND WAS IN AGREEMENT WITH TREATMENT PLAN. GIVEN TIME TO ASK QUESTIONS AND EXPRESS CONCERNS. ISTOP REGISTRY REVIEWED AND DEMONSTRATES COMPLLIANCE. (REF # [id number] ) BRINGS IN MEDICATIONS WHICH IS APPROPRIATE FOR WHAT WAS DISPENSED. RECENT URINE TOXICOLOGY REVIEWED. NO UNAUTHORIZED MEDICATIONS. NO ILLICIT SUBSTANCES AND PRESCRIBED MEDICATIONS WERE PRESENT. CHRONIC PRESCRIPTION OPIATE USE LAB: URINE TEST GROUP ADRIANA YOUNG 09/25/2020 2:08:12 PM > LAST DOSE: HYDROCODONE-ACETAMINOPHEN 09/25/2020 AT 10AM PROCEDURE CODES FA211 ESTABILISHED PATIENT [facility] CHARGE DISPOSITION & COMMUNICATION FOLLOW UP 3 MONTHS (REASON: NECK PAIN ) ELECTRONICALLY SIGNED BY CHANDRAKANT MATHEW ON 09/28/2020 AT 08:43 AM EDT DISCLAIMER : THIS IS A VISIT SUMMARY EXTRACTED FROM THE [employer] CHART. IT IS NOT A COPY OF THE [employer] PROGRESS NOTE. MARTELL
== END ==
LOC: M PAIN 14:00
PROVIDERS: ATTEND Family Medicine
DX: M50.93 Cervical disc disorder, unspecified, cervicothoracic region (principal); G89.29 Other chronic pain; E11.9 Type 2 diabetes mellitus without complications; J44.9 Chronic obstructive pulmonary disease, unspecified; G20 Parkinson's disease; Z86.59 Personal history of other mental and behavioral disorders; Z88.8 Allergy status to other drugs, medicaments and biological substances; Z91.011 Allergy to milk products; Z79.01 Long term (current) use of anticoagulants; Z79.4 Long term (current) use of insulin; Z79.82 Long term (current) use of aspirin; Z79.899 Other long term (current) drug therapy

== ENCOUNTER → 2020-10-18 | Outpatient (CLI) | payer SELFPAY, MEDICARE | LOC: M LABSMTC 07:45 | PROVIDERS: ATTEND Pediatrics | DX: Z20.822 Contact with and (suspected) exposure to COVID-19 (principal) ==

== ENCOUNTER 2020-12-02 13:23 | Emergency (ER) | payer MEDICARE, OTHER ==
[~2020-12-02] VITALS: Ht 165.1 cm; Wt 93.6 kg
--- NOTE | 2020-12-02 16:27 | REP ---
INDICATION: pain, fall. COMPARISON: None. TECHNIQUE: Three views FINDINGS: Osteoporosis. Both medial laterally degenerative spurs. Marked narrowing medial compartment knee joint. No fracture or dislocation. Small joint effusion. Arterial calcifications. No fracture. IMPRESSION: Degenerative changes medial joint space narrowing no fracture. <Electronically signed by Gigi Brown > 12/02/20 0346
[2020-12-02] MEDS ORDERED: ACETAMINOPHEN 500 MG TAB PO ONE (17:00)
[2020-12-02] MEDS ORDERED: ANEC4CRE3 TOP (17:11)
[2020-12-02 17:19] VITALS: BP 130/78
== END 2020-12-02 17:21 | disposition home or self-care (01) ==
LOC: M ED 13:23
DX: M25.562 Pain in left knee (principal); M25.462 Effusion, left knee; W01.0XXA Fall on same level from slipping, tripping and stumbling without subsequent striking against object, initial encounter; Y92.019 Unspecified place in single-family (private) house as the place of occurrence of the external cause; Y93.9 Activity, unspecified; Y99.9 Unspecified external cause status; M25.762 Osteophyte, left knee; M81.8 Other osteoporosis without current pathological fracture; I10 Essential (primary) hypertension; E78.5 Hyperlipidemia, unspecified; E11.9 Type 2 diabetes mellitus without complications; J44.9 Chronic obstructive pulmonary disease, unspecified; Z88.8 Allergy status to other drugs, medicaments and biological substances; Z79.899 Other long term (current) drug therapy

== ENCOUNTER → 2021-04-05 | Outpatient (CLI) | payer MEDICARE, MEDICAID ==
[~2021-04-05] MED LIST changes: +ANEC4CRE3 TOP
== END ==
LOC: M PAIN 10:00
PROVIDERS: ATTEND Anesthesiology
DX: M79.18 Myalgia, other site (principal); M96.1 Postlaminectomy syndrome, not elsewhere classified; M51.16 Intervertebral disc disorders with radiculopathy, lumbar region; M25.562 Pain in left knee; E11.9 Type 2 diabetes mellitus without complications; J44.9 Chronic obstructive pulmonary disease, unspecified; G20 Parkinson's disease; Z86.59 Personal history of other mental and behavioral disorders; Z79.01 Long term (current) use of anticoagulants; Z79.4 Long term (current) use of insulin; Z79.82 Long term (current) use of aspirin; Z79.899 Other long term (current) drug therapy

== ENCOUNTER → 2021-05-06 | Outpatient (CLI) | payer MEDICARE, MEDICAID, OTHER ==
[2021-05-06 12:23] LABS: BLOOD UREA NITROGEN 26 MG/DL (7-18); GLOMERULAR FILTRATION RATE > 60.0 (>39)
== END ==
LOC: M LAB 11:16
PROVIDERS: ATTEND Anesthesiology
DX: M96.1 Postlaminectomy syndrome, not elsewhere classified (principal)

== ENCOUNTER → 2021-06-02 | Outpatient (CLI) | payer MEDICARE, MEDICAID ==
[~2021-06-02] MED LIST changes: -MOME50SP; +NASO50SP3; +PROHANCE 279.3MG/ML 15ML VIAL As Ordered ONE; +PROHANCE 279.3MG/ML 5ML VIAL As Ordered ONE
== END ==
LOC: M RAD 12:54
PROVIDERS: ATTEND Anesthesiology
DX: Z53.9 Procedure and treatment not carried out, unspecified reason (principal)

== ENCOUNTER 2021-06-18 10:52 | Outpatient (RCR) | payer MEDICARE, MEDICAID ==
[~2021-06-18 10:52] MED LIST changes: -PROHANCE 279.3MG/ML 15ML VIAL As Ordered ONE; -PROHANCE 279.3MG/ML 5ML VIAL As Ordered ONE
== END 2021-06-21 ==
LOC: M PT 10:52
PROVIDERS: ATTEND Orthopaedic Surgery
DX: M17.12 Unilateral primary osteoarthritis, left knee (principal)
CPT/HCPCS: 97110; 97161; 97530; G0283

== ENCOUNTER 2021-06-28 10:40 | Outpatient (RCR) | payer MEDICARE, MEDICAID | END 2021-07-22 | LOC: M PT 10:40 | PROVIDERS: ATTEND Orthopaedic Surgery | DX: M17.12 Unilateral primary osteoarthritis, left knee (principal) | CPT/HCPCS: 97110; G0283 ==

== ENCOUNTER → 2021-07-02 | Outpatient (CLI) | payer MEDICARE, MEDICAID | LOC: M SOG 10:57 | PROVIDERS: ATTEND Orthopaedic Surgery | DX: M17.12 Unilateral primary osteoarthritis, left knee (principal); M25.761 Osteophyte, right knee; M25.762 Osteophyte, left knee ==

== ENCOUNTER → 2021-08-24 | Outpatient (CLI) | payer MEDICARE, OTHER, MEDICAID | LOC: M PAIN 11:00 | PROVIDERS: ATTEND Nurse Practitioner Family | DX: M25.562 Pain in left knee (principal); G89.29 Other chronic pain; M79.10 Myalgia, unspecified site; E11.9 Type 2 diabetes mellitus without complications; J44.9 Chronic obstructive pulmonary disease, unspecified; G20 Parkinson's disease; Z88.8 Allergy status to other drugs, medicaments and biological substances; Z91.011 Allergy to milk products; Z79.01 Long term (current) use of anticoagulants; Z79.4 Long term (current) use of insulin; Z79.82 Long term (current) use of aspirin; Z79.899 Other long term (current) drug therapy ==

== ENCOUNTER → 2022-01-19 | Outpatient (CLI) | payer MEDICARE, OTHER, MEDICAID | LOC: M PAIN 09:15 | PROVIDERS: ATTEND Anesthesiology | DX: M79.10 Myalgia, unspecified site (principal); M23.207 Derangement of unspecified meniscus due to old tear or injury, left knee; M17.12 Unilateral primary osteoarthritis, left knee; G89.29 Other chronic pain; E11.9 Type 2 diabetes mellitus without complications; J44.9 Chronic obstructive pulmonary disease, unspecified; I10 Essential (primary) hypertension; J45.909 Unspecified asthma, uncomplicated; G20 Parkinson's disease; Z86.73 Personal history of transient ischemic attack (TIA), and cerebral infarction without residual deficits; Z86.59 Personal history of other mental and behavioral disorders; Z88.8 Allergy status to other drugs, medicaments and biological substances; Z91.011 Allergy to milk products; Z79.01 Long term (current) use of anticoagulants; Z79.4 Long term (current) use of insulin; Z79.82 Long term (current) use of aspirin; Z79.899 Other long term (current) drug therapy ==

== ENCOUNTER → 2022-03-02 | Outpatient (CLI) | payer MEDICARE, OTHER, MEDICAID | LOC: M PAIN 11:00 | PROVIDERS: ATTEND Anesthesiology | DX: M96.1 Postlaminectomy syndrome, not elsewhere classified (principal); M48.061 Spinal stenosis, lumbar region without neurogenic claudication; G89.29 Other chronic pain; E11.9 Type 2 diabetes mellitus without complications; J44.9 Chronic obstructive pulmonary disease, unspecified; I10 Essential (primary) hypertension; J45.909 Unspecified asthma, uncomplicated; G20 Parkinson's disease; Z86.59 Personal history of other mental and behavioral disorders; Z86.73 Personal history of transient ischemic attack (TIA), and cerebral infarction without residual deficits; Z88.8 Allergy status to other drugs, medicaments and biological substances; Z91.011 Allergy to milk products; Z79.01 Long term (current) use of anticoagulants; Z79.4 Long term (current) use of insulin; Z79.899 Other long term (current) drug therapy ==

== ENCOUNTER → 2022-06-22 | Outpatient (CLI) | payer MEDICARE, OTHER, MEDICAID | LOC: M PAIN 10:30 | PROVIDERS: ATTEND Anesthesiology | DX: M96.1 Postlaminectomy syndrome, not elsewhere classified (principal); M48.062 Spinal stenosis, lumbar region with neurogenic claudication; G89.29 Other chronic pain; E11.9 Type 2 diabetes mellitus without complications; J44.9 Chronic obstructive pulmonary disease, unspecified; I10 Essential (primary) hypertension; G20 Parkinson's disease; F43.10 Post-traumatic stress disorder, unspecified; F33.1 Major depressive disorder, recurrent, moderate; Z86.73 Personal history of transient ischemic attack (TIA), and cerebral infarction without residual deficits; Z88.8 Allergy status to other drugs, medicaments and biological substances; Z91.011 Allergy to milk products; Z79.01 Long term (current) use of anticoagulants; Z79.4 Long term (current) use of insulin; Z79.82 Long term (current) use of aspirin; Z79.84 Long term (current) use of oral hypoglycemic drugs; Z79.85 Long-term (current) use of injectable non-insulin antidiabetic drugs; Z79.899 Other long term (current) drug therapy | CPT/HCPCS: G0463 ×2 ==

== ENCOUNTER → 2022-08-29 | Outpatient (CLI) | payer MEDICARE, OTHER, MEDICAID | LOC: M PAIN 10:45 | PROVIDERS: ATTEND Nurse Practitioner Family | DX: M96.1 Postlaminectomy syndrome, not elsewhere classified (principal); G89.29 Other chronic pain; E11.9 Type 2 diabetes mellitus without complications; J44.9 Chronic obstructive pulmonary disease, unspecified; I10 Essential (primary) hypertension; G20 Parkinson's disease; Z86.59 Personal history of other mental and behavioral disorders; Z86.73 Personal history of transient ischemic attack (TIA), and cerebral infarction without residual deficits; Z88.8 Allergy status to other drugs, medicaments and biological substances; Z91.011 Allergy to milk products; Z79.01 Long term (current) use of anticoagulants; Z79.4 Long term (current) use of insulin; Z79.84 Long term (current) use of oral hypoglycemic drugs; Z79.85 Long-term (current) use of injectable non-insulin antidiabetic drugs; Z79.899 Other long term (current) drug therapy ==

== ENCOUNTER → 2022-10-17 | Outpatient (CLI) | payer MEDICARE, OTHER, MEDICAID | LOC: M PAIN 10:00 | PROVIDERS: ATTEND Nurse Practitioner Family | DX: M96.1 Postlaminectomy syndrome, not elsewhere classified (principal); G89.29 Other chronic pain; E11.9 Type 2 diabetes mellitus without complications; J44.9 Chronic obstructive pulmonary disease, unspecified; I10 Essential (primary) hypertension; G20 Parkinson's disease; Z86.59 Personal history of other mental and behavioral disorders; Z88.8 Allergy status to other drugs, medicaments and biological substances; Z91.011 Allergy to milk products; Z79.01 Long term (current) use of anticoagulants; Z79.82 Long term (current) use of aspirin; Z79.84 Long term (current) use of oral hypoglycemic drugs; Z79.85 Long-term (current) use of injectable non-insulin antidiabetic drugs; Z79.899 Other long term (current) drug therapy ==

== ENCOUNTER 2023-05-11 03:52 | Emergency (ER) | payer MEDICAID, MEDICARE, OTHER ==
[~2023-05-11] VITALS: Ht 165.1 cm; Wt 94.0 kg
[~2023-05-11 03:52] MED LIST changes: -GABA-283 PO; +GABA-284 PO
[2023-05-11] MEDS ORDERED: OXYMETAZOLINE 0.05% NASAL SPRAY (AFRIN) ONE (04:00)
[2023-05-11 04:48] LABS: BASO # 0.1 10^3/uL (0.0-0.2); BASO % 0.7 % (0.0-1.0); EOS # 0.4 10^3/uL (0.0-0.5); EOS % 4.8 % (0.0-3.0); HEMATOCRIT 39.9 % (36.0-47.0); LYMPH # 3.8 10^3/uL (1.5-5.0); LYMPH % 42.2 % (24.0-44.0); MEAN CORPUSCULAR HGB CONC 32.6 g/dl (32.0-36.5); MEAN CORPUSCULAR VOLUME 95.2 fl (80.0-96.0); MONO # 0.6 10^3/uL (0.0-0.8); MONO % 6.5 % (2.0-8.0); NEUTROPHILS # 4.1 10^3/uL (1.5-8.5); NEUTROPHILS % 45.6 % (36.0-66.0); PLATELET COUNT, AUTOMATED 347 10^3/uL (150-450); RED BLOOD COUNT 4.19 10^6/uL (4.00-5.40)
[2023-05-11 05:00] LABS: INR 1.2; PROTHROMBIN TIME 14.9 SECONDS (12.5-14.5)
[2023-05-11 05:01] LABS: PARTIAL THROMBOPLASTIN TIME 28.1 SECONDS (24.8-34.2)
[2023-05-11 05:17] LABS: BLOOD UREA NITROGEN 11 MG/DL (9-23); CALCIUM LEVEL 8.7 MG/DL (8.3-10.6); CARBON DIOXIDE LEVEL 28 MMOL/L (20-31); CHLORIDE LEVEL 110 MMOL/L (98-107); CREATININE FOR GFR 0.69 MG/DL (0.55-1.30); GLOMERULAR FILTRATION RATE > 60.0 (>39); GLUCOSE, FASTING 171 MG/DL (74-106); POTASSIUM SERUM 4.2 MMOL/L (3.5-5.1); SODIUM LEVEL 144 MMOL/L (136-145)
[2023-05-11 06:38] VITALS: BP 169/81; TEMP 97.9; O2SAT 95
== END 2023-05-11 06:21 | disposition home or self-care (01) ==
LOC: M ED 03:52 → EDBD 03:52 → M ED 06:21
DX: R04.0 Epistaxis (principal); E11.9 Type 2 diabetes mellitus without complications; I10 Essential (primary) hypertension; E78.5 Hyperlipidemia, unspecified; F43.10 Post-traumatic stress disorder, unspecified; Z86.79 Personal history of other diseases of the circulatory system; Z79.84 Long term (current) use of oral hypoglycemic drugs; Z79.4 Long term (current) use of insulin; Z91.011 Allergy to milk products; Z88.8 Allergy status to other drugs, medicaments and biological substances; Z79.82 Long term (current) use of aspirin; Z79.811 Long term (current) use of aromatase inhibitors; Z79.899 Other long term (current) drug therapy

== ENCOUNTER 2023-05-18 07:53 | Observation (INO) | payer MEDICARE ==
[~2023-05-18] VITALS: Ht 165.1 cm; Wt 95.9 kg
[2023-05-18] MEDS ORDERED: diazePAM 10MG/2ML SYRINGE IV ONE (08:55)
[2023-05-18] MEDS: MORPHINE 2 MG/ML 1ML VIAL IV PRN ×2 (09:32→12:07)
[2023-05-18] MEDS ORDERED: ONDANSETRON 4MG 2ML VIAL IV ONE (09:40)
[2023-05-18 10:14] LABS: BASO # 0.1 10^3/uL (0.0-0.2); BASO % 0.8 % (0.0-1.0); EOS # 0.1 10^3/uL (0.0-0.5); EOS % 0.8 % (0.0-3.0); HEMATOCRIT 39.3 % (36.0-47.0); HEMOGLOBIN 12.7 g/dl (12.0-15.5); LYMPH # 2.1 10^3/uL (1.5-5.0); LYMPH % 23.1 % (24.0-44.0); MEAN CORPUSCULAR HGB CONC 32.3 g/dl (32.0-36.5); MEAN CORPUSCULAR VOLUME 95.9 fl (80.0-96.0); MONO # 0.5 10^3/uL (0.0-0.8); MONO % 5.2 % (2.0-8.0); NEUTROPHILS # 6.4 10^3/uL (1.5-8.5); NEUTROPHILS % 69.8 % (36.0-66.0); PLATELET COUNT, AUTOMATED 355 10^3/uL (150-450); WHITE BLOOD COUNT 9.1 10^3/uL (4.0-10.0)
[2023-05-18 10:45] LABS: BLOOD UREA NITROGEN 10 MG/DL (9-23); CALCIUM LEVEL 9.1 MG/DL (8.3-10.6); CARBON DIOXIDE LEVEL 27 MMOL/L (20-31); CHLORIDE LEVEL 107 MMOL/L (98-107); CREATININE FOR GFR 0.66 MG/DL (0.55-1.30); GLOMERULAR FILTRATION RATE > 60.0 (>39); GLUCOSE, FASTING 92 MG/DL (74-106); POTASSIUM SERUM 4.2 MMOL/L (3.5-5.1); SODIUM LEVEL 139 MMOL/L (136-145)
[2023-05-18] MEDS ORDERED: ISOVUE-370 76% 100ML VIAL As Ordered ONE (10:53)
[2023-05-18] MEDS ORDERED: MED REC IN PROGRESS XX SCH (14:30)
[2023-05-18] MEDS: LIDOCAINE 5% (LIDODERM) PATCH TD SCH (14:49)
[2023-05-18] MEDS ORDERED: CARB25TA9 PO (15:08)
[2023-05-18] MEDS ORDERED: ALBU8.5H PO (15:08)
[2023-05-18] MEDS ORDERED: ZOLP10TA2 PO (15:08)
[2023-05-18] MEDS ORDERED: SEMA0.257 SC (15:08)
[2023-05-18] MEDS ORDERED: HYDR-4571 PO (15:08)
[2023-05-18] MEDS ORDERED: B-CO1TAB12 PO (15:08)
[2023-05-18] MEDS ORDERED: ATIV1TAB10 PO (15:08)
[2023-05-18] MEDS ORDERED: FLUTISP NARES (15:08)
[2023-05-18] MEDS ORDERED: FAMO20TA5 PO (15:08)
[2023-05-18] MEDS ORDERED: HOME MED LIST COMPLETE! XX SCH (15:10)
[2023-05-18] MEDS ORDERED: LORazepam 2 MG/ML 1ML VIAL IV ONE (16:00)
[2023-05-18] MEDS ORDERED: GLUCOSE 4GM CHEW TABLET PO PRN (17:20)
[2023-05-18] MEDS ORDERED: GLUCAGON INJ 1MG VIAL SC PRN (17:20)
[2023-05-18] MEDS ORDERED: DEXTROSE 50% 50ML SYRINGE IV PRN (17:20)
[2023-05-18] MEDS: INSULIN LISPRO (NovoLOG) PER UNIT SC SCH ×2 (17:30→20:18)
[2023-05-18 18:31] VITALS: BP 148/66; TEMP 98.8; O2SAT 97
[2023-05-18] MEDS: KETOROLAC 30 MG/ML 1ML VIAL IV SCH (18:46)
[2023-05-18 20:02] VITALS: BP 133/55; TEMP 97.9; O2SAT 94
[2023-05-18] MEDS: ADVAIR HFA 115/21MCG INHALER INH SCH (20:12)
[2023-05-18] MEDS: traZODone 25MG PER 1/2 TABLET PO PRN (20:19)
[2023-05-18] MEDS: LORazepam 0.5 MG TAB PO SCH (20:19)
[2023-05-18] MEDS: SENOKOT S TAB PO SCH (20:19)
[2023-05-18] MEDS: SINEMET 25-100 MG TAB PO SCH (20:19)
[2023-05-18] MEDS: GABAPENTIN 300 MG CAP PO SCH (20:19)
[2023-05-18] MEDS: SIMVASTATIN 40 MG TAB PO SCH (20:19)
[2023-05-18] MEDS: PERCOCET 5MG/325MG TAB PO SCH (20:21)
[2023-05-19] MEDS: KETOROLAC 30 MG/ML 1ML VIAL IV SCH ×4 (00:48→17:19)
[2023-05-19 05:18] VITALS: BP 138/62; TEMP 97.9; O2SAT 92
[2023-05-19] MEDS: INSULIN LISPRO (NovoLOG) PER UNIT SC SCH ×4 (07:30→21:00)
[2023-05-19] MEDS: ADVAIR HFA 115/21MCG INHALER INH SCH ×2 (07:34→19:26)
[2023-05-19] MEDS ORDERED: LEVEMIR (INSULIN DETEMIR) 1 UNITS/0.01ML SC SCH (09:00)
[2023-05-19] MEDS: MIRALAX *UNIT DOSE* 17GM PACKET PO SCH (09:00)
[2023-05-19] MEDS: LIDOCAINE 5% (LIDODERM) PATCH TD SCH (09:32)
[2023-05-19] MEDS: SINEMET 25-100 MG TAB PO SCH ×3 (09:32→21:57)
[2023-05-19] MEDS: VITAMIN B COMPLEX/VIT C CAP PO SCH (09:33)
[2023-05-19] MEDS: SENOKOT S TAB PO SCH ×2 (09:33→21:58)
[2023-05-19] MEDS: GABAPENTIN 300 MG CAP PO SCH ×2 (09:33→21:57)
[2023-05-19] MEDS: LORazepam 0.5 MG TAB PO SCH ×2 (09:33→21:57)
[2023-05-19] MEDS: PERCOCET 5MG/325MG TAB PO SCH ×4 (09:33→22:00)
[2023-05-19] MEDS: CLOPIDOGREL 75 MG TAB PO SCH (09:34)
[2023-05-19] MEDS: FAMOTIDINE 20 MG TAB PO SCH (09:34)
[2023-05-19] MEDS: FLUTICASONE PROP 0.05% NASAL SPRAY 16 GM (FLONASE) NARES SCH (09:35)
[2023-05-19 13:39] VITALS: BP 136/58; TEMP 97.9; O2SAT 90
[2023-05-19] MEDS: CYCLOBENZAPRINE 5MG TABLET PO PRN (15:09)
[2023-05-19 21:00] VITALS: BP 132/59; TEMP 98.1; O2SAT 94
[2023-05-19] MEDS: SIMVASTATIN 40 MG TAB PO SCH (21:58)
[2023-05-19] MEDS: LEVEMIR (INSULIN DETEMIR) 1 UNITS/0.01ML SC SCH (21:58)
[2023-05-19] MEDS: traZODone 25MG PER 1/2 TABLET PO PRN (21:58)
[2023-05-20] MEDS: KETOROLAC 30 MG/ML 1ML VIAL IV SCH ×4 (00:48→17:55)
[2023-05-20 05:20] VITALS: BP 130/60; TEMP 97.4; O2SAT 94
[2023-05-20] MEDS: ADVAIR HFA 115/21MCG INHALER INH SCH ×2 (07:17→19:12)
[2023-05-20] MEDS ORDERED: methylPREDNISolone 40MG 1ML VIAL IV ONE (07:50)
[2023-05-20] MEDS: INSULIN LISPRO (NovoLOG) PER UNIT SC SCH ×4 (10:23→21:35)
[2023-05-20] MEDS: LEVEMIR (INSULIN DETEMIR) 1 UNITS/0.01ML SC SCH ×2 (10:24→21:35)
[2023-05-20] MEDS: LORazepam 0.5 MG TAB PO SCH ×2 (10:25→21:34)
[2023-05-20] MEDS: GABAPENTIN 300 MG CAP PO SCH ×3 (10:25→21:34)
[2023-05-20] MEDS: PERCOCET 5MG/325MG TAB PO SCH ×4 (10:26→21:38)
[2023-05-20] MEDS: FAMOTIDINE 20 MG TAB PO SCH (10:26)
[2023-05-20] MEDS: CLOPIDOGREL 75 MG TAB PO SCH (10:27)
[2023-05-20] MEDS: MIRALAX *UNIT DOSE* 17GM PACKET PO SCH (10:27)
[2023-05-20] MEDS: LIDOCAINE 5% (LIDODERM) PATCH TD SCH (10:27)
[2023-05-20] MEDS: SENOKOT S TAB PO SCH ×2 (10:27→21:34)
[2023-05-20] MEDS: FLUTICASONE PROP 0.05% NASAL SPRAY 16 GM (FLONASE) NARES SCH (10:28)
[2023-05-20] MEDS: SINEMET 25-100 MG TAB PO SCH ×3 (10:28→21:34)
[2023-05-20] MEDS: VITAMIN B COMPLEX/VIT C CAP PO SCH (10:28)
[2023-05-20 14:00] VITALS: BP 160/74; TEMP 97.1; O2SAT 92
[2023-05-20] MEDS: CYCLOBENZAPRINE 5MG TABLET PO PRN (18:01)
[2023-05-20 19:48] VITALS: BP 152/72; TEMP 98.1; O2SAT 97
[2023-05-20] MEDS: traZODone 25MG PER 1/2 TABLET PO PRN (21:34)
[2023-05-20] MEDS: SIMVASTATIN 40 MG TAB PO SCH (21:34)
[2023-05-21] MEDS: KETOROLAC 30 MG/ML 1ML VIAL IV SCH ×4 (00:16→17:51)
[2023-05-21 05:08] VITALS: BP 135/68; TEMP 97.9; O2SAT 96
[2023-05-21] MEDS: ADVAIR HFA 115/21MCG INHALER INH SCH ×2 (07:27→19:27)
[2023-05-21 07:39] LABS: BASO # 0.1 10^3/uL (0.0-0.2); BASO % 0.5 % (0.0-1.0); EOS # 0.1 10^3/uL (0.0-0.5); EOS % 0.9 % (0.0-3.0); HEMATOCRIT 37.7 % (36.0-47.0); LYMPH # 3.7 10^3/uL (1.5-5.0); LYMPH % 29.9 % (24.0-44.0); MEAN CORPUSCULAR HEMOGLOBIN 30.5 pg (27.0-33.0); MEAN CORPUSCULAR HGB CONC 31.8 g/dl (32.0-36.5); MEAN CORPUSCULAR VOLUME 95.7 fl (80.0-96.0); MONO # 0.8 10^3/uL (0.0-0.8); MONO % 6.4 % (2.0-8.0); NEUTROPHILS # 7.7 10^3/uL (1.5-8.5); PLATELET COUNT, AUTOMATED 347 10^3/uL (150-450); RED BLOOD COUNT 3.94 10^6/uL (4.00-5.40); WHITE BLOOD COUNT 12.4 10^3/uL (4.0-10.0)
[2023-05-21 08:06] LABS: ALBUMIN 3.2 G/DL (3.2-5.2); ALKALINE PHOSPHATASE 55 U/L (46-116); ALT/SGPT < 9 U/L (7.0-40); AST/SGOT 11 U/L (<34); BILIRUBIN,TOTAL 0.3 MG/DL (0.3-1.2); BLOOD UREA NITROGEN 25 MG/DL (9-23); CALCIUM LEVEL 9.2 MG/DL (8.3-10.6); CARBON DIOXIDE LEVEL 26 MMOL/L (20-31); CHLORIDE LEVEL 109 MMOL/L (98-107); CREATININE FOR GFR 0.82 MG/DL (0.55-1.30); GLOMERULAR FILTRATION RATE > 60.0 (>39); GLUCOSE, FASTING 175 MG/DL (74-106); POTASSIUM SERUM 4.8 MMOL/L (3.5-5.1); SODIUM LEVEL 141 MMOL/L (136-145); TOTAL PROTEIN 5.8 G/DL (5.7-8.2)
[2023-05-21] MEDS ORDERED: MIRALAX *UNIT DOSE* 17GM PACKET PO SCH (09:00)
[2023-05-21] MEDS: LEVEMIR (INSULIN DETEMIR) 1 UNITS/0.01ML SC SCH ×2 (09:35→20:54)
[2023-05-21] MEDS: SENOKOT S TAB PO SCH ×2 (09:36→20:53)
[2023-05-21] MEDS: FAMOTIDINE 20 MG TAB PO SCH (09:36)
[2023-05-21] MEDS: INSULIN LISPRO (NovoLOG) PER UNIT SC SCH ×4 (09:36→20:54)
[2023-05-21] MEDS: GABAPENTIN 300 MG CAP PO SCH ×3 (09:36→20:53)
[2023-05-21] MEDS: LORazepam 0.5 MG TAB PO SCH ×2 (09:36→20:53)
[2023-05-21] MEDS: MIRALAX *UNIT DOSE* 17GM PACKET PO SCH (09:36)
[2023-05-21] MEDS: VITAMIN B COMPLEX/VIT C CAP PO SCH (09:36)
[2023-05-21] MEDS: CLOPIDOGREL 75 MG TAB PO SCH (09:36)
[2023-05-21] MEDS: SINEMET 25-100 MG TAB PO SCH ×3 (09:36→20:53)
[2023-05-21] MEDS: PERCOCET 5MG/325MG TAB PO SCH ×4 (09:37→20:56)
[2023-05-21] MEDS: FLUTICASONE PROP 0.05% NASAL SPRAY 16 GM (FLONASE) NARES SCH (09:38)
[2023-05-21] MEDS: LIDOCAINE 5% (LIDODERM) PATCH TD SCH (09:39)
[2023-05-21] MEDS ORDERED: methylPREDNISolone 40MG 1ML VIAL IV ONE (10:00)
[2023-05-21 20:19] VITALS: BP 141/70; TEMP 98.6; O2SAT 93
[2023-05-21] MEDS: traZODone 25MG PER 1/2 TABLET PO PRN (20:54)
[2023-05-21] MEDS: SIMVASTATIN 40 MG TAB PO SCH (20:54)
[2023-05-22] MEDS: KETOROLAC 30 MG/ML 1ML VIAL IV SCH ×4 (00:12→18:09)
[2023-05-22 04:28] VITALS: BP 133/60; TEMP 97.3; O2SAT 96
[2023-05-22] MEDS: ADVAIR HFA 115/21MCG INHALER INH SCH ×2 (07:34→19:53)
[2023-05-22] MEDS: LEVEMIR (INSULIN DETEMIR) 1 UNITS/0.01ML SC SCH ×2 (08:22→20:18)
[2023-05-22] MEDS: LIDOCAINE 5% (LIDODERM) PATCH TD SCH (08:23)
[2023-05-22] MEDS: INSULIN LISPRO (NovoLOG) PER UNIT SC SCH ×4 (08:23→20:18)
[2023-05-22 08:24] VITALS: BP 120/72
[2023-05-22] MEDS: CLOPIDOGREL 75 MG TAB PO SCH (08:24)
[2023-05-22] MEDS: GABAPENTIN 300 MG CAP PO SCH ×3 (08:24→20:11)
[2023-05-22] MEDS: LORazepam 0.5 MG TAB PO SCH ×2 (08:24→20:11)
[2023-05-22] MEDS: SINEMET 25-100 MG TAB PO SCH ×3 (08:25→20:12)
[2023-05-22] MEDS: FAMOTIDINE 20 MG TAB PO SCH (08:25)
[2023-05-22] MEDS: SENOKOT S TAB PO SCH ×2 (08:26→20:11)
[2023-05-22] MEDS: MIRALAX *UNIT DOSE* 17GM PACKET PO SCH (08:30)
[2023-05-22] MEDS: PERCOCET 5MG/325MG TAB PO SCH ×4 (08:30→20:12)
[2023-05-22] MEDS: VITAMIN B COMPLEX/VIT C CAP PO SCH (08:40)
[2023-05-22] MEDS: FLUTICASONE PROP 0.05% NASAL SPRAY 16 GM (FLONASE) NARES SCH (08:40)
[2023-05-22] MEDS: SIMVASTATIN 40 MG TAB PO SCH (20:11)
[2023-05-23] MEDS: KETOROLAC 30 MG/ML 1ML VIAL IV SCH ×2 (00:07→05:25)
[2023-05-23 05:26] VITALS: BP 159/90; TEMP 97.7; O2SAT 97
[2023-05-23] MEDS: ADVAIR HFA 115/21MCG INHALER INH SCH (07:40)
[2023-05-23] MEDS: INSULIN LISPRO (NovoLOG) PER UNIT SC SCH ×2 (08:33→12:13)
[2023-05-23] MEDS: FLUTICASONE PROP 0.05% NASAL SPRAY 16 GM (FLONASE) NARES SCH (08:34)
[2023-05-23] MEDS: LIDOCAINE 5% (LIDODERM) PATCH TD SCH (08:34)
[2023-05-23] MEDS: LEVEMIR (INSULIN DETEMIR) 1 UNITS/0.01ML SC SCH (08:34)
[2023-05-23] MEDS: CLOPIDOGREL 75 MG TAB PO SCH (08:35)
[2023-05-23] MEDS: FAMOTIDINE 20 MG TAB PO SCH (08:35)
[2023-05-23] MEDS: LORazepam 0.5 MG TAB PO SCH (08:35)
[2023-05-23] MEDS: VITAMIN B COMPLEX/VIT C CAP PO SCH (08:35)
[2023-05-23] MEDS: SINEMET 25-100 MG TAB PO SCH (08:35)
[2023-05-23] MEDS: SENOKOT S TAB PO SCH (08:35)
[2023-05-23] MEDS: PERCOCET 5MG/325MG TAB PO SCH ×2 (08:36→12:12)
[2023-05-23] MEDS: GABAPENTIN 300 MG CAP PO SCH (08:36)
[2023-05-23] MEDS: MIRALAX *UNIT DOSE* 17GM PACKET PO SCH (08:36)
[2023-05-23] MEDS ORDERED: KETOROLAC 30 MG/ML 1ML VIAL IV PRN (09:20)
[2023-05-23] MEDS ORDERED: SENN-52 PO (11:45)
[2023-05-23] MEDS ORDERED: MIRA1POW3 PO (11:45)
[2023-05-23] MEDS ORDERED: GABA-282 PO (11:45)
[2023-05-23] MEDS ORDERED: NAPR-885 PO (11:45)
[2023-05-23] MEDS ORDERED: MEDR4PAK PO (11:45)
== END 2023-05-23 13:17 | disposition home or self-care (01) ==
LOC: EDBD 07:53 → M ED 07:53 → M ED INP 14:13 → ENRESERV 16:05 → M MSPAV 18:15
PROVIDERS: ADMIT Internal Medicine Nephrology; ATTEND Internal Medicine Nephrology
DX: M54.50 Low back pain, unspecified (principal); G89.29 Other chronic pain; G20.C Parkinsonism, unspecified; E11.9 Type 2 diabetes mellitus without complications; I10 Essential (primary) hypertension; E78.5 Hyperlipidemia, unspecified; R33.9 Retention of urine, unspecified; N39.46 Mixed incontinence; J44.9 Chronic obstructive pulmonary disease, unspecified; Z86.73 Personal history of transient ischemic attack (TIA), and cerebral infarction without residual deficits; M19.90 Unspecified osteoarthritis, unspecified site; Z79.51 Long term (current) use of inhaled steroids; Z79.4 Long term (current) use of insulin; Z79.84 Long term (current) use of oral hypoglycemic drugs; Z79.899 Other long term (current) drug therapy; Z91.011 Allergy to milk products; Z88.8 Allergy status to other drugs, medicaments and biological substances
CPT/HCPCS: 36415; 72132; 72146; 72148; 80048; 80053; 81001; 85025; 87086; 87635; 94640; 96374; 96375; 96376; 97116; 97161; 97165; 97530; 97535; 99285; G0378; J1815; J1885; J2060; J2405; J2920; J3360; Q9967

== ENCOUNTER → 2023-06-09 | Outpatient (CLI) | payer MEDICARE, OTHER, MEDICAID ==
[~2023-06-09] MED LIST changes: +ALBU8.5H PO; +ATIV1TAB10 PO; +B-CO1TAB12 PO; +CARB25TA9 PO; +FAMO20TA5 PO; +FLUTISP NARES; +GABA-282 PO; +HYDR-4571 PO; +MEDR4PAK PO; +MIRA33506 PO; +SEMA0.257 SC; +SENN-52 PO; +ZOLP10TA2 PO
== END ==
LOC: M PAIN 14:00
PROVIDERS: ATTEND Nurse Practitioner Family
DX: M79.18 Myalgia, other site (principal); Z79.891 Long term (current) use of opiate analgesic; M25.552 Pain in left hip; M96.1 Postlaminectomy syndrome, not elsewhere classified; G89.29 Other chronic pain; E11.9 Type 2 diabetes mellitus without complications; J44.9 Chronic obstructive pulmonary disease, unspecified; I10 Essential (primary) hypertension; E78.00 Pure hypercholesterolemia, unspecified; J45.909 Unspecified asthma, uncomplicated; Z79.84 Long term (current) use of oral hypoglycemic drugs; Z79.82 Long term (current) use of aspirin; Z79.899 Other long term (current) drug therapy; Z88.8 Allergy status to other drugs, medicaments and biological substances; Z91.011 Allergy to milk products

== ENCOUNTER → 2023-08-18 | Outpatient (CLI) | payer MEDICARE, OTHER, MEDICAID | LOC: M PAIN 14:45 | PROVIDERS: ATTEND Nurse Practitioner Family | DX: M53.3 Sacrococcygeal disorders, not elsewhere classified (principal); M25.552 Pain in left hip; M96.1 Postlaminectomy syndrome, not elsewhere classified; Z79.891 Long term (current) use of opiate analgesic; M79.10 Myalgia, unspecified site; G89.29 Other chronic pain; F32.A Depression, unspecified; E11.9 Type 2 diabetes mellitus without complications; J44.9 Chronic obstructive pulmonary disease, unspecified; I10 Essential (primary) hypertension; E78.00 Pure hypercholesterolemia, unspecified; J45.909 Unspecified asthma, uncomplicated; G20.C Parkinsonism, unspecified; Z86.73 Personal history of transient ischemic attack (TIA), and cerebral infarction without residual deficits; Z79.84 Long term (current) use of oral hypoglycemic drugs; Z79.899 Other long term (current) drug therapy; Z79.02 Long term (current) use of antithrombotics/antiplatelets; Z79.82 Long term (current) use of aspirin; Z91.011 Allergy to milk products; Z88.8 Allergy status to other drugs, medicaments and biological substances ==

== ENCOUNTER → 2023-09-01 | Outpatient (CLI) | payer MEDICARE, MEDICAID | LOC: M RAD 10:51 | PROVIDERS: ATTEND Nurse Practitioner Family | DX: M96.1 Postlaminectomy syndrome, not elsewhere classified (principal); M53.3 Sacrococcygeal disorders, not elsewhere classified; M51.36 Other intervertebral disc degeneration, lumbar region ==

== ENCOUNTER → 2023-10-17 | Outpatient (CLI) | payer MEDICARE, OTHER, MEDICAID ==
[~2023-10-17] MED LIST changes: +FLUO-365 PO; -FLUO20CA22 PO
== END ==
LOC: M PAIN 09:15
PROVIDERS: ATTEND Nurse Practitioner Family
DX: M53.3 Sacrococcygeal disorders, not elsewhere classified (principal); M25.552 Pain in left hip; M96.1 Postlaminectomy syndrome, not elsewhere classified; Z79.891 Long term (current) use of opiate analgesic; M79.10 Myalgia, unspecified site; G89.29 Other chronic pain; F32.A Depression, unspecified; E11.9 Type 2 diabetes mellitus without complications; J44.9 Chronic obstructive pulmonary disease, unspecified; I10 Essential (primary) hypertension; E78.00 Pure hypercholesterolemia, unspecified; J45.909 Unspecified asthma, uncomplicated; G20.A1 Parkinson's disease without dyskinesia, without mention of fluctuations; Z79.84 Long term (current) use of oral hypoglycemic drugs; Z79.899 Other long term (current) drug therapy; Z79.02 Long term (current) use of antithrombotics/antiplatelets; Z88.8 Allergy status to other drugs, medicaments and biological substances; Z91.011 Allergy to milk products

== ENCOUNTER → 2023-12-18 | Outpatient (CLI) | payer MEDICARE, OTHER, MEDICAID ==
[~2023-12-18] MED LIST changes: -B-CO1TAB12 PO; +B-CO1TAB14 PO
== END ==
LOC: M PAIN 10:45
PROVIDERS: ATTEND Nurse Practitioner Family
DX: M53.3 Sacrococcygeal disorders, not elsewhere classified (principal); G89.29 Other chronic pain; Z79.891 Long term (current) use of opiate analgesic; M25.552 Pain in left hip; M96.1 Postlaminectomy syndrome, not elsewhere classified; M79.10 Myalgia, unspecified site; M25.562 Pain in left knee; F32.A Depression, unspecified; E11.9 Type 2 diabetes mellitus without complications; J44.9 Chronic obstructive pulmonary disease, unspecified; I10 Essential (primary) hypertension; E78.00 Pure hypercholesterolemia, unspecified; N39.46 Mixed incontinence; M19.90 Unspecified osteoarthritis, unspecified site; J45.909 Unspecified asthma, uncomplicated; G20.A1 Parkinson's disease without dyskinesia, without mention of fluctuations; Z86.73 Personal history of transient ischemic attack (TIA), and cerebral infarction without residual deficits; Z79.84 Long term (current) use of oral hypoglycemic drugs; Z79.02 Long term (current) use of antithrombotics/antiplatelets; Z79.82 Long term (current) use of aspirin; Z79.899 Other long term (current) drug therapy; Z91.011 Allergy to milk products; Z88.8 Allergy status to other drugs, medicaments and biological substances

== ENCOUNTER → 2024-01-11 | Outpatient (CLI) | payer MEDICARE, OTHER, MEDICAID | LOC: M SOG 07:28 | PROVIDERS: ATTEND Orthopaedic Surgery | DX: M17.0 Bilateral primary osteoarthritis of knee (principal); M85.862 Other specified disorders of bone density and structure, left lower leg ==

== ENCOUNTER → 2024-04-19 | Outpatient (CLI) | payer MEDICARE, OTHER, MEDICAID ==
[~2024-04-19] MED LIST changes: +GABA-1172 PO; -GABA-282 PO; +METF-1157 PO; -METF-818 PO
== END ==
LOC: M PAIN 10:30
PROVIDERS: ATTEND Nurse Practitioner Family
DX: M25.552 Pain in left hip (principal); M79.10 Myalgia, unspecified site; G89.29 Other chronic pain; Z79.02 Long term (current) use of antithrombotics/antiplatelets; Z79.4 Long term (current) use of insulin; Z79.51 Long term (current) use of inhaled steroids; Z79.84 Long term (current) use of oral hypoglycemic drugs; Z79.85 Long-term (current) use of injectable non-insulin antidiabetic drugs; Z79.899 Other long term (current) drug therapy; Z80.42 Family history of malignant neoplasm of prostate; Z88.8 Allergy status to other drugs, medicaments and biological substances; Z91.011 Allergy to milk products